=== PATIENT | female | born 1950 | race Caucasian/White ===

== ENCOUNTER 2016-11-01 15:02 | Inpatient (IN) | payer MEDICARE, OTHER ==
[2016-11-01] MEDS ORDERED: MAGNESIUM SULFATE-D5W PMX 1 GM in DEXTROSE/WATER 1 100ML.BAG IVPB STA (15:14)
[2016-11-01] MEDS ORDERED: SODIUM CHLORIDE 0.9% 1,000 ML IV STA (15:14)
[2016-11-01] MEDS ORDERED: methylPREDNISolone SOD SUCCI 125 MG/2 ML VIAL IV STA (15:15)
[2016-11-01] MEDS ORDERED: IPRATROPIUM-ALBUTEROL 3 ML NEB INHALATION STA (15:15)
--- NOTE | 2016-11-01 15:18 | ED ---
SOB HPI - General Chief Complaint: Shortness of Breath Stated Complaint: dx pneumonia Time Seen by Provider: 11/01/16 15:14 Source: patient, EMS, RN notes reviewed Mode of arrival: EMS Limitations: no limitations - History of Present Illness Initial Comments: Is a 66-year-old female who is a smoker for many years who presents with complaints of 3 days of not feeling well she has had a cough fevers chills sweats she's had phlegm production is yellow-brown in color some pain when coughing but no chest pain otherwise. She states she is a smoker and is trying to quit but has a problem with the adhesive for the nicotine patches had a bad reaction with Chantix. She was seen in outpatient clinic and diagnosed with pneumonia and she was sent here she was given an updraft in route with some relief. MD Complaint: shortness of breath, cough - Related Data Home Medications Medication Instructions Recorded Confirmed Citalopram Hydrobromide [CeleXA] 40 mg PO [facility] 07/18/16 11/01/16 Hydrochlorothiazide [Hydrodiuril] 25 mg PO DAILY 07/18/16 11/01/16 traZODone HCL 50 mg PO 07/18/16 11/01/16 Ascorbic Acid [Vitamin C] 500 mg PO DAILY 11/01/16 11/01/16 Aspirin [Adult Low Dose Aspirin EC] 81 mg PO HS 11/01/16 11/01/16 Biotin 5 mg PO DAILY 11/01/16 11/01/16 Cholecalciferol [Vitamin D3] 1,000 unit PO DAILY 11/01/16 11/01/16 Citalopram Hydrobromide [CeleXA] 20 mg PO 11/01/16 11/01/16 Flaxseed Oil [[place]-3 Flaxseed Oil] 1,000 mg PO HS 11/01/16 11/01/16 Ginkgo Biloba [place] Extract [Ginkgo] 60 mg PO DAILY 11/01/16 11/01/16 L.acidoph,Paracasei, B.lactis 1 cap PO DAILY 11/01/16 11/01/16 [Probiotic] Naproxen Sodium [Aleve] 440 mg PO HS 11/01/16 11/01/16 Vitamin B Complex 1 cap PO DAILY 11/01/16 11/01/16 Allergies Allergy/AdvReac Type Severity Reaction Status Date / Time latex Allergy Unknown Verified 11/01/16 15:43 Penicillins Allergy Unknown Verified 11/01/16 15:43 Sulfa (Sulfonamide Allergy Unknown Verified 11/01/16 15:43 Antibiotics) zinc Allergy Unknown Verified 11/01/16 15:43 Review of Systems ROS Statement: Those systems with pertinent positive or pertinent negative responses have been documented in the HPI. ROS Other: All systems not noted in ROS Statement are negative. Past Medical History Past Medical History: Hypertension History of Any Multi-Drug Resistant Organisms: MRSA Date of last positivie culture/infection: 09/20/2014 MDRO Source:: Left Trunk Past Surgical History: Hysterectomy Past Psychological History: Anxiety, Depression Smoking Status: Current every day smoker Past Alcohol Use History: None Reported Past Drug Use History: None Reported General Exam - General Exam Comments Initial Comments: This is a well-developed well-nourished awake alert oriented 3 female Limitations: no limitations General appearance: alert, anxious, in distress Head exam: Present: atraumatic, normocephalic, normal inspection Eye exam: Present: normal appearance, PERRL, EOMI. Absent: scleral icterus, conjunctival injection, periorbital swelling ENT exam: Present: mucous membranes dry Neck exam: Present: normal inspection. Absent: tenderness, meningismus, lymphadenopathy Respiratory exam: Present: respiratory distress, wheezes, rhonchi, accessory muscle use, decreased breath sounds Cardiovascular Exam: Present: normal rhythm, tachycardia GI/Abdominal exam: Present: soft, normal bowel sounds. Absent: distended, tenderness, guarding, rebound, rigid Extremities exam: Present: normal inspection, full ROM, normal capillary refill. Absent: tenderness, pedal edema, joint swelling, calf tenderness Back exam: Present: normal inspection Neurological exam: Present: alert, oriented X3, CN II-XII intact Psychiatric exam: Present: normal affect, normal mood Skin exam: Present: warm, dry, intact, normal color. Absent: rash Course Vital Signs 11/01/16 11/01/16 11/01/16 15:03 15:15 15:32 Temperature 101.7 F H Pulse Rate 107 H 101 H Respiratory 22 Rate Blood Pressure 117/54 O2 Sat by Pulse 89 L 92 L Oximetry 11/01/16 11/01/16 15:41 16:22 Temperature 101 F H Pulse Rate 100 107 H Respiratory 22 Rate Blood Pressure 104/55 O2 Sat by Pulse 92 L Oximetry - Reevaluation(s) Reevaluation #1: 11/01/16 16:10 Patient does not feel that she had much relief from the updraft. She still dyspneic. Her saturations only as high as 92 on nasal oxygen supplementation. Reevaluation #2: 11/01/16 16:25 Patient is stable at this time no major improvement but not getting any worse. Medical Decision Making - Medical Decision Making I did discuss findings with the patient she will be admitted for inpatient treatment. - Lab Data Result diagrams: 11/01/16 15:26 11/01/16 15:26 Lab Results 11/01/16 11/01/16 11/01/16 Range/Units 15:26 15:26 15:26 WBC 18.4 H (3.8-10.6) k/uL RBC 4.30 (3.80-5.40) m/uL Hgb 13.0 (11.4-16.0) gm/dL Hct 39.5 (34.0-46.0) % MCV 91.9 (80.0-100.0) fL MCH 30.2 (25.0-35.0) pg MCHC 32.9 (31.0-37.0) g/dL RDW 13.4 (11.5-15.5) % Plt Count 352 (150-450) k/uL Neutrophils % 88 % Lymphocytes % 4 % Monocytes % 6 % Eosinophils % 1 % Basophils % 0 % Neutrophils # 16.1 H (1.3-7.7) k/uL Lymphocytes # 0.6 L (1.0-4.8) k/uL Monocytes # 1.1 H (0-1.0) k/uL Eosinophils # 0.2 (0-0.7) k/uL Basophils # 0.0 (0-0.2) k/uL Sodium 137 (137-145) mmol/L Potassium 3.7 (3.5-5.1) mmol/L Chloride 100 (98-107) mmol/L Carbon Dioxide 25 (22-30) mmol/L Anion Gap 12 mmol/L BUN 20 H (7-17) mg/dL Creatinine 0.60 (0.52-1.04) mg/dL Est GFR (MDRD) Af Amer >60 (>60 ml/min/1.73 sqM) Est GFR (MDRD) Non-Af >60 (>60 ml/min/1.73 sqM) Glucose 103 H (74-99) mg/dL Plasma Lactic Acid Rohan 1.7 (0.7-2.0) mmol/L Calcium 9.7 (8.4-10.2) mg/dL Magnesium 1.9 (1.6-2.3) mg/dL Total Bilirubin 0.5 (0.2-1.3) mg/dL AST 26 (14-36) U/L ALT 31 (9-52) U/L Alkaline Phosphatase 121 (38-126) U/L Total Protein 6.3 (6.3-8.2) g/dL Albumin 3.1 L (3.5-5.0) g/dL - EKG Data -: EKG Interpreted by Ri EKG shows normal: sinus rhythm (Sinus tachycardia rate 103. Interval 160 QRS duration 90 QT/QTC of 344/450 left axis deviation, low-voltage QRS poor R-wave progression) - Radiology Data Radiology results: image reviewed (I did review the imaging supply from the outpatient clinic there is evidence of left upper lobe infiltrate as well as some increased interstitial markings.) Critical Care Time Critical Care Time: Yes Critical Care Time: 33 minutes of critical care time which includes monitoring initially EMS call as well as discussed with paramedics. History physical lab and x-ray orders on the patient initially. Reevaluation the patient to responsive therapy. Review the x-ray was applied by the patient the outpatient clinic. Discussion with the admitting physician inpatient orders documentation the above. Disposition Clinical Impression: Pneumonia, Acute exacerbation of chronic obstructive airways disease, Adult respiratory distress syndrome, Febrile illness, acute, Hypoxemia, Dehydration Disposition: ADMITTED IP TO THIS HOSP Condition: Stable
[2016-11-01] MEDS: ACETAMINOPHEN TAB 500 MG TAB PO STA (15:42)
[2016-11-01] MEDS ORDERED: LEVOFLOXACIN 750MG-D5W PMX 750 MG in DEXTROSE/WATER 1 150ML.BAG IVPB STA (15:48)
[2016-11-01 16:05] LABS: ALT 31 U/L (9-52); AST 26 U/L (14-36); Alkaline Phosphatase 121 U/L (38-126); Anion Gap 12 mmol/L; Blood Urea Nitrogen 20 mg/dL (7-17); Calcium 9.7 mg/dL (8.4-10.2); Carbon Dioxide 25 mmol/L (22-30); Chloride 100 mmol/L (98-107); Glucose 103 mg/dL (74-99); Magnesium 1.9 mg/dL (1.6-2.3); Non-African American GFR(MDRD) >60 (>60 ml/min/1.73 sqM); Potassium 3.7 mmol/L (3.5-5.1); Sodium 137 mmol/L (137-145); Total Bilirubin 0.5 mg/dL (0.2-1.3); Total Protein 6.3 g/dL (6.3-8.2)
[2016-11-01 16:09] LABS: Basophils % (A) 0 %; CH 30.1; CHCM 32.9; Eosinophils # (A) 0.2 k/uL (0-0.7); Eosinophils % (A) 1 %; HCT 39.5 % (34.0-46.0); HDW 2.37; Luc # (Auto) 0.27; Luc % (Auto) 2; Lymphocytes # (A) 0.6 k/uL (1.0-4.8); Lymphocytes % (A) 4 %; MCH 30.2 pg (25.0-35.0); MCHC 32.9 g/dL (31.0-37.0); MCV 91.9 fL (80.0-100.0); Mean Platelet Volume 6.7; Monocytes # (A) 1.1 k/uL (0-1.0); Monocytes % (A) 6 %; Neutrophils # (A) 16.1 k/uL (1.3-7.7); Neutrophils % (A) 88 %; RDW 13.4 % (11.5-15.5); WBC 18.4 k/uL (3.8-10.6); WBC (Perox) 18.18
[2016-11-01 16:17] LABS: Creatine Kinase 99 U/L (30-135)
[2016-11-01 16:27] LABS: Partial Thromboplastin Time 27.8 sec (22.0-30.0); Prothrombin Time 10.6 sec (9.0-12.0)
[2016-11-01] MEDS ORDERED: PNEUMONIA PROTOCOL UTILIZED 1 EACH MISC PO PRN (16:28)
[2016-11-01 16:30] LABS: Creatine Kinase MB 0.6 ng/mL (0.0-2.4); Troponin I <0.012 ng/mL (0.000-0.034)
[2016-11-01] MEDS: SODIUM CHLORIDE 0.9% 1,000 ML IV SCH (18:05)
[2016-11-01] MEDS: methylPREDNISolone SOD SUCCI 125 MG/2 ML VIAL IV SCH ×2 (18:44→23:57)
[2016-11-01] MEDS ORDERED: IPRATROPIUM-ALBUTEROL 3 ML NEB INHALATION PRN (19:54)
[2016-11-01] MEDS ORDERED: IPRATROPIUM-ALBUTEROL 3 ML NEB INHALATION SCH (20:00)
[2016-11-01] MEDS: IPRATROPIUM-ALBUTEROL 3 ML NEB INHALATION SCH (20:10)
[2016-11-01] MEDS: traZODone HCL 50 MG TAB PO SCH (20:52)
[2016-11-01] MEDS: ASPIRIN 81 MG CHEW PO SCH (20:52)
[2016-11-01] MEDS: NAPROXEN 250 MG TAB PO SCH (20:52)
[2016-11-01] MEDS: CITALOPRAM HYDROBROMIDE 20 MG TAB PO SCH (20:52)
[2016-11-01] MEDS ORDERED: NON-FORMULARY DRUG (Flaxseed Oil [Omega-3 Flaxseed Oil] 1,000 MG) PO SCH (21:00)
[2016-11-01] MEDS: NICOTINE 21MG/24HR PATCH TRANSDERM SCH (22:34)
[2016-11-02] MEDS: SODIUM CHLORIDE 0.9% 1,000 ML IV SCH ×3 (01:00→22:55)
[2016-11-02] MEDS ORDERED: MELATONIN 3 MG TABLET PO SCH ×2 (01:30→21:00)
[2016-11-02] MEDS: methylPREDNISolone SOD SUCCI 125 MG/2 ML VIAL IV SCH ×2 (05:34→12:16)
[2016-11-02] MEDS: IPRATROPIUM-ALBUTEROL 3 ML NEB INHALATION SCH ×4 (06:54→19:11)
[2016-11-02] MEDS: ASCORBIC ACID 500 MG TAB PO SCH (08:37)
[2016-11-02] MEDS: CHOLECALCIFEROL 1,000 UNIT TAB PO SCH (08:38)
[2016-11-02] MEDS: HYDROCHLOROTHIAZIDE 25 MG TAB PO SCH (08:38)
[2016-11-02] MEDS: CITALOPRAM HYDROBROMIDE 20 MG TAB PO SCH ×2 (08:38→22:53)
[2016-11-02] MEDS: LACTOBACILLUS ACIDOPH & BULGAR 1 EACH PACKET PO SCH (08:39)
[2016-11-02] MEDS ORDERED: NON-FORMULARY DRUG (Biotin [Biotin] 5 MG) PO SCH (09:00)
[2016-11-02] MEDS ORDERED: NON-FORMULARY DRUG (Ginkgo Biloba Leaf Extract [Ginkgo] 60 MG) PO SCH (09:00)
[2016-11-02] MEDS: ACETAMINOPHEN TAB 500 MG TAB PO STA (11:07)
[2016-11-02] MEDS: B COMPLEX-VIT C-VIT E-ZINC 1 EACH TAB PO SCH (12:16)
[2016-11-02 12:33] LABS: Glucose,Whole Blood 143 mg/dL (75-99)
[2016-11-02] MEDS: INSULIN LISPRO (humaLOG) 300 UNIT/3 ML VIAL SQ SCH ×3 (13:02→21:59)
[2016-11-02] MEDS ORDERED: HYDROcodone/APAP 5-325MG 1 EACH TAB PO PRN (13:11)
--- NOTE | 2016-11-02 13:55 | XR ---
EXAMINATION TYPE: XR chest 2V DATE OF EXAM: 11/02/2016 1:48 PM COMPARISON: Prior chest x-ray from outside institution dated 01 November 2016 HISTORY: Pneumonia, cough TECHNIQUE: Frontal and lateral views of the chest are obtained. FINDINGS: Airspace disease is again noted in the left hemithorax, interstitium is also prominent dif fusely, somewhat improved in the right hemithorax although there are differences in technique. No cheryl dent pneumothorax or pleural effusion. Cardiomediastinal silhouette, pulmonary vascularity and rosanna n ot significantly changed. There may be some aorticopulmonary window adenopathy. IMPRESSION: Findings may be indicative of pneumonia, cannot exclude an underlying mass with intersti tial spread of carcinoma, follow-up to resolution and consider chest CT as indicated.
[2016-11-02] MEDS: ALPRAZolam 0.25 MG TAB PO PRN ×2 (14:17→23:47)
[2016-11-02] MEDS: FLUTICASONE 50MCG/SPRAY NASAL 16GM EA NOSTRIL PRN (14:17)
[2016-11-02 17:44] LABS: Glucose,Whole Blood 145 mg/dL (75-99)
[2016-11-02] MEDS: LEVOFLOXACIN 750 MG TAB PO SCH (17:53)
[2016-11-02] MEDS: BENZOCAINE/MENTHOL LOZENG 1 EACH LOZENGE MUCOUS MEM PRN ×2 (18:45→22:53)
--- NOTE | 2016-11-02 20:00 | HP ---
DATE OF ADMISSION: 11/01/2016 Patient is a 66-year-old pleasant female who came in with complaints of cough, fever, chills and patient producing brownish phlegm, copious amounts of brownish phlegm and patient was found to have high-grade fevers here and the patient was found to be septic with left upper lobe pneumonia. ALLERGY TO PENICILLIN. HER ALLERGY IS ANGIOEDEMA. Because of which patient was appropriately started on levofloxacin which is being continued at this point of time and patient ( ) blood cultures, sputum cultures and the patient is not feeling much better compared to yesterday. The patient is a smoker. The patient does have a history of history of COPD, does not use any oxygen at home. Chest x-ray showing left upper lobe pneumonia was obtained at an outside facility and repeat chest x-ray here was read as mass with interstitial spread of carcinoma cannot be excluded because of which I will go ahead and obtain a CT of her chest either today or tomorrow. In the meantime, patient will be continued on IV fluids. Patient is on Solu-Medrol which we will cut it down to 40 b.i.d. REVIEW OF SYSTEMS: CONSTITUTIONAL: No fever, no malaise, no fatigue. HEENT: No recent visual problems or hearing problems. Denied any sore throat. CARDIOVASCULAR: No chest pain, orthopnea, PND, no palpitations, no syncope. PULMONARY: As described in HPI. Also complaining of shortness of breath. Denied any orthopnea, PND. GASTROINTESTINAL: No diarrhea, no nausea, no vomiting, no abdominal pain. Normoactive bowel sounds. NEUROLOGICAL: No headaches, no weakness, no numbness. HEMATOLOGICAL: Denies any bleeding or petechiae. GENITOURINARY: Denies any burning micturition, frequency, or urgency. MUSCULOSKELETAL/RHEUMATOLOGICAL: Denies any joint pain, swelling, or any muscle pain. ENDOCRINE: Denies any polyuria or polydipsia. The rest of the 14 point review of systems is negative. Medications include: 1. Citalopram. 2. Hydrochlorothiazide. 3. Trazadone. 4. Ascorbic acid. 5. Aspirin. 6. Biotin. 7. Cholecalciferol. 8. Flaxseed. 9. Ginkgo biloba. 10. Naproxen. 11. Vitamin B. ALLERGIES: ALLERGIC TO LATEX, PENICILLIN, SULFA DRUGS AND ZINC. Past medical history is significant for hypertension, gastroesophageal reflux disease, MRSA in the past. The patient apparently had polio at age 8 with minimal weakness, appendectomy, hernia repair, hysterectomy, orthopedic surgery, tonsillectomy, anxiety, depression. SOCIAL HISTORY: The patient does smoke a pack per day. Denied any alcohol abuse or any drug abuse. FAMILY HISTORY: Significant for COPD, hyperlipidemia, hypertension, hypothyroidism, heart problems, emphysema and hypoglycemia. PHYSICAL EXAMINATION: VITAL SIGNS: Temperature 97.1, pulse of 100, respiratory rate 22, blood pressure is 139/69. Saturating at 93% on 2 L O2 by nasal cannula. GENERAL: The patient is alert and oriented x3, not in any acute distress. Well developed, well nourished. HEENT: Pupils are round and equally reacting to light. EOMI. No scleral icterus. No conjunctival pallor. Normocephalic, atraumatic. No pharyngeal erythema. No thyromegaly. CARDIOVASCULAR: S1 and S2 present. No murmurs, rubs, or gallops. PULMONARY: Patient has clear-cut bronchophony and egophony and left anterior upper lung bob and crackles are appreciated bilaterally actually and diffuse. No wheezing was appreciated. ABDOMEN: Soft, nontender, nondistended, normoactive bowel sounds. No palpable organomegaly. MUSCULOSKELETAL: No joint swelling or deformity. EXTREMITIES: No cyanosis, clubbing, or pedal edema. NEUROLOGICAL: Gross neurological examination did not reveal any focal deficits. SKIN: No rashes. LABORATORY DATA: CBC, CMP are abnormal for elevated WBC count of 13,400. ASSESSMENT AND PLAN: 1. Left upper lobe pneumonia. We will obtain sputum cultures, blood cultures. Patient is on above mentioned antibiotics and breathing treatments. 2. Chronic obstructive pulmonary disease with minimal exacerbation with significant improvement since yesterday. Patient will be continued on inhalational treatments and systemic steroids. I will cut down the systemic steroid dose to 40 IV b.i.d. 3. Hoarseness of voice with sinusitis. Patient will need to follow with ENT as an outpatient and the patient has probably bronchitis, laryngitis along with pneumonia along with sinusitis. All of which ae bacterial probably. 4. Chest x-ray findings concerning for mass that cannot be excluded, I will obtain a CT today or tomorrow before her discharge. 5. Hypertension. Hold off on hydrochlorothiazide. 6. Depression, continue with citalopram. 7. Nicotine abuse. Counseling was provided.
[2016-11-02 21:06] LABS: Glucose,Whole Blood 169 mg/dL (75-99)
[2016-11-02] MEDS: NICOTINE 21MG/24HR PATCH TRANSDERM SCH (21:55)
[2016-11-02] MEDS: MELATONIN 5 MG TABLET PO PRN (21:56)
[2016-11-02] MEDS: ASPIRIN 81 MG CHEW PO SCH (21:57)
[2016-11-02] MEDS: NAPROXEN 250 MG TAB PO SCH (21:57)
[2016-11-02] MEDS: methylPREDNISolone SOD SUCCI 40 MG/ML 1 ML VIAL IV SCH (21:58)
[2016-11-02] MEDS: traZODone HCL 50 MG TAB PO SCH (21:59)
[2016-11-03 07:03] LABS: Glucose,Whole Blood 139 mg/dL (75-99)
[2016-11-03] MEDS: IPRATROPIUM-ALBUTEROL 3 ML NEB INHALATION SCH ×4 (07:06→19:26)
[2016-11-03] MEDS: SODIUM CHLORIDE 0.9% 1,000 ML IV SCH (07:42)
[2016-11-03] MEDS: INSULIN LISPRO (humaLOG) 300 UNIT/3 ML VIAL SQ SCH ×4 (07:43→21:28)
[2016-11-03] MEDS: ASCORBIC ACID 500 MG TAB PO SCH (07:45)
[2016-11-03] MEDS: CHOLECALCIFEROL 1,000 UNIT TAB PO SCH (07:45)
[2016-11-03] MEDS: HYDROCHLOROTHIAZIDE 25 MG TAB PO SCH (07:46)
[2016-11-03] MEDS: CITALOPRAM HYDROBROMIDE 20 MG TAB PO SCH ×2 (07:46→21:48)
[2016-11-03] MEDS: LACTOBACILLUS ACIDOPH & BULGAR 1 EACH PACKET PO SCH (07:47)
[2016-11-03] MEDS: methylPREDNISolone SOD SUCCI 40 MG/ML 1 ML VIAL IV SCH (07:47)
[2016-11-03 09:12] LABS: CH 29.8; HCT 37.6 % (34.0-46.0); HDW 2.43; HGB 11.9 gm/dL (11.4-16.0); Immature Gran Flag Moderate; MCH 29.7 pg (25.0-35.0); MCHC 31.7 g/dL (31.0-37.0); MCV 93.6 fL (80.0-100.0); Mean Platelet Volume 6.2; RBC 4.02 m/uL (3.80-5.40); RDW 13.7 % (11.5-15.5); WBC 15.4 k/uL (3.8-10.6); WBC (Perox) 17.71
[2016-11-03 09:37] LABS: ALT 36 U/L (9-52); AST 35 U/L (14-36); Alkaline Phosphatase 113 U/L (38-126); Anion Gap 14 mmol/L; Blood Urea Nitrogen 18 mg/dL (7-17); Calcium 8.8 mg/dL (8.4-10.2); Carbon Dioxide 22 mmol/L (22-30); Chloride 107 mmol/L (98-107); Glucose 133 mg/dL (74-99); Non-African American GFR(MDRD) >60 (>60 ml/min/1.73 sqM); Potassium 3.1 mmol/L (3.5-5.1); Sodium 143 mmol/L (137-145); Total Bilirubin 0.4 mg/dL (0.2-1.3); Total Protein 5.6 g/dL (6.3-8.2)
[2016-11-03] MEDS ORDERED: RX INFO: IV CONTRAST WAS GIVEN 1 EACH MISC MISCELLANE PRN (09:56)
[2016-11-03] MEDS ORDERED: Potassium Replacement Protocol 1 EACH MISC MISCELLANE PRN (10:01)
[2016-11-03] MEDS: ALPRAZolam 0.25 MG TAB PO PRN ×2 (10:07→22:09)
[2016-11-03 10:35] LABS: Add Differential Manual Differential
[2016-11-03 10:41] LABS: Band Neutrophils % 22.5 %; Nucleated Red Blood Cells 0 /100 WBC (0-0); Total Cells Counted 200
[2016-11-03 10:44] LABS: Target Cells Present
[2016-11-03] MEDS ORDERED: Magnesium Replacement Protocol 1 EACH MISC MISCELLANE PRN (10:57)
--- NOTE | 2016-11-03 11:07 | CT ---
EXAMINATION TYPE: CT chest w con DATE OF EXAM: 11/03/2016 10:57 AM COMPARISON: NONE HISTORY: pneumonia CT DLP: 356.6 mGycm Automated exposure control for dose reduction was used. CONTRAST: CT scan of the chest is performed with IV Contrast, patient injected with 100 ml mL of Omnipaque 300. FINDINGS: LUNGS: There are bilateral areas of diffuse consolidation with the most marked changes involving the left upper lobe most typical pneumonia. Shotty adenopathy is seen in the mediastinum with an area of pathologic adenopathy measuring a short axis of 1.1 cm. No pneumothorax. Emphysematous changes are no amauri. Small left pleural effusion seen. MEDIASTINUM: There are no greater than 1 cm hilar or mediastinal lymph nodes. No pericardial effusi on is seen. Cardiomegaly and coronary artery calcification seen. OTHER: Benign-appearing renal cysts on the left of a simple appearance. IMPRESSION: 1. Diffuse bilateral infiltrate with most marked changes involving the left upper lobe most typical o f pneumonia. Adenopathy as described above. 2. COPD. 3. Cardiomegaly and coronary artery calcification.
[2016-11-03] MEDS ORDERED: traZODone HCL 50 MG TAB PO STA (11:37)
[2016-11-03 11:48] LABS: Glucose,Whole Blood 139 mg/dL (75-99)
[2016-11-03] MEDS: MAGNESIUM SULFATE-D5W PMX 1 GM in DEXTROSE/WATER 1 100ML.BAG IVPB SCH ×2 (11:49→13:13)
[2016-11-03] MEDS: POTASSIUM CHLORIDE ER 20 MEQ TAB.ER PO SCH ×2 (11:49→13:12)
[2016-11-03] MEDS: B COMPLEX-VIT C-VIT E-ZINC 1 EACH TAB PO SCH (11:51)
[2016-11-03] MEDS: LEVOFLOXACIN 750 MG TAB PO SCH (16:32)
[2016-11-03] MEDS: ACETAMINOPHEN TAB 325 MG TAB PO PRN (16:33)
--- NOTE | 2016-11-03 17:02 | P.PN ---
Subjective Date of service 11/03/2016. Progress note being dictated for Dr. Yeung. Interval history: This is 66 0 female admitted with left upper lobe pneumonia, acute COPD exacerbation, sinusitis and multiple other medical issues. Chest x- ray reported potential mass. Chest CT performed this morning reporting diffuse bilateral infiltrates, most marked changes involving the left upper lobe, typical of pneumonia, shotty adenopathy in the mediastinum with an area of pathologic adenopathy measuring 1.1 cm. Maintained on antibiotics , nebulized bronchodilators, IV steroids. Breathing slow to improve, hoarseness persists, maintaining O2 sats of 93% on 3 L nasal cannula. Complains of insomnia. Denies chest pain, palpitations. Objective - Vital Signs Vital signs: Vital Signs Temp 97.0 F L 11/03/16 07:00 Pulse 87 11/03/16 07:00 Resp 20 11/03/16 08:00 BP 140/70 11/03/16 07:00 Pulse Ox 93 L 11/03/16 07:00 Intake & Output 11/02/16 11/03/16 11/03/16 18:59 06:59 18:59 Intake Total 200 500 Balance 200 500 Intake: Oral 200 500 Other: Voiding Method Toilet # Voids 3 2 - Exam PHYSICAL EXAM: VITAL SIGNS: As above GENERAL: [Sitting up at side of bed, tired appearing] HEENT: [Pupils equal conjunctiva normal.] NECK: [Supple, no JVD] RESPIRATORY EFFORT:[Increased] LUNGS: [Fair air entry, bibasilar crackles, occasional fine expiratory wheezing ] CARDIOVASCULAR[regular S1 and S2, no edema] GI: [Abdomen soft, nontender, positive bowel sounds.] PSYCH: [Alert and oriented -3, mood and affect normal.] NEURO: No focal deficits, moves all 4 extremities, strength and sensation grossly intact - Labs CBC & Chem 7: 11/03/16 08:59 11/03/16 08:59 Labs: Abnormal Lab Results - Last 24 Hours (Table) 11/02/16 11/02/16 11/03/16 Range/Units 17:20 21:03 07:02 WBC (3.8-10.6) k/uL Neutrophils # (Manual) (1.3-7.7) k/uL Lymphocytes # (Manual) (1.0-4.8) k/uL Potassium (3.5-5.1) mmol/L BUN (7-17) mg/dL Glucose (74-99) mg/dL POC Glucose (mg/dL) 145 H 169 H 139 H (75-99) mg/dL Total Protein (6.3-8.2) g/dL Albumin (3.5-5.0) g/dL 11/03/16 11/03/16 11/03/16 Range/Units 08:59 08:59 11:46 WBC 15.4 H (3.8-10.6) k/uL Neutrophils # (Manual) 14.0 H (1.3-7.7) k/uL Lymphocytes # (Manual) 0.7 L (1.0-4.8) k/uL Potassium 3.1 L (3.5-5.1) mmol/L BUN 18 H (7-17) mg/dL Glucose 133 H (74-99) mg/dL POC Glucose (mg/dL) 139 H (75-99) mg/dL Total Protein 5.6 L (6.3-8.2) g/dL Albumin 2.7 L (3.5-5.0) g/dL Microbiology - Last 24 Hours (Table) 11/02/16 07:00 Gram Stain - Preliminary Sputum Assessment and Plan Plan: 1. Acute hypoxic respiratory failure secondary to Acute Left upper lobe pneumonia with acute COPD exacerbation 2. Pathologic mediastinal adenopathy measuring 1.[address] Pulmonary recommendations pending. 3. [Sinusitis with hoarseness, probably bronchitis, laryngitis]. 4. [Hypertension]. 5. [Depression, anxiety]. 6. [Ongoing nicotine abuse]. 7. [Insomnia]. Plan: Continue on current medication regime , antibiotics, nebulized bronchodilators, steroids, monitoring and symptomatic treatment. Patient complaining of insomnia, hasn't slept over 50 hours, IV steroids converted to oral. Abnormal chest x-ray, abnormal CT, pulmonary consulted. Smoking cessation readdressed. Prognosis guarded given multiple complex medical issues. Further recommendations to follow. The impression and plan of care has been dictated as directed. : I performed a H&P examination of this patient and discussed the same with the dictator. I agree with the dictator's note. Any additional findings/opinions/ etc. will be noted.
[2016-11-03 17:13] LABS: Glucose,Whole Blood 149 mg/dL (75-99)
[2016-11-03 21:21] LABS: Glucose,Whole Blood 154 mg/dL (75-99)
[2016-11-03] MEDS: traZODone HCL 50 MG TAB PO SCH (21:47)
[2016-11-03] MEDS: ASPIRIN 81 MG CHEW PO SCH (21:48)
[2016-11-03] MEDS: NAPROXEN 250 MG TAB PO SCH (21:48)
[2016-11-03] MEDS: NICOTINE 21MG/24HR PATCH TRANSDERM SCH (21:49)
[2016-11-04] MEDS: SODIUM CHLORIDE 0.9% 1,000 ML IV SCH ×3 (00:41→15:36)
[2016-11-04 07:45] LABS: Glucose,Whole Blood 110 mg/dL (75-99)
[2016-11-04] MEDS: INSULIN LISPRO (humaLOG) 300 UNIT/3 ML VIAL SQ SCH ×4 (08:11→21:47)
[2016-11-04] MEDS: HYDROCHLOROTHIAZIDE 25 MG TAB PO SCH (08:20)
[2016-11-04] MEDS: ALPRAZolam 0.25 MG TAB PO PRN ×2 (08:20→17:52)
[2016-11-04] MEDS: FLUTICASONE 50MCG/SPRAY NASAL 16GM EA NOSTRIL PRN ×2 (08:20→20:11)
[2016-11-04] MEDS: predniSONE 20 MG TAB PO SCH (08:21)
[2016-11-04] MEDS: ASCORBIC ACID 500 MG TAB PO SCH (08:21)
[2016-11-04] MEDS: LACTOBACILLUS ACIDOPH & BULGAR 1 EACH PACKET PO SCH (08:21)
[2016-11-04] MEDS: CHOLECALCIFEROL 1,000 UNIT TAB PO SCH (08:21)
[2016-11-04] MEDS: CITALOPRAM HYDROBROMIDE 20 MG TAB PO SCH ×2 (08:21→20:11)
[2016-11-04] MEDS: IPRATROPIUM-ALBUTEROL 3 ML NEB INHALATION SCH ×4 (08:35→20:07)
[2016-11-04 11:44] LABS: CH 30.1; CHCM 32.1; HCT 39.9 % (34.0-46.0); HDW 2.49; HGB 12.6 gm/dL (11.4-16.0); Immature Gran Flag Marked; MCH 29.8 pg (25.0-35.0); MCHC 31.7 g/dL (31.0-37.0); MCV 94.1 fL (80.0-100.0); Mean Platelet Volume 7.3; RBC 4.24 m/uL (3.80-5.40); WBC 23.5 k/uL (3.8-10.6)
[2016-11-04 11:59] LABS: ALT 43 U/L (9-52); AST 48 U/L (14-36); Alkaline Phosphatase 117 U/L (38-126); Anion Gap 12 mmol/L; Blood Urea Nitrogen 14 mg/dL (7-17); Calcium 8.6 mg/dL (8.4-10.2); Carbon Dioxide 26 mmol/L (22-30); Chloride 99 mmol/L (98-107); Glucose 136 mg/dL (74-99); Non-African American GFR(MDRD) >60 (>60 ml/min/1.73 sqM); Potassium 3.1 mmol/L (3.5-5.1); Sodium 137 mmol/L (137-145); Total Bilirubin 0.6 mg/dL (0.2-1.3); Total Protein 5.5 g/dL (6.3-8.2)
[2016-11-04] MEDS ORDERED: Potassium Replacement Protocol 1 EACH MISC MISCELLANE PRN (12:01)
[2016-11-04] MEDS: B COMPLEX-VIT C-VIT E-ZINC 1 EACH TAB PO SCH (12:03)
[2016-11-04 12:43] LABS: Add Differential Manual Differential
[2016-11-04 12:45] LABS: Glucose,Whole Blood 126 mg/dL (75-99)
[2016-11-04 12:46] LABS: Band Neutrophils % 29.5 %; Manual Review Performed; Metamyelocytes % 0.5 %; Nucleated Red Blood Cells 0 /100 WBC (0-0); Total Cells Counted 200
[2016-11-04] MEDS: POTASSIUM CHLORIDE ER 20 MEQ TAB.ER PO SCH ×4 (13:00→17:52)
[2016-11-04] MEDS: NYSTATIN 100,000 UNIT/ML SUSP 500,000 UNIT/5 ML CUP PO SCH ×3 (13:41→21:49)
[2016-11-04] MEDS ORDERED: TEMAZEPAM 15 MG CAP PO PRN (15:13)
[2016-11-04 17:37] LABS: Glucose,Whole Blood 123 mg/dL (75-99)
[2016-11-04] MEDS: LEVOFLOXACIN 750 MG TAB PO SCH (17:53)
[2016-11-04] MEDS ORDERED: NICOTINE POLACRILEX 2 MG GUM BUCCAL PRN (17:55)
[2016-11-04] MEDS: traZODone HCL 50 MG TAB PO SCH (20:11)
[2016-11-04] MEDS: NAPROXEN 250 MG TAB PO SCH (20:11)
[2016-11-04] MEDS: ASPIRIN 81 MG CHEW PO SCH (20:11)
[2016-11-04] MEDS: NICOTINE 21MG/24HR PATCH TRANSDERM SCH (20:14)
[2016-11-04] MEDS: POTASSIUM CHLORIDE 10 MEQ, LIDOCAINE 2% INJ 10 MG in SODIUM CHLORIDE 0.9% 100 ML IVPB SCH ×2 (20:17→21:49)
[2016-11-04 21:45] LABS: Glucose,Whole Blood 120 mg/dL (75-99)
[2016-11-05] MEDS: SODIUM CHLORIDE 0.9% 1,000 ML IV SCH ×3 (00:17→21:23)
[2016-11-05] MEDS: ALPRAZolam 0.25 MG TAB PO PRN ×2 (01:18→09:43)
[2016-11-05 08:09] LABS: Glucose,Whole Blood 133 mg/dL (75-99)
[2016-11-05] MEDS: INSULIN LISPRO (humaLOG) 300 UNIT/3 ML VIAL SQ SCH ×4 (08:12→20:28)
[2016-11-05] MEDS: CHOLECALCIFEROL 1,000 UNIT TAB PO SCH (08:15)
[2016-11-05] MEDS: CITALOPRAM HYDROBROMIDE 20 MG TAB PO SCH ×2 (08:15→22:08)
[2016-11-05] MEDS: ASCORBIC ACID 500 MG TAB PO SCH (08:15)
[2016-11-05] MEDS: predniSONE 20 MG TAB PO SCH (08:16)
[2016-11-05] MEDS: NYSTATIN 100,000 UNIT/ML SUSP 500,000 UNIT/5 ML CUP PO SCH ×4 (08:16→21:57)
[2016-11-05] MEDS: HEPARIN SODIUM,PORCINE 5,000 UNIT/ML 1 ML VIAL SQ SCH ×2 (08:16→21:37)
[2016-11-05] MEDS: LACTOBACILLUS ACIDOPH & BULGAR 1 EACH PACKET PO SCH (08:16)
[2016-11-05] MEDS: HYDROCHLOROTHIAZIDE 25 MG TAB PO SCH (08:16)
[2016-11-05 09:13] LABS: Anion Gap 9 mmol/L; Blood Urea Nitrogen 15 mg/dL (7-17); Calcium 8.2 mg/dL (8.4-10.2); Carbon Dioxide 31 mmol/L (22-30); Chloride 98 mmol/L (98-107); Glucose 128 mg/dL (74-99); Non-African American GFR(MDRD) >60 (>60 ml/min/1.73 sqM); Potassium 3.9 mmol/L (3.5-5.1); Sodium 138 mmol/L (137-145)
[2016-11-05 09:17] LABS: CHCM 31.9; HCT 41.8 % (34.0-46.0); HDW 2.44; HGB 12.8 gm/dL (11.4-16.0); Immature Gran Flag Moderate; MCH 28.8 pg (25.0-35.0); MCHC 30.5 g/dL (31.0-37.0); MCV 94.4 fL (80.0-100.0); Mean Platelet Volume 7.3; RBC 4.43 m/uL (3.80-5.40); WBC (Perox) 30.85
[2016-11-05 09:29] LABS: WBC 29.7 k/uL (3.8-10.6)
--- NOTE | 2016-11-05 09:56 | PN ---
DATE OF SERVICE: 11/04/2016 This 66-year-old woman who was admitted with acute hypoxic respiratory failure, also had acute left upper lobe pneumonia and chronic obstructive pulmonary disease exacerbation. The patient also has some pathological mediastinal lymphadenopathy. Patient is being closely monitored at this time. The chest CT scan has been done, which showed evidence of diffuse bilateral infiltrate and the left upper lobe pneumonia and adenopathy was also noted. Cardiomegaly and coronary calcification also noted. Past medical history reviewed. REVIEW OF SYSTEMS: CARDIOVASCULAR: No angina or palpitations. RESPIRATORY: As mentioned earlier. GI: As mentioned earlier. GENITOURINARY: No dysuria. CENTRAL NERVOUS SYSTEM: no numbness or weakness. Current medications are reviewed and include: 1. Tylenol 650 q.6 p.r.n. 2. [place] 5 mg q.4 p.r.n. 3. DuoNeb q.i.d. and p.r.n. 4. Xanax 0.25 t.i.d. 5. Vitamin C 500 daily. 6. Aspirin 81 mg daily. 7. Cepacol. 8. Vitamin D3 1000 daily. 9. Celexa. 10. Humalog scale. 11. Lactinex. 12. Levaquin. 13. Melatonin. 14. Naprosyn. 15. Desyrel. The patient is alert and oriented x3. Pulse is 104, blood pressure 190/72, respiratory rate 24, temperature 97.4, pulse ox 90% on 6 L. HEENT: Conjunctivae normal. NECK: No jugular venous distention. CARDIOVASCULAR: S1, S2 muffled. RESPIRATORY: Breath sounds diminished at the basis, bilateral scattered rhonchi and crackles. ABDOMEN: Soft, nontender. No mass palpable. LEGS: No edema, no swelling. Nervous system: Higher functions as mentioned earlier. Moves all four limbs. No focal deficits. LYMPHATICS: No lymph nodes palpable in the neck, axillae or groin. SKIN: No ulcer, rash or bleeding. LABS: WBC ( ) 3.5, sodium 131, potassium 3.1. ASSESSMENT: 1. Chronic obstructive pulmonary disease, acute exacerbation, with acute bilateral pneumonia, possibly gram-negative with acute hypoxic respiratory failure. Possible sepsis. 2. Pathological mediastinal lymphadenopathy 1.1 cm. 3. Sinusitis with hoarseness. 4. Possible acute laryngitis. 5. Hypertension. 6. Depression, anxiety. 7. Continued ongoing nicotine dependence. 8. History of insomnia. 9. Cardiomegaly and coronary calcification in the CAT scan. 10. Increased WBC. 11. Hypokalemia. 12. Hypoalbuminemia with mild to moderate protein calorie malnutrition. 13. History gastroesophageal reflux disease. 14. Hypertension. 15. History of childhood polio. 16. History of degenerative joint disease. 17. History of anxiety, depression, not otherwise specified. 18. Continued ongoing nicotine dependence. 19. FULL CODE. RECOMMENDATIONS AND DISCUSSION: In this 66-year-old woman was presented with multiple complex medical issues at this time we will monitor the patient closely. Continue the current medications, continue symptomatic treatment. We will continue the intensive bronchodilators, and as well as antibiotics. Also get a pulmonary consultation. DVT prophylaxis. We will order abnormal labs. Otherwise symptomatic treatment will be provided. The patient is ALLERGIC TO PENICILLIN. Further recommendations to follow. Prognosis guarded.
[2016-11-05 10:12] LABS: Add Differential Manual Differential
[2016-11-05 10:14] LABS: Nucleated Red Blood Cells 0 /100 WBC (0-0); Total Cells Counted 200
[2016-11-05 10:15] LABS: Toxic Granulation Present; Toxic Vacuolation Present
[2016-11-05] MEDS: B COMPLEX-VIT C-VIT E-ZINC 1 EACH TAB PO SCH ×2 (12:01)
[2016-11-05] MEDS: IPRATROPIUM-ALBUTEROL 3 ML NEB INHALATION SCH ×2 (12:04)
[2016-11-05 12:10] LABS: Glucose,Whole Blood 121 mg/dL (75-99)
[2016-11-05] MEDS ORDERED: LEVALBUTEROL NEB 1.25 MG/3 ML AMP INHALATION PRN (12:11)
[2016-11-05] MEDS ORDERED: methylPREDNISolone SOD SUCCI 125 MG/2 ML VIAL IV SCH (13:30)
[2016-11-05] MEDS ORDERED: LEVALBUTEROL NEB 1.25 MG/3 ML AMP INHALATION SCH (16:00)
[2016-11-05] MEDS: IPRATROPIUM 0.5 MG/2.5 ML NEBU INHALATION SCH ×2 (16:11→19:23)
[2016-11-05] MEDS: LEVALBUTEROL NEB (CONC) 1.25 MG/0.5 ML AMP INHALATION SCH ×2 (16:11→19:23)
[2016-11-05] MEDS: AZTREONAM 2 GM in SODIUM CHLORIDE 0.9% 100 ML IVPB SCH (16:26)
[2016-11-05] MEDS: LEVOFLOXACIN 750 MG TAB PO SCH (16:26)
[2016-11-05 16:37] LABS: ABG Base Excess -4.1 mmol/L; ABG HCO3 19 mmol/L (21-25); ABG PCO2 29 mmHg (35-45); ABG PH 7.44 (7.35-7.45); ABG PO2 131 mmHg (83-108); ABG TCO2 20 mmol/L (19-24)
[2016-11-05] MEDS: ALPRAZolam 0.5 MG TAB PO PRN (17:02)
[2016-11-05] MEDS ORDERED: RX INFO: IV CONTRAST WAS GIVEN 1 EACH MISC MISCELLANE PRN (17:07)
[2016-11-05] MEDS ORDERED: IV VANCOMYCIN PER PHARMACY 1 EACH MISC MISCELLANE PRN (17:43)
[2016-11-05 18:22] LABS: Glucose,Whole Blood 166 mg/dL (75-99)
--- NOTE | 2016-11-05 18:29 | CT ---
EXAMINATION TYPE: CT angio chest DATE OF EXAM: 11/05/2016 6:20 PM COMPARISON: 11/03/2016 HISTORY: Patient complains of difficultly breathing and cough. CT DLP: 526 mGycm Automated exposure control for dose reduction was used. CONTRAST: CTA scan of the thorax is performed with IV Contrast, patient injected with 100 mL of Omnipaque 350, pulmonary embolism protocol. There are 3-D post processed images.. FINDINGS: There is a 10 cm area of consolidation and cavitation involving the left upper lobe. There is extensi ve interstitial edema in the right lung. There is extensive reticular and nodular infiltrate in the l ower lung bob and more on the left side. There is some coalescent subpleural infiltrate in the lef t lower lobe. There is bullous emphysema and the right upper lobe. I see no filling defects in the pulmonary arteries. There is no evidence of aortic aneurysm or dissec tion. There are mediastinal lymph nodes that measure up to 2 cm. IMPRESSION: NO EVIDENCE OF PULMONARY EMBOLISM. EXTENSIVE PNEUMONIC ABNORMALITIES WITH CAVITATING LARGE LEFT UPPER LOBE INFILTRATE. THERE IS DECREASE IN LEFT PLEURAL FLUID COMPARED TO 11/03/2016. BULLOUS EMPHYSEMA. M ILD MEDIASTINAL ADENOPATHY. CARDIOMEGALY.
[2016-11-05] MEDS ORDERED: VANCOMYCIN 1,250 MG in SODIUM CHLORIDE 0.9% 250 ML IVPB ONE (19:00)
[2016-11-05] MEDS: FORMOTEROL FUMARATE 20 MCG/2 ML NEBU INHALATION SCH (19:23)
[2016-11-05] MEDS: BUDESONIDE 1 MG/2 ML NEBU INHALATION SCH (19:23)
[2016-11-05 20:09] LABS: Glucose,Whole Blood 138 mg/dL (75-99)
[2016-11-05 20:17] LABS: Amorphous Sediment,Urine Rare /hpf; Appearance,Urine Clear (Clear); Bilirubin,Urine Negative (Negative); Glucose,Urine (UA) Negative (Negative); Ketones,Urine Trace (Negative); Leukocyte Esterase,Urine Negative (Negative); Mucus,Urine Rare /hpf; Nitrite,Urine Negative (Negative); PH, Urine 6.5 (5.0-8.0); Particle Count 1921; Protein,Urine Negative (Negative); RBC,Urine 7 /hpf (0-5); Specific Gravity,Urine 1.009 (1.001-1.035); Squamous Epithelial Cell,Urine 9 /hpf (0-4); UA Billing (MACRO vs. MICRO) MICRO; Urobilinogen,Urine <2.0 mg/dL (<2.0); WBC,Urine 2 /hpf (0-5)
[2016-11-05] MEDS: methylPREDNISolone SOD SUCCI 40 MG/ML 1 ML VIAL IV SCH (21:22)
[2016-11-05] MEDS: NICOTINE 21MG/24HR PATCH TRANSDERM SCH (21:24)
[2016-11-05] MEDS: ASPIRIN 81 MG CHEW PO SCH (22:07)
[2016-11-05] MEDS: NAPROXEN 250 MG TAB PO SCH (22:08)
[2016-11-05] MEDS: traZODone HCL 50 MG TAB PO SCH (22:08)
--- NOTE | 2016-11-05 22:58 | PN ---
DATE OF SERVICE: 11/05/2016 This 66-year-old woman who was admitted with acute hypoxic respiratory failure also had left upper lobe pneumonia and chronic obstructive pulmonary disease as well. The patient is still short of breath. The patient has also had a change in voice. The patient also has lymphadenopathy also. Pulmonary has evaluated the patient. White count is elevated today to. The patient is still short of breath. Not running any fever. Currently, the patient is tachycardic. PAST MEDICAL HISTORY: Reviewed. REVIEW OF SYSTEMS: CARDIOVASCULAR: As mentioned earlier. GI: As mentioned earlier. : As mentioned. NERVOUS SYSTEM: As mentioned. Current medications are reviewed and include: 1. Tylenol 650 every 6 hours p.r.n. 2. [place] 5 mg every 6 hours. 3. Xanax 0.5. 4. Vitamin C 500 mg. 5. Aspirin. 6. Pulmicort. 7. Celexa. 8. Perforomist. 9. Humalog. 10. Lactinex. 11. 12. Xopenex. 13. Melatonin. 14. Solu-Medrol. 15. Magnesium replacement protocol. 16. Habitrol 14. 17. Restoril. 18. Desyrel. PHYSICAL EXAMINATION: The patient is alert, oriented x3. Pulse 103, blood pressure 127/70, respirations 20, temperature 97.9, pulse ox 90% on 10 liters. HEENT: Conjunctivae normal. Oral mucosa moist. NECK: No jugular venous distention. No lymph node enlargement. CARDIOVASCULAR SYSTEM: S1, S2 muffled. RESPIRATORY: Breath sounds diminished at the bases. A few scattered rhonchi and crackles. Expiratory wheezing also present. ABDOMEN: Soft, nontender, no masses palpable. EXTREMITIES: No edema, no swelling. NERVOUS SYSTEM: Higher functions as mentioned. Moves all limbs equally. No focal motor or sensory deficits. LYMPHATICS: No lymph nodes palpable. SKIN: No rashes or ulcers. LABS: At this time, WBC 29.7. Otherwise, d-dimer is 2.23. ABG showing pH of 7.44, glucose 128. ASSESSMENT: 1. Acute bilateral pneumonia, left upper lobe, possibly gram-negative, possibly MSSA with acute hypoxic respiratory failure with possible sepsis, present on admission. 2. Chronic obstructive pulmonary disease, acute exacerbation. 3. Pathological mediastinal lymphadenopathy of 1.1 cm. 4. Elevated D-dimer. 5. Sinusitis with hoarseness. 6. Possible acute laryngitis. 7. Hypertension. 8. Depression and anxiety, not otherwise specified. 9. Continued ongoing nicotine dependence. 10. History of insomnia. 11. Cardiomegaly and chronic calcification on CT scan. 12. Increased WBC. 13. Hypokalemia. 14. Hypoalbuminemia with mild to moderate protein calorie malnutrition. 15. History of gastroesophageal reflux disease. 16. Hypertension. 17. History of childhood polio. 18. History of degenerative joint disease. 19. History of anxiety and depression, not otherwise specified. 20. Continued ongoing nicotine dependence. 21. FULL CODE. RECOMMENDATIONS AND DISCUSSION: In this 60-year-old woman who presented with multiple complex medical issues, we will monitor the patient closely. Continue the current medications. We will optimize bronchodilators. Continue with IV steroids. Obtain new set of blood cultures. Otherwise, overall prognosis is guarded because of the multiple complex medical issues. We will also obtain infectious disease evaluation with Dr. Barker. Prognosis guarded. The elevated white count is a concern. See orders for further details. Discussed with staff. Further recommendations to follow. MTDD
[2016-11-06] MEDS: AZTREONAM 2 GM in SODIUM CHLORIDE 0.9% 100 ML IVPB SCH ×2 (01:50→10:48)
[2016-11-06] MEDS: methylPREDNISolone SOD SUCCI 40 MG/ML 1 ML VIAL IV SCH ×4 (02:27→18:01)
[2016-11-06 04:48] LABS: Basophils # (A) 0.1 k/uL (0-0.2); Basophils % (A) 0 %; CH 29.9; CHCM 32.3; Eosinophils # (A) 0.1 k/uL (0-0.7); Eosinophils % (A) 0 %; HCT 38.9 % (34.0-46.0); HDW 2.36; HGB 12.2 gm/dL (11.4-16.0); Luc # (Auto) 0.22; Luc % (Auto) 1; Lymphocytes # (A) 0.5 k/uL (1.0-4.8); Lymphocytes % (A) 2 %; MCH 29.2 pg (25.0-35.0); MCHC 31.3 g/dL (31.0-37.0); Mean Platelet Volume 6.5; Monocytes # (A) 0.8 k/uL (0-1.0); Monocytes % (A) 3 %; Neutrophils # (A) 23.2 k/uL (1.3-7.7); Neutrophils % (A) 94 %; RBC 4.18 m/uL (3.80-5.40); RDW 13.9 % (11.5-15.5); WBC 24.9 k/uL (3.8-10.6); WBC (Perox) 24.83
[2016-11-06 05:03] LABS: Anion Gap 9 mmol/L; Blood Urea Nitrogen 22 mg/dL (7-17); Carbon Dioxide 32 mmol/L (22-30); Chloride 97 mmol/L (98-107); Glucose 141 mg/dL (74-99); Non-African American GFR(MDRD) >60 (>60 ml/min/1.73 sqM); Potassium 3.4 mmol/L (3.5-5.1); Sodium 138 mmol/L (137-145)
[2016-11-06] MEDS ORDERED: Potassium Replacement Protocol 1 EACH MISC MISCELLANE PRN ×2 (05:35→22:31)
[2016-11-06] MEDS: SODIUM CHLORIDE 0.9% 1,000 ML IV SCH ×2 (06:52→16:20)
[2016-11-06] MEDS: POTASSIUM CHLORIDE ER 20 MEQ TAB.ER PO SCH ×2 (06:53→09:06)
[2016-11-06 07:33] LABS: Glucose,Whole Blood 146 mg/dL (75-99)
[2016-11-06] MEDS: BUDESONIDE 1 MG/2 ML NEBU INHALATION SCH ×2 (07:42→19:40)
[2016-11-06] MEDS: IPRATROPIUM 0.5 MG/2.5 ML NEBU INHALATION SCH ×4 (07:42→19:40)
[2016-11-06] MEDS: LEVALBUTEROL NEB (CONC) 1.25 MG/0.5 ML AMP INHALATION SCH ×4 (07:42→19:40)
[2016-11-06] MEDS: FORMOTEROL FUMARATE 20 MCG/2 ML NEBU INHALATION SCH ×2 (07:42→19:40)
--- NOTE | 2016-11-06 08:47 | XR ---
EXAMINATION TYPE: XR chest 1V portable DATE OF EXAM: 11/06/2016 6:38 AM COMPARISON: 11/02/2016 HISTORY: There is a persistent left upper lobe consolidation. Left lower lobe infiltrate seen. There is cardiomegaly and a coarsened interstitium. TECHNIQUE: Single frontal view of the chest is obtained. FINDINGS: There is no focal air space opacity, pleural effusion, or pneumothorax seen. The cardiac silhouette size is within normal limits. The osseous structures are intact. IMPRESSION: 1. Stable bilateral airspace disease correlate for pneumonia. Underlying mass in the left upper lobe not excluded.
[2016-11-06] MEDS: VANCOMYCIN 1,250 MG in SODIUM CHLORIDE 0.9% 250 ML IVPB SCH ×2 (09:06→18:00)
[2016-11-06] MEDS: PANTOPRAZOLE 40 MG TABLET PO SCH (09:07)
[2016-11-06] MEDS: ASCORBIC ACID 500 MG TAB PO SCH (09:07)
[2016-11-06] MEDS: CHOLECALCIFEROL 1,000 UNIT TAB PO SCH (09:08)
[2016-11-06] MEDS: CITALOPRAM HYDROBROMIDE 20 MG TAB PO SCH ×2 (09:08→20:27)
[2016-11-06] MEDS: HEPARIN SODIUM,PORCINE 5,000 UNIT/ML 1 ML VIAL SQ SCH ×2 (09:08→20:29)
[2016-11-06] MEDS: HYDROCHLOROTHIAZIDE 25 MG TAB PO SCH (09:09)
[2016-11-06] MEDS: NYSTATIN 100,000 UNIT/ML SUSP 500,000 UNIT/5 ML CUP PO SCH ×4 (09:09→21:00)
[2016-11-06] MEDS: INSULIN LISPRO (humaLOG) 300 UNIT/3 ML VIAL SQ SCH ×4 (09:11→20:53)
[2016-11-06] MEDS: LACTOBACILLUS ACIDOPH & BULGAR 1 EACH PACKET PO SCH (10:16)
[2016-11-06] MEDS: HYDROcodone/APAP 5-325MG 1 EACH TAB PO PRN (10:19)
[2016-11-06] MEDS: FLUTICASONE 50MCG/SPRAY NASAL 16GM EA NOSTRIL PRN (10:32)
[2016-11-06] MEDS: ALPRAZolam 0.5 MG TAB PO PRN ×2 (11:24→19:47)
[2016-11-06] MEDS: BENZOCAINE/MENTHOL LOZENG 1 EACH LOZENGE MUCOUS MEM PRN (11:35)
[2016-11-06] MEDS: B COMPLEX-VIT C-VIT E-ZINC 1 EACH TAB PO SCH ×2 (11:55→12:00)
[2016-11-06 12:24] LABS: Glucose,Whole Blood 148 mg/dL (75-99)
--- NOTE | 2016-11-06 13:20 | P.CNPUL ---
History of Present Illness Consult date: 11/06/16 Reason for consult: pneumonia History of present illness: This 66-year-old female patient is a chronic smoker in she has an underlying COPD and addition to various other medical problems such as hypertension, hiatal hernia, spastic colon, anxiety and depression and previous history of a cellulitis of the involved right hip area which was attributed to MRSA. The patient was admitted to the hospital for cough, fever and chills, producing brownish sputum that was copious in amount and high-grade fever. The patient initially went to a walk-in clinic. Following that she came in to the hospital and she was found to have an extensive left lung pneumonia. In fact, the computed tomography scan that was done on 11/03/2016 showed diffuse bilateral areas of consolidation and significant cavitating/necrotizing pneumonia involving the left upper lobe. There was some shotty adenopathy within the mediastinum and the largest of fluid was measuring 1.1 cm in size. The patient also had extensive emphysematous changes bilaterally with a small left-sided pleural effusion. The patient also has cardiomegaly with coronary artery calcifications. Initially the patient was admitted to the medical floor being treated for a routine computed acquired pneumonia and she was given Levaquin. Overnight, her condition decompensated and the patient had to be moved to the intensive care unit for progressive worsening of dyspnea. The patient was placed on a BiPAP at a pressure of 10 over 5 cm of water and FiO2 of 50%. The patient was taken off the Levaquin and the patient was placed on a combination of as Fara M and vancomycin. This morning, the patient is very much worn-out tired and fatigued. She has lost significant amount of strength. Her voice is extremely hoarse. She is using some abdominal muscles to breathe. She is in [id number] degree of respiratory distress. She is on high flow oxygen at 15 L/m nasal cannula. A repeat CAT scan of the chest was done and this was a CT angios the chest and it showed an evolution of a 10 cm area of consolidation in the left upper lobe and there is extensive interstitial edema in the right lung. Is also reticular nodular changes in the lower lobes bilaterally more so on the left. There is some embolus changes in the right upper lobe and some early cavitation changes in the left upper lobe. The patient has no pulmonary embolism. No exposure to TB. No travel history. She has worked in [employer]. The patient had a recent rotator cuff injury to her right shoulder and she underwent a rotator cuff surgical repair by Dr. Dr. Lovett on August 2016. No reported aspiration. No reported travel. No alcoholism. No immunosuppression. No history of HIV positivity. Review of Systems Significantly debilitated at this point with development of multilobar pneumonia with an extensive left lung consolidation. She is hoarse. Appetite is poor. She is on no pressors at this point. No change in mental status. Daughter is at the bedside. Past Medical History Additional Past Medical History / Comment(s): COPD, previous history of MRSA infections, hypertension, GE reflux, poorly at the age of 8, chronic cardiac murmur, kidney stones x7, spastic colon,hital hernia, migraines, shingles1.5 years ago, chronic anxiety, chronic depression, and chronic smoker History of Any Multi-Drug Resistant Organisms: MRSA Date of last positivie culture/infection: 09/20/2014 MDRO Source:: Left Trunk Past Surgical History: Appendectomy, Hernia Repair, Hysterectomy, Orthopedic Surgery, Tonsillectomy Additional Past Surgical History / Comment(s): rt rotator cuff and tendon reapri to bicep, exploratory lap/lysis of adhesions.rt inguinal hernia Past Anesthesia/Blood Transfusion Reactions: Motion Sickness Additional Past Anesthesia/Blood Transfusion Reaction / Comment(s): clausterphobia Past Psychological History: Anxiety, Depression Smoking Status: Current every day smoker Past Alcohol Use History: None Reported Additional Past Alcohol Use History / Comment(s): started smoking at age 15, smokes 1 ppd Past Drug Use History: None Reported - Past Family History Mother Family Medical History: COPD, Hyperlipidemia, Hypertension, Thyroid Disorder Additional Family Medical History / Comment(s): heart problems, emphysema, hypoglycemia Father Additional Family Medical History / Comment(s): heart problems Medications and Allergies Home Medications Medication Instructions Recorded Confirmed Type Citalopram Hydrobromide [CeleXA] 40 mg PO QAM 07/18/16 11/01/16 History Hydrochlorothiazide [Hydrodiuril] 25 mg PO DAILY 07/18/16 11/01/16 History traZODone HCL 50 mg PO HS 07/18/16 11/01/16 History Ascorbic Acid [Vitamin C] 500 mg PO DAILY 11/01/16 11/01/16 History Aspirin [Adult Low Dose Aspirin EC] 81 mg PO HS 11/01/16 11/01/16 History Biotin 5 mg PO DAILY 11/01/16 11/01/16 History Cholecalciferol [Vitamin D3] 1,000 unit PO DAILY 11/01/16 11/01/16 History Citalopram Hydrobromide [CeleXA] 20 mg PO HS 11/01/16 11/01/16 History Flaxseed Oil [[place]-3 Flaxseed Oil] 1,000 mg PO HS 11/01/16 11/01/16 History Ginkgo Biloba [place] Extract [Ginkgo] 60 mg PO DAILY 11/01/16 11/01/16 History L.acidoph,Paracasei, B.lactis 1 cap PO DAILY 11/01/16 11/01/16 History [Probiotic] Naproxen Sodium [Aleve] 440 mg PO HS 11/01/16 11/01/16 History Vitamin B Complex 1 cap PO DAILY 11/01/16 11/01/16 History Allergies Allergy/AdvReac Type Severity Reaction Status Date / Time latex Allergy Unknown Verified 11/01/16 15:43 Penicillins Allergy Unknown Verified 11/01/16 15:43 Sulfa (Sulfonamide Allergy Unknown Verified 11/01/16 15:43 Antibiotics) zinc Allergy Unknown Verified 11/01/16 15:43 Physical Exam Vitals: Vital Signs Temp Pulse Pulse Resp BP BP Pulse Ox 11/06/16 11:34 98 11/06/16 11:21 97 11/06/16 10:00 94 20 124/58 93 L 11/06/16 08:05 81 11/06/16 08:00 80 26 H 125/69 96 11/06/16 07:53 78 11/06/16 07:52 78 11/06/16 07:42 78 11/06/16 05:00 80 28 H 121/64 93 L 11/06/16 04:00 99.0 F 81 27 H 119/60 94 L 11/06/16 03:00 86 28 H 113/58 94 L 11/06/16 02:00 86 25 H 149/85 93 L 11/06/16 01:00 86 25 H 117/57 94 L 11/06/16 00:00 99.2 F 87 27 H 112/57 94 L 11/05/16 23:00 89 26 H 117/61 93 L 11/05/16 22:00 91 28 H 115/62 93 L 11/05/16 21:00 96 24 117/57 95 11/05/16 20:00 99.8 F H 96 28 H 124/68 94 L 11/05/16 19:45 99 11/05/16 19:35 99 11/05/16 19:26 99 11/05/16 17:18 97 11/05/16 16:57 96.4 F L 104 H 30 H 165/95 91 L 11/05/16 16:37 106 H 11/05/16 15:00 97.9 F 103 H 20 129/79 90 L Intake and Output 11/05/16 11/06/16 11/06/16 22:59 06:59 14:59 Intake Total 350 900 300 Output Total 1250 410 600 Balance -900 490 -300 Intake: IV 100 800 300 Sodium Chloride 0.9% 1, 100 800 300 000 ml @ 100 mls/hr IV . Q10H NIRANJAN Rx#:[id number] Intake, IV Titration 250 100 Amount Aztreonam 2 gm In Sodium 100 Chloride 0.9% 100 ml @ 100 mls/hr IVPB Q8HR NIRANJAN Rx#:[id number] Vancomycin 1,250 mg In 250 Sodium Chloride 0.9% 250 ml @ 125 mls/hr IVPB Q12HR@0600,1800 NIRANJAN Rx#: [id number] Output: Urine 1250 410 600 Other: Voiding Method Indwelling Catheter Indwelling Catheter Indwelling Catheter # Bowel Movements 0 0 Weight 72.2 kg 72.2 kg Patient Weight 11/07/16 06:59 Weight 72.2 kg Head exam was generally normal. There was no scleral icterus or corneal arcus. Mucous membranes were moist.Neck was supple and without jugular venous distension, thyromegaly, or carotid bruits. Carotids were easily palpable bilaterally. There was no adenopathy. Lung sounds are diminished bilaterally and there is some few scattered external wheezes or rhonchi. Crackles in the mid lungs and the lower lungs bilaterally along with extensive crackling in the left upper lobe especially anteriorly.Cardiac exam revealed the PMI to be normally situated and sized. The rhythm was regular and no extrasystoles were noted during several minutes of auscultation. The first and second heart sounds were normal and physiologic splitting of the second heart sound was noted. There were no murmurs, rubs, clicks, or gallops.Abdominal exam revealed normal bowel sounds. The abdomen was soft, non-tender, and without masses, organomegaly , or appreciable enlargement of the abdominal aorta.Examination of the extremities revealed easily palpable radial, femoral and pedal pulses. There was no cyanosis, clubbing or edema. Results - Laboratory Findings CBC and BMP: 11/06/16 04:31 11/06/16 04:31 ABG ABG pH 7.44 (7.35-7.45) 11/05/16 16:20 ABG pCO2 29 mmHg (35-45) L 11/05/16 16:20 ABG pO2 131 mmHg (83-108) H 11/05/16 16:20 ABG O2 Saturation 99.0 % (94-97) H 11/05/16 16:20 PT/INR, D-dimer PT 10.6 sec (9.0-12.0) 11/01/16 15:26 INR 1.0 (<1.1) 11/01/16 15:26 D-Dimer 2.23 mg/L FEU (<0.60) H 11/05/16 15:50 Abnormal lab findings: Abnormal Labs 11/02/16 11/02/16 11/02/16 12:31 17:20 21:03 WBC MCHC Plt Count Neutrophils # Neutrophils # (Manual) Lymphocytes # Lymphocytes # (Manual) D-Dimer ABG pCO2 ABG pO2 ABG HCO3 ABG O2 Saturation Potassium Chloride Carbon Dioxide BUN Creatinine Glucose POC Glucose (mg/dL) 143 H 145 H 169 H Calcium AST Total Protein Albumin Urine Ketones Urine Blood Urine RBC Ur Squamous Epith Cells Amorphous Sediment Hyaline Casts Urine Mucus 11/03/16 11/03/16 11/03/16 07:02 08:59 08:59 WBC 15.4 H MCHC Plt Count Neutrophils # Neutrophils # (Manual) 14.0 H Lymphocytes # Lymphocytes # (Manual) 0.7 L D-Dimer ABG pCO2 ABG pO2 ABG HCO3 ABG O2 Saturation Potassium 3.1 L Chloride Carbon Dioxide BUN 18 H Creatinine Glucose 133 H POC Glucose (mg/dL) 139 H Calcium AST Total Protein 5.6 L Albumin 2.7 L Urine Ketones Urine Blood Urine RBC Ur Squamous Epith Cells Amorphous Sediment Hyaline Casts Urine Mucus 11/03/16 11/03/16 11/03/16 11:46 17:11 20:59 WBC MCHC Plt Count Neutrophils # Neutrophils # (Manual) Lymphocytes # Lymphocytes # (Manual) D-Dimer ABG pCO2 ABG pO2 ABG HCO3 ABG O2 Saturation Potassium Chloride Carbon Dioxide BUN Creatinine Glucose POC Glucose (mg/dL) 139 H 149 H 154 H Calcium AST Total Protein Albumin Urine Ketones Urine Blood Urine RBC Ur Squamous Epith Cells Amorphous Sediment Hyaline Casts Urine Mucus 11/04/16 11/04/16 11/04/16 07:38 10:51 10:51 WBC 23.5 H MCHC Plt Count Neutrophils # Neutrophils # (Manual) 21.5 H Lymphocytes # Lymphocytes # (Manual) 0.8 L D-Dimer ABG pCO2 ABG pO2 ABG HCO3 ABG O2 Saturation Potassium 3.1 L Chloride Carbon Dioxide BUN Creatinine 0.40 L Glucose 136 H POC Glucose (mg/dL) 110 H Calcium AST 48 H Total Protein 5.5 L Albumin 2.7 L Urine Ketones Urine Blood Urine RBC Ur Squamous Epith Cells Amorphous Sediment Hyaline Casts Urine Mucus 11/04/16 11/04/16 11/04/16 12:02 15:24 17:34 WBC MCHC Plt Count Neutrophils # Neutrophils # (Manual) Lymphocytes # Lymphocytes # (Manual) D-Dimer ABG pCO2 ABG pO2 ABG HCO3 ABG O2 Saturation Potassium 3.1 L Chloride Carbon Dioxide BUN Creatinine Glucose POC Glucose (mg/dL) 126 H 123 H Calcium AST Total Protein Albumin Urine Ketones Urine Blood Urine RBC Ur Squamous Epith Cells Amorphous Sediment Hyaline Casts Urine Mucus 11/04/16 11/04/16 11/05/16 19:02 20:58 08:07 WBC MCHC Plt Count Neutrophils # Neutrophils # (Manual) Lymphocytes # Lymphocytes # (Manual) D-Dimer ABG pCO2 ABG pO2 ABG HCO3 ABG O2 Saturation Potassium 3.3 L Chloride Carbon Dioxide BUN Creatinine Glucose POC Glucose (mg/dL) 120 H 133 H Calcium AST Total Protein Albumin Urine Ketones Urine Blood Urine RBC Ur Squamous Epith Cells Amorphous Sediment Hyaline Casts Urine Mucus 11/05/16 11/05/16 11/05/16 08:41 08:41 12:08 WBC 29.7 H* MCHC 30.5 L Plt Count 464 H Neutrophils # Neutrophils # (Manual) 27.2 H Lymphocytes # Lymphocytes # (Manual) D-Dimer ABG pCO2 ABG pO2 ABG HCO3 ABG O2 Saturation Potassium Chloride Carbon Dioxide 31 H BUN Creatinine 0.44 L Glucose 128 H POC Glucose (mg/dL) 121 H Calcium 8.2 L AST Total Protein Albumin Urine Ketones Urine Blood Urine RBC Ur Squamous Epith Cells Amorphous Sediment Hyaline Casts Urine Mucus 11/05/16 11/05/16 11/05/16 15:50 16:20 18:20 WBC MCHC Plt Count Neutrophils # Neutrophils # (Manual) Lymphocytes # Lymphocytes # (Manual) D-Dimer 2.23 H ABG pCO2 29 L ABG pO2 131 H ABG HCO3 19 L ABG O2 Saturation 99.0 H Potassium Chloride Carbon Dioxide BUN Creatinine Glucose POC Glucose (mg/dL) 166 H Calcium AST Total Protein Albumin Urine Ketones Urine Blood Urine RBC Ur Squamous Epith Cells Amorphous Sediment Hyaline Casts Urine Mucus 11/05/16 11/05/16 11/06/16 18:26 20:07 04:31 WBC 24.9 H MCHC Plt Count 471 H Neutrophils # 23.2 H Neutrophils # (Manual) Lymphocytes # 0.5 L Lymphocytes # (Manual) D-Dimer ABG pCO2 ABG pO2 ABG HCO3 ABG O2 Saturation Potassium Chloride Carbon Dioxide BUN Creatinine Glucose POC Glucose (mg/dL) 138 H Calcium AST Total Protein Albumin Urine Ketones Trace H Urine Blood Small H Urine RBC 7 H Ur Squamous Epith Cells 9 H Amorphous Sediment Rare H Hyaline Casts 3 H Urine Mucus Rare H 11/06/16 11/06/16 11/06/16 04:31 07:32 12:22 WBC MCHC Plt Count Neutrophils # Neutrophils # (Manual) Lymphocytes # Lymphocytes # (Manual) D-Dimer ABG pCO2 ABG pO2 ABG HCO3 ABG O2 Saturation Potassium 3.4 L Chloride 97 L Carbon Dioxide 32 H BUN 22 H Creatinine 0.40 L Glucose 141 H POC Glucose (mg/dL) 146 H 148 H Calcium 8.0 L AST Total Protein Albumin Urine Ketones Urine Blood Urine RBC Ur Squamous Epith Cells Amorphous Sediment Hyaline Casts Urine Mucus - Diagnostic Findings Chest x-ray: image reviewed Assessment and Plan Plan: Impression 1 acute hypoxic respiratory failure, currently on high flow oxygen at 15 L. The patient also is utilizing BiPAP on and off intermittently during the day 2 moderate bilobar pneumonia with extensive necrotizing pneumonia involving the left upper lobe with some early cavitating changes. Rule out staphylococcal pneumonia as the patient has grown MSSA in the sputum. Rule out gram-negative pneumonia. Anaerobes have to be also considered. 3 COPD 4 Sepsis secondary to above 5 leukocytosis 6 previous history of MRSA soft tissue infection, recovered 7 shingles, history of 8 hiatal hernia, history of 9 hypertension 10 GE reflux 11 spastic colon Plan We'll keep the patient intensive care unit. The patient is critically ill. The patient has significant pneumonia, multilobar with early cavitating changes and necrotizing changes in the left upper lobe. The patient is also on hypoxic respiratory failure requiring BiPAP for respiratory support in addition to high flow oxygen. She is an increased risk of developing respiratory failure requiring intubation mechanical ventilation patient and her family have been made aware of that. Meanwhile, we'll repeat a sputum Gram stain and culture. We'll broaden the antibiotic coverage to include a combination of Merrem, Levaquin, vancomycin. Will check a Legionella urine antigen. Levaquin needs to be continued as long as there is concern of Legionella pneumonia in this patient , taken account the severe pneumonia in nature. The patient will be asked to be seen by infectious disease. Continue the bronchodilators. Continue the systemic steroids. We'll continue to follow. The patient will be kept in ICU for further monitoring. Condition is critical. Time with Patient: Greater than 30
[2016-11-06] MEDS: LEVOFLOXACIN 750MG-D5W PMX 750 MG in DEXTROSE/WATER 1 150ML.BAG IVPB SCH (13:33)
[2016-11-06] MEDS: ACETAMINOPHEN TAB 325 MG TAB PO PRN (14:38)
[2016-11-06] MEDS ORDERED: MEROPENEM 2 GM in SODIUM CHLORIDE 0.9% 100 ML IVPB SCH (16:00)
[2016-11-06 17:19] LABS: Glucose,Whole Blood 127 mg/dL (75-99)
--- NOTE | 2016-11-06 17:47 | PN ---
DATE OF SERVICE: 11/06/2016 This 66-year-old woman was admitted with extensive pneumonia on the right side, possible necrotizing pneumonia, as well as bilateral pneumonia with acute respiratory failure. She also had features of sepsis The patient's blood count is elevated. Yesterday the patient was extremely sick and she was transferred to ICU. The patient also had a D-dimer which was elevated and a chest CT was also done which showed no evidence of any pulmonary embolism. Extensive pulmonary pneumonic abnormalities were noted and mild mediastinal lymphadenopathy was noted. The patient is on broad-spectrum IV antibiotics. Dr. Palencia is following the patient closely. Infectious disease evaluation is in progress also. Past medical history reviewed. REVIEW OF SYSTEMS: CARDIOVASCULAR SYSTEM: No angina, palpitations. RESPIRATORY SYSTEM: As mentioned earlier. GI: As mentioned earlier. : No dysuria, retention. NERVOUS SYSTEM: No numbness or weakness. Current medications are reviewed and include: 1. Tylenol 650 q.6 p.r.n. 2. [place] 5 mg q.6 p.r.n. 3. Xanax 0.5 q.i.d. 4. Vitamin C 500 mg daily. 5. Aspirin 81 mg daily. 6. Cepacol q.6 p.r.n. 7. Pulmicort 1 mg b.i.d. 8. Vitamin D3 1000 daily. 9. Celexa 20 mg at bedtime as well as 40 mg each morning. 10. Flonase 2 sprays daily. 11. Perforomist 20 mcg b.i.d. 12. Heparin 5000 units subcutaneously b.i.d. 13. HydroDIURIL 25 mg p.o. daily. 14. Atrovent. 15. Lactinex. 16. Xopenex. 17. Melatonin. 18. Solu-Medrol. 19. Vancomycin. 20. Naprosyn. 21. Habitrol 14. 22. [place]oret[place]. 23. Protonix. 24. Desyrel. 25. Vancomycin. ALLERGIES: NOTED. PHYSICAL EXAMINATION: Patient is alert and oriented x3. Pulse 94, blood pressure 124/58, respiration 20. Breathing efforts are labored. Pulse ox 93% on 15 L. Temperature is normal. HEENT: Conjunctivae normal. Oral mucosa moist. NECK: Accessory muscles of respiration acting. Patient is extremely short of breath at rest. Patient is dysphonic. CARDIOVASCULAR: S1, S2 muffled. No S3. No S4. RESPIRATORY SYSTEM: Breath sounds diminished at the bases. Bilateral scattered rhonchi and crackles. Expiratory wheezing and crackles. ABDOMEN: Soft, nontender. No mass palpable. LEGS: No edema. No swelling. NERVOUS SYSTEM: Higher functions as mentioned earlier. Moves all 4 limbs. No focal motor or sensory deficit. LYMPHATICS: No lymph node palpable in neck, axillae or groin. SKIN: No ulcer, rash, bleeding. Labs at this time show WBC 24.9. Hemoglobin is 12.2. Platelets are 471. Sodium 138, potassium 3.4. Accu-Cheks are noted. ASSESSMENT: 1. Acute multilobar pneumonia, left more than the right, possibly Gram-negative, possible staph pneumonia with acute hypoxic respiratory failure with severe sepsis, present on admission. 2. Possible necrotizing pneumonia with cavitations on the left upper lobe. 3. Chronic obstructive pulmonary disease, acute exacerbation. 4. Mediastinal lymphadenopathy. 5. Elevated D-dimer. 6. Sinusitis with hoarseness. 7. Possible acute laryngitis. 8. Hypertension. 9. Depression, anxiety not otherwise specified. 10. Continued ongoing nicotine dependence. 11. History of insomnia. 12. Cardiomegaly and chronic calcification on the CT scan. 13. Increased white count. 14. Hypokalemia. 15. Hypoalbuminemia with mild to moderate protein-calorie malnutrition. 16. Gastroesophageal reflux disease. 17. History of childhood polio. 18. History of degenerative joint disease. 19. History of anxiety, depression not otherwise specified. 20. FULL CODE. RECOMMENDATIONS AND DISCUSSION: In this 66-year-old woman who presented with multiple complex medical issues, we will monitor the patient closely, continue the current medications, continue with symptomatic treatment, continue with bronchodilators, continue with empiric antibiotics. Cultures. Otherwise, closely follow with Infectious Disease. Discussed with Dr. Palencia. Prognosis guarded. Discussed with the family, the patient and her daughter at the bedside, who understand and agree. Further recommendations to follow. See orders for further details. Continue with DVT prophylaxis.
--- NOTE | 2016-11-06 20:09 | P.CONS ---
History of Present Illness - Reason for Consult Consult date: 11/06/16 - Chief Complaint Shortness of breath - History of Present Illness 66-year-old female who is a long-standing history of tobacco use and COPD. Prior to admission she did not have a history of oxygen use or respiratory support such as a CPAP. She was feeling poorly for quite some time. She had increasing cough with sputum production that was brownish in nature. It was quite copious. She had developed fever with chills. If she continued to feel more poorly she did go to the outpatient clinic. Despite that she felt very poorly. She presented to the emergency center on 2016. In the emergency center she was acutely ill. Chest x-ray was abnormal. Because of the computed tomography scan was performed. She had evidence of a cavitary necrotizing pneumonia of the left upper lobe as well as some lymphadenopathy and very extensive emphysematous changes to the lungs. She was admitted to hospital and was receiving antibiotics and respiratory treatments. She over a worsening of her status. He required transfer to the intensive care unit. She was treated with some BiPAP. Is now on high flow oxygen. She feels slightly better than yesterday. She is aware that smoking is caused her to have significant lung disease and now has a severe pneumonia that is complicated because of her underlying lung disease. She first feels slightly better today. She site less short of breath. He still having cough but less sputum production. She's not having much discomfort. Review of Systems HEENT:Denies headache or acute visual change. Denies sinus or mouth discomforts. Denies neck stiffness or pain. Denies significant oral cavity pain. Denies difficulty on swallowing. Lungs: As per the HPI has significant cough sputum production positive but no dony hemoptysis Cardiovascular: Denies , chest pain, chest wall pain, But was having significant orthopnea as well as dyspnea on exertion but no syncope Gastrointestinal:Denies nausea, vomiting, diarrhea, constipation, hematemesis, melena, hematochezia. No no significant change of bowel habit noticed. Musculoskeletal: denies significant myalgias or arthralgias. No new joint swelling. Denies new back pain. Skin: Denies new rash or lesions. No new ulcers or wounds are related.. Neuro: Denies headache or visual change. Denies any new onset weakness or difficulty with ambulation. Denies falls or seizures. Psychiatric: Anxious of the current infection no acute depression Endocrine: Has had significant fatigue and weight loss over the last several days. Past Medical History Past Medical History: GERD/Reflux, Hypertension Additional Past Medical History / Comment(s): COPD, previous history of MRSA infections, hypertension, GE reflux, poorly at the age of 8, chronic cardiac murmur, kidney stones x7, spastic colon,hital hernia, migraines, shingles1.5 years ago, chronic anxiety, chronic depression, and chronic smoker History of Any Multi-Drug Resistant Organisms: MRSA Year Discovered:: 09/20/2014 MDRO Source:: Left Trunk Past Surgical History: Appendectomy, Hernia Repair, Hysterectomy, Orthopedic Surgery, Tonsillectomy Additional Past Surgical History / Comment(s): rt rotator cuff and tendon reapri to bicep, exploratory lap/lysis of adhesions.rt inguinal hernia Past Anesthesia/Blood Transfusion Reactions: Motion Sickness Additional Past Anesthesia/Blood Transfusion Reaction / Comm: clausterphobia Past Psychological History: Anxiety, Depression Additional Psychological History / Comment(s): Daily tobacco smoker. Denies tobacco alcohol use. 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 2 pet Dogs at home. Lives with her father who is also a tobacco smoker. No international travel. No experience Smoking Status: Current every day smoker Past Alcohol Use History: None Reported Additional Past Alcohol Use History / Comment(s): started smoking at age 15, smokes 1 ppd Past Drug Use History: None Reported - Past Family History Mother Family Medical History: COPD, Hyperlipidemia, Hypertension, Thyroid Disorder Additional Family Medical History / Comment(s): heart problems, emphysema, hypoglycemia Father Additional Family Medical History / Comment(s): heart problems Medications and Allergies Home Medications and Allergies Comment(s): Current Medications Acetaminophen (Tylenol Tab) 650 mg PO Q6HR PRN PRN Reason: Fever and/ or Pain Last Admin: 11/06/16 14:38 Dose: 650 mg Acetaminophen/Hydrocodone Bitart ([place] 5-325) 1 each PO Q6HR PRN PRN Reason: Pain Last Admin: 11/06/16 10:19 Dose: 1 each Alprazolam (Xanax) 0.5 mg PO QID PRN PRN Reason: Anxiety Last Admin: 11/06/16 19:47 Dose: 0.5 mg Ascorbic Acid (Vitamin C) 500 mg PO DAILY NIRANJAN Last Admin: 11/06/16 09:07 Dose: 500 mg Aspirin (Aspirin) 81 mg PO HS [facility] Last Admin: 11/05/16 22:07 Dose: Not Given Benzocaine/Menthol (Cepacol Lozenge) 1 each MUCOUS MEM Q4HR PRN PRN Reason: Cough Last Admin: 11/06/16 11:35 Dose: 1 each Budesonide (Pulmicort) 1 mg INHALATION RT-BID [facility] Last Admin: 11/06/16 19:40 Dose: 1 mg Cholecalciferol (Vitamin D3) 1,000 unit PO DAILY [facility] Last Admin: 11/06/16 09:08 Dose: 1,000 unit Citalopram Hydrobromide (Celexa) 40 mg PO QAM [facility] Last Admin: 11/06/16 09:08 Dose: 40 mg Citalopram Hydrobromide (Celexa) 20 mg PO HS [facility] Last Admin: 11/05/16 22:08 Dose: Not Given Fluticasone Propionate (Flonase Nasal [place]) 2 spray EA NOSTRIL DAILY PRN PRN Reason: Allergy Symptoms Last Admin: 11/06/16 10:32 Dose: 2 spray Formoterol Fumarate (Perforomist) 20 mcg INHALATION RT-BID [facility] Last Admin: 11/06/16 19:40 Dose: 20 mcg Heparin Sodium (Porcine) (Heparin) 5,000 unit SQ Q12HR [facility] Last Admin: 11/06/16 09:08 Dose: 5,000 unit Hydrochlorothiazide (Hydrodiuril) 25 mg PO DAILY [facility] Last Admin: 11/06/16 09:09 Dose: 25 mg Sodium Chloride (Saline 0.9%) 1,000 mls @ 100 mls/hr IV .Q10H [facility] Last Admin: 11/06/16 16:20 Dose: 100 mls/hr Vancomycin HCl 1,250 mg/ (Sodium Chloride) 250 mls @ 125 mls/hr IVPB Q12HR@0600 ,1800 [facility] Last Admin: 11/06/16 18:00 Dose: 125 mls/hr Meropenem 2 gm/ Sodium (Chloride) 100 mls @ 200 mls/hr IVPB Q8HR [facility] Last Admin: 11/06/16 16:20 Dose: 200 mls/hr Levofloxacin 750 mg/ IV (Solution) 150 mls @ 100 mls/hr IVPB Q24H [facility] Last Admin: 11/06/16 13:33 Dose: 100 mls/hr Insulin Human Lispro (Humalog) 0 unit SQ ACHS [facility] PRN Reason: Protocol Last Admin: 11/06/16 17:54 Dose: Not Given Ipratropium [place] (Atrovent Nebulized) 0.5 mg INHALATION RT-QID [facility] Last Admin: 11/06/16 19:40 Dose: 0.5 mg Lactobacillus Acidoph/Bulgaricus (Lactinex) 1 each PO DAILY [facility] Last Admin: 11/06/16 10:16 Dose: Not Given Levalbuterol HCl (Xopenex Nebulized) 1.25 mg INHALATION RT-TID PRN PRN Reason: Shortness Of Breath Levalbuterol HCl (Xopenex Nebulized (Conc)) 1.25 mg INHALATION RT-QID [facility] Last Admin: 11/06/16 19:40 Dose: 1.25 mg Melatonin (Melatonin) 10 mg PO HS PRN PRN Reason: Insomnia Last Admin: 11/02/16 21:56 Dose: 10 mg Methylprednisolone Sodium Succinate (Solu-Medrol) 40 mg IV Q6HR [facility] Last Admin: 11/06/16 18:01 Dose: 40 mg Miscellaneous Information (Pneumonia Protocol Utilized) 1 each PO ONCE PRN PRN Reason: Per Protocol Miscellaneous Information (Magnesium Per Protocol) 1 each MISCELLANE DAILY PRN ; Protocol PRN Reason: Per Protocol Miscellaneous Information (Potassium Per Protocol) 1 each MISCELLANE DAILY PRN ; Protocol PRN Reason: Per Protocol Miscellaneous Information (Rx Info: Iv Contrast Was Given) 1 each MISCELLANE DAILY PRN PRN Reason: Per Protocol Stop: 11/07/16 17:09 Miscellaneous Information (Vancomycin Trough Due) 0 each MISCELLANE DIRECTED ONE Stop: 11/07/16 05:01 Naproxen (Naprosyn) 500 mg PO [facility] Last Admin: 11/05/16 22:08 Dose: Not Given Nicotine (Habitrol 21mg/24hr Patch) 1 patch TRANSDERM [facility] Last Admin: 11/05/16 21:24 Dose: 1 patch Nicotine Polacrilex (Nicorette Gum) 2 mg BUCCAL Q2HR PRN PRN Reason: Nicotine Cravings Last Admin: 11/04/16 20:21 Dose: 2 mg Nystatin (Mycostatin Oral Susp) 500,000 unit PO QID [facility] Last Admin: 11/06/16 18:01 Dose: 500,000 unit Pantoprazole Sodium (Protonix) 40 mg PO AC-BRKFST [facility] Last Admin: 11/06/16 09:07 Dose: 40 mg Trazodone HCl (Desyrel) 50 mg PO [facility] Last Admin: 11/05/16 22:08 Dose: Not Given Vitamin B Complex/Vit C/Vit E/Zinc (Z-Bec) 1 each PO DAILY@1200 [facility] Last Admin: 11/06/16 12:00 Dose: Not Given Home Medications Medication Instructions Recorded Confirmed Type Citalopram Hydrobromide [CeleXA] 40 mg PO [facility] 07/18/16 11/01/16 History Hydrochlorothiazide [Hydrodiuril] 25 mg PO DAILY 07/18/16 11/01/16 History traZODone HCL 50 mg PO 07/18/16 11/01/16 History Ascorbic Acid [Vitamin C] 500 mg PO DAILY 11/01/16 11/01/16 History Aspirin [Adult Low Dose Aspirin EC] 81 mg PO 11/01/16 11/01/16 History Biotin 5 mg PO DAILY 11/01/16 11/01/16 History Cholecalciferol [Vitamin D3] 1,000 unit PO DAILY 11/01/16 11/01/16 History Citalopram Hydrobromide [CeleXA] 20 mg PO 11/01/16 11/01/16 History Flaxseed Oil [[place]-3 Flaxseed Oil] 1,000 mg PO 11/01/16 11/01/16 History Ginkgo Biloba [place] Extract [Ginkgo] 60 mg PO DAILY 11/01/16 11/01/16 History L.acidoph,Paracasei, B.lactis 1 cap PO DAILY 11/01/16 11/01/16 History [Probiotic] Naproxen Sodium [Aleve] 440 mg PO 11/01/16 11/01/16 History Vitamin B Complex 1 cap PO DAILY 11/01/16 11/01/16 History Allergies Allergy/AdvReac Type Severity Reaction Status Date / Time latex Allergy Unknown Verified 11/01/16 15:43 Penicillins Allergy Unknown Verified 11/01/16 15:43 Sulfa (Sulfonamide Allergy Unknown Verified 11/01/16 15:43 Antibiotics) zinc Allergy Unknown Verified 11/01/16 15:43 Physical Exam Vitals: Vital Signs Temp Pulse Resp BP Pulse Ox 11/06/16 19:41 94 11/06/16 19:00 97 18 138/66 97 11/06/16 18:00 86 27 H 126/79 96 11/06/16 17:00 85 21 133/74 96 11/06/16 16:00 98.1 F 79 20 109/69 94 L 11/06/16 15:00 89 18 144/79 96 11/06/16 14:00 101 H 19 120/62 95 11/06/16 13:00 105 H 28 H 124/59 91 L 11/06/16 12:00 96 28 H 132/65 92 L 11/06/16 11:34 98 11/06/16 11:21 97 11/06/16 10:00 94 20 124/58 93 L 11/06/16 08:05 81 11/06/16 08:00 80 26 H 125/69 96 11/06/16 07:53 78 11/06/16 07:52 78 11/06/16 07:42 78 11/06/16 05:00 80 28 H 121/64 93 L 11/06/16 04:00 99.0 F 81 27 H 119/60 94 L 11/06/16 03:00 86 28 H 113/58 94 L 11/06/16 02:00 86 25 H 149/85 93 L 11/06/16 01:00 86 25 H 117/57 94 L 11/06/16 00:00 99.2 F 87 27 H 112/57 94 L 11/05/16 23:00 89 26 H 117/61 93 L 11/05/16 22:00 91 28 H 115/62 93 L 11/05/16 21:00 96 24 117/57 95 11/05/16 20:00 99.8 F H 96 28 H 124/68 94 L Intake and Output 11/06/16 11/06/16 11/06/16 06:59 14:59 22:59 Intake Total 900 400 500 Output Total 410 1200 575 Balance 490 -800 -75 Intake: IV 800 400 500 Sodium Chloride 0.9% 1, 800 400 500 000 ml @ 100 mls/hr IV . Q10H NIRANJAN Rx#:[id number] Intake, IV Titration 100 Amount Aztreonam 2 gm In Sodium 100 Chloride 0.9% 100 ml @ 100 mls/hr IVPB Q8HR NIRANJAN Rx#:[id number] Output: Urine 410 1200 575 Other: Voiding Method Indwelling Catheter Indwelling Catheter Indwelling Catheter # Bowel Movements 0 Weight 72.2 kg 72.2 kg 72.2 kg Patient Weight 11/07/16 06:59 Weight 72.2 kg 66-year-old woman who appears younger than her stated age is very short of breath and his cough with some thick sputum HEENT: Anicteric conjunctiva are pink and moist nasal mucosa grossly intact without significant lesions, there is no thrush. Neck: The neck is supple without significant lymphadenopathy or thyromegaly. Lungs: Symmetrical air entry, wheezings that are scattered throughout the lung bob. Bibasilar crackles are heard Heart: Regular rate and rhythm with an audible S1-S2, left S4. There is no significant murmur click or rub, PMI was nondisplaced. Abdomen: Positive bowel sounds soft and nontender without palpable masses or organomegaly. There was no guarding or rebound. Extremities: The upper extremities have excellent pulses they are symmetric, no significant petechiae or telangiectasia. No splinter hemorrhages were noted. The lower extremities are free from significant edema. The peripheral pulses were 2+ and symmetric. Neuro: Awake alert oriented to person place and time. There are no acute new gross focal sensory motor deficits. Results CBC & Chem 7: 11/06/16 04:31 11/06/16 19:20 Labs: Abnormal Lab Results - Last 24 Hours (Table) 11/05/16 11/05/16 11/06/16 Range/Units 18:26 20:07 04:31 WBC 24.9 H (3.8-10.6) k/uL Plt Count 471 H (150-450) k/uL Neutrophils # 23.2 H (1.3-7.7) k/uL Lymphocytes # 0.5 L (1.0-4.8) k/uL Potassium (3.5-5.1) mmol/L Chloride (98-107) mmol/L Carbon Dioxide (22-30) mmol/L BUN (7-17) mg/dL Creatinine (0.52-1.04) mg/dL Glucose (74-99) mg/dL POC Glucose (mg/dL) 138 H (75-99) mg/dL Calcium (8.4-10.2) mg/dL Urine Ketones Trace H (Negative) Urine Blood Small H (Negative) Urine RBC 7 H (0-5) /hpf Ur Squamous Epith Cells 9 H (0-4) /hpf Amorphous Sediment Rare H (None) /hpf Hyaline Casts 3 H (0-2) /lpf Urine Mucus Rare H (None) /hpf 11/06/16 11/06/16 11/06/16 Range/Units 04:31 07:32 12:22 WBC (3.8-10.6) k/uL Plt Count (150-450) k/uL Neutrophils # (1.3-7.7) k/uL Lymphocytes # (1.0-4.8) k/uL Potassium 3.4 L (3.5-5.1) mmol/L Chloride 97 L (98-107) mmol/L Carbon Dioxide 32 H (22-30) mmol/L BUN 22 H (7-17) mg/dL Creatinine 0.40 L (0.52-1.04) mg/dL Glucose 141 H (74-99) mg/dL POC Glucose (mg/dL) 146 H 148 H (75-99) mg/dL Calcium 8.0 L (8.4-10.2) mg/dL Urine Ketones (Negative) Urine Blood (Negative) Urine RBC (0-5) /hpf Ur Squamous Epith Cells (0-4) /hpf Amorphous Sediment (None) /hpf Hyaline Casts (0-2) /lpf Urine Mucus (None) /hpf 11/06/16 Range/Units 17:18 WBC (3.8-10.6) k/uL Plt Count (150-450) k/uL Neutrophils # (1.3-7.7) k/uL Lymphocytes # (1.0-4.8) k/uL Potassium (3.5-5.1) mmol/L Chloride (98-107) mmol/L Carbon Dioxide (22-30) mmol/L BUN (7-17) mg/dL Creatinine (0.52-1.04) mg/dL Glucose (74-99) mg/dL POC Glucose (mg/dL) 127 H (75-99) mg/dL Calcium (8.4-10.2) mg/dL Urine Ketones (Negative) Urine Blood (Negative) Urine RBC (0-5) /hpf Ur Squamous Epith Cells (0-4) /hpf Amorphous Sediment (None) /hpf Hyaline Casts (0-2) /lpf Urine Mucus (None) /hpf Microbiology - Last 24 Hours (Table) 11/05/16 17:05 Blood Culture - Preliminary Blood No Growth after 24 hours 11/05/16 19:00 Gram Stain - Preliminary Sputum Sputum Culture - Preliminary Presumptive Staph aureus 11/05/16 04:35 Urine Culture - Final Urine,Voided Laboratory Results WBC 24.9 k/uL (3.8-10.6) H 11/06/16 04:31 RBC 4.18 m/uL (3.80-5.40) 11/06/16 04:31 Hgb 12.2 gm/dL (11.4-16.0) 11/06/16 04:31 Hct 38.9 % (34.0-46.0) 11/06/16 04:31 MCV 93.0 fL (80.0-100.0) 11/06/16 04:31 MCH 29.2 pg (25.0-35.0) 11/06/16 04:31 MCHC 31.3 g/dL (31.0-37.0) 11/06/16 04:31 RDW 13.9 % (11.5-15.5) 11/06/16 04:31 Plt Count 471 k/uL (150-450) H 11/06/16 04:31 Neutrophils % 94 % 11/06/16 04:31 Neutrophils % (Manual) 82.5 % 11/05/16 08:41 Band Neutrophils % 9.0 % 11/05/16 08:41 Lymphocytes % 2 % 11/06/16 04:31 Lymphocytes % (Manual) 5.0 % 11/05/16 08:41 Monocytes % 3 % 11/06/16 04:31 Monocytes % (Manual) 3.5 % 11/05/16 08:41 Eosinophils % 0 % 11/06/16 04:31 Basophils % 0 % 11/06/16 04:31 Metamyelocytes % 0.5 % 11/04/16 10:51 Myelocytes % 1.0 % 11/04/16 10:51 Neutrophils # 23.2 k/uL (1.3-7.7) H 11/06/16 04:31 Neutrophils # (Manual) 27.2 k/uL (1.3-7.7) H 11/05/16 08:41 Lymphocytes # 0.5 k/uL (1.0-4.8) L 11/06/16 04:31 Lymphocytes # (Manual) 1.5 k/uL (1.0-4.8) 11/05/16 08:41 Monocytes # 0.8 k/uL (0-1.0) 11/06/16 04:31 Monocytes # (Manual) 1.0 k/uL (0-1.0) 11/05/16 08:41 Eosinophils # 0.1 k/uL (0-0.7) 11/06/16 04:31 Basophils # 0.1 k/uL (0-0.2) 11/06/16 04:31 Nucleated RBCs 0 /100 WBC (0-0) 11/05/16 08:41 Manual Slide Review Performed 11/04/16 10:51 Toxic Granulation Present 11/05/16 08:41 Toxic Vacuolation Present 11/05/16 08:41 Poikilocytosis (manual Present 11/03/16 08:59 Anisocytosis (manual) Present 11/03/16 08:59 Target Cells Present 11/03/16 08:59 PT 10.6 sec (9.0-12.0) 11/01/16 15:26 INR 1.0 (<1.1) 11/01/16 15:26 APTT 27.8 sec (22.0-30.0) 11/01/16 15:26 D-Dimer 2.23 mg/L FEU (<0.60) H 11/05/16 15:50 Sample Site LRAD 11/05/16 16:20 ABG pH 7.44 (7.35-7.45) 11/05/16 16:20 ABG pCO2 29 mmHg (35-45) L 11/05/16 16:20 ABG pO2 131 mmHg (83-108) H 11/05/16 16:20 ABG HCO3 19 mmol/L (21-25) L 11/05/16 16:20 ABG Total CO2 20 mmol/L (19-24) 11/05/16 16:20 ABG O2 Saturation 99.0 % (94-97) H 11/05/16 16:20 ABG Base Excess -4.1 mmol/L 11/05/16 16:20 FiO2 60 % 11/05/16 16:20 Sodium 138 mmol/L (137-145) 11/06/16 04:31 Potassium 3.5 mmol/L (3.5-5.1) 11/06/16 19:20 Chloride 97 mmol/L (98-107) L 11/06/16 04:31 Carbon Dioxide 32 mmol/L (22-30) H 11/06/16 04:31 Anion Gap 9 mmol/L 11/06/16 04:31 BUN 22 mg/dL (7-17) H 11/06/16 04:31 Creatinine 0.40 mg/dL (0.52-1.04) L 11/06/16 04:31 Est GFR (MDRD) Af Amer >60 (>60 ml/min/1.73 sqM) 11/06/16 04:31 Est GFR (MDRD) Non-Af >60 (>60 ml/min/1.73 sqM) 11/06/16 04:31 Glucose 141 mg/dL (74-99) H 11/06/16 04:31 POC Glucose (mg/dL) 127 mg/dL (75-99) H 11/06/16 17:18 POC Glu Window And Door Installer ID Geri Coates 11/06/16 17:18 Plasma Lactic Acid Rohan 1.4 mmol/L (0.7-2.0) 11/05/16 11:02 Calcium 8.0 mg/dL (8.4-10.2) L 11/06/16 04:31 Magnesium 2.0 mg/dL (1.6-2.3) 11/04/16 10:51 Total Bilirubin 0.6 mg/dL (0.2-1.3) 11/04/16 10:51 AST 48 U/L (14-36) H 11/04/16 10:51 ALT 43 U/L (9-52) 11/04/16 10:51 Alkaline Phosphatase 117 U/L (38-126) 11/04/16 10:51 Total Creatine Kinase 99 U/L (30-135) 11/01/16 15:26 CK-MB (CK-2) 0.6 ng/mL (0.0-2.4) 11/01/16 15:26 CK-MB (CK-2) Rel Index 0.6 11/01/16 15:26 Troponin I <0.012 ng/mL (0.000-0.034) 11/01/16 15:26 NT-Pro-B Natriuret Pep 276 pg/mL 11/01/16 15:26 Total Protein 5.5 g/dL (6.3-8.2) L 11/04/16 10:51 Albumin 2.7 g/dL (3.5-5.0) L 11/04/16 10:51 Urine Color Light Yellow 11/05/16 18:26 Urine Appearance Clear (Clear) 11/05/16 18:26 Urine pH 6.5 (5.0-8.0) 11/05/16 18:26 Ur Specific [place] 1.009 (1.001-1.035) 11/05/16 18:26 Urine Protein Negative (Negative) 11/05/16 18:26 Urine Glucose (UA) Negative (Negative) 11/05/16 18:26 Urine Ketones Trace (Negative) H 11/05/16 18:26 Urine Blood Small (Negative) H 11/05/16 18:26 Urine Nitrate Negative (Negative) 11/05/16 18:26 Urine Bilirubin Negative (Negative) 11/05/16 18:26 Urine Urobilinogen <2.0 mg/dL (<2.0) 11/05/16 18:26 Ur Leukocyte Esterase Negative (Negative) 11/05/16 18:26 Urine RBC 7 /hpf (0-5) H 11/05/16 18:26 Urine WBC 2 /hpf (0-5) 11/05/16 18:26 Ur Squamous Epith Cells 9 /hpf (0-4) H 11/05/16 18:26 Amorphous Sediment Rare /hpf (None) H 11/05/16 18:26 Hyaline Casts 3 /lpf (0-2) H 11/05/16 18:26 Urine Mucus Rare /hpf (None) H 11/05/16 18:26 Influenza Type A RNA Not Detected (Not Detectd) 11/01/16 15:53 Influenza Type B (PCR) Not Detected (Not Detectd) 11/01/16 15:53 Microbiology 11/05/16 17:05 Blood Blood Culture - Preliminary No Growth after 24 hours 11/01/16 15:26 Blood Blood Culture - Preliminary No Growth after 120 hours 11/05/16 19:00 Sputum Gram Stain - Preliminary 11/05/16 19:00 Sputum Sputum Culture - Preliminary Presumptive Staph aureus 11/05/16 04:35 Urine,Voided Urine Culture - Final 11/02/16 07:00 Sputum Gram Stain - Final 11/02/16 07:00 Sputum Sputum Culture - Final Staphylococcus aureus Assessment and Plan (1) Necrotizing pneumonia Narrative/Plan: 66-year-old female presents to hospital with significant shortness of breath. Was cared for in the outpatient setting but was not having improvement. At admission her computed tomography scan shows evidence of the extensive pneumonic process. There appears to be necrotizing in nature with the cavitating pneumonia in the left upper lobe. The extensive bullous emphysema was noted and reactive lymphadenopathy was seen. Effusions have improved. At this time she appears to have a methicillin susceptible staph aureus pneumonia is causing the significant necrosis. She has a significant ALLERGY to penicillin and constantly cephalosporins will not be attempted given her current very tenacious status. Vancomycin is being utilized. Evaluation for Legionella and mycoplasma are in process also. In with his levofloxacin is added. Antecedent viral infection is not excluded, but evidence of influenza was not found at admission. The patient understands that she is profoundly ill. She is at risk of respiratory failure. She could become ventilator dependent. The case is discussed with pulmonary critical care, meropenem was discontinued with no evidence of gram-negative pneumonia at this time. Status: Acute (2) Staphylococcus aureus pneumonia Status: Acute (3) Fever Status: Acute (4) Leukocytosis Status: Acute
[2016-11-06] MEDS: ASPIRIN 81 MG CHEW PO SCH (20:26)
[2016-11-06] MEDS: NAPROXEN 250 MG TAB PO SCH (20:29)
[2016-11-06] MEDS: traZODone HCL 50 MG TAB PO SCH (20:30)
[2016-11-06] MEDS: NICOTINE 21MG/24HR PATCH TRANSDERM SCH (20:50)
[2016-11-06 20:54] LABS: Glucose,Whole Blood 145 mg/dL (75-99)
[2016-11-07] MEDS: POTASSIUM CHLORIDE ER 20 MEQ TAB.ER PO SCH ×2 (00:45→02:17)
[2016-11-07] MEDS: methylPREDNISolone SOD SUCCI 40 MG/ML 1 ML VIAL IV SCH ×4 (00:46→18:49)
[2016-11-07] MEDS: SODIUM CHLORIDE 0.9% 1,000 ML IV SCH ×3 (02:18→21:55)
[2016-11-07] MEDS: ALPRAZolam 0.5 MG TAB PO PRN ×4 (02:19→20:06)
[2016-11-07] MEDS ORDERED: VANCOMYCIN TROUGH DUE 1 EACH MISC MISCELLANE ONE (05:00)
[2016-11-07 05:17] LABS: Basophils % (A) 0 %; CH 29.7; CHCM 31.7; Eosinophils % (A) 0 %; HCT 35.5 % (34.0-46.0); HDW 2.34; HGB 11.2 gm/dL (11.4-16.0); Luc # (Auto) 0.14; Luc % (Auto) 1; Lymphocytes # (A) 0.6 k/uL (1.0-4.8); Lymphocytes % (A) 4 %; MCH 29.8 pg (25.0-35.0); MCHC 31.7 g/dL (31.0-37.0); MCV 94.2 fL (80.0-100.0); Mean Platelet Volume 6.1; Monocytes # (A) 0.5 k/uL (0-1.0); Monocytes % (A) 4 %; Neutrophils # (A) 13.5 k/uL (1.3-7.7); Neutrophils % (A) 91 %; RBC 3.77 m/uL (3.80-5.40); RDW 13.9 % (11.5-15.5); WBC 14.8 k/uL (3.8-10.6)
[2016-11-07 05:33] LABS: Anion Gap 7 mmol/L; Blood Urea Nitrogen 24 mg/dL (7-17); Calcium 7.7 mg/dL (8.4-10.2); Carbon Dioxide 30 mmol/L (22-30); Chloride 101 mmol/L (98-107); Glucose 141 mg/dL (74-99); Non-African American GFR(MDRD) >60 (>60 ml/min/1.73 sqM); Potassium 4.2 mmol/L (3.5-5.1); Sodium 138 mmol/L (137-145)
[2016-11-07] MEDS: VANCOMYCIN 1,250 MG in SODIUM CHLORIDE 0.9% 250 ML IVPB SCH (07:11)
[2016-11-07] MEDS: BUDESONIDE 1 MG/2 ML NEBU INHALATION SCH ×2 (07:22→21:35)
[2016-11-07] MEDS: FORMOTEROL FUMARATE 20 MCG/2 ML NEBU INHALATION SCH ×2 (07:22→21:36)
[2016-11-07] MEDS: IPRATROPIUM 0.5 MG/2.5 ML NEBU INHALATION SCH ×4 (07:22→21:36)
[2016-11-07] MEDS: LEVALBUTEROL NEB (CONC) 1.25 MG/0.5 ML AMP INHALATION SCH ×4 (07:22→21:36)
[2016-11-07 07:33] LABS: Glucose,Whole Blood 122 mg/dL (75-99)
[2016-11-07] MEDS: FLUTICASONE 50MCG/SPRAY NASAL 16GM EA NOSTRIL PRN (08:04)
[2016-11-07] MEDS: INSULIN LISPRO (humaLOG) 300 UNIT/3 ML VIAL SQ SCH ×4 (08:04→21:56)
[2016-11-07] MEDS: PANTOPRAZOLE 40 MG TABLET PO SCH (08:05)
[2016-11-07] MEDS: HYDROCHLOROTHIAZIDE 25 MG TAB PO SCH (08:06)
[2016-11-07] MEDS: CHOLECALCIFEROL 1,000 UNIT TAB PO SCH (08:06)
[2016-11-07] MEDS: LACTOBACILLUS ACIDOPH & BULGAR 1 EACH PACKET PO SCH (08:06)
[2016-11-07] MEDS: ASCORBIC ACID 500 MG TAB PO SCH (08:06)
[2016-11-07] MEDS: CITALOPRAM HYDROBROMIDE 20 MG TAB PO SCH ×2 (08:06→21:55)
[2016-11-07] MEDS: HEPARIN SODIUM,PORCINE 5,000 UNIT/ML 1 ML VIAL SQ SCH ×2 (08:06→21:55)
[2016-11-07] MEDS: NYSTATIN 100,000 UNIT/ML SUSP 500,000 UNIT/5 ML CUP PO SCH ×4 (08:07→21:55)
--- NOTE | 2016-11-07 08:28 | XR ---
EXAMINATION TYPE: XR chest 1V DATE OF EXAM: 11/07/2016 6:20 AM COMPARISON: Prior chest x-ray October HISTORY: Pneumonia TECHNIQUE: Single frontal view of the chest is obtained. FINDINGS: Persistent airspace disease in the left upper lobe. Interstitium is increased. Heart is en larged. No evident pneumothorax or sizable effusion. IMPRESSION: Similar findings to previous exam. Correlate for pneumonia, volume overload, pulmonary v enous hypertension and interstitial edema, follow-up is recommended to resolution, heart is borderlin e in size.
--- NOTE | 2016-11-07 09:44 | ECHOF ---
Referral Reason:respiratory faiolure MEASUREMENTS -------- HEIGHT: 129.5 cm WEIGHT: 72.1 kg BP: 120/62 IVSd: 1.1 cm (0.6 - 1.1) LVIDd: 4.0 cm (3.9 - 5.3) LVPWd: 1.1 cm (0.6 - 1.1) IVSs: 1.2 cm LVIDs: 3.1 cm LVPWs: 1.3 cm Ao Diam: 3.1 cm (2.0 - 3.7) AV Cusp: 1.8 cm (1.5 - 2.6) LA Diam: 3.4 cm (2.7 - 3.8) MV EXCURSION: 16.659 mm (> 18.000) MV EF SLOPE: 50 mm/s (70 - 150) EPSS: 0.9 cm MV E Sabas: 0.68 m/s MV DecT: 146 ms MV A [place]as: 0.91 m/s MV E/A Ratio: 0.75 RAP: 5.00 mmHg RVSP: 36.08 mmHg FINDINGS -------- Sinus rhythm. This was a technically good study. Left ventricular wall thickness is normal. Overall left ventricular systolic function is normal with, an EF between 55 - 60 %. The right ventricle is normal in size and function. The left atrium is normal in size. The right atrium is normal in size. Can't exclude possible Bicuspid Aov. The mitral valve leaflets are mildly thickened. Mild mitral annular calcification present. There is trace mitral regurgitation. Mild tricuspid regurgitation present. The right ventricular systolic pressure, as measured by Doppler, is 36.08mmHg. Pulmonic valve appears structurally normal. The aortic root size is normal. The pericardium is normal. CONCLUSIONS -------- 1. Sinus rhythm. 2. Mild mitral annular calcification present. 3. There is trace mitral regurgitation. 4. Mild tricuspid regurgitation present. 5. The right ventricular systolic pressure, as measured by Doppler, is 36.08mmHg. 6. Pulmonic valve appears structurally normal. 7. The aortic root size is normal. 8. The pericardium is normal. 9. This was a technically good study. 10. Left ventricular wall thickness is normal. 11. Overall left ventricular systolic function is normal with, an EF between 55 - 60 %. 12. The right ventricle is normal in size and function. 13. The left atrium is normal in size. 14. The right atrium is normal in size. 15. Can't exclude possible Bicuspid Aov. 16. The mitral valve leaflets are mildly thickened. DIST[employer]BUTION DISTRICT SUPERVISOR: Ni Gallo RDCS
[2016-11-07] MEDS ORDERED: guaiFENesin-DM 100-10MG/5ML 10 ML CUP PO PRN (09:53)
--- NOTE | 2016-11-07 10:51 | P.PN ---
Subjective This 66-year-old female patient is a chronic smoker in she has an underlying COPD and addition to various other medical problems such as hypertension, hiatal hernia, spastic colon, anxiety and depression and previous history of a cellulitis of the involved right hip area which was attributed to MRSA. The patient was admitted to the hospital for cough, fever and chills, producing brownish sputum that was copious in amount and high-grade fever. The patient initially went to a walk-in clinic. Following that she came in to the hospital and she was found to have an extensive left lung pneumonia. In fact, the computed tomography scan that was done on 11/03/2016 showed diffuse bilateral areas of consolidation and significant cavitating/necrotizing pneumonia involving the left upper lobe. There was some shotty adenopathy within the mediastinum and the largest of fluid was measuring 1.1 cm in size. The patient also had extensive emphysematous changes bilaterally with a small left-sided pleural effusion. The patient also has cardiomegaly with coronary artery calcifications. Initially the patient was admitted to the medical floor being treated for a routine computed acquired pneumonia and she was given Levaquin. Overnight, her condition decompensated and the patient had to be moved to the intensive care unit for progressive worsening of dyspnea. The patient was placed on a BiPAP at a pressure of 10 over 5 cm of water and FiO2 of 50%. The patient was taken off the Levaquin and the patient was placed on a combination of as Fara M and vancomycin. This morning, the patient is very much worn-out tired and fatigued. She has lost significant amount of strength. Her voice is extremely hoarse. She is using some abdominal muscles to breathe. She is in [id number] degree of respiratory distress. She is on high flow oxygen at 15 L/m nasal cannula. A repeat CAT scan of the chest was done and this was a CT angios the chest and it showed an evolution of a 10 cm area of consolidation in the left upper lobe and there is extensive interstitial edema in the right lung. Is also reticular nodular changes in the lower lobes bilaterally more so on the left. There is some embolus changes in the right upper lobe and some early cavitation changes in the left upper lobe. The patient has no pulmonary embolism. No exposure to TB. No travel history. She has worked in [employer]. The patient had a recent rotator cuff injury to her right shoulder and she underwent a rotator cuff surgical repair by Dr. Dr. Lovett on August 2016. No reported aspiration. No reported travel. No alcoholism. No immunosuppression. No history of HIV positivity. On 11/07/2016 the patient is being seen in follow-up. The patient had 2 sputum samples that showed staph aureus, likely MSSA. We'll more convinced that this is a staphylococcal necrotizing pneumonia. Today's chest x-ray shows still an extensive pneumonic process involving the left lung and there is no major improvement compared to yesterday. Nevertheless, clinically the patient is less short of breath. The patient is less hypoxic and currently she is on 12 L/ m nasal cannula. The Merrem was discontinued and the patient was kept on a combination of Levaquin and vancomycin. She is penicillin ALLERGIC. She is extremely weak and she'll benefit from physical therapy. Objective - Vital Signs Vital signs: Vital Signs Temp 97.6 F 11/07/16 08:00 Pulse 98 11/07/16 10:00 Resp 24 11/07/16 10:00 BP 164/78 11/07/16 10:00 Pulse Ox 94 L 11/07/16 10:00 Intake & Output 11/06/16 11/07/16 11/07/16 18:59 06:59 18:59 Intake Total 800 1200 300 Output Total 1700 664 280 Balance -900 536 20 Weight 72.2 kg 74.523 kg 74.523 kg Intake: IV 800 1200 300 Sodium Chloride 0.9% 1, 800 1200 300 000 ml @ 100 mls/hr IV . Q10H NIRANJAN Rx#:[id number] Output: Urine 1700 664 280 Other: Voiding Method Indwelling Catheter Indwelling Catheter Indwelling Catheter # Bowel Movements 0 - Exam Head exam was generally normal. There was no scleral icterus or corneal arcus. Mucous membranes were moist.Neck was supple and without jugular venous distension, thyromegaly, or carotid bruits. Carotids were easily palpable bilaterally. There was no adenopathy. Lung sounds are diminished bilaterally and there is some few scattered external wheezes or rhonchi. Crackles in the mid lungs and the lower lungs bilaterally along with extensive crackling in the left upper lobe especially anteriorly.Cardiac exam revealed the PMI to be normally situated and sized. The rhythm was regular and no extrasystoles were noted during several minutes of auscultation. The first and second heart sounds were normal and physiologic splitting of the second heart sound was noted. There were no murmurs, rubs, clicks, or gallops.Abdominal exam revealed normal bowel sounds. The abdomen was soft, non-tender, and without masses, organomegaly , or appreciable enlargement of the abdominal aorta.Examination of the extremities revealed easily palpable radial, femoral and pedal pulses. There was no cyanosis, clubbing or edema. - Labs CBC & Chem 7: 11/07/16 04:58 11/07/16 04:58 Labs: Abnormal Lab Results - Last 24 Hours (Table) 11/06/16 11/06/16 11/06/16 Range/Units 12:22 17:18 20:52 WBC (3.8-10.6) k/uL RBC (3.80-5.40) m/uL Hgb (11.4-16.0) gm/dL Neutrophils # (1.3-7.7) k/uL Lymphocytes # (1.0-4.8) k/uL BUN (7-17) mg/dL Creatinine (0.52-1.04) mg/dL Glucose (74-99) mg/dL POC Glucose (mg/dL) 148 H 127 H 145 H (75-99) mg/dL Calcium (8.4-10.2) mg/dL 11/07/16 11/07/16 11/07/16 Range/Units 04:58 04:58 07:20 WBC 14.8 H (3.8-10.6) k/uL RBC 3.77 L (3.80-5.40) m/uL Hgb 11.2 L (11.4-16.0) gm/dL Neutrophils # 13.5 H (1.3-7.7) k/uL Lymphocytes # 0.6 L (1.0-4.8) k/uL BUN 24 H (7-17) mg/dL Creatinine 0.40 L (0.52-1.04) mg/dL Glucose 141 H (74-99) mg/dL POC Glucose (mg/dL) 122 H (75-99) mg/dL Calcium 7.7 L (8.4-10.2) mg/dL Microbiology - Last 24 Hours (Table) 11/06/16 16:45 Gram Stain - Preliminary Sputum 11/05/16 17:05 Blood Culture - Preliminary Blood No Growth after 24 hours 11/05/16 19:00 Gram Stain - Preliminary Sputum Sputum Culture - Preliminary Presumptive Staph aureus 11/05/16 04:35 Urine Culture - Final Urine,Voided Assessment and Plan Plan: Impression 1 acute hypoxic respiratory failure, currently on high flow oxygen at 15 L. The patient also is utilizing BiPAP on and off intermittently during the day On 11/07/2016, the patient is being seen in follow-up chest exit showed a stable left lung pneumonia. The patient has staphylococcal pneumonia as confirmed by 2 separate sputum samples. The patient has MSSA. Currently the antibiotic coverage includes a combination of Levaquin and vancomycin. I discussed this case with Dr. Barker. Mother the patient was using the BiPAP throughout the night and currently is off the BiPAP. We'll give the patient ICU for extensive necrotizing left lung pneumonia in addition to involvement of the lower lobes bilaterally. 2 moderate bilobar pneumonia with extensive necrotizing pneumonia involving the left upper lobe with some early cavitating changes. 3 COPD 4 Sepsis secondary to above 5 leukocytosis 6 previous history of MRSA soft tissue infection, recovered 7 shingles, history of 8 hiatal hernia, history of 9 hypertension 10 GE reflux 11 spastic colon Plan The patient is somewhat improved compared to yesterday. Oxygenation has improved. The patient has a staphylococcal necrotizing pneumonia. We'll continue Levaquin and vancomycin. A much concerned about underlying generalized weakness and for that reason I'm going to start on an aggressive physical therapy. Chest PT will be continued. The patient will be given Robitussin-DM for cough and chest congestion. Continue same antibiotic coverage. Continue the steroids. BiPAP can still be used on and off during the day continue statin nighttime. I will keep the patient in ICU for another 24 hours. A repeat chest x-ray in the morning. Infectious diseases on the case.
[2016-11-07] MEDS: B COMPLEX-VIT C-VIT E-ZINC 1 EACH TAB PO SCH (11:16)
[2016-11-07 12:28] LABS: Glucose,Whole Blood 178 mg/dL (75-99)
[2016-11-07] MEDS: LEVOFLOXACIN 750MG-D5W PMX 750 MG in DEXTROSE/WATER 1 150ML.BAG IVPB SCH (12:29)
[2016-11-07] MEDS: VANCOMYCIN 1,500 MG in SODIUM CHLORIDE 0.9% 250 ML IVPB SCH (16:23)
[2016-11-07 18:57] LABS: Glucose,Whole Blood 106 mg/dL (75-99)
[2016-11-07] MEDS ORDERED: Potassium Replacement Protocol 1 EACH MISC MISCELLANE PRN (19:20)
[2016-11-07] MEDS: ASPIRIN 81 MG CHEW PO SCH (20:00)
[2016-11-07] MEDS ORDERED: POTASSIUM CHLORIDE ER 20 MEQ TAB.ER PO SCH (20:00)
--- NOTE | 2016-11-07 21:46 | P.PN ---
Subjective Principal diagnosis: Pneumonia 66-year-old female who is a long-standing history of tobacco use and COPD. Prior to admission she did not have a history of oxygen use or respiratory support such as a CPAP. She was feeling poorly for quite some time. She had increasing cough with sputum production that was brownish in nature. It was quite copious. She had developed fever with chills. If she continued to feel more poorly she did go to the outpatient clinic. Despite that she felt very poorly. She presented to the emergency center on 2016. In the emergency center she was acutely ill. Chest x-ray was abnormal. Because of the computed tomography scan was performed. She had evidence of a cavitary necrotizing pneumonia of the left upper lobe as well as some lymphadenopathy and very extensive emphysematous changes to the lungs. She was admitted to hospital and was receiving antibiotics and respiratory treatments. She over a worsening of her status. He required transfer to the intensive care unit. She was treated with some BiPAP. Is now on high flow oxygen. She feels slightly better than yesterday. She is aware that smoking is caused her to have significant lung disease and now has a severe pneumonia that is complicated because of her underlying lung disease. She first feels slightly better today. She is less short of breath. He still having cough but less sputum production. She's not having much discomfort. BiPAP is off but will be utilized tonight. Objective - Vital Signs Vital signs: Vital Signs Temp 98.0 F 11/07/16 20:00 Pulse 85 11/07/16 20:00 Resp 22 11/07/16 20:00 BP 151/67 11/07/16 20:00 Pulse Ox 94 L 11/07/16 20:00 Intake & Output 11/07/16 11/07/16 11/08/16 06:59 18:59 06:59 Intake Total 1200 1200 260 Output Total 664 1070 125 Balance 536 130 135 Weight 74.523 kg 74.523 kg Intake: IV 1200 1200 200 Sodium Chloride 0.9% 1, 1200 1200 200 000 ml @ 100 mls/hr IV . Q10H NIRANJAN Rx#:[id number] Oral 60 Output: Urine 664 1070 125 Other: Voiding Method Indwelling Catheter Indwelling Catheter Indwelling Catheter # Bowel Movements 0 - Exam 66-year-old woman who appears younger than her stated age is very short of breath and his cough with some thick sputum HEENT: Anicteric conjunctiva are pink and moist nasal mucosa grossly intact without significant lesions, there is no thrush. Neck: The neck is supple without significant lymphadenopathy or thyromegaly. Lungs: Symmetrical air entry, wheezings that are scattered throughout the lung bob. Bibasilar crackles are heard there is improved air exchange today Heart: Regular rate and rhythm with an audible S1-S2, left S4. There is no significant murmur click or rub, PMI was nondisplaced. Abdomen: Positive bowel sounds soft and nontender without palpable masses or organomegaly. There was no guarding or rebound. Extremities: The upper extremities have excellent pulses they are symmetric, no significant petechiae or telangiectasia. No splinter hemorrhages were noted. The lower extremities are free from significant edema. The peripheral pulses were 2+ and symmetric. Neuro: Awake alert oriented to person place and time. There are no acute new gross focal sensory motor deficits. - Labs CBC & Chem 7: 11/07/16 04:58 11/07/16 16:53 Labs: Abnormal Lab Results - Last 24 Hours (Table) 11/07/16 11/07/16 11/07/16 Range/Units 04:58 04:58 07:20 WBC 14.8 H (3.8-10.6) k/uL RBC 3.77 L (3.80-5.40) m/uL Hgb 11.2 L (11.4-16.0) gm/dL Neutrophils # 13.5 H (1.3-7.7) k/uL Lymphocytes # 0.6 L (1.0-4.8) k/uL BUN 24 H (7-17) mg/dL Creatinine 0.40 L (0.52-1.04) mg/dL Glucose 141 H (74-99) mg/dL POC Glucose (mg/dL) 122 H (75-99) mg/dL Calcium 7.7 L (8.4-10.2) mg/dL 11/07/16 11/07/16 Range/Units 12:17 18:54 WBC (3.8-10.6) k/uL RBC (3.80-5.40) m/uL Hgb (11.4-16.0) gm/dL Neutrophils # (1.3-7.7) k/uL Lymphocytes # (1.0-4.8) k/uL BUN (7-17) mg/dL Creatinine (0.52-1.04) mg/dL Glucose (74-99) mg/dL POC Glucose (mg/dL) 178 H 106 H (75-99) mg/dL Calcium (8.4-10.2) mg/dL Microbiology - Last 24 Hours (Table) 11/05/16 17:05 Blood Culture - Preliminary Blood No Growth after 48 hours 11/05/16 19:00 Gram Stain - Final Sputum Sputum Culture - Final Staphylococcus aureus 11/06/16 16:45 Gram Stain - Preliminary Sputum Laboratory Results WBC 14.8 k/uL (3.8-10.6) H 11/07/16 04:58 RBC 3.77 m/uL (3.80-5.40) L 11/07/16 04:58 Hgb 11.2 gm/dL (11.4-16.0) L 11/07/16 04:58 Hct 35.5 % (34.0-46.0) 11/07/16 04:58 MCV 94.2 fL (80.0-100.0) 11/07/16 04:58 MCH 29.8 pg (25.0-35.0) 11/07/16 04:58 MCHC 31.7 g/dL (31.0-37.0) 11/07/16 04:58 RDW 13.9 % (11.5-15.5) 11/07/16 04:58 Plt Count 406 k/uL (150-450) 11/07/16 04:58 Neutrophils % 91 % 11/07/16 04:58 Neutrophils % (Manual) 82.5 % 11/05/16 08:41 Band Neutrophils % 9.0 % 11/05/16 08:41 Lymphocytes % 4 % 11/07/16 04:58 Lymphocytes % (Manual) 5.0 % 11/05/16 08:41 Monocytes % 4 % 11/07/16 04:58 Monocytes % (Manual) 3.5 % 11/05/16 08:41 Eosinophils % 0 % 11/07/16 04:58 Basophils % 0 % 11/07/16 04:58 Metamyelocytes % 0.5 % 11/04/16 10:51 Myelocytes % 1.0 % 11/04/16 10:51 Neutrophils # 13.5 k/uL (1.3-7.7) H 11/07/16 04:58 Neutrophils # (Manual) 27.2 k/uL (1.3-7.7) H 11/05/16 08:41 Lymphocytes # 0.6 k/uL (1.0-4.8) L 11/07/16 04:58 Lymphocytes # (Manual) 1.5 k/uL (1.0-4.8) 11/05/16 08:41 Monocytes # 0.5 k/uL (0-1.0) 11/07/16 04:58 Monocytes # (Manual) 1.0 k/uL (0-1.0) 11/05/16 08:41 Eosinophils # 0.0 k/uL (0-0.7) 11/07/16 04:58 Basophils # 0.0 k/uL (0-0.2) 11/07/16 04:58 Nucleated RBCs 0 /100 WBC (0-0) 11/05/16 08:41 Manual Slide Review Performed 11/04/16 10:51 Toxic Granulation Present 11/05/16 08:41 Toxic Vacuolation Present 11/05/16 08:41 Poikilocytosis (manual Present 11/03/16 08:59 Anisocytosis (manual) Present 11/03/16 08:59 Target Cells Present 11/03/16 08:59 PT 10.6 sec (9.0-12.0) 11/01/16 15:26 INR 1.0 (<1.1) 11/01/16 15:26 APTT 27.8 sec (22.0-30.0) 11/01/16 15:26 D-Dimer 2.23 mg/L FEU (<0.60) H 11/05/16 15:50 Sample Site LRAD 11/05/16 16:20 ABG pH 7.44 (7.35-7.45) 11/05/16 16:20 ABG pCO2 29 mmHg (35-45) L 11/05/16 16:20 ABG pO2 131 mmHg (83-108) H 11/05/16 16:20 ABG HCO3 19 mmol/L (21-25) L 11/05/16 16:20 ABG Total CO2 20 mmol/L (19-24) 11/05/16 16:20 ABG O2 Saturation 99.0 % (94-97) H 11/05/16 16:20 ABG Base Excess -4.1 mmol/L 11/05/16 16:20 FiO2 60 % 11/05/16 16:20 Sodium 138 mmol/L (137-145) 11/07/16 04:58 Potassium 3.7 mmol/L (3.5-5.1) 11/07/16 16:53 Chloride 101 mmol/L (98-107) 11/07/16 04:58 Carbon Dioxide 30 mmol/L (22-30) 11/07/16 04:58 Anion Gap 7 mmol/L 11/07/16 04:58 BUN 24 mg/dL (7-17) H 11/07/16 04:58 Creatinine 0.40 mg/dL (0.52-1.04) L 11/07/16 04:58 Est GFR (MDRD) Af Amer >60 (>60 ml/min/1.73 sqM) 11/07/16 04:58 Est GFR (MDRD) Non-Af >60 (>60 ml/min/1.73 sqM) 11/07/16 04:58 Glucose 141 mg/dL (74-99) H 11/07/16 04:58 POC Glucose (mg/dL) 106 mg/dL (75-99) H 11/07/16 18:54 POC Glu Webmethods Consultant ID 11/07/16 18:54 Plasma Lactic Acid Rohan 1.4 mmol/L (0.7-2.0) 11/05/16 11:02 Calcium 7.7 mg/dL (8.4-10.2) L 11/07/16 04:58 Magnesium 2.0 mg/dL (1.6-2.3) 11/04/16 10:51 Total Bilirubin 0.6 mg/dL (0.2-1.3) 11/04/16 10:51 AST 48 U/L (14-36) H 11/04/16 10:51 ALT 43 U/L (9-52) 11/04/16 10:51 Alkaline Phosphatase 117 U/L (38-126) 11/04/16 10:51 Total Creatine Kinase 99 U/L (30-135) 11/01/16 15:26 CK-MB (CK-2) 0.6 ng/mL (0.0-2.4) 11/01/16 15:26 CK-MB (CK-2) Rel Index 0.6 11/01/16 15:26 Troponin I <0.012 ng/mL (0.000-0.034) 11/01/16 15:26 NT-Pro-B Natriuret Pep 276 pg/mL 11/01/16 15:26 Total Protein 5.5 g/dL (6.3-8.2) L 11/04/16 10:51 Albumin 2.7 g/dL (3.5-5.0) L 11/04/16 10:51 Urine Color Light Yellow 11/05/16 18:26 Urine Appearance Clear (Clear) 11/05/16 18:26 Urine pH 6.5 (5.0-8.0) 11/05/16 18:26 Ur Specific Sherwood 1.009 (1.001-1.035) 11/05/16 18:26 Urine Protein Negative (Negative) 11/05/16 18:26 Urine Glucose (UA) Negative (Negative) 11/05/16 18:26 Urine Ketones Trace (Negative) H 11/05/16 18:26 Urine Blood Small (Negative) H 11/05/16 18:26 Urine Nitrate Negative (Negative) 11/05/16 18:26 Urine Bilirubin Negative (Negative) 11/05/16 18:26 Urine Urobilinogen <2.0 mg/dL (<2.0) 11/05/16 18:26 Ur Leukocyte Esterase Negative (Negative) 11/05/16 18:26 Urine RBC 7 /hpf (0-5) H 11/05/16 18:26 Urine WBC 2 /hpf (0-5) 11/05/16 18:26 Ur Squamous Epith Cells 9 /hpf (0-4) H 11/05/16 18:26 Amorphous Sediment Rare /hpf (None) H 11/05/16 18:26 Hyaline Casts 3 /lpf (0-2) H 11/05/16 18:26 Urine Mucus Rare /hpf (None) H 11/05/16 18:26 Vancomycin Trough 6.2 ug/mL 11/07/16 04:58 Influenza Type A RNA Not Detected (Not Detectd) 11/01/16 15:53 Influenza Type B (PCR) Not Detected (Not Detectd) 11/01/16 15:53 Microbiology 11/05/16 17:05 Blood Blood Culture - Preliminary No Growth after 48 hours 11/01/16 15:26 Blood Blood Culture - Final No Growth after 144 hours 11/05/16 19:00 Sputum Gram Stain - Final 11/05/16 19:00 Sputum Sputum Culture - Final Staphylococcus aureus 11/06/16 16:45 Sputum Gram Stain - Preliminary 11/05/16 04:35 Urine,Voided Urine Culture - Final 11/02/16 07:00 Sputum Gram Stain - Final 11/02/16 07:00 Sputum Sputum Culture - Final Staphylococcus aureus Assessment and Plan (1) Necrotizing pneumonia Narrative/Plan: 66-year-old female presents to hospital with significant shortness of breath. Was cared for in the outpatient setting but was not having improvement. At admission her computed tomography scan shows evidence of the extensive pneumonic process. There appears to be necrotizing in nature with the cavitating pneumonia in the left upper lobe. The extensive bullous emphysema was noted and reactive lymphadenopathy was seen. Effusions have improved. At this time she appears to have a methicillin susceptible staph aureus pneumonia is causing the significant necrosis. She has a significant ALLERGY to penicillin and constantly cephalosporins will not be attempted given her current very tenacious status. Vancomycin is being utilized. Evaluation for Legionella and mycoplasma are in process also. In with his levofloxacin is added. Antecedent viral infection is not excluded, but evidence of influenza was not found at admission. The patient understands that she is profoundly ill. She is at risk of respiratory failure. She could become ventilator dependent. Legionella still pending. Status: Acute (2) Staphylococcus aureus pneumonia Status: Acute (3) Fever Status: Acute (4) Leukocytosis Status: Acute
[2016-11-07 21:55] LABS: Glucose,Whole Blood 144 mg/dL (75-99)
[2016-11-07] MEDS: NAPROXEN 250 MG TAB PO SCH (21:55)
[2016-11-07] MEDS: NICOTINE 21MG/24HR PATCH TRANSDERM SCH (21:55)
[2016-11-07] MEDS: traZODone HCL 50 MG TAB PO SCH (21:55)
[2016-11-08] MEDS: VANCOMYCIN 1,500 MG in SODIUM CHLORIDE 0.9% 250 ML IVPB SCH ×3 (00:14→16:11)
[2016-11-08] MEDS: methylPREDNISolone SOD SUCCI 40 MG/ML 1 ML VIAL IV SCH ×4 (00:14→17:57)
[2016-11-08 04:37] LABS: Basophils % (A) 0 %; CH 29.7; CHCM 31.5; Eosinophils % (A) 0 %; HCT 38.1 % (34.0-46.0); HDW 2.24; HGB 11.8 gm/dL (11.4-16.0); Luc # (Auto) 0.17; Luc % (Auto) 1; Lymphocytes # (A) 0.5 k/uL (1.0-4.8); Lymphocytes % (A) 4 %; MCH 29.4 pg (25.0-35.0); MCV 94.6 fL (80.0-100.0); Mean Platelet Volume 6.8; Monocytes # (A) 0.4 k/uL (0-1.0); Monocytes % (A) 3 %; Neutrophils # (A) 11.3 k/uL (1.3-7.7); Neutrophils % (A) 91 %; RBC 4.03 m/uL (3.80-5.40); RDW 13.9 % (11.5-15.5); WBC 12.5 k/uL (3.8-10.6); WBC (Perox) 13.05
[2016-11-08 05:09] LABS: Anion Gap 7 mmol/L; Blood Urea Nitrogen 19 mg/dL (7-17); Calcium 7.8 mg/dL (8.4-10.2); Carbon Dioxide 30 mmol/L (22-30); Chloride 101 mmol/L (98-107); Glucose 156 mg/dL (74-99); Non-African American GFR(MDRD) >60 (>60 ml/min/1.73 sqM); Phosphorous 2.8 mg/dL (2.5-4.5); Potassium 4.2 mmol/L (3.5-5.1); Sodium 138 mmol/L (137-145)
[2016-11-08] MEDS: HYDROcodone/APAP 5-325MG 1 EACH TAB PO PRN ×2 (05:11→19:01)
[2016-11-08 06:43] LABS: Mycoplasma IgG Antibody (EIA) 0.39 INDEX (<=0.90)
[2016-11-08] MEDS: ALPRAZolam 0.5 MG TAB PO PRN ×2 (07:42→12:43)
--- NOTE | 2016-11-08 07:46 | PN ---
DATE OF SERVICE: 11/07/2016 This 66-year-old woman who was admitted with extensive pneumonia also had evidence of cavitation also. The patient had multilobar pneumonia. The patient is on broad-spectrum IV antibiotics. The most recent chest x-ray showed similar findings with pneumonia. Dr. Barker and Dr. Palencia are following the patient closely. MSSA pneumonia is also being suspected. The patient had some slight improvement, but still extremely short of breath, unable to complete sentences. Patient also had dysphonia also. Dr. Palencia is following the patient closely. The patient monitored in ICU at this time. The patient is on BiPAP. The 2-D echo with Doppler was also done, which showed, ejection fraction about 55% to 60%. No chest pain or palpitation. PAST MEDICAL HISTORY: Reviewed. REVIEW OF SYSTEMS: CARDIOVASCULAR: No angina or palpitations. RESPIRATORY: As mentioned earlier. GI: No nausea. : No dysuria. NERVOUS SYSTEM: No numbness or weakness. Current medications are: 1. Tylenol 650 q.6 p.r.n. 2. Willard 5 mg q.6 p.r.n. 3. Xanax 0.5 mg q.i.d. p.r.n. 4. Aspirin 81 mg. 5. Vitamin D3. 6. Celexa. 7. Perforomist. 8. Flonase. 9. Robitussin. 10. Heparin. 11. HydroDIURIL. 12. Humalog. 13. Atrovent. 14. Xopenex. 15. Levaquin. 16. Melatonin. 17. Solu-Medrol. 18. Potassium. 19. Naprosyn. PHYSICAL EXAMINATION: The patient is alert and oriented x3. Pulse 85, blood pressure 151/67, respirations 22, temperature 98 degrees, pulse ox 94% on 15 L high-flow nasal cannula. HEENT: Conjunctivae normal. Oral mucosa moist. NECK: Axillary muscle of respiration acting. Breathing efforts are markedly increased. CARDIOVASCULAR: S1, S2 muffled. No S3, no S4. RESPIRATORY: Breath sounds diminished at the base. Bilateral scattered rhonchi, expiratory wheezing and crackles. ABDOMEN: Soft, nontender. No mass palpable. LEGS: No edema, no swelling. NERVOUS SYSTEM: Mild diffuse weakness. LABS: WBC 14.8, hemoglobin 11.2. Glucose 122. Calcium 7.7. ASSESSMENT: 1. Acute multilobar pneumonia, left more than the right, possibly Gram-negative, possible staph pneumonia with necrotizing pneumonia with cavitary lesion with acute hypoxic respiratory failure with severe sepsis, present on admission on BiPAP. 2. Possible cavitation in the left upper lobe with necrotizing pneumonia. 3. Chronic obstructive pulmonary disease, acute exacerbation. 4. Mediastinal lymphadenopathy. 5. Elevated D-dimer. 6. Sinusitis with hoarseness. 7. Possible acute laryngitis. 8. Hypertension. 9. Depression, anxiety, not otherwise specified. 10. Continued ongoing nicotine dependence. 11. History of insomnia. 12. Cardiomegaly and coronary calcification on the CT scan. 13. Increased WBC. 14. Hypokalemia. 15. Hypoalbuminemia with mild to moderate protein calorie malnutrition. 16. Gastroesophageal reflux disease. 17. History childhood polio. 18. History of degenerative joint disease. 19. History of anxiety, depression, not otherwise. 20. FULL CODE. RECOMMENDATIONS AND DISCUSSION: In this 66-year-old woman who presented with multiple complex medical issues, will monitor the patient closely. Continue the current medications. Continue symptomatic treatment. Otherwise, at this time I would recommend continue the bronchodilators. Continue with empiric antibiotics. Continue with current medications. Otherwise, the influenza test was negative on admission. Staph aureus grown from the cultures. Will closely monitor with Dr. Palencia. Guarded prognosis. Further recommendations to follow. MTDD
[2016-11-08] MEDS: IPRATROPIUM 0.5 MG/2.5 ML NEBU INHALATION SCH ×5 (07:49→21:02)
[2016-11-08] MEDS: FORMOTEROL FUMARATE 20 MCG/2 ML NEBU INHALATION SCH ×2 (07:49→21:02)
[2016-11-08] MEDS: LEVALBUTEROL NEB (CONC) 1.25 MG/0.5 ML AMP INHALATION SCH ×5 (07:49→21:02)
[2016-11-08] MEDS: BUDESONIDE 1 MG/2 ML NEBU INHALATION SCH ×2 (07:49→21:02)
[2016-11-08 08:04] LABS: Glucose,Whole Blood 123 mg/dL (75-99)
[2016-11-08] MEDS: INSULIN LISPRO (humaLOG) 300 UNIT/3 ML VIAL SQ SCH ×4 (08:43→21:16)
[2016-11-08] MEDS: SODIUM CHLORIDE 0.9% 1,000 ML IV SCH ×2 (08:44→17:57)
[2016-11-08] MEDS: PANTOPRAZOLE 40 MG TABLET PO SCH (08:44)
[2016-11-08] MEDS: CHOLECALCIFEROL 1,000 UNIT TAB PO SCH (08:44)
[2016-11-08] MEDS: HEPARIN SODIUM,PORCINE 5,000 UNIT/ML 1 ML VIAL SQ SCH ×2 (08:45→21:15)
[2016-11-08] MEDS: CITALOPRAM HYDROBROMIDE 20 MG TAB PO SCH ×2 (08:45→21:15)
[2016-11-08] MEDS: ASCORBIC ACID 500 MG TAB PO SCH (08:45)
[2016-11-08] MEDS: HYDROCHLOROTHIAZIDE 25 MG TAB PO SCH (08:46)
[2016-11-08] MEDS: LACTOBACILLUS ACIDOPH & BULGAR 1 EACH PACKET PO SCH (08:46)
[2016-11-08] MEDS: NYSTATIN 100,000 UNIT/ML SUSP 500,000 UNIT/5 ML CUP PO SCH ×4 (08:46→21:15)
--- NOTE | 2016-11-08 09:01 | XR ---
EXAMINATION TYPE: XR chest 1V DATE OF EXAM: 11/08/2016 6:47 AM HISTORY: Difficulty breathing. REFERENCE: Previous study dated 11/07/2016. FINDINGS: There is diffuse groundglass opacity throughout both lungs. This is worst in the left upper lobe. The heart is mildly enlarged. I cannot exclude a small left effusion. IMPRESSION: NO INTERVAL CHANGE IN APPEARANCE OF THE CHEST.
--- NOTE | 2016-11-08 11:14 | P.PN ---
Subjective This 66-year-old female patient is a chronic smoker in she has an underlying COPD and addition to various other medical problems such as hypertension, hiatal hernia, spastic colon, anxiety and depression and previous history of a cellulitis of the involved right hip area which was attributed to MRSA. The patient was admitted to the hospital for cough, fever and chills, producing brownish sputum that was copious in amount and high-grade fever. The patient initially went to a walk-in clinic. Following that she came in to the hospital and she was found to have an extensive left lung pneumonia. In fact, the computed tomography scan that was done on 11/03/2016 showed diffuse bilateral areas of consolidation and significant cavitating/necrotizing pneumonia involving the left upper lobe. There was some shotty adenopathy within the mediastinum and the largest of fluid was measuring 1.1 cm in size. The patient also had extensive emphysematous changes bilaterally with a small left-sided pleural effusion. The patient also has cardiomegaly with coronary artery calcifications. Initially the patient was admitted to the medical floor being treated for a routine computed acquired pneumonia and she was given Levaquin. Overnight, her condition decompensated and the patient had to be moved to the intensive care unit for progressive worsening of dyspnea. The patient was placed on a BiPAP at a pressure of 10 over 5 cm of water and FiO2 of 50%. The patient was taken off the Levaquin and the patient was placed on a combination of as Fara M and vancomycin. This morning, the patient is very much worn-out tired and fatigued. She has lost significant amount of strength. Her voice is extremely hoarse. She is using some abdominal muscles to breathe. She is in [id number] degree of respiratory distress. She is on high flow oxygen at 15 L/m nasal cannula. A repeat CAT scan of the chest was done and this was a CT angios the chest and it showed an evolution of a 10 cm area of consolidation in the left upper lobe and there is extensive interstitial edema in the right lung. Is also reticular nodular changes in the lower lobes bilaterally more so on the left. There is some embolus changes in the right upper lobe and some early cavitation changes in the left upper lobe. The patient has no pulmonary embolism. No exposure to TB. No travel history. She has worked in [place]. The patient had a recent rotator cuff injury to her right shoulder and she underwent a rotator cuff surgical repair by Dr. Dr. Lovett on August 2016. No reported aspiration. No reported travel. No alcoholism. No immunosuppression. No history of HIV positivity. Patient is seen again today to 2016 in follow-up. She remains in the intensive care unit. She is more awake and alert today as compared to yesterday. She continues with a loose productive cough of walls/pink tinged sputum. She states she is somewhat less short of breath and feeling a bit stronger. Her appetite is somewhat better. Her chest x-ray continues to show diffuse groundglass opacities worse in the left upper lobe and there is a small left pleural effusion however there is no significant changes compared to yesterday. She does continue to require 15 L of high flow nasal cannula to maintain O2 saturations in the low 90s. Sputum is positive for methicillin sensitive Staphylococcus aureus. He remains on Levaquin and vancomycin. Objective - Vital Signs Vital signs: Vital Signs Temp 97.4 F L 11/08/16 09:00 Pulse 98 11/08/16 11:00 Resp 24 11/08/16 11:00 BP 145/68 11/08/16 11:00 Pulse Ox 93 L 11/08/16 11:00 Intake & Output 11/07/16 11/08/16 11/08/16 18:59 06:59 18:59 Intake Total 1200 1860 450 Output Total 1070 1307 750 Balance 130 553 -300 Weight 74.523 kg 80.3 kg Intake: IV 1200 1350 450 Sodium Chloride 0.9% 1, 1200 1100 200 000 ml @ 100 mls/hr IV . Q10H NIRANJAN Rx#:[id number] Vancomycin 1,500 mg In 250 250 Sodium Chloride 0.9% 250 ml @ 125 mls/hr IVPB Q8HR NIRANJAN Rx#:[id number] Oral 510 Output: Urine 1070 1307 750 Other: Voiding Method Indwelling Catheter Indwelling Catheter Indwelling Catheter - Exam GENERAL EXAM: Alert, fairly comfortable in no apparent distress. HEAD: Normocephalic. EYES: Normal reaction of pupils, equal size. NOSE: Clear with pink turbinates. THROAT: No erythema or exudates. NECK: No masses, no JVD. CHEST: No chest wall deformity. LUNGS: Equal air entry with lateral scattered rhonchi, crackles in the posterior bases, diminished. CVS: S1 and S2 normal with no audible murmurs, regular rhythm. ABDOMEN: No hepatosplenomegaly, normal bowel sounds, no guarding or rigidity. SPINE: No scoliosis or deformity SKIN: No rashes CENTRAL NERVOUS SYSTEM: No focal deficits, tone is normal in all 4 extremities. Generalized weakness. Extremities: There is no significant peripheral edema. No clubbing, no cyanosis. Peripheral pulses are intact. - Labs CBC & Chem 7: 11/08/16 04:22 11/08/16 04:22 Labs: Abnormal Lab Results - Last 24 Hours (Table) 11/07/16 11/07/16 11/07/16 Range/Units 12:17 18:54 21:53 WBC (3.8-10.6) k/uL Neutrophils # (1.3-7.7) k/uL Lymphocytes # (1.0-4.8) k/uL BUN (7-17) mg/dL Creatinine (0.52-1.04) mg/dL Glucose (74-99) mg/dL POC Glucose (mg/dL) 178 H 106 H 144 H (75-99) mg/dL Calcium (8.4-10.2) mg/dL 11/08/16 11/08/16 11/08/16 Range/Units 04:22 04:22 08:02 WBC 12.5 H (3.8-10.6) k/uL Neutrophils # 11.3 H (1.3-7.7) k/uL Lymphocytes # 0.5 L (1.0-4.8) k/uL BUN 19 H (7-17) mg/dL Creatinine 0.44 L (0.52-1.04) mg/dL Glucose 156 H (74-99) mg/dL POC Glucose (mg/dL) 123 H (75-99) mg/dL Calcium 7.8 L (8.4-10.2) mg/dL Microbiology - Last 24 Hours (Table) 11/05/16 17:05 Blood Culture - Preliminary Blood No Growth after 48 hours 11/05/16 19:00 Gram Stain - Final Sputum Sputum Culture - Final Staphylococcus aureus Assessment and Plan Plan: Impression: 1 Acute hypoxic respiratory failure, currently on high flow oxygen at 15 L. The patient also is utilizing BiPAP on and off intermittently during the day On 11/08/2016, the patient is seen in follow-up, chest ray shows a stable left lung pneumonia. The patient has staphylococcal pneumonia as confirmed by 2 separate sputum samples. The patient has MSSA. Currently the antibiotic coverage includes a combination of Levaquin and vancomycin. She is doing slightly better today as compared to yesterday. She requires 15 L of high flow nasal cannula. She has been slow to progress. We did request physical therapy evaluation as the patient has significant weakness. 2 Moderate bilobar pneumonia with extensive necrotizing pneumonia involving the left upper lobe with some early cavitating changes. 3 COPD 4 Sepsis secondary to above 5 Leukocytosis 6 Previous history of MRSA soft tissue infection, recovered 7 Shingles, history of 8 Hiatal hernia, history of 9 Hypertension 10 GE reflux 11 Spastic colon 12 Chronic and ongoing nicotine addiction. Plan Patient was seen and evaluated by Dr. Palencia. Her chest x-ray and labs were reviewed. We'll continue with her current medications. We will increase her activity as tolerated. Again educated regarding the importance of complete smoking cessation. We will continue to follow and make further recommendations based on her clinical status. We will continue to monitor her here closely in the intensive care unit.
[2016-11-08 12:41] LABS: Glucose,Whole Blood 113 mg/dL (75-99)
[2016-11-08] MEDS ORDERED: ARTIFICIAL TEARS OINTMENT 3.5 GM TUBE BOTH EYES PRN (12:41)
[2016-11-08] MEDS: B COMPLEX-VIT C-VIT E-ZINC 1 EACH TAB PO SCH (12:43)
[2016-11-08] MEDS ORDERED: LEVOFLOXACIN 750 MG TAB PO SCH (13:00)
[2016-11-08] MEDS ORDERED: ARTIFICIAL TEARS-HYPROMELLOSE DROPS 15 ML BTL BOTH EYES PRN (14:13)
[2016-11-08 17:39] LABS: Glucose,Whole Blood 118 mg/dL (75-99)
[2016-11-08 20:37] LABS: Glucose,Whole Blood 129 mg/dL (75-99)
--- NOTE | 2016-11-08 21:06 | PN ---
DATE OF SERVICE: 11/08/2016 This 66-year-old woman who was admitted with acute multilobar pneumonia, also had features of necrotic pneumonia, and as well as respiratory failure. The patient also had some features of as well. Pulmonary is following the patient closely. Chest x-ray reviewed. The patient at this point which is slightly improving at this time. Multiple cultures showed MSSA. Past medical history reviewed. REVIEW OF SYSTEMS: CARDIOVASCULAR: No angina or palpitations. RESPIRATORY: As mentioned earlier. GI: As mentioned earlier. GENITOURINARY: No dysuria. CENTRAL NERVOUS SYSTEM: No numbness or weakness. Current medications are: 1. Tylenol 650 q.6 p.r.n. 2. [place]. 4. Vitamin C. 5. Aspirin. 6. Cepacol. 7. Pulmicort. 8. Lexapro. 9. Celexa. 10. Perforomist. 11. Lactinex. 12. Xopenex. 13. Levaquin. 14. Vancomycin. PHYSICAL EXAMINATION: The patient is alert and oriented times three. Pulse 74, blood pressure 168/87, respiratory rate 22, temperature is 97.2, pulse ox 97% on ( ). HEENT: Conjunctivae normal. NECK: No jugular venous distention. CARDIOVASCULAR: S1, S2 muffled. RESPIRATORY: Breath sounds diminished in the bases. A few scattered rhonchi and crackles. Expiratory wheezing and crackles also present. ABDOMEN: Soft, nontender. LEGS: No edema. No swelling. CENTRAL NERVOUS SYSTEM: No focal deficits. LABS: WBC 2.8, hemoglobin 11.8. ASSESSMENT: 1. Acute multilobar pneumonia, left more than the right, possibly gram-negative, possibly Staph pneumonia with pneumonia with cavitary lesion with acute hypoxic respiratory failure with severe sepsis present on admission on BiPAP. 2. Possible cavitation left upper lobe with necrotizing pneumonia. 3. Chronic obstructive pulmonary disease, acute exacerbation. 4. Mediastinal lymphadenopathy. 5. Elevated d-dimer. 6. Sinusitis with hoarseness. 7. Possible acute laryngitis. 8. Hypertension. 9. Depression, anxiety, not otherwise specified. 10. Continued ongoing nicotine dependence. 11. History of insomnia. 12. Cardiomegaly and calcification on the CAT scan. 13. Increased WBC. 14. Hypokalemia. 15. Hypoalbuminemia with mild to moderate protein calorie malnutrition. 16. History of gastroesophageal reflux disease. 18. History of degenerative joint disease. 19. Anxiety, depression, not otherwise specified. 20. FULL CODE. RECOMMENDATIONS AND DISCUSSION: In this 66 -year-old woman who presented with multiple complex medical issues, we will monitor the patient closely. Continue the current medications. Continue symptomatic treatment. Otherwise, at this time, I recommend to continue with the current medications. Continue with symptomatic treatment. Otherwise, continue with bronchodilators. Continue close follow up with Dr. Palencia. Guarded prognosis. Further recommendations to follow. MTDD
[2016-11-08] MEDS: traZODone HCL 50 MG TAB PO SCH (21:14)
[2016-11-08] MEDS: NAPROXEN 250 MG TAB PO SCH (21:14)
[2016-11-08] MEDS: NICOTINE 21MG/24HR PATCH TRANSDERM SCH (21:14)
[2016-11-08] MEDS: ASPIRIN 81 MG CHEW PO SCH (21:15)
--- NOTE | 2016-11-08 23:18 | P.PN ---
Subjective Principal diagnosis: Pneumonia 66-year-old female who is a long-standing history of tobacco use and COPD. Prior to admission she did not have a history of oxygen use or respiratory support such as a CPAP. She was feeling poorly for quite some time. She had increasing cough with sputum production that was brownish in nature. It was quite copious. She had developed fever with chills. If she continued to feel more poorly she did go to the outpatient clinic. Despite that she felt very poorly. She presented to the emergency center on 2016. In the emergency center she was acutely ill. Chest x-ray was abnormal. Because of the computed tomography scan was performed. She had evidence of a cavitary necrotizing pneumonia of the left upper lobe as well as some lymphadenopathy and very extensive emphysematous changes to the lungs. She was admitted to hospital and was receiving antibiotics and respiratory treatments. She over a worsening of her status. He required transfer to the intensive care unit. She was treated with some BiPAP. Is now on high flow oxygen. She feels slightly better than yesterday. She is aware that smoking is caused her to have significant lung disease and now has a severe pneumonia that is complicated because of her underlying lung disease. She first feels slightly better today. She is less short of breath. She still having cough but less sputum production. She's not having much discomfort. BiPAP is off but will be utilized tonight. Objective - Vital Signs Vital signs: Vital Signs Temp 97.2 F L 11/08/16 12:00 Pulse 88 11/08/16 22:09 Resp 29 H 11/08/16 19:00 BP 141/58 11/08/16 19:00 Pulse Ox 96 11/08/16 21:44 Intake & Output 11/08/16 11/08/16 11/09/16 06:59 18:59 06:59 Intake Total 1860 750 60 Output Total 1307 1575 425 Balance 077 -002 -457 Weight 80.3 kg 80.3 kg Intake: IV 1350 750 60 Sodium Chloride 0.9% 1, 1100 500 60 000 ml @ 100 mls/hr IV . Q10H NIRANJAN Rx#:[id number] Vancomycin 1,500 mg In 250 250 Sodium Chloride 0.9% 250 ml @ 125 mls/hr IVPB Q8HR NIRANJAN Rx#:[id number] Oral 510 Output: Urine 1307 1575 425 Other: Voiding Method Indwelling Catheter Indwelling Catheter - Exam 66-year-old woman who appears younger than her stated age is very short of breath and his cough with some thick sputum HEENT: Anicteric conjunctiva are pink and moist nasal mucosa grossly intact without significant lesions, there is no thrush. Neck: The neck is supple without significant lymphadenopathy or thyromegaly. Lungs: Symmetrical air entry, wheezings that are scattered throughout the lung bob. Bibasilar crackles are heard there is improved air exchange today Heart: Regular rate and rhythm with an audible S1-S2, left S4. There is no significant murmur click or rub, PMI was nondisplaced. Abdomen: Positive bowel sounds soft and nontender without palpable masses or organomegaly. There was no guarding or rebound. Extremities: The upper extremities have excellent pulses they are symmetric, no significant petechiae or telangiectasia. No splinter hemorrhages were noted. The lower extremities are free from significant edema. The peripheral pulses were 2+ and symmetric. Neuro: Awake alert oriented to person place and time. There are no acute new gross focal sensory motor deficits. - Labs CBC & Chem 7: 11/08/16 04:22 11/08/16 04:22 Labs: Abnormal Lab Results - Last 24 Hours (Table) 11/08/16 11/08/16 11/08/16 Range/Units 04:22 04:22 08:02 WBC 12.5 H (3.8-10.6) k/uL Neutrophils # 11.3 H (1.3-7.7) k/uL Lymphocytes # 0.5 L (1.0-4.8) k/uL BUN 19 H (7-17) mg/dL Creatinine 0.44 L (0.52-1.04) mg/dL Glucose 156 H (74-99) mg/dL POC Glucose (mg/dL) 123 H (75-99) mg/dL Calcium 7.8 L (8.4-10.2) mg/dL 11/08/16 11/08/16 11/08/16 Range/Units 12:40 17:36 20:36 WBC (3.8-10.6) k/uL Neutrophils # (1.3-7.7) k/uL Lymphocytes # (1.0-4.8) k/uL BUN (7-17) mg/dL Creatinine (0.52-1.04) mg/dL Glucose (74-99) mg/dL POC Glucose (mg/dL) 113 H 118 H 129 H (75-99) mg/dL Calcium (8.4-10.2) mg/dL Microbiology - Last 24 Hours (Table) 11/05/16 17:05 Blood Culture - Preliminary Blood No Growth after 72 hours 11/06/16 16:45 Gram Stain - Preliminary Sputum Sputum Culture - Preliminary Presumptive Staph aureus Laboratory Results WBC 12.5 k/uL (3.8-10.6) H 11/08/16 04:22 RBC 4.03 m/uL (3.80-5.40) 11/08/16 04:22 Hgb 11.8 gm/dL (11.4-16.0) 11/08/16 04:22 Hct 38.1 % (34.0-46.0) 11/08/16 04:22 MCV 94.6 fL (80.0-100.0) 11/08/16 04:22 MCH 29.4 pg (25.0-35.0) 11/08/16 04:22 MCHC 31.0 g/dL (31.0-37.0) 11/08/16 04:22 RDW 13.9 % (11.5-15.5) 11/08/16 04:22 Plt Count 428 k/uL (150-450) 11/08/16 04:22 Neutrophils % 91 % 11/08/16 04:22 Neutrophils % (Manual) 82.5 % 11/05/16 08:41 Band Neutrophils % 9.0 % 11/05/16 08:41 Lymphocytes % 4 % 11/08/16 04:22 Lymphocytes % (Manual) 5.0 % 11/05/16 08:41 Monocytes % 3 % 11/08/16 04:22 Monocytes % (Manual) 3.5 % 11/05/16 08:41 Eosinophils % 0 % 11/08/16 04:22 Basophils % 0 % 11/08/16 04:22 Metamyelocytes % 0.5 % 11/04/16 10:51 Myelocytes % 1.0 % 11/04/16 10:51 Neutrophils # 11.3 k/uL (1.3-7.7) H 11/08/16 04:22 Neutrophils # (Manual) 27.2 k/uL (1.3-7.7) H 11/05/16 08:41 Lymphocytes # 0.5 k/uL (1.0-4.8) L 11/08/16 04:22 Lymphocytes # (Manual) 1.5 k/uL (1.0-4.8) 11/05/16 08:41 Monocytes # 0.4 k/uL (0-1.0) 11/08/16 04:22 Monocytes # (Manual) 1.0 k/uL (0-1.0) 11/05/16 08:41 Eosinophils # 0.0 k/uL (0-0.7) 11/08/16 04:22 Basophils # 0.0 k/uL (0-0.2) 11/08/16 04:22 Nucleated RBCs 0 /100 WBC (0-0) 11/05/16 08:41 Manual Slide Review Performed 11/04/16 10:51 Toxic Granulation Present 11/05/16 08:41 Toxic Vacuolation Present 11/05/16 08:41 Poikilocytosis (manual Present 11/03/16 08:59 Anisocytosis (manual) Present 11/03/16 08:59 Target Cells Present 11/03/16 08:59 PT 10.6 sec (9.0-12.0) 11/01/16 15:26 INR 1.0 (<1.1) 11/01/16 15:26 APTT 27.8 sec (22.0-30.0) 11/01/16 15:26 D-Dimer 2.23 mg/L FEU (<0.60) H 11/05/16 15:50 Sample Site LRAD 11/05/16 16:20 ABG pH 7.44 (7.35-7.45) 11/05/16 16:20 ABG pCO2 29 mmHg (35-45) L 11/05/16 16:20 ABG pO2 131 mmHg (83-108) H 11/05/16 16:20 ABG HCO3 19 mmol/L (21-25) L 11/05/16 16:20 ABG Total CO2 20 mmol/L (19-24) 11/05/16 16:20 ABG O2 Saturation 99.0 % (94-97) H 11/05/16 16:20 ABG Base Excess -4.1 mmol/L 11/05/16 16:20 FiO2 60 % 11/05/16 16:20 Sodium 138 mmol/L (137-145) 11/08/16 04:22 Potassium 4.2 mmol/L (3.5-5.1) 11/08/16 04:22 Chloride 101 mmol/L (98-107) 11/08/16 04:22 Carbon Dioxide 30 mmol/L (22-30) 11/08/16 04:22 Anion Gap 7 mmol/L 11/08/16 04:22 BUN 19 mg/dL (7-17) H 11/08/16 04:22 Creatinine 0.44 mg/dL (0.52-1.04) L 11/08/16 04:22 Est GFR (MDRD) Af Amer >60 (>60 ml/min/1.73 sqM) 11/08/16 04:22 Est GFR (MDRD) Non-Af >60 (>60 ml/min/1.73 sqM) 11/08/16 04:22 Glucose 156 mg/dL (74-99) H 11/08/16 04:22 POC Glucose (mg/dL) 129 mg/dL (75-99) H 11/08/16 20:36 POC Glu [employer]ing Machine Operator ID Geri Coates 11/08/16 20:36 Plasma Lactic Acid Rohan 1.4 mmol/L (0.7-2.0) 11/05/16 11:02 Calcium 7.8 mg/dL (8.4-10.2) L 11/08/16 04:22 Phosphorus 2.8 mg/dL (2.5-4.5) 11/08/16 04:22 Magnesium 2.0 mg/dL (1.6-2.3) 11/08/16 04:22 Total Bilirubin 0.6 mg/dL (0.2-1.3) 11/04/16 10:51 AST 48 U/L (14-36) H 11/04/16 10:51 ALT 43 U/L (9-52) 11/04/16 10:51 Alkaline Phosphatase 117 U/L (38-126) 11/04/16 10:51 Total Creatine Kinase 99 U/L (30-135) 11/01/16 15:26 CK-MB (CK-2) 0.6 ng/mL (0.0-2.4) 11/01/16 15:26 CK-MB (CK-2) Rel Index 0.6 11/01/16 15:26 Troponin I <0.012 ng/mL (0.000-0.034) 11/01/16 15:26 NT-Pro-B Natriuret Pep 276 pg/mL 11/01/16 15:26 Total Protein 5.5 g/dL (6.3-8.2) L 11/04/16 10:51 Albumin 2.7 g/dL (3.5-5.0) L 11/04/16 10:51 Urine Color Light Yellow 11/05/16 18:26 Urine Appearance Clear (Clear) 11/05/16 18:26 Urine pH 6.5 (5.0-8.0) 11/05/16 18:26 Ur Specific [place] 1.009 (1.001-1.035) 11/05/16 18:26 Urine Protein Negative (Negative) 11/05/16 18:26 Urine Glucose (UA) Negative (Negative) 11/05/16 18:26 Urine Ketones Trace (Negative) H 11/05/16 18:26 Urine Blood Small (Negative) H 11/05/16 18:26 Urine Nitrate Negative (Negative) 11/05/16 18:26 Urine Bilirubin Negative (Negative) 11/05/16 18:26 Urine Urobilinogen <2.0 mg/dL (<2.0) 11/05/16 18:26 Ur Leukocyte Esterase Negative (Negative) 11/05/16 18:26 Urine RBC 7 /hpf (0-5) H 11/05/16 18:26 Urine WBC 2 /hpf (0-5) 11/05/16 18:26 Ur Squamous Epith Cells 9 /hpf (0-4) H 11/05/16 18:26 Amorphous Sediment Rare /hpf (None) H 11/05/16 18:26 Hyaline Casts 3 /lpf (0-2) H 11/05/16 18:26 Urine Mucus Rare /hpf (None) H 11/05/16 18:26 Vancomycin Trough 6.2 ug/mL 11/07/16 04:58 Influenza Type A RNA Not Detected (Not Detectd) 11/01/16 15:53 Influenza Type B (PCR) Not Detected (Not Detectd) 11/01/16 15:53 Urine Legionella Ag Not detected (Not detected) 11/06/16 16:10 Mycoplasma pneumon IgG 0.39 INDEX (<=0.90) 11/06/16 19:20 Microbiology 11/05/16 17:05 Blood Blood Culture - Preliminary No Growth after 72 hours 11/06/16 16:45 Sputum Gram Stain - Preliminary 11/06/16 16:45 Sputum Sputum Culture - Preliminary Presumptive Staph aureus 11/01/16 15:26 Blood Blood Culture - Final No Growth after 144 hours 11/05/16 19:00 Sputum Gram Stain - Final 11/05/16 19:00 Sputum Sputum Culture - Final Staphylococcus aureus 11/05/16 04:35 Urine,Voided Urine Culture - Final 11/02/16 07:00 Sputum Gram Stain - Final 11/02/16 07:00 Sputum Sputum Culture - Final Staphylococcus aureus Assessment and Plan (1) Necrotizing pneumonia Narrative/Plan: 66-year-old female presents to hospital with significant shortness of breath. Was cared for in the outpatient setting but was not having improvement. At admission her computed tomography scan shows evidence of the extensive pneumonic process. There appears to be necrotizing in nature with the cavitating pneumonia in the left upper lobe. The extensive bullous emphysema was noted and reactive lymphadenopathy was seen. Effusions have improved. At this time she appears to have a methicillin susceptible staph aureus pneumonia is causing the significant necrosis. She has a significant ALLERGY to penicillin and constantly cephalosporins will not be attempted given her current very tenacious status. Vancomycin is being utilized. Plan 28 days Evaluation for Legionella and mycoplasma are in process also. In with his levofloxacin is added. Antecedent viral infection is not excluded, but evidence of influenza was not found at admission. The patient understands that she is profoundly ill. Fortunately is showing improvement, does not appear to have impending respiratory failure at this time. Legionella and mycoplasma are negative Status: Acute (2) Staphylococcus aureus pneumonia Status: Acute (3) Fever Status: Acute (4) Leukocytosis Status: Acute
[2016-11-09] MEDS: VANCOMYCIN 1,500 MG in SODIUM CHLORIDE 0.9% 250 ML IVPB SCH (00:10)
[2016-11-09] MEDS: methylPREDNISolone SOD SUCCI 40 MG/ML 1 ML VIAL IV SCH ×5 (00:13→23:34)
[2016-11-09] MEDS: SODIUM CHLORIDE 0.9% 1,000 ML IV SCH (06:00)
[2016-11-09 06:15] LABS: Anion Gap 7 mmol/L; Blood Urea Nitrogen 19 mg/dL (7-17); Calcium 8.1 mg/dL (8.4-10.2); Carbon Dioxide 32 mmol/L (22-30); Chloride 98 mmol/L (98-107); Glucose 129 mg/dL (74-99); Non-African American GFR(MDRD) >60 (>60 ml/min/1.73 sqM); Potassium 4.2 mmol/L (3.5-5.1); Sodium 137 mmol/L (137-145)
[2016-11-09 06:20] LABS: CH 29.7; CHCM 31.9; HCT 38.3 % (34.0-46.0); HDW 2.21; HGB 12.2 gm/dL (11.4-16.0); Immature Gran Flag Slight; MCH 29.8 pg (25.0-35.0); MCHC 31.9 g/dL (31.0-37.0); MCV 93.4 fL (80.0-100.0); Mean Platelet Volume 6.7; RDW 13.8 % (11.5-15.5); WBC 12.6 k/uL (3.8-10.6); WBC (Perox) 12.97
[2016-11-09 06:46] LABS: Add Differential Manual Differential
[2016-11-09 06:50] LABS: Band Neutrophils % 7.5 %; Manual Review Performed; Metamyelocytes % 1.5 %; Nucleated Red Blood Cells 0 /100 WBC (0-0); Total Cells Counted 200
[2016-11-09 06:51] LABS: Toxic Granulation Present; Toxic Vacuolation Present
[2016-11-09] MEDS ORDERED: VANCOMYCIN TROUGH DUE 1 EACH MISC MISCELLANE ONE (07:00)
[2016-11-09] MEDS: HYDROcodone/APAP 5-325MG 1 EACH TAB PO PRN (07:44)
[2016-11-09] MEDS: PANTOPRAZOLE 40 MG TABLET PO SCH (07:44)
[2016-11-09] MEDS: ALPRAZolam 0.5 MG TAB PO PRN ×3 (07:44→20:30)
[2016-11-09] MEDS: BUDESONIDE 1 MG/2 ML NEBU INHALATION SCH ×2 (07:52→20:58)
[2016-11-09] MEDS: ARTIFICIAL TEARS-HYPROMELLOSE DROPS 15 ML BTL BOTH EYES PRN (07:52)
[2016-11-09] MEDS: IPRATROPIUM 0.5 MG/2.5 ML NEBU INHALATION SCH ×4 (07:52→20:58)
[2016-11-09] MEDS: LEVALBUTEROL NEB (CONC) 1.25 MG/0.5 ML AMP INHALATION SCH ×4 (07:52→20:58)
[2016-11-09] MEDS: FORMOTEROL FUMARATE 20 MCG/2 ML NEBU INHALATION SCH ×2 (07:52→20:58)
[2016-11-09 08:06] LABS: Glucose,Whole Blood 127 mg/dL (75-99)
[2016-11-09] MEDS: INSULIN LISPRO (humaLOG) 300 UNIT/3 ML VIAL SQ SCH ×4 (08:23→20:38)
[2016-11-09] MEDS: CITALOPRAM HYDROBROMIDE 20 MG TAB PO SCH ×2 (08:24→20:31)
[2016-11-09] MEDS: ASCORBIC ACID 500 MG TAB PO SCH (08:24)
[2016-11-09] MEDS: CHOLECALCIFEROL 1,000 UNIT TAB PO SCH (08:24)
[2016-11-09] MEDS: HYDROCHLOROTHIAZIDE 25 MG TAB PO SCH (08:25)
[2016-11-09] MEDS: LACTOBACILLUS ACIDOPH & BULGAR 1 EACH PACKET PO SCH (08:25)
[2016-11-09] MEDS: HEPARIN SODIUM,PORCINE 5,000 UNIT/ML 1 ML VIAL SQ SCH ×2 (08:25→20:31)
[2016-11-09] MEDS: NYSTATIN 100,000 UNIT/ML SUSP 500,000 UNIT/5 ML CUP PO SCH ×3 (08:25→18:07)
--- NOTE | 2016-11-09 08:44 | XR ---
EXAMINATION TYPE: XR chest 1V DATE OF EXAM: 11/09/2016 6:34 AM COMPARISON: 11/08/2016 HISTORY: Pneumonia TECHNIQUE: Single frontal view of the chest is obtained. FINDINGS: Left upper lobe consolidation and diffuse interstitial pattern are stable. Subsegmental ch anges at the left lung base are slightly improved. Arthropathy of the shoulders. IMPRESSION: 1. Diffuse pleural-parenchymal changes are stable.
[2016-11-09 12:12] LABS: Glucose,Whole Blood 109 mg/dL (75-99)
[2016-11-09] MEDS: B COMPLEX-VIT C-VIT E-ZINC 1 EACH TAB PO SCH (12:25)
[2016-11-09] MEDS: VANCOMYCIN 1,250 MG in SODIUM CHLORIDE 0.9% 250 ML IVPB SCH ×2 (14:37→23:34)
--- NOTE | 2016-11-09 15:55 | P.PN ---
Subjective This 66-year-old female patient is a chronic smoker in she has an underlying COPD and addition to various other medical problems such as hypertension, hiatal hernia, spastic colon, anxiety and depression and previous history of a cellulitis of the involved right hip area which was attributed to MRSA. The patient was admitted to the hospital for cough, fever and chills, producing brownish sputum that was copious in amount and high-grade fever. The patient initially went to a walk-in clinic. Following that she came in to the hospital and she was found to have an extensive left lung pneumonia. In fact, the computed tomography scan that was done on 11/03/2016 showed diffuse bilateral areas of consolidation and significant cavitating/necrotizing pneumonia involving the left upper lobe. There was some shotty adenopathy within the mediastinum and the largest of fluid was measuring 1.1 cm in size. The patient also had extensive emphysematous changes bilaterally with a small left-sided pleural effusion. The patient also has cardiomegaly with coronary artery calcifications. Initially the patient was admitted to the medical floor being treated for a routine computed acquired pneumonia and she was given Levaquin. Overnight, her condition decompensated and the patient had to be moved to the intensive care unit for progressive worsening of dyspnea. The patient was placed on a BiPAP at a pressure of 10 over 5 cm of water and FiO2 of 50%. The patient was taken off the Levaquin and the patient was placed on a combination of as Fara M and vancomycin. This morning, the patient is very much worn-out tired and fatigued. She has lost significant amount of strength. Her voice is extremely hoarse. She is using some abdominal muscles to breathe. She is in [id number] degree of respiratory distress. She is on high flow oxygen at 15 L/m nasal cannula. A repeat CAT scan of the chest was done and this was a CT angios the chest and it showed an evolution of a 10 cm area of consolidation in the left upper lobe and there is extensive interstitial edema in the right lung. Is also reticular nodular changes in the lower lobes bilaterally more so on the left. There is some embolus changes in the right upper lobe and some early cavitation changes in the left upper lobe. The patient has no pulmonary embolism. No exposure to TB. No travel history. She has worked in [place]. The patient had a recent rotator cuff injury to her right shoulder and she underwent a rotator cuff surgical repair by Dr. Dr. Lovett on August 2016. No reported aspiration. No reported travel. No alcoholism. No immunosuppression. No history of HIV positivity. On 11/07/2016 the patient is being seen in follow-up. The patient had 2 sputum samples that showed staph aureus, likely MSSA. We'll more convinced that this is a staphylococcal necrotizing pneumonia. Today's chest x-ray shows still an extensive pneumonic process involving the left lung and there is no major improvement compared to yesterday. Nevertheless, clinically the patient is less short of breath. The patient is less hypoxic and currently she is on 12 L/ m nasal cannula. The Merrem was discontinued and the patient was kept on a combination of Levaquin and vancomycin. She is penicillin ALLERGIC. She is extremely weak and she'll benefit from physical therapy. On 11/09/2016 the patient is being seen in follow-up. Please refer to the note that was done yesterday for further details in regards to the patient's progression. On today's evaluation, the patient is much improved. She is interactive awake and alert and following commands and answering questions appropriately. Her voice is also improved and she is less hoarse. On today's chest x-ray there is improvement in the left lung consolidation. As mentioned earlier the patient is being treated for a staphylococcal pneumonia, MSSA, still on vancomycin due to penicillin ALLERGY. Legionella urine antigen was negative. The patient is hemodynamically stable. She is off the BiPAP and she is still on high flow oxygen and we are hoping to gradually wean down FiO2 to keep his saturation above 90%. Physical therapy is working with this patient closely and we promote early mobility. Objective - Vital Signs Vital signs: Vital Signs Temp 97.7 F 11/09/16 12:00 Pulse 77 11/09/16 15:44 Resp 24 11/09/16 15:00 BP 123/56 11/09/16 15:00 Pulse Ox 97 11/09/16 15:00 Intake & Output 11/08/16 11/09/16 11/09/16 18:59 06:59 18:59 Intake Total 750 450 530 Output Total 1575 1090 1120 Balance -825 -640 -590 Weight 80.3 kg 75 kg Intake: IV 750 450 180 Sodium Chloride 0.9% 1, 500 200 180 000 ml @ 100 mls/hr IV . Q10H NIRANJAN Rx#:[id number] Vancomycin 1,500 mg In 250 250 Sodium Chloride 0.9% 250 ml @ 125 mls/hr IVPB Q8HR NIRANJAN Rx#:[id number] Oral 350 Output: Urine 1575 1090 1120 Other: Voiding Method Indwelling Catheter Indwelling Catheter Indwelling Catheter # Bowel Movements 1 - Exam Head exam was generally normal. There was no scleral icterus or corneal arcus. Mucous membranes were moist.Neck was supple and without jugular venous distension, thyromegaly, or carotid bruits. Carotids were easily palpable bilaterally. There was no adenopathy. Lung sounds are diminished bilaterally and there is some few scattered external wheezes or rhonchi. Crackles in the mid lungs and the lower lungs bilaterally along with extensive crackling in the left upper lobe especially anteriorly.Cardiac exam revealed the PMI to be normally situated and sized. The rhythm was regular and no extrasystoles were noted during several minutes of auscultation. The first and second heart sounds were normal and physiologic splitting of the second heart sound was noted. There were no murmurs, rubs, clicks, or gallops.Abdominal exam revealed normal bowel sounds. The abdomen was soft, non-tender, and without masses, organomegaly , or appreciable enlargement of the abdominal aorta.Examination of the extremities revealed easily palpable radial, femoral and pedal pulses. There was no cyanosis, clubbing or edema. - Labs CBC & Chem 7: 11/09/16 05:28 11/09/16 05:28 Labs: Abnormal Lab Results - Last 24 Hours (Table) 11/08/16 11/08/16 11/09/16 Range/Units 17:36 20:36 05:28 WBC 12.6 H (3.8-10.6) k/uL Neutrophils # (Manual) 11.3 H (1.3-7.7) k/uL Lymphocytes # (Manual) 0.4 L (1.0-4.8) k/uL Carbon Dioxide (22-30) mmol/L BUN (7-17) mg/dL Creatinine (0.52-1.04) mg/dL Glucose (74-99) mg/dL POC Glucose (mg/dL) 118 H 129 H (75-99) mg/dL Calcium (8.4-10.2) mg/dL 11/09/16 11/09/16 11/09/16 Range/Units 05:28 08:04 12:10 WBC (3.8-10.6) k/uL Neutrophils # (Manual) (1.3-7.7) k/uL Lymphocytes # (Manual) (1.0-4.8) k/uL Carbon Dioxide 32 H (22-30) mmol/L BUN 19 H (7-17) mg/dL Creatinine 0.38 L (0.52-1.04) mg/dL Glucose 129 H (74-99) mg/dL POC Glucose (mg/dL) 127 H 109 H (75-99) mg/dL Calcium 8.1 L (8.4-10.2) mg/dL Microbiology - Last 24 Hours (Table) 11/06/16 16:45 Gram Stain - Final Sputum Sputum Culture - Final Staphylococcus aureus 11/05/16 17:05 Blood Culture - Preliminary Blood No Growth after 72 hours Assessment and Plan Plan: Impression 1 acute hypoxic respiratory failure 2 moderate bilobar pneumonia with extensive necrotizing pneumonia involving the left upper lobe with some early cavitating changes. This patient has an extensive staphylococcal necrotizing pneumonia, identified to be related to MSSA. The patient is on vancomycin. The dosing is being done by pharmacy and the latest trough level was elevated at 27. Clinically the patient is improved significantly. On today's chest x-ray there is improvement in the left lung consolidation. Clinically the patient is less short of breath. No chest pain. No change in mental status. No hemoptysis. The FiO2 is being gradually weaned and the patient is currently off the BiPAP. 3 COPD 4 Sepsis secondary to above 5 leukocytosis 6 previous history of MRSA soft tissue infection, recovered 7 shingles, history of 8 hiatal hernia, history of 9 hypertension 10 GE reflux 11 spastic colon Plan Continue vancomycin. Pulmonary toileting. Wean down the FiO2 as tolerated. Advance diet. Early mobility and physical therapy. Continue the rest of bronchodilators and systemic steroids. The patient will be kept in ICU for another 24 hours. Infectious disease on the case and the patient is gradually improving.
[2016-11-09] MEDS: ACETAMINOPHEN TAB 325 MG TAB PO PRN (17:21)
[2016-11-09 17:51] LABS: Glucose,Whole Blood 136 mg/dL (75-99)
--- NOTE | 2016-11-09 19:33 | PN ---
DATE OF SERVICE: 11/09/2016 This 66-year-old woman was admitted with acute multiple pneumonia on the left more than the right, also some cavitating element. consistently growing from the culture. The patient still has shortness of breath. The patient is being closely monitored in the ICU. Dr. Palencia is following the patient closely as well as Dr. Barker. The patient is on IV vancomycin and Levaquin. PAST MEDICAL HISTORY: Reviewed. REVIEW OF SYSTEMS: CARDIOVASCULAR: No angina or palpitations. GI: As mentioned. : No dysuria. NERVOUS SYSTEM: No. Current medications are reviewed and include: 1. Tylenol 650 every 6 p.r.n. 2. [place] 5 mg daily. 3. Xanax 0.5 p.o. q.i.d. 4. Artificial Tears. 6. Aspirin 81 mg daily. 7. Cepacol every 4 p.r.n. 8. Pulmicort 1 mg b.i.d. 9. Vitamin D, 3000 daily. 10. Celexa 20 mg at bedtime and 40 mg a.m. 11. Flonase. 13. Robitussin. 14. Heparin subcu b.i.d. 15. Humalog. 16. Lactinex. 17. Melatonin. 18. SoluMedrol 40 IV every 6. 19. Naprosyn. 20. Habitrol 21. 21. Nicorette. 22. Protonix. 23. Desyrel. 24. Vancomycin. On physical exam, patient is alert, oriented. Pulse 80, blood pressure 140/70, respirations 20, temperature 97.7, pulse 95% on 2 liters. HEENT: Conjunctivae normal. NECK: No JVD. CARDIOVASCULAR: S1 and S2 muffled. LUNGS: Breath sounds decreased at the bases. Bilateral scattered rhonchi and crackles. Expiratory wheezes also present. ABDOMEN: Soft, nontender. No masses palpable. EXTREMITIES: Legs no edema. NERVOUS SYSTEM: Higher functions as mentioned. Moves all limbs. No focal motor or sensory deficits. LYMPHATICS: No lymph nodes palpable in the neck, axillae or groin. LABS: WBC 12.6, hemoglobin 12.2. ASSESSMENT: 1. Acute multilobar pneumonia, left more than right, possibly gram negative, possibly Staph pneumonia with cavitating pneumonia and acute hypoxic respiratory failure with severe sepsis present on admission on BiPAP. 2. Possible cavitation, left upper lobe necrotizing pneumonia. 3. Chronic obstructive pulmonary edema acute exacerbation. 4. Dysphonia, improving. 5. Mediastinal lymphadenopathy. 6. Elevated D-dimer. 7. Sinusitis with hoarseness. 8. Possible acute laryngitis. 9. Hypertension. 10. Depression, anxiety, not otherwise specified. 11. History of continued ongoing nicotine dependence. 12. History of insomnia. 13. Cardiomegaly with coronary calcification on CT scan. 14. Increased WBC. 15. Hypokalemia. 16. Hypoalbuminemia with mild to moderate protein calorie malnutrition. 17. History of gastroesophageal reflux disease. 18. History of degenerative joint disease. 19. History of anxiety, depression, not otherwise specified. 20. Gait dysfunction. 21. FULL CODE. RECOMMENDATIONS/DISCUSSION: This 66-year-old woman presented with multiple complex medical issues. We will monitor the patient closely. Continue the current medications and continue bronchodilators and continue with steroids. Continue with broad spectrum IV antibiotics. Closely follow with Dr. Palencia. Guarded prognosis because of multiple complex medical issues. Further recommendations to follow. RAMIROD
[2016-11-09] MEDS: ASPIRIN 81 MG CHEW PO SCH (20:30)
[2016-11-09] MEDS: traZODone HCL 50 MG TAB PO SCH (20:31)
[2016-11-09] MEDS: NAPROXEN 250 MG TAB PO SCH (20:31)
[2016-11-09] MEDS: NICOTINE 21MG/24HR PATCH TRANSDERM SCH (20:32)
[2016-11-09 20:39] LABS: Glucose,Whole Blood 161 mg/dL (75-99)
--- NOTE | 2016-11-09 20:57 | P.PN ---
Subjective Principal diagnosis: Pneumonia 66-year-old female who is a long-standing history of tobacco use and COPD. Prior to admission she did not have a history of oxygen use or respiratory support such as a CPAP. She was feeling poorly for quite some time. She had increasing cough with sputum production that was brownish in nature. It was quite copious. She had developed fever with chills. If she continued to feel more poorly she did go to the outpatient clinic. Despite that she felt very poorly. She presented to the emergency center on 2016. In the emergency center she was acutely ill. Chest x-ray was abnormal. Because of the computed tomography scan was performed. She had evidence of a cavitary necrotizing pneumonia of the left upper lobe as well as some lymphadenopathy and very extensive emphysematous changes to the lungs. She was admitted to hospital and was receiving antibiotics and respiratory treatments. She over a worsening of her status. He required transfer to the intensive care unit. She was treated with some BiPAP. Is now on high flow oxygen. She feels slightly better than yesterday. She is aware that smoking is caused her to have significant lung disease and now has a severe pneumonia that is complicated because of her underlying lung disease. She first feels slightly better today. She is less short of breath. She still having cough but less sputum production. She's not having much discomfort. Did not require BiPAP last night. Feeling better today. Objective - Vital Signs Vital signs: Vital Signs Temp 98.1 F 11/09/16 16:00 Pulse 78 11/09/16 19:00 Resp 20 11/09/16 19:00 BP 136/70 11/09/16 19:00 Pulse Ox 96 11/09/16 19:00 Intake & Output 11/09/16 11/09/16 11/10/16 06:59 18:59 06:59 Intake Total 450 1020 220 Output Total 1090 1315 35 Balance -640 -295 185 Weight 75 kg Intake: IV 450 470 20 Sodium Chloride 0.9% 1, 200 220 20 000 ml @ 100 mls/hr IV . Q10H NIRANJAN Rx#:[id number] Vancomycin 1,500 mg In 250 250 Sodium Chloride 0.9% 250 ml @ 125 mls/hr IVPB Q8HR NIRANJAN Rx#:[id number] Oral 550 200 Output: Urine 1090 1315 35 Other: Voiding Method Indwelling Catheter Indwelling Catheter # Bowel Movements 1 - Exam 66-year-old woman who appears younger than her stated age is very short of breath and his cough with some thick sputum HEENT: Anicteric conjunctiva are pink and moist nasal mucosa grossly intact without significant lesions, there is no thrush. Neck: The neck is supple without significant lymphadenopathy or thyromegaly. Lungs: Symmetrical air entry, wheezings that are scattered throughout the lung bob. Bibasilar crackles are heard there is improved air exchange today Heart: Regular rate and rhythm with an audible S1-S2, left S4. There is no significant murmur click or rub, PMI was nondisplaced. Abdomen: Positive bowel sounds soft and nontender without palpable masses or organomegaly. There was no guarding or rebound. Extremities: The upper extremities have excellent pulses they are symmetric, no significant petechiae or telangiectasia. No splinter hemorrhages were noted. The lower extremities are free from significant edema. The peripheral pulses were 2+ and symmetric. Neuro: Awake alert oriented to person place and time. There are no acute new gross focal sensory motor deficits. - Labs CBC & Chem 7: 11/09/16 05:28 11/09/16 05:28 Labs: Abnormal Lab Results - Last 24 Hours (Table) 11/09/16 11/09/16 11/09/16 Range/Units 05:28 05:28 08:04 WBC 12.6 H (3.8-10.6) k/uL Neutrophils # (Manual) 11.3 H (1.3-7.7) k/uL Lymphocytes # (Manual) 0.4 L (1.0-4.8) k/uL Carbon Dioxide 32 H (22-30) mmol/L BUN 19 H (7-17) mg/dL Creatinine 0.38 L (0.52-1.04) mg/dL Glucose 129 H (74-99) mg/dL POC Glucose (mg/dL) 127 H (75-99) mg/dL Calcium 8.1 L (8.4-10.2) mg/dL 11/09/16 11/09/16 11/09/16 Range/Units 12:10 17:48 20:37 WBC (3.8-10.6) k/uL Neutrophils # (Manual) (1.3-7.7) k/uL Lymphocytes # (Manual) (1.0-4.8) k/uL Carbon Dioxide (22-30) mmol/L BUN (7-17) mg/dL Creatinine (0.52-1.04) mg/dL Glucose (74-99) mg/dL POC Glucose (mg/dL) 109 H 136 H 161 H (75-99) mg/dL Calcium (8.4-10.2) mg/dL Microbiology - Last 24 Hours (Table) 11/05/16 17:05 Blood Culture - Preliminary Blood No Growth after 96 hours 11/06/16 16:45 Gram Stain - Final Sputum Sputum Culture - Final Staphylococcus aureus Laboratory Results WBC 12.6 k/uL (3.8-10.6) H 11/09/16 05:28 RBC 4.10 m/uL (3.80-5.40) 11/09/16 05:28 Hgb 12.2 gm/dL (11.4-16.0) 11/09/16 05:28 Hct 38.3 % (34.0-46.0) 11/09/16 05:28 MCV 93.4 fL (80.0-100.0) 11/09/16 05:28 MCH 29.8 pg (25.0-35.0) 11/09/16 05:28 MCHC 31.9 g/dL (31.0-37.0) 11/09/16 05:28 RDW 13.8 % (11.5-15.5) 11/09/16 05:28 Plt Count 414 k/uL (150-450) 11/09/16 05:28 Neutrophils % 91 % 11/08/16 04:22 Neutrophils % (Manual) 82.0 % 11/09/16 05:28 Band Neutrophils % 7.5 % 11/09/16 05:28 Lymphocytes % 4 % 11/08/16 04:22 Lymphocytes % (Manual) 3.5 % 11/09/16 05:28 Monocytes % 3 % 11/08/16 04:22 Monocytes % (Manual) 5.5 % 11/09/16 05:28 Eosinophils % 0 % 11/08/16 04:22 Basophils % 0 % 11/08/16 04:22 Metamyelocytes % 1.5 % 11/09/16 05:28 Myelocytes % 1.0 % 11/04/16 10:51 Neutrophils # 11.3 k/uL (1.3-7.7) H 11/08/16 04:22 Neutrophils # (Manual) 11.3 k/uL (1.3-7.7) H 11/09/16 05:28 Lymphocytes # 0.5 k/uL (1.0-4.8) L 11/08/16 04:22 Lymphocytes # (Manual) 0.4 k/uL (1.0-4.8) L 11/09/16 05:28 Monocytes # 0.4 k/uL (0-1.0) 11/08/16 04:22 Monocytes # (Manual) 0.7 k/uL (0-1.0) 11/09/16 05:28 Eosinophils # 0.0 k/uL (0-0.7) 11/08/16 04:22 Basophils # 0.0 k/uL (0-0.2) 11/08/16 04:22 Nucleated RBCs 0 /100 WBC (0-0) 11/09/16 05:28 Manual Slide Review Performed 11/09/16 05:28 Toxic Granulation Present 11/09/16 05:28 Toxic Vacuolation Present 11/09/16 05:28 Poikilocytosis (manual Present 11/09/16 05:28 Anisocytosis (manual) Present 11/03/16 08:59 Target Cells Present 11/03/16 08:59 PT 10.6 sec (9.0-12.0) 11/01/16 15:26 INR 1.0 (<1.1) 11/01/16 15:26 APTT 27.8 sec (22.0-30.0) 11/01/16 15:26 D-Dimer 2.23 mg/L FEU (<0.60) H 11/05/16 15:50 Sample Site LRAD 11/05/16 16:20 ABG pH 7.44 (7.35-7.45) 11/05/16 16:20 ABG pCO2 29 mmHg (35-45) L 11/05/16 16:20 ABG pO2 131 mmHg (83-108) H 11/05/16 16:20 ABG HCO3 19 mmol/L (21-25) L 11/05/16 16:20 ABG Total CO2 20 mmol/L (19-24) 11/05/16 16:20 ABG O2 Saturation 99.0 % (94-97) H 11/05/16 16:20 ABG Base Excess -4.1 mmol/L 11/05/16 16:20 FiO2 60 % 11/05/16 16:20 Sodium 137 mmol/L (137-145) 11/09/16 05:28 Potassium 4.2 mmol/L (3.5-5.1) 11/09/16 05:28 Chloride 98 mmol/L (98-107) 11/09/16 05:28 Carbon Dioxide 32 mmol/L (22-30) H 11/09/16 05:28 Anion Gap 7 mmol/L 11/09/16 05:28 BUN 19 mg/dL (7-17) H 11/09/16 05:28 Creatinine 0.38 mg/dL (0.52-1.04) L 11/09/16 05:28 Est GFR (MDRD) Af Amer >60 (>60 ml/min/1.73 sqM) 11/09/16 05:28 Est GFR (MDRD) Non-Af >60 (>60 ml/min/1.73 sqM) 11/09/16 05:28 Glucose 129 mg/dL (74-99) H 11/09/16 05:28 POC Glucose (mg/dL) 161 mg/dL (75-99) H 11/09/16 20:37 POC Glu Rn Hemodialysis Charge ID Michaela Davies 11/09/16 20:37 Plasma Lactic Acid Rohan 1.4 mmol/L (0.7-2.0) 11/05/16 11:02 Calcium 8.1 mg/dL (8.4-10.2) L 11/09/16 05:28 Phosphorus 2.8 mg/dL (2.5-4.5) 11/08/16 04:22 Magnesium 2.0 mg/dL (1.6-2.3) 11/08/16 04:22 Total Bilirubin 0.6 mg/dL (0.2-1.3) 11/04/16 10:51 AST 48 U/L (14-36) H 11/04/16 10:51 ALT 43 U/L (9-52) 11/04/16 10:51 Alkaline Phosphatase 117 U/L (38-126) 11/04/16 10:51 Total Creatine Kinase 99 U/L (30-135) 11/01/16 15:26 CK-MB (CK-2) 0.6 ng/mL (0.0-2.4) 11/01/16 15: CK-MB (CK-2) Rel Index 0.6 11/01/16 15:26 Troponin I <0.012 ng/mL (0.000-0.034) 11/01/16 15:26 NT-Pro-B Natriuret Pep 276 pg/mL 11/01/16 15:26 Total Protein 5.5 g/dL (6.3-8.2) L 11/04/16 10:51 Albumin 2.7 g/dL (3.5-5.0) L 11/04/16 10:51 Urine Color Light Yellow 11/05/16 18:26 Urine Appearance Clear (Clear) 11/05/16 18:26 Urine pH 6.5 (5.0-8.0) 11/05/16 18:26 Ur Specific Gerald 1.009 (1.001-1.035) 11/05/16 18:26 Urine Protein Negative (Negative) 11/05/16 18:26 Urine Glucose (UA) Negative (Negative) 11/05/16 18:26 Urine Ketones Trace (Negative) H 11/05/16 18:26 Urine Blood Small (Negative) H 11/05/16 18:26 Urine Nitrate Negative (Negative) 11/05/16 18:26 Urine Bilirubin Negative (Negative) 11/05/16 18:26 Urine Urobilinogen <2.0 mg/dL (<2.0) 11/05/16 18:26 Ur Leukocyte Esterase Negative (Negative) 11/05/16 18:26 Urine RBC 7 /hpf (0-5) H 11/05/16 18:26 Urine WBC 2 /hpf (0-5) 11/05/16 18:26 Ur Squamous Epith Cells 9 /hpf (0-4) H 11/05/16 18:26 Amorphous Sediment Rare /hpf (None) H 11/05/16 18:26 Hyaline Casts 3 /lpf (0-2) H 11/05/16 18:26 Urine Mucus Rare /hpf (None) H 11/05/16 18:26 Vancomycin Trough 27.8 ug/mL 11/09/16 05:28 Influenza Type A RNA Not Detected (Not Detectd) 11/01/16 15:53 Influenza Type B (PCR) Not Detected (Not Detectd) 11/01/16 15:53 Urine Legionella Ag Not detected (Not detected) 11/06/16 16:10 Mycoplasma pneumon IgG 0.39 INDEX (<=0.90) 11/06/16 19:20 Microbiology 11/05/16 17:05 Blood Blood Culture - Preliminary No Growth after 96 hours 11/06/16 16:45 Sputum Gram Stain - Final 11/06/16 16:45 Sputum Sputum Culture - Final Staphylococcus aureus 11/01/16 15:26 Blood Blood Culture - Final No Growth after 144 hours 11/05/16 19:00 Sputum Gram Stain - Final 11/05/16 19:00 Sputum Sputum Culture - Final Staphylococcus aureus 11/05/16 04:35 Urine,Voided Urine Culture - Final 11/02/16 07:00 Sputum Gram Stain - Final 11/02/16 07:00 Sputum Sputum Culture - Final Staphylococcus aureus Assessment and Plan (1) Necrotizing pneumonia Narrative/Plan: 66-year-old female presents to hospital with significant shortness of breath. Was cared for in the outpatient setting but was not having improvement. At admission her computed tomography scan shows evidence of the extensive pneumonic process. There appears to be necrotizing in nature with the cavitating pneumonia in the left upper lobe. The extensive bullous emphysema was noted and reactive lymphadenopathy was seen. Effusions have improved. At this time she appears to have a methicillin susceptible staph aureus pneumonia is causing the significant necrosis. She has a significant ALLERGY to penicillin and constantly cephalosporins will not be attempted given her current very tenacious status. Vancomycin is being utilized. Plan 28 days Evaluation for Legionella and mycoplasma are in process also. In with his levofloxacin is added. Antecedent viral infection is not excluded, but evidence of influenza was not found at admission. The patient understands that she is profoundly ill. Fortunately is showing improvement, does not appear to have impending respiratory failure at this time. Legionella and mycoplasma are negative levofloxacin is discontinued Status: Acute (2) Staphylococcus aureus pneumonia Status: Acute (3) Fever Status: Acute (4) Leukocytosis Status: Acute
[2016-11-10] MEDS: NYSTATIN 100,000 UNIT/ML SUSP 500,000 UNIT/5 ML CUP PO SCH ×5 (00:57→21:28)
[2016-11-10] MEDS: methylPREDNISolone SOD SUCCI 40 MG/ML 1 ML VIAL IV SCH ×3 (05:37→18:09)
[2016-11-10 06:03] LABS: CH 29.6; CHCM 31.7; HCT 38.3 % (34.0-46.0); HDW 2.18; HGB 12.1 gm/dL (11.4-16.0); MCH 29.7 pg (25.0-35.0); MCHC 31.7 g/dL (31.0-37.0); MCV 93.8 fL (80.0-100.0); Mean Platelet Volume 6.5; RBC 4.08 m/uL (3.80-5.40); RDW 13.7 % (11.5-15.5); WBC 15.1 k/uL (3.8-10.6)
[2016-11-10 06:12] LABS: Anion Gap 8 mmol/L; Blood Urea Nitrogen 20 mg/dL (7-17); Calcium 8.1 mg/dL (8.4-10.2); Carbon Dioxide 33 mmol/L (22-30); Chloride 96 mmol/L (98-107); Glucose 133 mg/dL (74-99); Magnesium 2.1 mg/dL (1.6-2.3); Non-African American GFR(MDRD) >60 (>60 ml/min/1.73 sqM); Sodium 137 mmol/L (137-145)
[2016-11-10] MEDS: VANCOMYCIN 1,250 MG in SODIUM CHLORIDE 0.9% 250 ML IVPB SCH ×3 (06:23→22:47)
[2016-11-10] MEDS: ARTIFICIAL TEARS-HYPROMELLOSE DROPS 15 ML BTL BOTH EYES PRN ×3 (06:52→22:49)
[2016-11-10 07:09] LABS: Glucose,Whole Blood 106 mg/dL (75-99)
[2016-11-10] MEDS: INSULIN LISPRO (humaLOG) 300 UNIT/3 ML VIAL SQ SCH ×4 (07:10→21:37)
[2016-11-10] MEDS: LACTOBACILLUS ACIDOPH & BULGAR 1 EACH PACKET PO SCH (07:12)
[2016-11-10 07:38] LABS: Mycoplasma IgM Antibody 0.01 INDEX (<=0.90)
[2016-11-10] MEDS: PANTOPRAZOLE 40 MG TABLET PO SCH (07:52)
[2016-11-10] MEDS: ALPRAZolam 0.5 MG TAB PO PRN ×2 (07:54→16:20)
[2016-11-10] MEDS: FORMOTEROL FUMARATE 20 MCG/2 ML NEBU INHALATION SCH ×2 (08:33→21:33)
[2016-11-10] MEDS: LEVALBUTEROL NEB (CONC) 1.25 MG/0.5 ML AMP INHALATION SCH ×4 (08:33→21:33)
[2016-11-10] MEDS: BUDESONIDE 1 MG/2 ML NEBU INHALATION SCH ×2 (08:33→21:33)
[2016-11-10] MEDS: IPRATROPIUM 0.5 MG/2.5 ML NEBU INHALATION SCH ×4 (08:33→21:33)
[2016-11-10] MEDS: CHOLECALCIFEROL 1,000 UNIT TAB PO SCH (08:50)
[2016-11-10] MEDS: CITALOPRAM HYDROBROMIDE 20 MG TAB PO SCH ×2 (08:50→21:28)
[2016-11-10] MEDS: HYDROCHLOROTHIAZIDE 25 MG TAB PO SCH (08:50)
[2016-11-10] MEDS: ASCORBIC ACID 500 MG TAB PO SCH (08:50)
[2016-11-10] MEDS: HEPARIN SODIUM,PORCINE 5,000 UNIT/ML 1 ML VIAL SQ SCH ×2 (08:51→21:28)
--- NOTE | 2016-11-10 09:37 | XR ---
EXAMINATION TYPE: XR chest 1V DATE OF EXAM: 11/10/2016 6:37 AM COMPARISON: 11/09/2016 HISTORY: Shortness of breath, pneumonia TECHNIQUE: Single frontal view of the chest is obtained. FINDINGS: Left upper lobe consolidation and diffuse interstitial pattern are stable. Subsegmental ch anges at the left lung base are slightly improved. Arthropathy of the shoulders. IMPRESSION: 1. Diffuse pleural-parenchymal changes are stable.
[2016-11-10 12:09] LABS: Glucose,Whole Blood 203 mg/dL (75-99)
[2016-11-10] MEDS: ACETAMINOPHEN TAB 325 MG TAB PO PRN (12:15)
--- NOTE | 2016-11-10 17:22 | P.PN ---
Subjective This 66-year-old female patient is a chronic smoker in she has an underlying COPD and addition to various other medical problems such as hypertension, hiatal hernia, spastic colon, anxiety and depression and previous history of a cellulitis of the involved right hip area which was attributed to MRSA. The patient was admitted to the hospital for cough, fever and chills, producing brownish sputum that was copious in amount and high-grade fever. The patient initially went to a walk-in clinic. Following that she came in to the hospital and she was found to have an extensive left lung pneumonia. In fact, the computed tomography scan that was done on 11/03/2016 showed diffuse bilateral areas of consolidation and significant cavitating/necrotizing pneumonia involving the left upper lobe. There was some shotty adenopathy within the mediastinum and the largest of fluid was measuring 1.1 cm in size. The patient also had extensive emphysematous changes bilaterally with a small left-sided pleural effusion. The patient also has cardiomegaly with coronary artery calcifications. Initially the patient was admitted to the medical floor being treated for a routine computed acquired pneumonia and she was given Levaquin. Overnight, her condition decompensated and the patient had to be moved to the intensive care unit for progressive worsening of dyspnea. The patient was placed on a BiPAP at a pressure of 10 over 5 cm of water and FiO2 of 50%. The patient was taken off the Levaquin and the patient was placed on a combination of as Fara M and vancomycin. This morning, the patient is very much worn-out tired and fatigued. She has lost significant amount of strength. Her voice is extremely hoarse. She is using some abdominal muscles to breathe. She is in [id number] degree of respiratory distress. She is on high flow oxygen at 15 L/m nasal cannula. A repeat CAT scan of the chest was done and this was a CT angios the chest and it showed an evolution of a 10 cm area of consolidation in the left upper lobe and there is extensive interstitial edema in the right lung. Is also reticular nodular changes in the lower lobes bilaterally more so on the left. There is some embolus changes in the right upper lobe and some early cavitation changes in the left upper lobe. The patient has no pulmonary embolism. No exposure to TB. No travel history. She has worked in [employer]. The patient had a recent rotator cuff injury to her right shoulder and she underwent a rotator cuff surgical repair by Dr. Dr. Lovett on August 2016. No reported aspiration. No reported travel. No alcoholism. No immunosuppression. No history of HIV positivity. On 11/07/2016 the patient is being seen in follow-up. The patient had 2 sputum samples that showed staph aureus, likely MSSA. We'll more convinced that this is a staphylococcal necrotizing pneumonia. Today's chest x-ray shows still an extensive pneumonic process involving the left lung and there is no major improvement compared to yesterday. Nevertheless, clinically the patient is less short of breath. The patient is less hypoxic and currently she is on 12 L/ m nasal cannula. The Merrem was discontinued and the patient was kept on a combination of Levaquin and vancomycin. She is penicillin ALLERGIC. She is extremely weak and she'll benefit from physical therapy. On 11/09/2016 the patient is being seen in follow-up. Please refer to the note that was done yesterday for further details in regards to the patient's progression. On today's evaluation, the patient is much improved. She is interactive awake and alert and following commands and answering questions appropriately. Her voice is also improved and she is less hoarse. On today's chest x-ray there is improvement in the left lung consolidation. As mentioned earlier the patient is being treated for a staphylococcal pneumonia, MSSA, still on vancomycin due to penicillin ALLERGY. Legionella urine antigen was negative. The patient is hemodynamically stable. She is off the BiPAP and she is still on high flow oxygen and we are hoping to gradually wean down FiO2 to keep his saturation above 90%. Physical therapy is working with this patient closely and we promote early mobility. On 11/10/2016, the patient is being seen in follow-up in regards to her staphylococcal left lung pneumonia. Clinically much improved. She is still on 7-8 L of oxygen nasal cannula over this is considerably improved compared to her condition over the past few days. Chest x-ray shows gradual but steady improvement of the left lung consolidation/necrotizing pneumonia. She is able to talk. She is able to swallow appropriately. No nausea. No vomiting. No change in mental status. No fever. No hemodynamic instability. She is still on same antibiotic coverage which includes vancomycin for MSSA pneumonia knowing that she has penicillin ALLERGY. Objective - Vital Signs Vital signs: Vital Signs Temp 98.1 F 11/10/16 16:00 Pulse 76 11/10/16 17:00 Resp 18 11/10/16 16:00 BP 146/59 11/10/16 16:00 Pulse Ox 93 L 11/10/16 16:00 Intake & Output 11/09/16 11/10/16 11/10/16 18:59 06:59 18:59 Intake Total 1020 690 510 Output Total 1315 1080 1330 Balance -295 -390 -820 Weight 74.1 kg Intake: IV 470 490 160 0.9 at KVO 60 Sodium Chloride 0.9% 1, 220 240 100 000 ml @ 100 mls/hr IV . Q10H [facility] Rx#:[id number] Vancomycin 1,500 mg In 250 250 Sodium Chloride 0.9% 250 ml @ 125 mls/hr IVPB Q8HR [facility] Rx#:[id number] Intake, IV Titration 125 Amount Vancomycin 1,250 mg In 125 Sodium Chloride 0.9% 250 ml @ 125 mls/hr IVPB Q8H [facility] Rx#:[id number] Oral 550 200 225 Output: Urine 1315 1080 1330 Other: Voiding Method Indwelling Catheter Indwelling Catheter Indwelling Catheter # Bowel Movements 1 1 - Exam Head exam was generally normal. There was no scleral icterus or corneal arcus. Mucous membranes were moist.Neck was supple and without jugular venous distension, thyromegaly, or carotid bruits. Carotids were easily palpable bilaterally. There was no adenopathy. Lung sounds are diminished bilaterally and there is some few scattered external wheezes or rhonchi. Crackles in the mid lungs and the lower lungs bilaterally along with extensive crackling in the left upper lobe especially anteriorly.Cardiac exam revealed the PMI to be normally situated and sized. The rhythm was regular and no extrasystoles were noted during several minutes of auscultation. The first and second heart sounds were normal and physiologic splitting of the second heart sound was noted. There were no murmurs, rubs, clicks, or gallops.Abdominal exam revealed normal bowel sounds. The abdomen was soft, non-tender, and without masses, organomegaly , or appreciable enlargement of the abdominal aorta.Examination of the extremities revealed easily palpable radial, femoral and pedal pulses. There was no cyanosis, clubbing or edema. - Labs CBC & Chem 7: 11/10/16 05:44 11/10/16 05:44 Labs: Abnormal Lab Results - Last 24 Hours (Table) 11/09/16 11/09/16 11/10/16 Range/Units 17:48 20:37 05:44 WBC 15.1 H (3.8-10.6) k/uL Chloride (98-107) mmol/L Carbon Dioxide (22-30) mmol/L BUN (7-17) mg/dL Creatinine (0.52-1.04) mg/dL Glucose (74-99) mg/dL POC Glucose (mg/dL) 136 H 161 H (75-99) mg/dL Calcium (8.4-10.2) mg/dL 11/10/16 11/10/16 11/10/16 Range/Units 05:44 07:08 12:08 WBC (3.8-10.6) k/uL Chloride 96 L (98-107) mmol/L Carbon Dioxide 33 H (22-30) mmol/L BUN 20 H (7-17) mg/dL Creatinine 0.46 L (0.52-1.04) mg/dL Glucose 133 H (74-99) mg/dL POC Glucose (mg/dL) 106 H 203 H (75-99) mg/dL Calcium 8.1 L (8.4-10.2) mg/dL Microbiology - Last 24 Hours (Table) 11/05/16 17:05 Blood Culture - Preliminary Blood No Growth after 96 hours Assessment and Plan Plan: Impression 1 acute hypoxic respiratory failure 2 moderate bilobar pneumonia with extensive necrotizing pneumonia involving the left upper lobe with some early cavitating changes. This patient has an extensive staphylococcal necrotizing pneumonia, identified to be related to MSSA. The patient is on vancomycin. The dosing is being done by pharmacy and the latest trough level was elevated at 27. Clinically the patient is improved significantly. On today's chest x-ray there is improvement in the left lung consolidation. Clinically the patient is less short of breath. No chest pain. No change in mental status. No hemoptysis. The FiO2 is being gradually weaned and the patient is currently off the BiPAP. On 11/10/2016, the patient continues to improve and a pneumonia involving the left lung is steadily improving. The patient on IV vancomycin. No signs of septicemia. Much more alert and awake and less short of breath. Oxygenation is also improving and she is currently still on high flow at 6 L per minute nasal cannula. 3 COPD 4 Sepsis secondary to above 5 leukocytosis 6 previous history of MRSA soft tissue infection, recovered 7 shingles, history of 8 hiatal hernia, history of 9 hypertension 10 GE reflux 11 spastic colon Plan Continue vancomycin. Pulmonary toileting. Wean down the FiO2 as tolerated. Advance diet. Early mobility and physical therapy. Continue the rest of the supportive treatment. We'll keep the patient ICU for another 24 hours and then move her out by a.m.
[2016-11-10 17:26] LABS: Glucose,Whole Blood 129 mg/dL (75-99)
--- NOTE | 2016-11-10 18:13 | P.PN ---
Subjective Principal diagnosis: Pneumonia 66-year-old female who is a long-standing history of tobacco use and COPD. Prior to admission she did not have a history of oxygen use or respiratory support such as a CPAP. She was feeling poorly for quite some time. She had increasing cough with sputum production that was brownish in nature. It was quite copious. She had developed fever with chills. If she continued to feel more poorly she did go to the outpatient clinic. Despite that she felt very poorly. She presented to the emergency center on 2016. In the emergency center she was acutely ill. Chest x-ray was abnormal. Because of the computed tomography scan was performed. She had evidence of a cavitary necrotizing pneumonia of the left upper lobe as well as some lymphadenopathy and very extensive emphysematous changes to the lungs. She was admitted to hospital and was receiving antibiotics and respiratory treatments. She over a worsening of her status. He required transfer to the intensive care unit. She was treated with some BiPAP. Is now on high flow oxygen. She feels slightly better than yesterday. She is aware that smoking is caused her to have significant lung disease and now has a severe pneumonia that is complicated because of her underlying lung disease. She first feels slightly better today. She is less short of breath. She still having cough but less sputum production. She's not having much discomfort. Did not require BiPAP last night. Feeling better today. Objective - Vital Signs Vital signs: Vital Signs Temp 98.1 F 11/10/16 16:00 Pulse 83 11/10/16 18:00 Resp 17 11/10/16 18:00 BP 150/75 11/10/16 18:00 Pulse Ox 95 11/10/16 18:00 Intake & Output 11/09/16 11/10/16 11/10/16 18:59 06:59 18:59 Intake Total 1020 690 695 Output Total 1318 8301 1755 Balance -295 -390 -1060 Weight 74.1 kg Intake: IV 470 490 220 0.9 at KVO 120 Sodium Chloride 0.9% 1, 220 240 100 000 ml @ 100 mls/hr IV . Q10H [facility] Rx#:[id number] Vancomycin 1,500 mg In 250 250 Sodium Chloride 0.9% 250 ml @ 125 mls/hr IVPB Q8HR [facility] Rx#:[id number] Intake, IV Titration 250 Amount Vancomycin 1,250 mg In 250 Sodium Chloride 0.9% 250 ml @ 125 mls/hr IVPB Q8H [facility] Rx#:[id number] Oral 550 200 225 Output: Urine 1315 1080 1755 Other: Voiding Method Indwelling Catheter Indwelling Catheter Indwelling Catheter # Bowel Movements 1 1 - Exam 66-year-old woman who appears younger than her stated age is very short of breath and his cough with some thick sputum HEENT: Anicteric conjunctiva are pink and moist nasal mucosa grossly intact without significant lesions, there is no thrush. Neck: The neck is supple without significant lymphadenopathy or thyromegaly. Lungs: Symmetrical air entry, wheezings that are scattered throughout the lung bob. Bibasilar crackles are heard there is improved air exchange today Heart: Regular rate and rhythm with an audible S1-S2, left S4. There is no significant murmur click or rub, PMI was nondisplaced. Abdomen: Positive bowel sounds soft and nontender without palpable masses or organomegaly. There was no guarding or rebound. Extremities: The upper extremities have excellent pulses they are symmetric, no significant petechiae or telangiectasia. No splinter hemorrhages were noted. The lower extremities are free from significant edema. The peripheral pulses were 2+ and symmetric. Neuro: Awake alert oriented to person place and time. There are no acute new gross focal sensory motor deficits. - Labs CBC & Chem 7: 11/10/16 05:44 11/10/16 05:44 Labs: Abnormal Lab Results - Last 24 Hours (Table) 11/09/16 11/10/16 11/10/16 Range/Units 20:37 05:44 05:44 WBC 15.1 H (3.8-10.6) k/uL Chloride 96 L (98-107) mmol/L Carbon Dioxide 33 H (22-30) mmol/L BUN 20 H (7-17) mg/dL Creatinine 0.46 L (0.52-1.04) mg/dL Glucose 133 H (74-99) mg/dL POC Glucose (mg/dL) 161 H (75-99) mg/dL Calcium 8.1 L (8.4-10.2) mg/dL 11/10/16 11/10/16 11/10/16 Range/Units 07:08 12:08 17:24 WBC (3.8-10.6) k/uL Chloride (98-107) mmol/L Carbon Dioxide (22-30) mmol/L BUN (7-17) mg/dL Creatinine (0.52-1.04) mg/dL Glucose (74-99) mg/dL POC Glucose (mg/dL) 106 H 203 H 129 H (75-99) mg/dL Calcium (8.4-10.2) mg/dL Microbiology - Last 24 Hours (Table) 11/05/16 17:05 Blood Culture - Preliminary Blood No Growth after 96 hours Laboratory Results WBC 15.1 k/uL (3.8-10.6) H 11/10/16 05:44 RBC 4.08 m/uL (3.80-5.40) 11/10/16 05:44 Hgb 12.1 gm/dL (11.4-16.0) 11/10/16 05:44 Hct 38.3 % (34.0-46.0) 11/10/16 05:44 MCV 93.8 fL (80.0-100.0) 11/10/16 05:44 MCH 29.7 pg (25.0-35.0) 11/10/16 05:44 MCHC 31.7 g/dL (31.0-37.0) 11/10/16 05:44 RDW 13.7 % (11.5-15.5) 11/10/16 05:44 Plt Count 441 k/uL (150-450) 11/10/16 05:44 Neutrophils % 91 % 11/08/16 04:22 Neutrophils % (Manual) 82.0 % 11/09/16 05:28 Band Neutrophils % 7.5 % 11/09/16 05:28 Lymphocytes % 4 % 11/08/16 04:22 Lymphocytes % (Manual) 3.5 % 11/09/16 05:28 Monocytes % 3 % 11/08/16 04:22 Monocytes % (Manual) 5.5 % 11/09/16 05:28 Eosinophils % 0 % 11/08/16 04:22 Basophils % 0 % 11/08/16 04:22 Metamyelocytes % 1.5 % 11/09/16 05:28 Myelocytes % 1.0 % 11/04/16 10:51 Neutrophils # 11.3 k/uL (1.3-7.7) H 11/08/16 04:22 Neutrophils # (Manual) 11.3 k/uL (1.3-7.7) H 11/09/16 05:28 Lymphocytes # 0.5 k/uL (1.0-4.8) L 11/08/16 04:22 Lymphocytes # (Manual) 0.4 k/uL (1.0-4.8) L 11/09/16 05:28 Monocytes # 0.4 k/uL (0-1.0) 11/08/16 04:22 Monocytes # (Manual) 0.7 k/uL (0-1.0) 11/09/16 05:28 Eosinophils # 0.0 k/uL (0-0.7) 11/08/16 04:22 Basophils # 0.0 k/uL (0-0.2) 11/08/16 04:22 Nucleated RBCs 0 /100 WBC (0-0) 11/09/16 05:28 Manual Slide Review Performed 11/09/16 05:28 Toxic Granulation Present 11/09/16 05:28 Toxic Vacuolation Present 11/09/16 05:28 Poikilocytosis (manual Present 11/09/16 05:28 Anisocytosis (manual) Present 11/03/16 08:59 Target Cells Present 11/03/16 08:59 PT 10.6 sec (9.0-12.0) 11/01/16 15:26 INR 1.0 (<1.1) 11/01/16 15:26 APTT 27.8 sec (22.0-30.0) 11/01/16 15:26 D-Dimer 2.23 mg/L FEU (<0.60) H 11/05/16 15:50 Sample Site LRAD 11/05/16 16:20 ABG pH 7.44 (7.35-7.45) 11/05/16 16:20 ABG pCO2 29 mmHg (35-45) L 11/05/16 16:20 ABG pO2 131 mmHg (83-108) H 11/05/16 16:20 ABG HCO3 19 mmol/L (21-25) L 11/05/16 16:20 ABG Total CO2 20 mmol/L (19-24) 11/05/16 16:20 ABG O2 Saturation 99.0 % (94-97) H 11/05/16 16:20 ABG Base Excess -4.1 mmol/L 11/05/16 16:20 FiO2 60 % 11/05/16 16:20 Sodium 137 mmol/L (137-145) 11/10/16 05:44 Potassium 4.0 mmol/L (3.5-5.1) 11/10/16 05:44 Chloride 96 mmol/L (98-107) L 11/10/16 05:44 Carbon Dioxide 33 mmol/L (22-30) H 11/10/16 05:44 Anion Gap 8 mmol/L 11/10/16 05:44 BUN 20 mg/dL (7-17) H 11/10/16 05:44 Creatinine 0.46 mg/dL (0.52-1.04) L 11/10/16 05:44 Est GFR (MDRD) Af Amer >60 (>60 ml/min/1.73 sqM) 11/10/16 05:44 Est GFR (MDRD) Non-Af >60 (>60 ml/min/1.73 sqM) 11/10/16 05:44 Glucose 133 mg/dL (74-99) H 11/10/16 05:44 POC Glucose (mg/dL) 129 mg/dL (75-99) H 11/10/16 17:24 POC Glu Certified Peer Specialist ID Krystyna Felix 11/10/16 17:24 Plasma Lactic Acid Rohan 1.4 mmol/L (0.7-2.0) 11/05/16 11:02 Calcium 8.1 mg/dL (8.4-10.2) L 11/10/16 05:44 Phosphorus 2.8 mg/dL (2.5-4.5) 11/08/16 04:22 Magnesium 2.1 mg/dL (1.6-2.3) 11/10/16 05:44 Total Bilirubin 0.6 mg/dL (0.2-1.3) 11/04/16 10:51 AST 48 U/L (14-36) H 11/04/16 10:51 ALT 43 U/L (9-52) 11/04/16 10:51 Alkaline Phosphatase 117 U/L (38-126) 11/04/16 10:51 Total Creatine Kinase 99 U/L (30-135) 11/01/16 15:26 CK-MB (CK-2) 0.6 ng/mL (0.0-2.4) 11/01/16 15:26 CK-MB (CK-2) Rel Index 0.6 11/01/16 15:26 Troponin I <0.012 ng/mL (0.000-0.034) 11/01/16 15:26 NT-Pro-B Natriuret Pep 276 pg/mL 11/01/16 15:26 Total Protein 5.5 g/dL (6.3-8.2) L 11/04/16 10:51 Albumin 2.7 g/dL (3.5-5.0) L 11/04/16 10:51 Urine Color Light Yellow 11/05/16 18:26 Urine Appearance Clear (Clear) 11/05/16 18:26 Urine pH 6.5 (5.0-8.0) 11/05/16 18:26 Ur Specific Humble 1.009 (1.001-1.035) 11/05/16 18:26 Urine Protein Negative (Negative) 11/05/16 18:26 Urine Glucose (UA) Negative (Negative) 11/05/16 18:26 Urine Ketones Trace (Negative) H 11/05/16 18:26 Urine Blood Small (Negative) H 11/05/16 18:26 Urine Nitrate Negative (Negative) 11/05/16 18:26 Urine Bilirubin Negative (Negative) 11/05/16 18:26 Urine Urobilinogen <2.0 mg/dL (<2.0) 11/05/16 18:26 Ur Leukocyte Esterase Negative (Negative) 11/05/16 18:26 Urine RBC 7 /hpf (0-5) H 11/05/16 18:26 Urine WBC 2 /hpf (0-5) 11/05/16 18:26 Ur Squamous Epith Cells 9 /hpf (0-4) H 11/05/16 18:26 Amorphous Sediment Rare /hpf (None) H 11/05/16 18:26 Hyaline Casts 3 /lpf (0-2) H 11/05/16 18:26 Urine Mucus Rare /hpf (None) H 11/05/16 18:26 Vancomycin Trough 27.8 ug/mL 11/09/16 05:28 Influenza Type A RNA Not Detected (Not Detectd) 11/01/16 15:53 Influenza Type B (PCR) Not Detected (Not Detectd) 11/01/16 15:53 Urine Legionella Ag Not detected (Not detected) 11/06/16 16:10 Mycoplasma pneumon IgG 0.39 INDEX (<=0.90) 11/06/16 19:20 Mycoplasma pneumon IgM 0.01 INDEX (<=0.90) 11/06/16 19:20 Microbiology 11/05/16 17:05 Blood Blood Culture - Preliminary No Growth after 96 hours 11/06/16 16:45 Sputum Gram Stain - Final 11/06/16 16:45 Sputum Sputum Culture - Final Staphylococcus aureus 11/01/16 15:26 Blood Blood Culture - Final No Growth after 144 hours 11/05/16 19:00 Sputum Gram Stain - Final 11/05/16 19:00 Sputum Sputum Culture - Final Staphylococcus aureus 11/05/16 04:35 Urine,Voided Urine Culture - Final 11/02/16 07:00 Sputum Gram Stain - Final 11/02/16 07:00 Sputum Sputum Culture - Final Staphylococcus aureus Assessment and Plan (1) Necrotizing pneumonia Narrative/Plan: 66-year-old female presents to hospital with significant shortness of breath. Was cared for in the outpatient setting but was not having improvement. At admission her computed tomography scan shows evidence of the extensive pneumonic process. There appears to be necrotizing in nature with the cavitating pneumonia in the left upper lobe. The extensive bullous emphysema was noted and reactive lymphadenopathy was seen. Effusions have improved. At this time she appears to have a methicillin susceptible staph aureus pneumonia is causing the significant necrosis. She has a significant ALLERGY to penicillin and constantly cephalosporins will not be attempted given her current very tenacious status. Vancomycin is being utilized. Plan 28 days Evaluation for Legionella and mycoplasma are in process also. In with his levofloxacin is added. Antecedent viral infection is not excluded, but evidence of influenza was not found at admission. The patient understands that she is profoundly ill. Fortunately is showing improvement, respiratory failure has resolved Legionella and mycoplasma are negative levofloxacin is discontinued We'll request a PICC line for Sunday so we can continue her outpatient antibiotic therapy and she is ready for discharge. Status: Acute (2) Staphylococcus aureus pneumonia Status: Acute (3) Fever Status: Acute (4) Leukocytosis Status: Acute
--- NOTE | 2016-11-10 19:05 | PN ---
DATE OF SERVICE: 11/10/2016 This 66-year-old woman who was admitted with acute multilobar pneumonia, also had Staph pneumonia, with a cavitary pneumonia. MSSA growing consist on the culture. The patient also had dysphagia which is also improving at this time. The patient is being closely monitored. Diffuse parenchymal changes are noted on the most recent chest x-ray. Past medical history reviewed. REVIEW OF SYSTEMS: CARDIOVASCULAR: No angina or palpitations. RESPIRATORY: As mentioned earlier. GI: No nausea or vomiting. GENITOURINARY: No dysuria. CENTRAL NERVOUS SYSTEM: No numbness, weakness. Current medications are reviewed and include: 1. Tylenol 650 q.6h p.r.n. 2. Ceres 5 mg. 3. Xanax. 4. Vitamin C. 5. Aspirin. 6. Cepacol. 7. Pulmicort. 8. Vitamin D3. 9. Celexa. 10. Perforomist. 11. Robitussin. 12. Heparin. 13. Humalog. 14. Lactinex. 15. Melatonin. 16. Solu-Medrol 40 IV q.6 p.r.n. 17. Naprosyn. Mycostatin. 18. Desyrel. 19. Protonix. PHYSICAL EXAMINATION: The patient is alert and oriented times three, pulse 75, blood pressure 108/54. Respiratory rate 18. Temperature 97.9. Pulse ox 97% on 10 L. HEENT: Conjunctivae normal. Oral mucosa moist. NECK: No jugular venous distention. No carotid bruit. No lymph node enlargement. CARDIOVASCULAR: S1, S2 muffled. No S3, no S4. RESPIRATORY: Breath sounds diminished at the bases. Bilateral scattered rhonchi and crackles. ABDOMEN: Soft, nontender, no mass palpable. LEGS: No edema. No swelling. Nervous system: Higher function as mentioned. Moves all four limbs. No focal deficits. LYMPHATICS: No lymph nodes palpable in the neck, axillae or groin. SKIN: No ulcer, rash or bleeding. Labs are noted. ASSESSMENT: 1. Acute multilobar pneumonia, left more than the right with possible gram-negative with possible strep pneumonia Methicillin-susceptible Staph aureus with cavitary pneumonia. 2. Acute hypoxic respiratory failure. Present on admission, on BiPAP. 3. Possible cavitation left upper lobe with necrotizing pneumonia. 4. Chronic obstructive pulmonary disease, acute exacerbation. 5. Dysphonia improving. 6. Mediastinal lymphadenopathy. 7. Elevated D. dimer. 8. Sinusitis and hoarseness. 10. Hypertension. 11. Depression and anxiety, not otherwise specified. 12. History of continued ongoing nicotine dependence. 13. History of insomnia. 14. Cardiomegaly with coronary calcification on the CAT scan. 15. Increased WBC. 16. Hypokalemia. 17. Hypoalbuminemia with mild to moderate protein calorie malnutrition. 18. History of gastroesophageal reflux disease. 19. History of degenerative joint disease. 20. Anxiety, depression, not otherwise specified. 21. Gait dysfunction. 22. FULL CODE. RECOMMENDATIONS AND DISCUSSION: Recommend to continue the current medications, continue current medications, continue symptomatic treatment. Continue bronchodilators and empiric antibiotics. Continue with DVT prophylaxis. The rest of the medications will be continued. Guarded prognosis. Further recommendations to follow. MTDD
[2016-11-10] MEDS: ASPIRIN 81 MG CHEW PO SCH (21:27)
[2016-11-10] MEDS: NAPROXEN 250 MG TAB PO SCH (21:28)
[2016-11-10] MEDS: traZODone HCL 50 MG TAB PO SCH (21:28)
[2016-11-10] MEDS: NICOTINE 21MG/24HR PATCH TRANSDERM SCH (21:30)
[2016-11-10 21:40] LABS: Glucose,Whole Blood 164 mg/dL (75-99)
[2016-11-11] MEDS: methylPREDNISolone SOD SUCCI 40 MG/ML 1 ML VIAL IV SCH ×3 (00:57→12:24)
[2016-11-11] MEDS: HYDROcodone/APAP 5-325MG 1 EACH TAB PO PRN (02:57)
[2016-11-11] MEDS ORDERED: VANCOMYCIN TROUGH DUE 1 EACH MISC MISCELLANE ONE (05:00)
[2016-11-11 05:17] LABS: CHCM 32.2; HCT 37.2 % (34.0-46.0); HGB 11.6 gm/dL (11.4-16.0); MCH 29.1 pg (25.0-35.0); MCHC 31.1 g/dL (31.0-37.0); MCV 93.5 fL (80.0-100.0); Mean Platelet Volume 7.1; RBC 3.98 m/uL (3.80-5.40); RDW 13.7 % (11.5-15.5); WBC 15.3 k/uL (3.8-10.6)
[2016-11-11 05:29] LABS: Anion Gap 6 mmol/L; Blood Urea Nitrogen 18 mg/dL (7-17); Calcium 8.1 mg/dL (8.4-10.2); Carbon Dioxide 33 mmol/L (22-30); Chloride 97 mmol/L (98-107); Glucose 127 mg/dL (74-99); Magnesium 2.1 mg/dL (1.6-2.3); Non-African American GFR(MDRD) >60 (>60 ml/min/1.73 sqM); Phosphorous 3.4 mg/dL (2.5-4.5); Sodium 136 mmol/L (137-145)
[2016-11-11] MEDS: VANCOMYCIN 1,250 MG in SODIUM CHLORIDE 0.9% 250 ML IVPB SCH ×3 (06:59→22:13)
[2016-11-11 07:26] LABS: Glucose,Whole Blood 101 mg/dL (75-99)
--- NOTE | 2016-11-11 07:37 | XR ---
EXAMINATION TYPE: XR chest 1V DATE OF EXAM: 11/11/2016 6:57 AM HISTORY: Shortness of breath. COMPARISON: To 317 TECHNIQUE: Single view of the chest is submitted. FINDINGS: Demonstrated are scattered senescent parenchymal change. Persistent left upper lobe airspace consolidations with the interposed areas of cystic change. Diffus e interstitial pattern seen throughout both lung bob may reflect underlying fibrosis. Overall stab le chest. The heart is stable. Hilar and mediastinal structures are within normal limits. Degenerative changes are seen of the dorsal spine. IMPRESSION: 1. Stable chest.
[2016-11-11] MEDS: INSULIN LISPRO (humaLOG) 300 UNIT/3 ML VIAL SQ SCH ×4 (07:55→21:12)
[2016-11-11] MEDS: PANTOPRAZOLE 40 MG TABLET PO SCH (08:09)
[2016-11-11] MEDS: NYSTATIN 100,000 UNIT/ML SUSP 500,000 UNIT/5 ML CUP PO SCH ×4 (08:09→20:23)
[2016-11-11] MEDS: LACTOBACILLUS ACIDOPH & BULGAR 1 EACH PACKET PO SCH (08:09)
[2016-11-11] MEDS: CHOLECALCIFEROL 1,000 UNIT TAB PO SCH (08:10)
[2016-11-11] MEDS: HEPARIN SODIUM,PORCINE 5,000 UNIT/ML 1 ML VIAL SQ SCH ×2 (08:10→20:22)
[2016-11-11] MEDS: CITALOPRAM HYDROBROMIDE 20 MG TAB PO SCH ×2 (08:10→20:23)
[2016-11-11] MEDS: HYDROCHLOROTHIAZIDE 25 MG TAB PO SCH (08:10)
[2016-11-11] MEDS: ASCORBIC ACID 500 MG TAB PO SCH (08:10)
[2016-11-11] MEDS: ALPRAZolam 0.5 MG TAB PO PRN ×2 (08:13→20:23)
[2016-11-11] MEDS: LEVALBUTEROL NEB (CONC) 1.25 MG/0.5 ML AMP INHALATION SCH ×4 (08:28→19:35)
[2016-11-11] MEDS: IPRATROPIUM 0.5 MG/2.5 ML NEBU INHALATION SCH ×4 (08:28→19:35)
[2016-11-11] MEDS: BUDESONIDE 1 MG/2 ML NEBU INHALATION SCH ×2 (08:28→19:34)
[2016-11-11] MEDS: FORMOTEROL FUMARATE 20 MCG/2 ML NEBU INHALATION SCH ×2 (08:28→19:35)
[2016-11-11 12:34] LABS: Glucose,Whole Blood 124 mg/dL (75-99)
--- NOTE | 2016-11-11 13:04 | P.PN ---
Subjective This 66-year-old female patient is a chronic smoker in she has an underlying COPD and addition to various other medical problems such as hypertension, hiatal hernia, spastic colon, anxiety and depression and previous history of a cellulitis of the involved right hip area which was attributed to MRSA. The patient was admitted to the hospital for cough, fever and chills, producing brownish sputum that was copious in amount and high-grade fever. The patient initially went to a walk-in clinic. Following that she came in to the hospital and she was found to have an extensive left lung pneumonia. In fact, the computed tomography scan that was done on 11/03/2016 showed diffuse bilateral areas of consolidation and significant cavitating/necrotizing pneumonia involving the left upper lobe. There was some shotty adenopathy within the mediastinum and the largest of fluid was measuring 1.1 cm in size. The patient also had extensive emphysematous changes bilaterally with a small left-sided pleural effusion. The patient also has cardiomegaly with coronary artery calcifications. Initially the patient was admitted to the medical floor being treated for a routine computed acquired pneumonia and she was given Levaquin. Overnight, her condition decompensated and the patient had to be moved to the intensive care unit for progressive worsening of dyspnea. The patient was placed on a BiPAP at a pressure of 10 over 5 cm of water and FiO2 of 50%. The patient was taken off the Levaquin and the patient was placed on a combination of as Fara M and vancomycin. This morning, the patient is very much worn-out tired and fatigued. She has lost significant amount of strength. Her voice is extremely hoarse. She is using some abdominal muscles to breathe. She is in [id number] degree of respiratory distress. She is on high flow oxygen at 15 L/m nasal cannula. A repeat CAT scan of the chest was done and this was a CT angios the chest and it showed an evolution of a 10 cm area of consolidation in the left upper lobe and there is extensive interstitial edema in the right lung. Is also reticular nodular changes in the lower lobes bilaterally more so on the left. There is some embolus changes in the right upper lobe and some early cavitation changes in the left upper lobe. The patient has no pulmonary embolism. No exposure to TB. No travel history. She has worked in [employer]. The patient had a recent rotator cuff injury to her right shoulder and she underwent a rotator cuff surgical repair by Dr. Dr. Lovett on August 2016. No reported aspiration. No reported travel. No alcoholism. No immunosuppression. No history of HIV positivity. On 11/07/2016 the patient is being seen in follow-up. The patient had 2 sputum samples that showed staph aureus, likely MSSA. We'll more convinced that this is a staphylococcal necrotizing pneumonia. Today's chest x-ray shows still an extensive pneumonic process involving the left lung and there is no major improvement compared to yesterday. Nevertheless, clinically the patient is less short of breath. The patient is less hypoxic and currently she is on 12 L/ m nasal cannula. The Merrem was discontinued and the patient was kept on a combination of Levaquin and vancomycin. She is penicillin ALLERGIC. She is extremely weak and she'll benefit from physical therapy. On 11/09/2016 the patient is being seen in follow-up. Please refer to the note that was done yesterday for further details in regards to the patient's progression. On today's evaluation, the patient is much improved. She is interactive awake and alert and following commands and answering questions appropriately. Her voice is also improved and she is less hoarse. On today's chest x-ray there is improvement in the left lung consolidation. As mentioned earlier the patient is being treated for a staphylococcal pneumonia, MSSA, still on vancomycin due to penicillin ALLERGY. Legionella urine antigen was negative. The patient is hemodynamically stable. She is off the BiPAP and she is still on high flow oxygen and we are hoping to gradually wean down FiO2 to keep his saturation above 90%. Physical therapy is working with this patient closely and we promote early mobility. On 11/10/2016, the patient is being seen in follow-up in regards to her staphylococcal left lung pneumonia. Clinically much improved. She is still on 7-8 L of oxygen nasal cannula over this is considerably improved compared to her condition over the past few days. Chest x-ray shows gradual but steady improvement of the left lung consolidation/necrotizing pneumonia. She is able to talk. She is able to swallow appropriately. No nausea. No vomiting. No change in mental status. No fever. No hemodynamic instability. She is still on same antibiotic coverage which includes vancomycin for MSSA pneumonia knowing that she has penicillin ALLERGY. On 11/11/2016 the patient is being seen in follow-up. As mentioned earlier she is still being treated for a staphylococcal left lung pneumonia. There has been steady improvement in her chest x-ray findings. She remains on vancomycin. She is still requiring high flow oxygen somewhere between 6-8 L and I think we should be able to wean the FiO2 based on her overall oxygenation. Her progress is rather slow. I thought she is going to do some more activity and encouraged her to do so. Physical therapy is on the case. She is tolerating her diet. No change in mental status. No side effect to the antibiotic treatment. No other significant events over the past 24 hours. Currently she is on the medical surgical floor. Objective - Vital Signs Vital signs: Vital Signs Temp 98.8 F 11/11/16 08:00 Pulse 88 11/11/16 08:54 Resp 18 11/11/16 08:00 BP 149/68 11/11/16 08:00 Pulse Ox 98 11/11/16 08:00 Intake & Output 11/10/16 11/11/16 11/11/16 18:59 06:59 18:59 Intake Total 695 370 Output Total 1755 1080 Balance -1060 -710 Intake: IV 220 120 0.9 at KVO 120 120 Sodium Chloride 0.9% 1, 100 000 ml @ 100 mls/hr IV . Q10H [facility] Rx#:[id number] Intake, IV Titration 250 250 Amount Vancomycin 1,250 mg In 250 250 Sodium Chloride 0.9% 250 ml @ 125 mls/hr IVPB Q8H [facility] Rx#:[id number] Oral 225 Output: Urine 1755 1080 Other: Voiding Method Indwelling Catheter Indwelling Catheter Indwelling Catheter # Bowel Movements 1 - Exam Head exam was generally normal. There was no scleral icterus or corneal arcus. Mucous membranes were moist.Neck was supple and without jugular venous distension, thyromegaly, or carotid bruits. Carotids were easily palpable bilaterally. There was no adenopathy. Lung sounds are diminished bilaterally and there is some few scattered external wheezes or rhonchi. Crackles in the mid lungs and the lower lungs bilaterally along with extensive crackling in the left upper lobe especially anteriorly.Cardiac exam revealed the PMI to be normally situated and sized. The rhythm was regular and no extrasystoles were noted during several minutes of auscultation. The first and second heart sounds were normal and physiologic splitting of the second heart sound was noted. There were no murmurs, rubs, clicks, or gallops.Abdominal exam revealed normal bowel sounds. The abdomen was soft, non-tender, and without masses, organomegaly , or appreciable enlargement of the abdominal aorta.Examination of the extremities revealed easily palpable radial, femoral and pedal pulses. There was no cyanosis, clubbing or edema. - Labs CBC & Chem 7: 11/11/16 05:03 11/11/16 05:03 Labs: Abnormal Lab Results - Last 24 Hours (Table) 11/10/16 11/10/16 11/11/16 Range/Units 17:24 21:37 05:03 WBC 15.3 H (3.8-10.6) k/uL Sodium (137-145) mmol/L Chloride (98-107) mmol/L Carbon Dioxide (22-30) mmol/L BUN (7-17) mg/dL Creatinine (0.52-1.04) mg/dL Glucose (74-99) mg/dL POC Glucose (mg/dL) 129 H 164 H (75-99) mg/dL Calcium (8.4-10.2) mg/dL 11/11/16 11/11/16 11/11/16 Range/Units 05:03 07:24 12:32 WBC (3.8-10.6) k/uL Sodium 136 L (137-145) mmol/L Chloride 97 L (98-107) mmol/L Carbon Dioxide 33 H (22-30) mmol/L BUN 18 H (7-17) mg/dL Creatinine 0.43 L (0.52-1.04) mg/dL Glucose 127 H (74-99) mg/dL POC Glucose (mg/dL) 101 H 124 H (75-99) mg/dL Calcium 8.1 L (8.4-10.2) mg/dL Microbiology - Last 24 Hours (Table) 11/05/16 17:05 Blood Culture - Preliminary Blood No Growth after 120 hours Assessment and Plan Plan: Impression 1 acute hypoxic respiratory failure 2 moderate bilobar pneumonia with extensive necrotizing pneumonia involving the left upper lobe with some early cavitating changes. This patient has an extensive staphylococcal necrotizing pneumonia, identified to be related to MSSA. The patient is on vancomycin. The dosing is being done by pharmacy and the latest trough level was elevated at 27. Clinically the patient is improved significantly. On today's chest x-ray there is improvement in the left lung consolidation. Clinically the patient is less short of breath. No chest pain. No change in mental status. No hemoptysis. The FiO2 is being gradually weaned and the patient is currently off the BiPAP. On 11/10/2016, the patient continues to improve and a pneumonia involving the left lung is steadily improving. The patient on IV vancomycin. No signs of septicemia. Much more alert and awake and less short of breath. Oxygenation is also improving and she is currently still on high flow at 6 L per minute nasal cannula. On 11/11/2016, the patient is still on same antibiotic treatment. Chest x-ray was noted. When the process of weaning the FiO2 down. Would also in the process of getting this patient more active. She is not ready for discharge yet as the patient is still requiring higher oxygen flows and she is still considerably weak and not back to her baseline. 3 COPD 4 Sepsis secondary to above 5 leukocytosis 6 previous history of MRSA soft tissue infection, recovered 7 shingles, history of 8 hiatal hernia, history of 9 hypertension 10 GE reflux 11 spastic colon Plan Continue vancomycin. Pulmonary toileting. Wean down the FiO2 as tolerated. Advance diet. Early mobility and physical therapy. Continue the rest of the supportive treatment. Discontinue the IV Solu-Medrol and put the patient prednisone burst taper. We'll continue to follow.
[2016-11-11 17:04] LABS: Glucose,Whole Blood 143 mg/dL (75-99)
[2016-11-11] MEDS: predniSONE 20 MG TAB PO SCH (17:06)
--- NOTE | 2016-11-11 18:09 | PN ---
DATE OF SERVICE: 11/11/2016 This 66-year-old woman was admitted with acute multilobar pneumonia has been closely monitored. No chest pain, no palpitations no fever. Patient is slightly better. On exam, alert and oriented x3. Pulse 68, blood pressure 151/73, respirations 18, temperature 97.9, pulse ox 99% on room air. HEENT: Conjunctivae normal. NECK: No jugular venous distention. CARDIOVASCULAR: S1 and S2, muffled. RESPIRATORY: Breath sounds diminished at the bases. Bilateral scattered rhonchi and crackles. ABDOMEN: Soft, nontender. LEGS: No edema, no swelling. NERVOUS SYSTEM: No focal deficits. LABS: WBC 15.2. Sodium is 136. ASSESSMENT: 1. Acute multilobar pneumonia, left more than the right with possible gram-negative with possible MSSA with cavitary pneumonia. 2. Acute hypoxic respiratory failure, present on admission, on BiPAP. 3. Possible cavitation with left upper lobe necrotic pneumonia. 4. Chronic obstructive pulmonary disease, acute exacerbation. 5. Dysphonia, improving. 6. Mediastinal lymphadenopathy. 7. Elevated d-dimer. 8. Sinusitis with hoarseness. 9. Hypertension. 10. Depression and anxiety, not otherwise specified. 11. Continued ongoing nicotine dependence. 12. History of insomnia. 13. Cardiomegaly with coronary calcification in the CAT scan. 14. Increased WBC. 15. Hypokalemia. 16. Hypoalbuminemia with mild to moderate protein calorie malnutrition. 17. History of gastroesophageal reflux disease. 18. History of degenerative joint disease. 19. Anxiety and depression, not otherwise specified. 20. Gait dysfunction. 21. FULL CODE. RECOMMENDATIONS AND DISCUSSION: I recommend to continue the current medications, continue monitoring and symptomatic treatment. Otherwise at this time being closely monitor with Dr. Palencia. Guarded prognosis because of multiple complex medical issues. Further recommendations to follow.
[2016-11-11] MEDS: NICOTINE 21MG/24HR PATCH TRANSDERM SCH (20:23)
[2016-11-11] MEDS: ASPIRIN 81 MG CHEW PO SCH (20:23)
[2016-11-11] MEDS: NAPROXEN 250 MG TAB PO SCH (20:23)
[2016-11-11] MEDS: traZODone HCL 50 MG TAB PO SCH (20:23)
[2016-11-11] MEDS: ARTIFICIAL TEARS-HYPROMELLOSE DROPS 15 ML BTL BOTH EYES PRN (20:30)
[2016-11-11 21:41] LABS: Glucose,Whole Blood 186 mg/dL (75-99)
[2016-11-12] MEDS: HYDROcodone/APAP 5-325MG 1 EACH TAB PO PRN ×3 (00:20→14:21)
[2016-11-12] MEDS: VANCOMYCIN 1,250 MG in SODIUM CHLORIDE 0.9% 250 ML IVPB SCH ×3 (05:30→22:52)
[2016-11-12] MEDS: NYSTATIN 100,000 UNIT/ML SUSP 500,000 UNIT/5 ML CUP PO SCH ×4 (07:23→22:52)
[2016-11-12] MEDS: predniSONE 20 MG TAB PO SCH (07:23)
[2016-11-12] MEDS: PANTOPRAZOLE 40 MG TABLET PO SCH (07:23)
[2016-11-12] MEDS: LACTOBACILLUS ACIDOPH & BULGAR 1 EACH PACKET PO SCH (07:24)
[2016-11-12] MEDS: HEPARIN SODIUM,PORCINE 5,000 UNIT/ML 1 ML VIAL SQ SCH ×2 (07:24→20:43)
[2016-11-12] MEDS: HYDROCHLOROTHIAZIDE 25 MG TAB PO SCH (07:24)
[2016-11-12] MEDS: INSULIN LISPRO (humaLOG) 300 UNIT/3 ML VIAL SQ SCH ×4 (07:24→22:47)
[2016-11-12 07:27] LABS: Glucose,Whole Blood 70 mg/dL (75-99)
[2016-11-12] MEDS: ALPRAZolam 0.5 MG TAB PO PRN ×2 (07:31→20:41)
[2016-11-12] MEDS: IPRATROPIUM 0.5 MG/2.5 ML NEBU INHALATION SCH ×4 (08:40→20:55)
[2016-11-12] MEDS: BUDESONIDE 1 MG/2 ML NEBU INHALATION SCH ×2 (08:40→20:54)
[2016-11-12] MEDS: LEVALBUTEROL NEB (CONC) 1.25 MG/0.5 ML AMP INHALATION SCH ×4 (08:40→20:55)
[2016-11-12] MEDS: FORMOTEROL FUMARATE 20 MCG/2 ML NEBU INHALATION SCH ×2 (08:40→20:55)
[2016-11-12] MEDS: CITALOPRAM HYDROBROMIDE 20 MG TAB PO SCH ×2 (08:49→20:43)
[2016-11-12] MEDS: CHOLECALCIFEROL 1,000 UNIT TAB PO SCH (08:49)
[2016-11-12] MEDS: ASCORBIC ACID 500 MG TAB PO SCH (08:49)
[2016-11-12] MEDS: ARTIFICIAL TEARS-HYPROMELLOSE DROPS 15 ML BTL BOTH EYES PRN (09:45)
[2016-11-12 12:20] LABS: Glucose,Whole Blood 117 mg/dL (75-99)
--- NOTE | 2016-11-12 12:42 | P.PN ---
Subjective This 66-year-old female patient is a chronic smoker in she has an underlying COPD and addition to various other medical problems such as hypertension, hiatal hernia, spastic colon, anxiety and depression and previous history of a cellulitis of the involved right hip area which was attributed to MRSA. The patient was admitted to the hospital for cough, fever and chills, producing brownish sputum that was copious in amount and high-grade fever. The patient initially went to a walk-in clinic. Following that she came in to the hospital and she was found to have an extensive left lung pneumonia. In fact, the computed tomography scan that was done on 11/03/2016 showed diffuse bilateral areas of consolidation and significant cavitating/necrotizing pneumonia involving the left upper lobe. There was some shotty adenopathy within the mediastinum and the largest of fluid was measuring 1.1 cm in size. The patient also had extensive emphysematous changes bilaterally with a small left-sided pleural effusion. The patient also has cardiomegaly with coronary artery calcifications. Initially the patient was admitted to the medical floor being treated for a routine computed acquired pneumonia and she was given Levaquin. Overnight, her condition decompensated and the patient had to be moved to the intensive care unit for progressive worsening of dyspnea. The patient was placed on a BiPAP at a pressure of 10 over 5 cm of water and FiO2 of 50%. The patient was taken off the Levaquin and the patient was placed on a combination of as Fara M and vancomycin. This morning, the patient is very much worn-out tired and fatigued. She has lost significant amount of strength. Her voice is extremely hoarse. She is using some abdominal muscles to breathe. She is in [id number] degree of respiratory distress. She is on high flow oxygen at 15 L/m nasal cannula. A repeat CAT scan of the chest was done and this was a CT angios the chest and it showed an evolution of a 10 cm area of consolidation in the left upper lobe and there is extensive interstitial edema in the right lung. Is also reticular nodular changes in the lower lobes bilaterally more so on the left. There is some embolus changes in the right upper lobe and some early cavitation changes in the left upper lobe. The patient has no pulmonary embolism. No exposure to TB. No travel history. She has worked in [employer]. The patient had a recent rotator cuff injury to her right shoulder and she underwent a rotator cuff surgical repair by Dr. Dr. Lovett on August 2016. No reported aspiration. No reported travel. No alcoholism. No immunosuppression. No history of HIV positivity. On 11/07/2016 the patient is being seen in follow-up. The patient had 2 sputum samples that showed staph aureus, likely MSSA. We'll more convinced that this is a staphylococcal necrotizing pneumonia. Today's chest x-ray shows still an extensive pneumonic process involving the left lung and there is no major improvement compared to yesterday. Nevertheless, clinically the patient is less short of breath. The patient is less hypoxic and currently she is on 12 L/ m nasal cannula. The Merrem was discontinued and the patient was kept on a combination of Levaquin and vancomycin. She is penicillin ALLERGIC. She is extremely weak and she'll benefit from physical therapy. On 11/09/2016 the patient is being seen in follow-up. Please refer to the note that was done yesterday for further details in regards to the patient's progression. On today's evaluation, the patient is much improved. She is interactive awake and alert and following commands and answering questions appropriately. Her voice is also improved and she is less hoarse. On today's chest x-ray there is improvement in the left lung consolidation. As mentioned earlier the patient is being treated for a staphylococcal pneumonia, MSSA, still on vancomycin due to penicillin ALLERGY. Legionella urine antigen was negative. The patient is hemodynamically stable. She is off the BiPAP and she is still on high flow oxygen and we are hoping to gradually wean down FiO2 to keep his saturation above 90%. Physical therapy is working with this patient closely and we promote early mobility. On 11/10/2016, the patient is being seen in follow-up in regards to her staphylococcal left lung pneumonia. Clinically much improved. She is still on 7-8 L of oxygen nasal cannula over this is considerably improved compared to her condition over the past few days. Chest x-ray shows gradual but steady improvement of the left lung consolidation/necrotizing pneumonia. She is able to talk. She is able to swallow appropriately. No nausea. No vomiting. No change in mental status. No fever. No hemodynamic instability. She is still on same antibiotic coverage which includes vancomycin for MSSA pneumonia knowing that she has penicillin ALLERGY. On 11/11/2016 the patient is being seen in follow-up. As mentioned earlier she is still being treated for a staphylococcal left lung pneumonia. There has been steady improvement in her chest x-ray findings. She remains on vancomycin. She is still requiring high flow oxygen somewhere between 6-8 L and I think we should be able to wean the FiO2 based on her overall oxygenation. Her progress is rather slow. I thought she is going to do some more activity and encouraged her to do so. Physical therapy is on the case. She is tolerating her diet. No change in mental status. No side effect to the antibiotic treatment. No other significant events over the past 24 hours. Currently she is on the medical surgical floor. On 11/12/2016 the patient is being seen in follow-up. She is able to sit up at the edge of the bed. Breathing is easier. Cough is still congested although the patient is less short of breath. The patient has been weaned down to 4 L of oxygen by nasal cannula. The patient will likely need a PICC line for outpatient IV antibiotic treatments. Objective - Vital Signs Vital signs: Vital Signs Temp 97.3 F L 11/12/16 07:00 Pulse 96 11/12/16 12:29 Resp 20 11/12/16 07:00 BP 131/74 11/12/16 07:00 Pulse Ox 97 11/12/16 07:00 Intake & Output 11/11/16 11/12/16 11/12/16 18:59 06:59 18:59 Intake Total 1320 Balance 1320 Intake: IV 220 0.9 at KVO 220 Intake, IV Titration 500 Amount Vancomycin 1,250 mg In 500 Sodium Chloride 0.9% 250 ml @ 125 mls/hr IVPB Q8H [facility] Rx#:[id number] Oral 600 Other: Voiding Method Indwelling Catheter Toilet Toilet # Voids 1 1 # Bowel Movements 1 - Exam Head exam was generally normal. There was no scleral icterus or corneal arcus. Mucous membranes were moist.Neck was supple and without jugular venous distension, thyromegaly, or carotid bruits. Carotids were easily palpable bilaterally. There was no adenopathy. Lung sounds are diminished bilaterally and there is some few scattered external wheezes or rhonchi. Crackles in the mid lungs and the lower lungs bilaterally along with extensive crackling in the left upper lobe especially anteriorly.Cardiac exam revealed the PMI to be normally situated and sized. The rhythm was regular and no extrasystoles were noted during several minutes of auscultation. The first and second heart sounds were normal and physiologic splitting of the second heart sound was noted. There were no murmurs, rubs, clicks, or gallops.Abdominal exam revealed normal bowel sounds. The abdomen was soft, non-tender, and without masses, organomegaly , or appreciable enlargement of the abdominal aorta.Examination of the extremities revealed easily palpable radial, femoral and pedal pulses. There was no cyanosis, clubbing or edema. - Labs CBC & Chem 7: 11/11/16 05:03 11/11/16 05:03 Labs: Abnormal Lab Results - Last 24 Hours (Table) 11/11/16 11/11/16 11/12/16 Range/Units 17:03 21:08 07:24 POC Glucose (mg/dL) 143 H 186 H 70 L (75-99) mg/dL 11/12/16 Range/Units 12:18 POC Glucose (mg/dL) 117 H (75-99) mg/dL Microbiology - Last 24 Hours (Table) 11/05/16 17:05 Blood Culture - Final Blood No Growth after 144 hours Assessment and Plan Plan: Impression 1 acute hypoxic respiratory failure 2 moderate bilobar pneumonia with extensive necrotizing pneumonia involving the left upper lobe with some early cavitating changes. This patient has an extensive staphylococcal necrotizing pneumonia, identified to be related to MSSA. The patient is on vancomycin. The dosing is being done by pharmacy and the latest trough level was elevated at 27. Clinically the patient is improved significantly. On today's chest x-ray there is improvement in the left lung consolidation. Clinically the patient is less short of breath. No chest pain. No change in mental status. No hemoptysis. The FiO2 is being gradually weaned and the patient is currently off the BiPAP. On 11/10/2016, the patient continues to improve and a pneumonia involving the left lung is steadily improving. The patient on IV vancomycin. No signs of septicemia. Much more alert and awake and less short of breath. Oxygenation is also improving and she is currently still on high flow at 6 L per minute nasal cannula. On 11/11/2016, the patient is still on same antibiotic treatment. Chest x-ray was noted. When the process of weaning the FiO2 down. Would also in the process of getting this patient more active. She is not ready for discharge yet as the patient is still requiring higher oxygen flows and she is still considerably weak and not back to her baseline. On 11/12/2016, the patient is still on IV vancomycin. She is improving. FiO2 has been weaned down to 4l oxygen by nasal cannula. She is recovering slowly and she is improving on a day-to-day basis. She will need a PICC line for IV antibiotic therapy. 3 COPD 4 Sepsis secondary to above 5 leukocytosis 6 previous history of MRSA soft tissue infection, recovered 7 shingles, history of 8 hiatal hernia, history of 9 hypertension 10 GE reflux 11 spastic colon Plan Continue vancomycin. Pulmonary toileting. Wean down the FiO2 as tolerated. Advance diet. Early mobility and physical therapy. Continue the rest of the supportive treatment. Discontinue the IV Solu-Medrol and put the patient prednisone burst taper. The patient will likely need a PICC line for outpatient IV antibiotic treatment. This will be arranged for her in a.m.
[2016-11-12 17:28] LABS: Glucose,Whole Blood 127 mg/dL (75-99)
[2016-11-12] MEDS: ACETAMINOPHEN TAB 325 MG TAB PO PRN (17:46)
[2016-11-12] MEDS: NAPROXEN 250 MG TAB PO SCH (20:41)
[2016-11-12] MEDS: traZODone HCL 50 MG TAB PO SCH (20:42)
[2016-11-12] MEDS: ASPIRIN 81 MG CHEW PO SCH (20:43)
[2016-11-13] MEDS: HYDROcodone/APAP 5-325MG 1 EACH TAB PO PRN ×2 (02:53→10:35)
[2016-11-13 03:06] LABS: Glucose,Whole Blood 91 mg/dL (75-99)
[2016-11-13] MEDS: VANCOMYCIN 1,250 MG in SODIUM CHLORIDE 0.9% 250 ML IVPB SCH ×2 (05:53→13:13)
[2016-11-13 07:21] LABS: Glucose,Whole Blood 100 mg/dL (75-99)
[2016-11-13 07:55] LABS: Basophils # (A) 0.1 k/uL (0-0.2); Basophils % (A) 0 %; CH 30.3; CHCM 32.2; Eosinophils # (A) 0.3 k/uL (0-0.7); Eosinophils % (A) 2 %; HCT 35.2 % (34.0-46.0); HDW 2.17; HGB 10.9 gm/dL (11.4-16.0); Luc # (Auto) 0.11; Luc % (Auto) 1; Lymphocytes # (A) 1.2 k/uL (1.0-4.8); Lymphocytes % (A) 6 %; MCH 29.2 pg (25.0-35.0); MCHC 30.9 g/dL (31.0-37.0); MCV 94.5 fL (80.0-100.0); Mean Platelet Volume 7.1; Monocytes # (A) 0.7 k/uL (0-1.0); Monocytes % (A) 4 %; Neutrophils # (A) 16.4 k/uL (1.3-7.7); Neutrophils % (A) 88 %; RBC 3.72 m/uL (3.80-5.40); RDW 14.2 % (11.5-15.5); WBC 18.7 k/uL (3.8-10.6); WBC (Perox) 19.37
[2016-11-13] MEDS: INSULIN LISPRO (humaLOG) 300 UNIT/3 ML VIAL SQ SCH ×4 (07:56→21:35)
[2016-11-13] MEDS: NYSTATIN 100,000 UNIT/ML SUSP 500,000 UNIT/5 ML CUP PO SCH ×4 (07:56→21:32)
[2016-11-13] MEDS: predniSONE 20 MG TAB PO SCH (07:56)
[2016-11-13] MEDS: CITALOPRAM HYDROBROMIDE 20 MG TAB PO SCH ×2 (07:56→20:04)
[2016-11-13] MEDS: HYDROCHLOROTHIAZIDE 25 MG TAB PO SCH (07:58)
[2016-11-13] MEDS: NICOTINE 21MG/24HR PATCH TRANSDERM SCH (07:58)
[2016-11-13] MEDS: LACTOBACILLUS ACIDOPH & BULGAR 1 EACH PACKET PO SCH (07:58)
[2016-11-13] MEDS: ALPRAZolam 0.5 MG TAB PO PRN ×3 (07:58→20:03)
[2016-11-13] MEDS: PANTOPRAZOLE 40 MG TABLET PO SCH (07:59)
[2016-11-13] MEDS: CHOLECALCIFEROL 1,000 UNIT TAB PO SCH (07:59)
[2016-11-13] MEDS: ASCORBIC ACID 500 MG TAB PO SCH (07:59)
[2016-11-13 08:00] LABS: Anion Gap 9 mmol/L; Blood Urea Nitrogen 14 mg/dL (7-17); Calcium 8.2 mg/dL (8.4-10.2); Carbon Dioxide 34 mmol/L (22-30); Chloride 95 mmol/L (98-107); Glucose 88 mg/dL (74-99); Non-African American GFR(MDRD) >60 (>60 ml/min/1.73 sqM); Potassium 3.3 mmol/L (3.5-5.1); Sodium 138 mmol/L (137-145)
[2016-11-13] MEDS: HEPARIN SODIUM,PORCINE 5,000 UNIT/ML 1 ML VIAL SQ SCH ×2 (08:00→20:03)
[2016-11-13] MEDS: FORMOTEROL FUMARATE 20 MCG/2 ML NEBU INHALATION SCH ×2 (08:31→20:20)
[2016-11-13] MEDS: LEVALBUTEROL NEB (CONC) 1.25 MG/0.5 ML AMP INHALATION SCH ×4 (08:31→20:21)
[2016-11-13] MEDS: IPRATROPIUM 0.5 MG/2.5 ML NEBU INHALATION SCH ×4 (08:31→20:21)
[2016-11-13] MEDS: BUDESONIDE 1 MG/2 ML NEBU INHALATION SCH ×2 (08:31→20:21)
[2016-11-13] MEDS ORDERED: LIDOCAINE 2% INJ 20 MG/ML SQ ONE (09:25)
[2016-11-13 11:53] LABS: Glucose,Whole Blood 209 mg/dL (75-99)
[2016-11-13] MEDS: ARTIFICIAL TEARS-HYPROMELLOSE DROPS 15 ML BTL BOTH EYES PRN (11:59)
--- NOTE | 2016-11-13 12:31 | IR ---
PICC LINE PLACEMENT: HISTORY: Infection requiring long-term antibiotic therapy PROCEDURE: Ultrasound and fluoroscopic guidance of PICC line placement. COMPLICATIONS: None ANESTHESIA: 1. 1% Lidocaine locally. FINDINGS/TECHNIQUE: The procedure was explained to the patient. The risks, complications, benefits and alternatives were discussed and any questions were answered. Informed consent was obtained. The patient was placed supine on the fluoroscopic table and prepped and draped in the usual sterile [facility] ion. Utilizing a 21 gauge needle and sonographic and fluoroscopic guidance, access in the vein was achieved and there is placement of a 0.018 guidewire. The vein is patent. A 4-F sheath was placed o bobby the guidewire. The guidewire and dilator were removed and a 4-F. PICC line was placed through th e sheath with the tip at the level of the SVC. The sheath was removed, the catheter was flushed and sutured into position. The patient was stable throughout the procedure and remained stable upon disc harge from the Department of Radiology. The vein puncture was patent under ultrasound. A walls scale image was obtained to document patency of the vein punctured. All elements of the maximal barrier technique were utilized. FLUOROSCOPY TIME: 0.2 minute IMPRESSION: Successful PICC line placement under ultrasound and fluoroscopic guidance.
[2016-11-13] MEDS ORDERED: Potassium Replacement Protocol 1 EACH MISC MISCELLANE PRN (14:36)
[2016-11-13] MEDS: POTASSIUM CHLORIDE ER 20 MEQ TAB.ER PO SCH ×2 (16:08→17:36)
[2016-11-13] MEDS: SODIUM CHLORIDE 0.9% 1,000 ML IV SCH ×2 (16:09→23:38)
--- NOTE | 2016-11-13 16:28 | PN ---
INTERVAL HISTORY: . Parent is a 66-year-old female with known history of COPD, hypertension and depression who was admitted to the hospital with acute multilobar pneumonia and sputum culture showed MSSA and is currently being treated with vancomycin. Pulmonary is following this patient. Otherwise, the patient is slightly ( ) and breathing is better now. Patient still has cough with minimal sputum production and short of breath with exertion. The patient still requiring nasal cannula. Oxygen 4 liters on nasal cannula. Otherwise, the patient is clinically improving now. REVIEW OF SYSTEMS: CONSTITUTIONAL: No fever. No chills. No weakness. RESPIRATORY: Patient does have cough with minimal sputum production and short of breath. CARDIOVASCULAR: No chest pain. No leg swelling. ABDOMEN: No nausea, vomiting, abdominal pain. GENITOURINARY: Negative. ENDOCRINE: Negative. PSYCHIATRIC: Negative. SKIN: Negative. All other 14 point review of systems negative except as above. Current medications include: 1. Tylenol. 2. [place] 5/325. 3. Xanax. 4. Artificial tears. 5. Vitamin C. 6. Aspirin. 7. Cepacol. 8. Pulmicort. 9. Vitamin D3. 10. Celexa. 11. Fluticasone nasal spray. 12. Perforomist. 13. Robitussin-DM. 14. Heparin subcu. 15. Ipratropium. 16. Levalbuterol. 17. Melatonin. 18. Naprosyn. 19. Nicodol. 20. Nystatin. 21. Protonix. 22. Prednisone. 23. Vancomycin. 24. Trazodone. PHYSICAL EXAMINATION: A 66-year-old female, sitting in the bed. Awake, alert, each in no apparent distress. VITALS: Blood pressure is 122/58, pulse is 82, respiratory rate 20, temperature afebrile, pulse ox 96% on 4 L liters nasal cannula. HEENT: Atraumatic. Normocephalic. Neck is supple. No JVD. CVS: S1, S2 heard. No murmurs, no gallop. LUNGS: Bilateral air entry is present. Prolonged expiratory phase. Minimal decreased breath sounds basally and rhonchi positive. Nonlabored breathing. ABDOMEN: Soft, nontender. Bowel sounds are present. CENTRAL NERVOUS SYSTEM: Awake, alert and oriented times three. No focal deficits. EXTREMITIES: No edema. Pulses palpable bilaterally. No clubbing or cyanosis. PSYCHIATRIC: Cooperative. IMPRESSION: 1. Acute multilobar pneumonia, left more than right with possible gram-negative and Methicillin-susceptible Staph aureus with cavitating pneumonia. 2. Acute hypoxic respiratory failure, present on admission was on BiPAP. 3. Possible cavitation with left upper lobe necrotizing pneumonia. 4. Chronic obstructive pulmonary disease with acute exacerbation improving. 5. Dysphonia improving. 6. Mediastinal lymphadenopathy. 7. Elevated d-dimer. 8. Sinusitis and hoarseness. 9. Hypertension. 10. Depression and anxiety. 11. [place] dependence. 12. History of insomnia. 13. Cardiomegaly with coronary artery calcification in the CT scan. 14. Leukocytosis. 15. Hypokalemia. 16. Hypoalbuminemia with mild to moderate protein malnutrition. 17. Gastroesophageal reflux disease. 18. Degenerative joint disease . 19. Gait dysfunction. 20. FULL CODE. 21. Deep venous thrombosis prophylaxis with heparin subcutaneous. DISCUSSION AND PLAN: We will continue with antibiotics in the form of vancomycin and currently being planned for long-term antibiotics with PICC line. Pulmonary is following the patient. Prognosis is guarded with multiple medical problems comorbid conditions. Further recommendations based on clinical course. Anticipate discharge to extended care facility once PICC line and antibiotic regimen is finalized.
--- NOTE | 2016-11-13 16:55 | P.PN ---
Subjective Principal diagnosis: Acute necrotizing pneumonia involving the left lung This 66-year-old female patient is a chronic smoker in she has an underlying COPD and addition to various other medical problems such as hypertension, hiatal hernia, spastic colon, anxiety and depression and previous history of a cellulitis of the involved right hip area which was attributed to MRSA. The patient was admitted to the hospital for cough, fever and chills, producing brownish sputum that was copious in amount and high-grade fever. The patient initially went to a walk-in clinic. Following that she came in to the hospital and she was found to have an extensive left lung pneumonia. In fact, the computed tomography scan that was done on 11/03/2016 showed diffuse bilateral areas of consolidation and significant cavitating/necrotizing pneumonia involving the left upper lobe. There was some shotty adenopathy within the mediastinum and the largest of fluid was measuring 1.1 cm in size. The patient also had extensive emphysematous changes bilaterally with a small left-sided pleural effusion. The patient also has cardiomegaly with coronary artery calcifications. Initially the patient was admitted to the medical floor being treated for a routine computed acquired pneumonia and she was given Levaquin. Overnight, her condition decompensated and the patient had to be moved to the intensive care unit for progressive worsening of dyspnea. The patient was placed on a BiPAP at a pressure of 10 over 5 cm of water and FiO2 of 50%. The patient was taken off the Levaquin and the patient was placed on a combination of as Fara M and vancomycin. This morning, the patient is very much worn-out tired and fatigued. She has lost significant amount of strength. Her voice is extremely hoarse. She is using some abdominal muscles to breathe. She is in [id number] degree of respiratory distress. She is on high flow oxygen at 15 L/m nasal cannula. A repeat CAT scan of the chest was done and this was a CT angios the chest and it showed an evolution of a 10 cm area of consolidation in the left upper lobe and there is extensive interstitial edema in the right lung. Is also reticular nodular changes in the lower lobes bilaterally more so on the left. There is some embolus changes in the right upper lobe and some early cavitation changes in the left upper lobe. The patient has no pulmonary embolism. No exposure to TB. No travel history. She has worked in [employer]. The patient had a recent rotator cuff injury to her right shoulder and she underwent a rotator cuff surgical repair by Dr. Dr. Lovett on August 2016. No reported aspiration. No reported travel. No alcoholism. No immunosuppression. No history of HIV positivity. On 11/07/2016 the patient is being seen in follow-up. The patient had 2 sputum samples that showed staph aureus, likely MSSA. We'll more convinced that this is a staphylococcal necrotizing pneumonia. Today's chest x-ray shows still an extensive pneumonic process involving the left lung and there is no major improvement compared to yesterday. Nevertheless, clinically the patient is less short of breath. The patient is less hypoxic and currently she is on 12 L/ m nasal cannula. The Merrem was discontinued and the patient was kept on a combination of Levaquin and vancomycin. She is penicillin ALLERGIC. She is extremely weak and she'll benefit from physical therapy. On 11/09/2016 the patient is being seen in follow-up. Please refer to the note that was done yesterday for further details in regards to the patient's progression. On today's evaluation, the patient is much improved. She is interactive awake and alert and following commands and answering questions appropriately. Her voice is also improved and she is less hoarse. On today's chest x-ray there is improvement in the left lung consolidation. As mentioned earlier the patient is being treated for a staphylococcal pneumonia, MSSA, still on vancomycin due to penicillin ALLERGY. Legionella urine antigen was negative. The patient is hemodynamically stable. She is off the BiPAP and she is still on high flow oxygen and we are hoping to gradually wean down FiO2 to keep his saturation above 90%. Physical therapy is working with this patient closely and we promote early mobility. On 11/10/2016, the patient is being seen in follow-up in regards to her staphylococcal left lung pneumonia. Clinically much improved. She is still on 7-8 L of oxygen nasal cannula over this is considerably improved compared to her condition over the past few days. Chest x-ray shows gradual but steady improvement of the left lung consolidation/necrotizing pneumonia. She is able to talk. She is able to swallow appropriately. No nausea. No vomiting. No change in mental status. No fever. No hemodynamic instability. She is still on same antibiotic coverage which includes vancomycin for MSSA pneumonia knowing that she has penicillin ALLERGY. On 11/11/2016 the patient is being seen in follow-up. As mentioned earlier she is still being treated for a staphylococcal left lung pneumonia. There has been steady improvement in her chest x-ray findings. She remains on vancomycin. She is still requiring high flow oxygen somewhere between 6-8 L and I think we should be able to wean the FiO2 based on her overall oxygenation. Her progress is rather slow. I thought she is going to do some more activity and encouraged her to do so. Physical therapy is on the case. She is tolerating her diet. No change in mental status. No side effect to the antibiotic treatment. No other significant events over the past 24 hours. Currently she is on the medical surgical floor. On 11/12/2016 the patient is being seen in follow-up. She is able to sit up at the edge of the bed. Breathing is easier. Cough is still congested although the patient is less short of breath. The patient has been weaned down to 4 L of oxygen by nasal cannula. The patient will likely need a PICC line for outpatient IV antibiotic treatments. On 11/13/2016, patient seems to be doing much better, less cough and less wheezing less shortness of breath, a PICC line was placed, and her antibiotics are to be addressed by infectious disease for discharge planning. Objective - Vital Signs Vital signs: Vital Signs Temp 98.7 F 11/13/16 15:00 Pulse 80 11/13/16 16:03 Resp 21 11/13/16 15:00 BP 121/66 11/13/16 15:00 Pulse Ox 96 11/13/16 15:00 Intake & Output 11/12/16 11/13/16 11/13/16 18:59 06:59 18:59 Intake Total 900 Balance 900 Intake: Oral 900 Other: Voiding Method Toilet Toilet # Voids 4 1 2 - Exam Head exam was generally normal. There was no scleral icterus or corneal arcus. Mucous membranes were moist.Neck was supple and without jugular venous distension, thyromegaly, or carotid bruits. Carotids were easily palpable bilaterally. There was no adenopathy. Lung sounds are diminished bilaterally and there is some few scattered external wheezes or rhonchi. Crackles in the mid lungs and the lower lungs bilaterally along with extensive crackling in the left upper lobe especially anteriorly.Cardiac exam revealed the PMI to be normally situated and sized. The rhythm was regular and no extrasystoles were noted during several minutes of auscultation. The first and second heart sounds were normal and physiologic splitting of the second heart sound was noted. There were no murmurs, rubs, clicks, or gallops.Abdominal exam revealed normal bowel sounds. The abdomen was soft, non-tender, and without masses, organomegaly , or appreciable enlargement of the abdominal aorta.Examination of the extremities revealed easily palpable radial, femoral and pedal pulses. There was no cyanosis, clubbing or iwona - Labs CBC & Chem 7: 11/13/16 07:18 11/13/16 07:18 Labs: Abnormal Lab Results - Last 24 Hours (Table) 11/12/16 11/13/16 11/13/16 Range/Units 17:24 07:11 07:18 WBC 18.7 H (3.8-10.6) k/uL RBC 3.72 L (3.80-5.40) m/uL Hgb 10.9 L (11.4-16.0) gm/dL MCHC 30.9 L (31.0-37.0) g/dL Plt Count 494 H (150-450) k/uL Neutrophils # 16.4 H (1.3-7.7) k/uL Potassium (3.5-5.1) mmol/L Chloride (98-107) mmol/L Carbon Dioxide (22-30) mmol/L Creatinine (0.52-1.04) mg/dL POC Glucose (mg/dL) 127 H 100 H (75-99) mg/dL Plasma Lactic Acid Rohan (0.7-2.0) mmol/L Calcium (8.4-10.2) mg/dL 11/13/16 11/13/16 11/13/16 Range/Units 07:18 11:42 13:51 WBC (3.8-10.6) k/uL RBC (3.80-5.40) m/uL Hgb (11.4-16.0) gm/dL MCHC (31.0-37.0) g/dL Plt Count (150-450) k/uL Neutrophils # (1.3-7.7) k/uL Potassium 3.3 L (3.5-5.1) mmol/L Chloride 95 L (98-107) mmol/L Carbon Dioxide 34 H (22-30) mmol/L Creatinine 0.47 L (0.52-1.04) mg/dL POC Glucose (mg/dL) 209 H (75-99) mg/dL Plasma Lactic Acid Rohan 2.9 H* (0.7-2.0) mmol/L Calcium 8.2 L (8.4-10.2) mg/dL Assessment and Plan Plan: 1 acute hypoxic respiratory failure 2 moderate bilobar pneumonia with extensive necrotizing pneumonia involving the left upper lobe with some early cavitating changes. This patient has an extensive staphylococcal necrotizing pneumonia, identified to be related to MSSA. The patient is on vancomycin. The dosing is being done by pharmacy and the latest trough level was elevated at 27. Clinically the patient is improved significantly. On today's chest x-ray there is improvement in the left lung consolidation. Clinically the patient is less short of breath. No chest pain. No change in mental status. No hemoptysis. The FiO2 is being gradually weaned and the patient is currently off the BiPAP. On 11/10/2016, the patient continues to improve and a pneumonia involving the left lung is steadily improving. The patient on IV vancomycin. No signs of septicemia. Much more alert and awake and less short of breath. Oxygenation is also improving and she is currently still on high flow at 6 L per minute nasal cannula. On 11/11/2016, the patient is still on same antibiotic treatment. Chest x-ray was noted. When the process of weaning the FiO2 down. Would also in the process of getting this patient more active. She is not ready for discharge yet as the patient is still requiring higher oxygen flows and she is still considerably weak and not back to her baseline. On 11/12/2016, the patient is still on IV vancomycin. She is improving. FiO2 has been weaned down to 4l oxygen by nasal cannula. She is recovering slowly and she is improving on a day-to-day basis. She will need a PICC line for IV antibiotic therapy. On 11/13/2016, patient had a PICC line placed, and plans for discharge are being made, antibiotics as per infectious disease on the case. 3 COPD 4 Sepsis secondary to above 5 leukocytosis 6 previous history of MRSA soft tissue infection, recovered 7 shingles, history of 8 hiatal hernia, history of 9 hypertension 10 GE reflux 11 spastic colon Recommendation: Continue present treatment plan, discharge planning is in progress. PICC line was already placed. Time with Patient: Less than 30
[2016-11-13] MEDS: cefTRIAXone 2,000 MG in SODIUM CHLORIDE 0.9% 100 ML IVPB SCH (17:36)
[2016-11-13 17:43] LABS: Glucose,Whole Blood 146 mg/dL (75-99)
--- NOTE | 2016-11-13 19:00 | P.PN ---
Subjective Principal diagnosis: Pneumonia 66-year-old female who is a long-standing history of tobacco use and COPD. Prior to admission she did not have a history of oxygen use or respiratory support such as a CPAP. She was feeling poorly for quite some time. She had increasing cough with sputum production that was brownish in nature. It was quite copious. She had developed fever with chills. If she continued to feel more poorly she did go to the outpatient clinic. Despite that she felt very poorly. She presented to the emergency center on 2016. In the emergency center she was acutely ill. Chest x-ray was abnormal. Because of the computed tomography scan was performed. She had evidence of a cavitary necrotizing pneumonia of the left upper lobe as well as some lymphadenopathy and very extensive emphysematous changes to the lungs. She was admitted to hospital and was receiving antibiotics and respiratory treatments. She over a worsening of her status. He required transfer to the intensive care unit. She was treated with some BiPAP. Was on high flow oxygen. She feels slightly better than yesterday. She is aware that smoking is caused her to have significant lung disease and now has a severe pneumonia that is complicated because of her underlying lung disease. The patient does have oxygen-dependent pulmonary disease and will go home with oxygen therapy. She definitely feels better today She is less short of breath. She still having cough but less sputum production. She's not having much discomfort. Has not required BiPAP for days Feeling better today. The patient has been treated with vancomycin therapy. This will create significant difficulties with her care in the outpatient setting. At that she is markedly improved. Will attempt to utilize ceftriaxone as a once a day therapy. Aware of her ALLERGIES and close monitoring will be done. If tolerated as expected with him able to complete her course of therapy over the next 24 days. Working with discharge plan to try to arrange for either coming to the hospital or as an outpatient. This is been a great difficulty. Hopefully transportation reasons can be made. Objective - Vital Signs Vital signs: Vital Signs Temp 98.7 F 11/13/16 15:00 Pulse 80 11/13/16 16:03 Resp 21 11/13/16 15:00 BP 121/66 11/13/16 15:00 Pulse Ox 96 11/13/16 15:00 Intake & Output 11/12/16 11/13/16 11/13/16 18:59 06:59 18:59 Intake Total 900 Balance 900 Intake: Oral 900 Other: Voiding Method Toilet Toilet # Voids 4 1 2 - Labs CBC & Chem 7: 11/13/16 07:18 11/13/16 07:18 Labs: Abnormal Lab Results - Last 24 Hours (Table) 11/13/16 11/13/16 11/13/16 Range/Units 07:11 07:18 07:18 WBC 18.7 H (3.8-10.6) k/uL RBC 3.72 L (3.80-5.40) m/uL Hgb 10.9 L (11.4-16.0) gm/dL MCHC 30.9 L (31.0-37.0) g/dL Plt Count 494 H (150-450) k/uL Neutrophils # 16.4 H (1.3-7.7) k/uL Potassium 3.3 L (3.5-5.1) mmol/L Chloride 95 L (98-107) mmol/L Carbon Dioxide 34 H (22-30) mmol/L Creatinine 0.47 L (0.52-1.04) mg/dL POC Glucose (mg/dL) 100 H (75-99) mg/dL Plasma Lactic Acid Rohan (0.7-2.0) mmol/L Calcium 8.2 L (8.4-10.2) mg/dL 11/13/16 11/13/16 11/13/16 Range/Units 11:42 13:51 17:37 WBC (3.8-10.6) k/uL RBC (3.80-5.40) m/uL Hgb (11.4-16.0) gm/dL MCHC (31.0-37.0) g/dL Plt Count (150-450) k/uL Neutrophils # (1.3-7.7) k/uL Potassium (3.5-5.1) mmol/L Chloride (98-107) mmol/L Carbon Dioxide (22-30) mmol/L Creatinine (0.52-1.04) mg/dL POC Glucose (mg/dL) 209 H 146 H (75-99) mg/dL Plasma Lactic Acid Rohan 2.9 H* (0.7-2.0) mmol/L Calcium (8.4-10.2) mg/dL Assessment and Plan (1) Necrotizing pneumonia Status: Acute (2) Staphylococcus aureus pneumonia Status: Acute (3) Fever Status: Acute (4) Leukocytosis Status: Acute
[2016-11-13] MEDS: traZODone HCL 50 MG TAB PO SCH (20:03)
[2016-11-13] MEDS: ASPIRIN 81 MG CHEW PO SCH (20:03)
[2016-11-13] MEDS: NAPROXEN 250 MG TAB PO SCH (20:04)
[2016-11-13 20:52] LABS: Glucose,Whole Blood 114 mg/dL (75-99)
--- NOTE | 2016-11-13 23:21 | XR ---
EXAMINATION TYPE: XR chest 1V portable DATE OF EXAM: 11/13/2016 11:09 PM COMPARISON: 11/11/2016 HISTORY: Cough and congestion TECHNIQUE: Single frontal view of the chest is obtained. FINDINGS: There is patchy consolidation in the left upper lobe. There is coarse interstitial infiltr ates throughout the lungs. There is left subclavian catheter with the tip in the superior vena cava. There are chest leads. Heart size is normal. IMPRESSION: There is cavitating consolidation in the left upper lobe unchanged compared to last exam . Coarse pulmonary interstitial infiltrates could relate to RDS. Chest overall is unchanged compared to last exam.
[2016-11-13] MEDS: BENZOCAINE/MENTHOL LOZENG 1 EACH LOZENGE MUCOUS MEM PRN (23:38)
[2016-11-13] MEDS: MELATONIN 5 MG TABLET PO PRN (23:38)
[2016-11-14] MEDS: BENZOCAINE/MENTHOL LOZENG 1 EACH LOZENGE MUCOUS MEM PRN (04:57)
[2016-11-14] MEDS: BUDESONIDE 1 MG/2 ML NEBU INHALATION SCH ×2 (07:19→19:17)
[2016-11-14] MEDS: FORMOTEROL FUMARATE 20 MCG/2 ML NEBU INHALATION SCH ×2 (07:19→19:17)
[2016-11-14] MEDS: IPRATROPIUM 0.5 MG/2.5 ML NEBU INHALATION SCH ×4 (07:19→19:17)
[2016-11-14] MEDS: LEVALBUTEROL NEB (CONC) 1.25 MG/0.5 ML AMP INHALATION SCH ×4 (07:19→19:17)
[2016-11-14 07:25] LABS: Glucose,Whole Blood 98 mg/dL (75-99)
[2016-11-14] MEDS: INSULIN LISPRO (humaLOG) 300 UNIT/3 ML VIAL SQ SCH ×4 (07:27→21:14)
[2016-11-14] MEDS: CHOLECALCIFEROL 1,000 UNIT TAB PO SCH (07:55)
[2016-11-14] MEDS: NICOTINE 21MG/24HR PATCH TRANSDERM SCH (07:55)
[2016-11-14] MEDS: LACTOBACILLUS ACIDOPH & BULGAR 1 EACH PACKET PO SCH (07:55)
[2016-11-14] MEDS: PANTOPRAZOLE 40 MG TABLET PO SCH (07:55)
[2016-11-14] MEDS: ASCORBIC ACID 500 MG TAB PO SCH (07:55)
[2016-11-14] MEDS: CITALOPRAM HYDROBROMIDE 20 MG TAB PO SCH ×2 (07:55→21:13)
[2016-11-14] MEDS: HYDROCHLOROTHIAZIDE 25 MG TAB PO SCH (07:55)
[2016-11-14] MEDS: predniSONE 20 MG TAB PO SCH (07:55)
[2016-11-14] MEDS: NYSTATIN 100,000 UNIT/ML SUSP 500,000 UNIT/5 ML CUP PO SCH ×4 (07:55→21:13)
[2016-11-14] MEDS: HEPARIN SODIUM,PORCINE 5,000 UNIT/ML 1 ML VIAL SQ SCH ×2 (07:56→20:23)
[2016-11-14] MEDS: ALPRAZolam 0.5 MG TAB PO PRN ×2 (08:04→20:22)
--- NOTE | 2016-11-14 09:57 | PN ---
DATE OF SERVICE: 11/13/2016 INTERVAL HISTORY: Parent is a 66-year-old female with a known history of COPD, hypertension, depression who was admitted to the hospital with acute multilobar pneumonia and sputum culture showed MSSA. The patient is currently being treated with antibiotics in the form of vancomycin as per infectious disease. The patient says her breathing status is much improved now. Anticipate discharge via PICC line. Otherwise, the patient was found to have elevated lactic acidosis of 2.9 today and was started on IV fluids. REVIEW OF SYSTEMS: CONSTITUTIONAL: No fever. No chills. No worsening short of breath. No nausea or vomiting, abdominal pain. GENITOURINARY: Negative. ENDOCRINE: Negative. PSYCHIATRY: Negative. SKIN: Negative. All other 14 karie negative except as above. Current medications include: 1. [place] 5/325. 2. Xanax. 3. Artificial tears. 4. Vitamin C. 5. Aspirin. 6. Pravachol. 7. Pulmicort. 8. Ceftriaxone. 9. Vitamin D3. 10. Celexa. 11. Perforomist. 12. Heparin subcu. 13. Hydrochlorothiazide. 14. Humalog. 15. Atrovent. 16. Lactobacillus. 17. Levalbuterol. 18. Melatonin. 19. Naprosyn. 20. Habitrol. 21. Nystatin. 22. Protonix. 23. Prednisone. 24. Trazodone. PHYSICAL EXAMINATION: A 66-year-old female sitting in a chair comfortably, awake, alert, oriented, x3. He appears to be in no apparent distress. VITALS: Blood pressure is 121/66, pulse is 83, respirations 21, temperature afebrile, pulse ox 96% on 2 L nasal cannula. HEENT: Atraumatic, normocephalic. Neck is supple. No JVD. CVS: S1, S2 heard. No murmurs, no gallop. LUNGS: Bilateral air entry is present. No wheezing. No crackles. Nonlabored breathing. Decreased breath sounds left upper chest area. ABDOMEN: Soft, nontender. Bowel sounds present. STATISTICAL ENGINEER: Awake, alert, oriented, x3. No focal deficits. EXTREMITIES: No edema. Pulses palpable bilaterally. No clubbing or cyanosis. PSYCHIATRIC: Cooperative. LABORATORY DATA: WBC 18.7, hemoglobin 10.9, platelets 494. Sodium 138, potassium 3.3, chloride 95, bicarb 34. BUN 14, creatinine 0.47, calcium 8.2, lactic acid 2.9 IMPRESSION: 1. Acute multilobar pneumonia, left more than right with possible gram negative and Methicillin-susceptible Staph aureus with cavitating pneumonia and consolidation. 2. Acute hypoxic respiratory failure present on admission requiring BiPAP machine. 3. Possible cavitation in the left upper lobe. 4. Necrotizing pneumonia. 5. Chronic obstructive pulmonary disease with acute exacerbation improving now. 6. Dysphonia improving. 7. Mediastinal lymphadenopathy. 8. Elevated d-dimer. 9. Sinusitis and hoarseness. 10. Hypertension. 11. Depression, anxiety. 12. Nicotine dependence. 13. History of insomnia cardiomegaly with coronary artery calcification on the CAT scan. 14. Leukocytosis. 15. Hypokalemia. 16. Hypoalbuminemia with mild to moderate protein calorie malnutrition. 17. Gastroesophageal reflux disease. 18. Degenerative joint disease. 19. Gait dysfunction. 20. Deep venous thrombosis prophylaxis with heparin subcu. 21. FULL CODE. DISCUSSION AND PLAN: We will continue with antibiotics in the form of ceftriaxone 2 grams daily as per ID recommendations which is showing MSSA and vancomycin has been discontinued. The patient was placed on PICC line. The patient will be continued on IV fluids and will repeat labs in the a.m. and the patient is clinically improving. We will continue the current management and follow up closely. Further recommendations based on clinical course. MTDD
[2016-11-14 10:37] LABS: Basophils % (A) 0 %; CH 29.7; CHCM 31.3; Eosinophils # (A) 0.3 k/uL (0-0.7); Eosinophils % (A) 2 %; HCT 32.5 % (34.0-46.0); HDW 2.13; HGB 10.1 gm/dL (11.4-16.0); Luc # (Auto) 0.06; Luc % (Auto) 0; Lymphocytes # (A) 0.3 k/uL (1.0-4.8); Lymphocytes % (A) 2 %; MCH 29.6 pg (25.0-35.0); MCHC 31.1 g/dL (31.0-37.0); MCV 95.2 fL (80.0-100.0); Mean Platelet Volume 6.4; Monocytes # (A) 0.4 k/uL (0-1.0); Monocytes % (A) 3 %; Neutrophils # (A) 14.9 k/uL (1.3-7.7); Neutrophils % (A) 93 %; RBC 3.41 m/uL (3.80-5.40); RDW 14.3 % (11.5-15.5); WBC (Perox) 16.89
[2016-11-14 11:19] LABS: Anion Gap 10 mmol/L; Blood Urea Nitrogen 14 mg/dL (7-17); Calcium 7.9 mg/dL (8.4-10.2); Carbon Dioxide 29 mmol/L (22-30); Chloride 97 mmol/L (98-107); Glucose 216 mg/dL (74-99); Non-African American GFR(MDRD) >60 (>60 ml/min/1.73 sqM); Potassium 3.6 mmol/L (3.5-5.1); Sodium 136 mmol/L (137-145)
[2016-11-14] MEDS: SODIUM CHLORIDE 0.9% 1,000 ML IV SCH ×3 (11:27→14:06)
[2016-11-14 12:21] LABS: Glucose,Whole Blood 178 mg/dL (75-99)
[2016-11-14] MEDS: HYDROcodone/APAP 5-325MG 1 EACH TAB PO PRN ×2 (12:55→20:22)
[2016-11-14] MEDS: ARTIFICIAL TEARS-HYPROMELLOSE DROPS 15 ML BTL BOTH EYES PRN ×2 (13:19→21:14)
[2016-11-14] MEDS: FLUTICASONE 50MCG/SPRAY NASAL 16GM EA NOSTRIL PRN (14:07)
[2016-11-14] MEDS: cefTRIAXone 2,000 MG in SODIUM CHLORIDE 0.9% 100 ML IVPB SCH (15:39)
--- NOTE | 2016-11-14 15:41 | P.PN ---
Subjective This 66-year-old female patient is a chronic smoker in she has an underlying COPD and addition to various other medical problems such as hypertension, hiatal hernia, spastic colon, anxiety and depression and previous history of a cellulitis of the involved right hip area which was attributed to MRSA. The patient was admitted to the hospital for cough, fever and chills, producing brownish sputum that was copious in amount and high-grade fever. The patient initially went to a walk-in clinic. Following that she came in to the hospital and she was found to have an extensive left lung pneumonia. In fact, the computed tomography scan that was done on 11/03/2016 showed diffuse bilateral areas of consolidation and significant cavitating/necrotizing pneumonia involving the left upper lobe. There was some shotty adenopathy within the mediastinum and the largest of fluid was measuring 1.1 cm in size. The patient also had extensive emphysematous changes bilaterally with a small left-sided pleural effusion. The patient also has cardiomegaly with coronary artery calcifications. Initially the patient was admitted to the medical floor being treated for a routine computed acquired pneumonia and she was given Levaquin. Overnight, her condition decompensated and the patient had to be moved to the intensive care unit for progressive worsening of dyspnea. The patient was placed on a BiPAP at a pressure of 10 over 5 cm of water and FiO2 of 50%. The patient was taken off the Levaquin and the patient was placed on a combination of as Fara M and vancomycin. This morning, the patient is very much worn-out tired and fatigued. She has lost significant amount of strength. Her voice is extremely hoarse. She is using some abdominal muscles to breathe. She is in [id number] degree of respiratory distress. She is on high flow oxygen at 15 L/m nasal cannula. A repeat CAT scan of the chest was done and this was a CT angios the chest and it showed an evolution of a 10 cm area of consolidation in the left upper lobe and there is extensive interstitial edema in the right lung. Is also reticular nodular changes in the lower lobes bilaterally more so on the left. There is some embolus changes in the right upper lobe and some early cavitation changes in the left upper lobe. The patient has no pulmonary embolism. No exposure to TB. No travel history. She has worked in [employer]. The patient had a recent rotator cuff injury to her right shoulder and she underwent a rotator cuff surgical repair by Dr. Dr. Lovett on August 2016. No reported aspiration. No reported travel. No alcoholism. No immunosuppression. No history of HIV positivity. The patient is seen again today 11/14/2016 in follow-up on the regular medical floor. She is sitting up in the chair at the bedside. She is awake and alert in no acute distress. Her voice is stronger. She denies any worsening shortness of breath, cough or congestion. She is feeling stronger each day. He is recovering from her methicillin sensitive Staphylococcus aureus pneumonia. Maintaining good O2 saturations in the mid 90s on 3 L/m per nasal cannula. She is currently afebrile. White count stable at 10.0. Objective - Vital Signs Vital signs: Vital Signs Temp 97.9 F 11/14/16 15:00 Pulse 82 11/14/16 15:24 Resp 20 11/14/16 15:00 BP 119/62 11/14/16 15:00 Pulse Ox 92 L 11/14/16 15:00 Intake & Output 11/13/16 11/14/16 11/14/16 18:59 06:59 18:59 Intake Total 200 800 Balance 200 800 Intake: IV 800 Sodium Chloride 0.9% 1, 800 000 ml @ 100 mls/hr IV . Q10H [facility] Rx#:[id number] Oral 200 Other: Voiding Method Toilet # Voids 2 1 - Exam GENERAL EXAM: Alert, fairly comfortable in no apparent distress. HEAD: Normocephalic. EYES: Normal reaction of pupils, equal size. NOSE: Clear with pink turbinates. THROAT: No erythema or exudates. NECK: No masses, no JVD. CHEST: No chest wall deformity. LUNGS: Equal air entry with lateral scattered rhonchi, crackles in the posterior bases, diminished. CVS: S1 and S2 normal with no audible murmurs, regular rhythm. ABDOMEN: No hepatosplenomegaly, normal bowel sounds, no guarding or rigidity. SPINE: No scoliosis or deformity SKIN: No rashes CENTRAL NERVOUS SYSTEM: No focal deficits, tone is normal in all 4 extremities. Generalized weakness. Extremities: There is no significant peripheral edema. No clubbing, no cyanosis. Peripheral pulses are intact. - Labs CBC & Chem 7: 11/14/16 10:25 11/14/16 10:25 Labs: Abnormal Lab Results - Last 24 Hours (Table) 11/13/16 11/13/16 11/13/16 Range/Units 17:37 20:50 21:31 WBC (3.8-10.6) k/uL RBC (3.80-5.40) m/uL Hgb (11.4-16.0) gm/dL Hct (34.0-46.0) % Plt Count (150-450) k/uL Neutrophils # (1.3-7.7) k/uL Lymphocytes # (1.0-4.8) k/uL Sodium (137-145) mmol/L Chloride (98-107) mmol/L Creatinine (0.52-1.04) mg/dL Glucose (74-99) mg/dL POC Glucose (mg/dL) 146 H 114 H (75-99) mg/dL Plasma Lactic Acid Rohan 2.8 H* (0.7-2.0) mmol/L Calcium (8.4-10.2) mg/dL 11/14/16 11/14/16 11/14/16 Range/Units 10:25 10:25 10:25 WBC 16.0 H (3.8-10.6) k/uL RBC 3.41 L (3.80-5.40) m/uL Hgb 10.1 L (11.4-16.0) gm/dL Hct 32.5 L (34.0-46.0) % Plt Count 487 H (150-450) k/uL Neutrophils # 14.9 H (1.3-7.7) k/uL Lymphocytes # 0.3 L (1.0-4.8) k/uL Sodium 136 L (137-145) mmol/L Chloride 97 L (98-107) mmol/L Creatinine 0.42 L (0.52-1.04) mg/dL Glucose 216 H (74-99) mg/dL POC Glucose (mg/dL) (75-99) mg/dL Plasma Lactic Acid Rohan 2.2 H* (0.7-2.0) mmol/L Calcium 7.9 L (8.4-10.2) mg/dL 11/14/16 Range/Units 12:14 WBC (3.8-10.6) k/uL RBC (3.80-5.40) m/uL Hgb (11.4-16.0) gm/dL Hct (34.0-46.0) % Plt Count (150-450) k/uL Neutrophils # (1.3-7.7) k/uL Lymphocytes # (1.0-4.8) k/uL Sodium (137-145) mmol/L Chloride (98-107) mmol/L Creatinine (0.52-1.04) mg/dL Glucose (74-99) mg/dL POC Glucose (mg/dL) 178 H (75-99) mg/dL Plasma Lactic Acid Rohan (0.7-2.0) mmol/L Calcium (8.4-10.2) mg/dL Microbiology - Last 24 Hours (Table) 11/13/16 08:40 Gram Stain - Preliminary Sputum Sputum Culture - Preliminary Presumptive Staph aureus Assessment and Plan Plan: Impression: 1 Acute hypoxic respiratory failure, currently on high flow oxygen at 15 L. The patient also is utilizing BiPAP on and off intermittently during the day On 11/08/2016, the patient is seen in follow-up, chest ray shows a stable left lung pneumonia. The patient has staphylococcal pneumonia as confirmed by 2 separate sputum samples. The patient has MSSA. Currently the antibiotic coverage includes a combination of Levaquin and vancomycin. She is doing slightly better today as compared to yesterday. She requires 15 L of high flow nasal cannula. She has been slow to progress. We did request physical therapy evaluation as the patient has significant weakness. 2 Moderate bilobar pneumonia with extensive necrotizing pneumonia involving the left upper lobe with some early cavitating changes. 3 COPD 4 Sepsis secondary to above 5 Leukocytosis 6 Previous history of MRSA soft tissue infection, recovered 7 Shingles, history of 8 Hiatal hernia, history of 9 Hypertension 10 GE reflux 11 Spastic colon 12 Chronic and ongoing nicotine addiction. Plan Patient was seen and evaluated by Dr. Vergara. Her chest x-ray and labs were reviewed. There remains a cavitating consolidation the left upper lobe which is unchanged compared to previous. There is also some coarse pulmonary interstitial infiltrates related to suspected ARDS. There is no worsening compared to previous. The patient has improved clinically. We'll continue with her current medications. She remains on ceftriaxone. We will increase her activity as tolerated. Again educated regarding the importance of complete smoking cessation. We will continue to follow and make further recommendations based on her clinical status.
[2016-11-14 17:14] LABS: Glucose,Whole Blood 139 mg/dL (75-99)
--- NOTE | 2016-11-14 17:59 | PN ---
Patient is a 66-year-old with a known history of COPD admitted with multilobar pneumonia. Patient has MSSA pneumonia and patient is still desaturating. Patient has apparently had ARDS. Patient has a PICC line and will need long-term antibiotics in the form of Rocephin. Because of lactic acidosis, patient was started on IV fluids yesterday. Repeat lactic acid continues to be elevated. REVIEW OF SYSTEMS: CARDIOVASCULAR: No chest pain, no orthopnea, no PND, no palpitations. PULMONARY: Continued shortness of breath. No cough or hemoptysis. GASTROINTESTINAL: No diarrhea, nausea or vomiting. No abdominal pain. Normoactive bowel sounds. NEUROLOGIC: No headaches, no weakness, no numbness. Medications were reviewed. PHYSICAL EXAMINATION: VITAL SIGNS: Temperature 97.0, pulse of 78, respiratory rate of 19, blood pressure 139/65, saturating at 95% on 2L of O2 by nasal cannula. PHYSICAL EXAMINATION: GENERAL: The patient is alert and oriented x3, not in any acute distress. Well developed, well nourished. HEENT: Pupils are round and equally reacting to light. EOMI. No scleral icterus. No conjunctival pallor. Normocephalic, atraumatic. No pharyngeal erythema. No thyromegaly. CARDIOVASCULAR: S1 and S2 present. No murmurs, rubs, or gallops. PULMONARY: Bilateral diffuse crackles. No wheezing was appreciated. Fairly good air entry into bilateral lung bob. ABDOMEN: Soft, nontender, nondistended, normoactive bowel sounds. No palpable organomegaly. MUSCULOSKELETAL: No joint swelling or deformity. EXTREMITIES: No cyanosis, clubbing, or pedal edema. NEUROLOGICAL: Gross neurological examination did not reveal any focal deficits. SKIN: No rashes. LABORATORY DATA: CBC, CMP are abnormal for elevated WBC count of 16,000. ASSESSMENT AND PLAN: 1. Multilobar pneumonia, bilateral severe pneumonia secondary to Staphylococcus aureus leading to cavitary pneumonia. 2. Acute hypoxic respiratory failure secondary to necrotizing pneumonia. 3. Chronic obstructive pulmonary disease with acute exacerbation leading to acute hypercapnic respiratory failure, which improved. 4. Mediastinal lymphadenopathy, probably due to pneumonia. Pulmonology is following the patient. 5. Hypertension. 6. Lactic acidosis due to pneumonia. 7. Depression. 8. Nicotine dependence. 9. Gastroesophageal reflux disease. 10. Plan is to continue with antibiotics, continue with respiratory support, continue with IV fluids as mentioned above.
--- NOTE | 2016-11-14 19:44 | P.PN ---
Subjective Principal diagnosis: Pneumonia 66-year-old female who is a long-standing history of tobacco use and COPD. Prior to admission she did not have a history of oxygen use or respiratory support such as a CPAP. She was feeling poorly for quite some time. She had increasing cough with sputum production that was brownish in nature. It was quite copious. She had developed fever with chills. If she continued to feel more poorly she did go to the outpatient clinic. Despite that she felt very poorly. She presented to the emergency center on 2016. In the emergency center she was acutely ill. Chest x-ray was abnormal. Because of the computed tomography scan was performed. She had evidence of a cavitary necrotizing pneumonia of the left upper lobe as well as some lymphadenopathy and very extensive emphysematous changes to the lungs. She was admitted to hospital and was receiving antibiotics and respiratory treatments. She over a worsening of her status. He required transfer to the intensive care unit. She was treated with some BiPAP. Was on high flow oxygen. She feels slightly better than yesterday. She is aware that smoking is caused her to have significant lung disease and now has a severe pneumonia that is complicated because of her underlying lung disease. The patient does have oxygen-dependent pulmonary disease and will go home with oxygen therapy. She definitely feels better today She is less short of breath. She still having cough but less sputum production. She's not having much discomfort. Has not required BiPAP for days Feeling better today. The patient has been treated with vancomycin therapy. This will create significant difficulties with her care in the outpatient setting. At that she is markedly improved. Will attempt to utilize ceftriaxone as a once a day therapy. Aware of her ALLERGIES and close monitoring will be done. If tolerated as expected with him able to complete her course of therapy over the next 23 days. Working with discharge plan to try to arrange for her outpatient intravenous antibiotic therapy. Objective - Vital Signs Vital signs: Vital Signs Temp 97.9 F 11/14/16 15:00 Pulse 80 11/14/16 19:29 Resp 20 11/14/16 15:00 BP 119/62 11/14/16 15:00 Pulse Ox 92 L 11/14/16 15:00 Intake & Output 11/14/16 11/14/16 11/15/16 06:59 18:59 06:59 Intake Total 200 800 Balance 200 800 Intake: IV 800 Sodium Chloride 0.9% 1, 800 000 ml @ 100 mls/hr IV . Q10H [facility] Rx#:[id number] Oral 200 Other: # Voids 1 - Exam 66-year-old woman who appears younger than her stated age is very short of breath and his cough with some thick sputum HEENT: Anicteric conjunctiva are pink and moist nasal mucosa grossly intact without significant lesions, there is no thrush. Neck: The neck is supple without significant lymphadenopathy or thyromegaly. Lungs: Symmetrical air entry, wheezings that are scattered throughout the lung bob. Bibasilar crackles are heard there is improved air exchange today Heart: Regular rate and rhythm with an audible S1-S2, left S4. There is no significant murmur click or rub, PMI was nondisplaced. Abdomen: Positive bowel sounds soft and nontender without palpable masses or organomegaly. There was no guarding or rebound. Extremities: The upper extremities have excellent pulses they are symmetric, no significant petechiae or telangiectasia. No splinter hemorrhages were noted. The lower extremities are free from significant edema. The peripheral pulses were 2+ and symmetric. Neuro: Awake alert oriented to person place and time. There are no acute new gross focal sensory motor deficits. - Labs CBC & Chem 7: 11/14/16 10:25 11/14/16 10:25 Labs: Abnormal Lab Results - Last 24 Hours (Table) 11/13/16 11/13/16 11/14/16 Range/Units 20:50 21:31 10:25 WBC (3.8-10.6) k/uL RBC (3.80-5.40) m/uL Hgb (11.4-16.0) gm/dL Hct (34.0-46.0) % Plt Count (150-450) k/uL Neutrophils # (1.3-7.7) k/uL Lymphocytes # (1.0-4.8) k/uL Sodium (137-145) mmol/L Chloride (98-107) mmol/L Creatinine (0.52-1.04) mg/dL Glucose (74-99) mg/dL POC Glucose (mg/dL) 114 H (75-99) mg/dL Plasma Lactic Acid Rohan 2.8 H* 2.2 H* (0.7-2.0) mmol/L Calcium (8.4-10.2) mg/dL 11/14/16 11/14/16 11/14/16 Range/Units 10:25 10:25 12:14 WBC 16.0 H (3.8-10.6) k/uL RBC 3.41 L (3.80-5.40) m/uL Hgb 10.1 L (11.4-16.0) gm/dL Hct 32.5 L (34.0-46.0) % Plt Count 487 H (150-450) k/uL Neutrophils # 14.9 H (1.3-7.7) k/uL Lymphocytes # 0.3 L (1.0-4.8) k/uL Sodium 136 L (137-145) mmol/L Chloride 97 L (98-107) mmol/L Creatinine 0.42 L (0.52-1.04) mg/dL Glucose 216 H (74-99) mg/dL POC Glucose (mg/dL) 178 H (75-99) mg/dL Plasma Lactic Acid Rohan (0.7-2.0) mmol/L Calcium 7.9 L (8.4-10.2) mg/dL 11/14/16 Range/Units 17:12 WBC (3.8-10.6) k/uL RBC (3.80-5.40) m/uL Hgb (11.4-16.0) gm/dL Hct (34.0-46.0) % Plt Count (150-450) k/uL Neutrophils # (1.3-7.7) k/uL Lymphocytes # (1.0-4.8) k/uL Sodium (137-145) mmol/L Chloride (98-107) mmol/L Creatinine (0.52-1.04) mg/dL Glucose (74-99) mg/dL POC Glucose (mg/dL) 139 H (75-99) mg/dL Plasma Lactic Acid Rohan (0.7-2.0) mmol/L Calcium (8.4-10.2) mg/dL Microbiology - Last 24 Hours (Table) 11/13/16 08:40 Gram Stain - Preliminary Sputum Sputum Culture - Preliminary Presumptive Staph aureus Laboratory Results WBC 16.0 k/uL (3.8-10.6) H 11/14/16 10:25 RBC 3.41 m/uL (3.80-5.40) L 11/14/16 10:25 Hgb 10.1 gm/dL (11.4-16.0) L 11/14/16 10:25 Hct 32.5 % (34.0-46.0) L 11/14/16 10:25 MCV 95.2 fL (80.0-100.0) 11/14/16 10:25 MCH 29.6 pg (25.0-35.0) 11/14/16 10:25 MCHC 31.1 g/dL (31.0-37.0) 11/14/16 10:25 RDW 14.3 % (11.5-15.5) 11/14/16 10:25 Plt Count 487 k/uL (150-450) H 11/14/16 10:25 Neutrophils % 93 % 11/14/16 10:25 Neutrophils % (Manual) 82.0 % 11/09/16 05:28 Band Neutrophils % 7.5 % 11/09/16 05:28 Lymphocytes % 2 % 11/14/16 10:25 Lymphocytes % (Manual) 3.5 % 11/09/16 05:28 Monocytes % 3 % 11/14/16 10:25 Monocytes % (Manual) 5.5 % 11/09/16 05:28 Eosinophils % 2 % 11/14/16 10:25 Basophils % 0 % 11/14/16 10:25 Metamyelocytes % 1.5 % 11/09/16 05:28 Myelocytes % 1.0 % 11/04/16 10:51 Neutrophils # 14.9 k/uL (1.3-7.7) H 11/14/16 10:25 Neutrophils # (Manual) 11.3 k/uL (1.3-7.7) H 11/09/16 05:28 Lymphocytes # 0.3 k/uL (1.0-4.8) L 11/14/16 10:25 Lymphocytes # (Manual) 0.4 k/uL (1.0-4.8) L 11/09/16 05:28 Monocytes # 0.4 k/uL (0-1.0) 11/14/16 10:25 Monocytes # (Manual) 0.7 k/uL (0-1.0) 11/09/16 05:28 Eosinophils # 0.3 k/uL (0-0.7) 11/14/16 10:25 Basophils # 0.0 k/uL (0-0.2) 11/14/16 10:25 Nucleated RBCs 0 /100 WBC (0-0) 11/09/16 05:28 Manual Slide Review Performed 11/09/16 05:28 Toxic Granulation Present 11/09/16 05:28 Toxic Vacuolation Present 11/09/16 05:28 Poikilocytosis (manual Present 11/09/16 05:28 Anisocytosis (manual) Present 11/03/16 08:59 Target Cells Present 11/03/16 08:59 PT 10.6 sec (9.0-12.0) 11/01/16 15:26 INR 1.0 (<1.1) 11/01/16 15:26 APTT 27.8 sec (22.0-30.0) 11/01/16 15:26 D-Dimer 2.23 mg/L FEU (<0.60) H 11/05/16 15:50 Sample Site LRAD 11/05/16 16:20 ABG pH 7.44 (7.35-7.45) 11/05/16 16:20 ABG pCO2 29 mmHg (35-45) L 11/05/16 16:20 ABG pO2 131 mmHg (83-108) H 11/05/16 16:20 ABG HCO3 19 mmol/L (21-25) L 11/05/16 16:20 ABG Total CO2 20 mmol/L (19-24) 11/05/16 16:20 ABG O2 Saturation 99.0 % (94-97) H 11/05/16 16:20 ABG Base Excess -4.1 mmol/L 11/05/16 16:20 FiO2 60 % 11/05/16 16:20 Sodium 136 mmol/L (137-145) L 11/14/16 10:25 Potassium 3.6 mmol/L (3.5-5.1) 11/14/16 10:25 Chloride 97 mmol/L (98-107) L 11/14/16 10:25 Carbon Dioxide 29 mmol/L (22-30) 11/14/16 10:25 Anion Gap 10 mmol/L 11/14/16 10:25 BUN 14 mg/dL (7-17) 11/14/16 10:25 Creatinine 0.42 mg/dL (0.52-1.04) L 11/14/16 10:25 Est GFR (MDRD) Af Amer >60 (>60 ml/min/1.73 sqM) 11/14/16 10:25 Est GFR (MDRD) Non-Af >60 (>60 ml/min/1.73 sqM) 11/14/16 10:25 Glucose 216 mg/dL (74-99) H 11/14/16 10:25 POC Glucose (mg/dL) 139 mg/dL (75-99) H 11/14/16 17:12 POC Glu [employer] ID Esthela Chiang 11/14/16 17:12 Plasma Lactic Acid Rohan 2.2 mmol/L (0.7-2.0) H* 11/14/16 10:25 Calcium 7.9 mg/dL (8.4-10.2) L 11/14/16 10:25 Phosphorus 3.4 mg/dL (2.5-4.5) 11/11/16 05:03 Magnesium 2.1 mg/dL (1.6-2.3) 11/11/16 05:03 Total Bilirubin 0.6 mg/dL (0.2-1.3) 11/04/16 10:51 AST 48 U/L (14-36) H 11/04/16 10:51 ALT 43 U/L (9-52) 11/04/16 10:51 Alkaline Phosphatase 117 U/L (38-126) 11/04/16 10:51 Total Creatine Kinase 99 U/L (30-135) 11/01/16 15:26 CK-MB (CK-2) 0.6 ng/mL (0.0-2.4) 11/01/16 15:26 CK-MB (CK-2) Rel Index 0.6 11/01/16 15:26 Troponin I <0.012 ng/mL (0.000-0.034) 11/01/16 15:26 NT-Pro-B Natriuret Pep 276 pg/mL 11/01/16 15:26 Total Protein 5.5 g/dL (6.3-8.2) L 11/04/16 10:51 Albumin 2.7 g/dL (3.5-5.0) L 11/04/16 10:51 Urine Color Light Yellow 11/05/16 18:26 Urine Appearance Clear (Clear) 11/05/16 18:26 Urine pH 6.5 (5.0-8.0) 11/05/16 18:26 Ur Specific [place] 1.009 (1.001-1.035) 11/05/16 18:26 Urine Protein Negative (Negative) 11/05/16 18:26 Urine Glucose (UA) Negative (Negative) 11/05/16 18:26 Urine Ketones Trace (Negative) H 11/05/16 18:26 Urine Blood Small (Negative) H 11/05/16 18:26 Urine Nitrate Negative (Negative) 11/05/16 18:26 Urine Bilirubin Negative (Negative) 11/05/16 18:26 Urine Urobilinogen <2.0 mg/dL (<2.0) 11/05/16 18:26 Ur Leukocyte Esterase Negative (Negative) 11/05/16 18:26 Urine RBC 7 /hpf (0-5) H 11/05/16 18:26 Urine WBC 2 /hpf (0-5) 11/05/16 18:26 Ur Squamous Epith Cells 9 /hpf (0-4) H 11/05/16 18:26 Amorphous Sediment Rare /hpf (None) H 11/05/16 18:26 Hyaline Casts 3 /lpf (0-2) H 11/05/16 18:26 Urine Mucus Rare /hpf (None) H 11/05/16 18:26 Vancomycin Trough 19.8 ug/mL 11/11/16 05:03 Influenza Type A RNA Not Detected (Not Detectd) 11/01/16 15:53 Influenza Type B (PCR) Not Detected (Not Detectd) 11/01/16 15:53 Urine Legionella Ag Not detected (Not detected) 11/06/16 16:10 Mycoplasma pneumon IgG 0.39 INDEX (<=0.90) 11/06/16 19:20 Mycoplasma pneumon IgM 0.01 INDEX (<=0.90) 11/06/16 19:20 Microbiology 11/13/16 08:40 Sputum Gram Stain - Preliminary 11/13/16 08:40 Sputum Sputum Culture - Preliminary Presumptive Staph aureus 11/05/16 17:05 Blood Blood Culture - Final No Growth after 144 hours 11/06/16 16:45 Sputum Gram Stain - Final 11/06/16 16:45 Sputum Sputum Culture - Final Staphylococcus aureus 11/01/16 15:26 Blood Blood Culture - Final No Growth after 144 hours 11/05/16 19:00 Sputum Gram Stain - Final 11/05/16 19:00 Sputum Sputum Culture - Final Staphylococcus aureus 11/05/16 04:35 Urine,Voided Urine Culture - Final 11/02/16 07:00 Sputum Gram Stain - Final 11/02/16 07:00 Sputum Sputum Culture - Final Staphylococcus aureus Assessment and Plan (1) Necrotizing pneumonia Narrative/Plan: 66-year-old female presents to hospital with significant shortness of breath. Was cared for in the outpatient setting but was not having improvement. At admission her computed tomography scan shows evidence of the extensive pneumonic process. There appears to be necrotizing in nature with the cavitating pneumonia in the left upper lobe. The extensive bullous emphysema was noted and reactive lymphadenopathy was seen. Effusions have improved. At this time she appears to have a methicillin susceptible staph aureus pneumonia is causing the significant necrosis. She has a significant ALLERGY to penicillin and constantly cephalosporins will not be attempted given her current very tenacious status. Vancomycin is being utilized. Plan 28 days Evaluation for Legionella and mycoplasma are in process also. In with his levofloxacin is added. Antecedent viral infection is not excluded, but evidence of influenza was not found at admission. The patient understands that she is profoundly ill. Fortunately is showing improvement, respiratory failure has resolved Legionella and mycoplasma are negative levofloxacin is discontinued PICC line has been placed so we can continue her outpatient antibiotic therapy as she becomes ready for discharge. Status: Acute (2) Staphylococcus aureus pneumonia Status: Acute (3) Fever Status: Acute (4) Leukocytosis Status: Acute
[2016-11-14 21:05] LABS: Glucose,Whole Blood 140 mg/dL (75-99)
[2016-11-14] MEDS: ASPIRIN 81 MG CHEW PO SCH (21:12)
[2016-11-14] MEDS: traZODone HCL 50 MG TAB PO SCH (21:13)
[2016-11-14] MEDS: NAPROXEN 250 MG TAB PO SCH (21:13)
[2016-11-15] MEDS: SODIUM CHLORIDE 0.9% 1,000 ML IV SCH ×3 (00:01→17:54)
[2016-11-15 07:00] LABS: Glucose,Whole Blood 97 mg/dL (75-99)
[2016-11-15] MEDS: INSULIN LISPRO (humaLOG) 300 UNIT/3 ML VIAL SQ SCH ×4 (07:42→21:26)
[2016-11-15] MEDS: PANTOPRAZOLE 40 MG TABLET PO SCH (07:47)
[2016-11-15] MEDS: CHOLECALCIFEROL 1,000 UNIT TAB PO SCH (07:47)
[2016-11-15] MEDS: ASCORBIC ACID 500 MG TAB PO SCH (07:47)
[2016-11-15] MEDS: HEPARIN SODIUM,PORCINE 5,000 UNIT/ML 1 ML VIAL SQ SCH ×2 (07:48→21:25)
[2016-11-15] MEDS: predniSONE 20 MG TAB PO SCH (07:48)
[2016-11-15] MEDS: NYSTATIN 100,000 UNIT/ML SUSP 500,000 UNIT/5 ML CUP PO SCH ×4 (07:48→21:25)
[2016-11-15] MEDS: LACTOBACILLUS ACIDOPH & BULGAR 1 EACH PACKET PO SCH (07:48)
[2016-11-15] MEDS: NICOTINE 21MG/24HR PATCH TRANSDERM SCH (07:48)
[2016-11-15] MEDS: CITALOPRAM HYDROBROMIDE 20 MG TAB PO SCH ×2 (07:48→21:26)
[2016-11-15] MEDS: ALPRAZolam 0.5 MG TAB PO PRN ×2 (07:53→18:53)
[2016-11-15] MEDS: FLUTICASONE 50MCG/SPRAY NASAL 16GM EA NOSTRIL PRN (07:54)
[2016-11-15] MEDS: ARTIFICIAL TEARS-HYPROMELLOSE DROPS 15 ML BTL BOTH EYES PRN (07:54)
[2016-11-15] MEDS: LEVALBUTEROL NEB (CONC) 1.25 MG/0.5 ML AMP INHALATION SCH ×4 (09:29→20:38)
[2016-11-15] MEDS: IPRATROPIUM 0.5 MG/2.5 ML NEBU INHALATION SCH ×4 (09:29→20:38)
[2016-11-15] MEDS: FORMOTEROL FUMARATE 20 MCG/2 ML NEBU INHALATION SCH ×2 (09:29→20:38)
[2016-11-15] MEDS: BUDESONIDE 1 MG/2 ML NEBU INHALATION SCH ×2 (09:30→20:38)
--- NOTE | 2016-11-15 09:31 | XR ---
EXAMINATION TYPE: XR chest 1V portable DATE OF EXAM: 11/15/2016 9:27 AM COMPARISON: 11/13/2016 HISTORY: Pneumonia TECHNIQUE: Single frontal view of the chest is obtained. FINDINGS: Cavitating consolidation left upper lobe is stable. Heart size unchanged. Arthropathy of the shoulders noted. Underlying COPD suspected. Chronic intersti tial lung disease suspected and there is stable cardiomegaly and PICC line. Correlate for COPD. IMPRESSION: 1. Stable cavitary consolidation left upper lobe.
[2016-11-15 09:45] LABS: CH 29.9; CHCM 31.8; HCT 33.2 % (34.0-46.0); HDW 2.16; HGB 10.1 gm/dL (11.4-16.0); MCH 28.8 pg (25.0-35.0); MCHC 30.5 g/dL (31.0-37.0); MCV 94.5 fL (80.0-100.0); Mean Platelet Volume 6.9; RBC 3.52 m/uL (3.80-5.40); RDW 14.3 % (11.5-15.5)
[2016-11-15 10:07] LABS: Anion Gap 8 mmol/L; Blood Urea Nitrogen 15 mg/dL (7-17); Calcium 8.3 mg/dL (8.4-10.2); Carbon Dioxide 31 mmol/L (22-30); Chloride 99 mmol/L (98-107); Glucose 100 mg/dL (74-99); Non-African American GFR(MDRD) >60 (>60 ml/min/1.73 sqM); Potassium 3.8 mmol/L (3.5-5.1); Sodium 138 mmol/L (137-145)
[2016-11-15] MEDS: HYDROcodone/APAP 5-325MG 1 EACH TAB PO PRN ×2 (11:07→22:39)
[2016-11-15 11:42] VITALS: BMI 34.1
[2016-11-15 12:03] LABS: Glucose,Whole Blood 170 mg/dL (75-99)
--- NOTE | 2016-11-15 13:53 | PN ---
Patient is admitted with MSSA pneumonia and the cavitary lesion secondary to mesenteric pneumonia and complicated by ARDS and patient is presently on ( ). Patient is a ceftriaxone at this point of time. Patient has MSSA pneumonia. Patient has minimal improvement compared to yesterday. The patient does did have improvement compared to yesterday, although patient does have diffuse crackles because of ARDS and the patient ( ) requirements are coming down. REVIEW OF SYSTEMS: CARDIOVASCULAR: No chest pain, no orthopnea, no PND, no palpitations. PULMONARY: Denied any shortness of breath. No cough or hemoptysis. GASTROINTESTINAL: No diarrhea, nausea or vomiting. No abdominal pain. Normoactive bowel sounds. NEUROLOGIC: No headaches, no weakness, no numbness. Medications were reviewed. PHYSICAL EXAMINATION: VITAL SIGNS: Temperature 97.1, pulse of 84, respiratory rate 18, blood pressure 140/72, saturating at 96% on 3 liters of oxygen by nasal cannula. We can cut it down to even 2 liters at this point of time. GENERAL: The patient is alert and oriented x3, not in any acute distress. Well developed, well nourished. HEENT: Pupils are round and equally reacting to light. EOMI. No scleral icterus. No conjunctival pallor. Normocephalic, atraumatic. No pharyngeal erythema. No thyromegaly. CARDIOVASCULAR: S1 and S2 present. No murmurs, rubs, or gallops. PULMONARY: Diffuse crackles bilaterally and no wheezing was appreciated. Good air entry into bilateral lung bob. ABDOMEN: Soft, nontender, nondistended, normoactive bowel sounds. No palpable organomegaly. MUSCULOSKELETAL: No joint swelling or deformity. EXTREMITIES: No cyanosis, clubbing, or pedal edema. NEUROLOGICAL: Gross neurological examination did not reveal any focal deficits. SKIN: No rashes. LABORATORY DATA: WBC count continues to be elevated at 13,000. ASSESSMENT AND PLAN: 1. Multilobar pneumonia with cavitary lesion in the right upper lobe and patient has Methicillin-susceptible Staph aureus pneumonia. 2. Acute hypoxic respiratory failure secondary to necrotizing pneumonia. 3. Chronic obstructive pulmonary disease with acute exacerbation and acute hypercapnic respiratory failure secondary to that. 4. Mediastinal lymphadenopathy reactive from pneumonia. 5. Hypertension. 6. Lactic acidosis due to pneumonia. I do not have repeat lactic acid from today. Continue with IV fluids. 7. Depression. 8. Nicotine dependence. 9. Gastroesophageal reflux disease. PLAN: Continue with antibiotics. Continue with the ( ) support. Continue with IV fluids. Cut down oxygen. Possibility of discharge in a day or two to subacute rehab.
--- NOTE | 2016-11-15 14:02 | P.PN ---
Subjective This 66-year-old female patient is a chronic smoker in she has an underlying COPD and addition to various other medical problems such as hypertension, hiatal hernia, spastic colon, anxiety and depression and previous history of a cellulitis of the involved right hip area which was attributed to MRSA. The patient was admitted to the hospital for cough, fever and chills, producing brownish sputum that was copious in amount and high-grade fever. The patient initially went to a walk-in clinic. Following that she came in to the hospital and she was found to have an extensive left lung pneumonia. In fact, the computed tomography scan that was done on 11/03/2016 showed diffuse bilateral areas of consolidation and significant cavitating/necrotizing pneumonia involving the left upper lobe. There was some shotty adenopathy within the mediastinum and the largest of fluid was measuring 1.1 cm in size. The patient also had extensive emphysematous changes bilaterally with a small left-sided pleural effusion. The patient also has cardiomegaly with coronary artery calcifications. Initially the patient was admitted to the medical floor being treated for a routine computed acquired pneumonia and she was given Levaquin. Overnight, her condition decompensated and the patient had to be moved to the intensive care unit for progressive worsening of dyspnea. The patient was placed on a BiPAP at a pressure of 10 over 5 cm of water and FiO2 of 50%. The patient was taken off the Levaquin and the patient was placed on a combination of as Fara M and vancomycin. This morning, the patient is very much worn-out tired and fatigued. She has lost significant amount of strength. Her voice is extremely hoarse. She is using some abdominal muscles to breathe. She is in [id number] degree of respiratory distress. She is on high flow oxygen at 15 L/m nasal cannula. A repeat CAT scan of the chest was done and this was a CT angios the chest and it showed an evolution of a 10 cm area of consolidation in the left upper lobe and there is extensive interstitial edema in the right lung. Is also reticular nodular changes in the lower lobes bilaterally more so on the left. There is some embolus changes in the right upper lobe and some early cavitation changes in the left upper lobe. The patient has no pulmonary embolism. No exposure to TB. No travel history. She has worked in [employer]. The patient had a recent rotator cuff injury to her right shoulder and she underwent a rotator cuff surgical repair by Dr. Lovett on August 2016. No reported aspiration. No reported travel. No alcoholism. No immunosuppression. No history of HIV positivity. The patient is seen again today 11/15/2016 in follow-up on the regular medical floor. She is sitting up in the chair at the bedside. She is awake and alert in no acute distress. Her voice is stronger. She denies any worsening shortness of breath, cough or congestion. She is feeling stronger each day. She is recovering from her methicillin sensitive Staphylococcus aureus pneumonia. Maintaining good O2 saturations in the mid 90s on 3 L/m per nasal cannula. She is currently afebrile. White count stable at 13.0. She is somewhat frustrated she was hoping to go home and will most likely need inpatient rehabilitation once discharge from the hospital. Objective - Vital Signs Vital signs: Vital Signs Temp 97.1 F L 11/15/16 07:00 Pulse 88 11/15/16 12:00 Resp 18 11/15/16 07:00 BP 140/72 11/15/16 07:00 Pulse Ox 96 11/15/16 07:00 Intake & Output 11/14/16 11/15/16 11/15/16 18:59 06:59 18:59 Intake Total 800 200 Balance 800 200 Weight 74.1 kg Intake: IV 800 Sodium Chloride 0.9% 1, 800 000 ml @ 100 mls/hr IV . Q10H [facility] Rx#:[id number] Oral 200 Other: Voiding Method Toilet # Voids 1 - Exam GENERAL EXAM: Alert, fairly comfortable in no apparent distress. HEAD: Normocephalic. EYES: Normal reaction of pupils, equal size. NOSE: Clear with pink turbinates. THROAT: No erythema or exudates. NECK: No masses, no JVD. CHEST: No chest wall deformity. LUNGS: Equal air entry with lateral scattered rhonchi, crackles in the posterior bases, diminished. CVS: S1 and S2 normal with no audible murmurs, regular rhythm. ABDOMEN: No hepatosplenomegaly, normal bowel sounds, no guarding or rigidity. SPINE: No scoliosis or deformity SKIN: No rashes CENTRAL NERVOUS SYSTEM: No focal deficits, tone is normal in all 4 extremities. Generalized weakness. Extremities: There is no significant peripheral edema. No clubbing, no cyanosis. Peripheral pulses are intact. - Labs CBC & Chem 7: 02/08/17 09:03 11/15/16 09:03 Labs: Abnormal Lab Results - Last 24 Hours (Table) 11/14/16 11/14/16 11/15/16 Range/Units 17:12 20:46 09:03 WBC 13.0 H (3.8-10.6) k/uL RBC 3.52 L (3.80-5.40) m/uL Hgb 10.1 L (11.4-16.0) gm/dL Hct 33.2 L (34.0-46.0) % MCHC 30.5 L (31.0-37.0) g/dL Plt Count 517 H (150-450) k/uL Carbon Dioxide (22-30) mmol/L Creatinine (0.52-1.04) mg/dL Glucose (74-99) mg/dL POC Glucose (mg/dL) 139 H 140 H (75-99) mg/dL Calcium (8.4-10.2) mg/dL 11/15/16 11/15/16 Range/Units 09:03 12:02 WBC (3.8-10.6) k/uL RBC (3.80-5.40) m/uL Hgb (11.4-16.0) gm/dL Hct (34.0-46.0) % MCHC (31.0-37.0) g/dL Plt Count (150-450) k/uL Carbon Dioxide 31 H (22-30) mmol/L Creatinine 0.47 L (0.52-1.04) mg/dL Glucose 100 H (74-99) mg/dL POC Glucose (mg/dL) 170 H (75-99) mg/dL Calcium 8.3 L (8.4-10.2) mg/dL Microbiology - Last 24 Hours (Table) 11/13/16 08:40 Gram Stain - Final Sputum Sputum Culture - Final Staphylococcus aureus Assessment and Plan Plan: Impression: 1 Acute hypoxic respiratory failure, currently on high flow oxygen at 15 L. The patient also is utilizing BiPAP on and off intermittently during the day On 11/08/2016, the patient is seen in follow-up, chest ray shows a stable left lung pneumonia. The patient has staphylococcal pneumonia as confirmed by 2 separate sputum samples. The patient has MSSA. Currently the antibiotic coverage includes a combination of Levaquin and vancomycin. She is doing slightly better today as compared to yesterday. She requires 15 L of high flow nasal cannula. She has been slow to progress. We did request physical therapy evaluation as the patient has significant weakness. 2 Moderate bilobar pneumonia with extensive necrotizing pneumonia involving the left upper lobe with some early cavitating changes. 3 COPD 4 Sepsis secondary to above 5 Leukocytosis 6 Previous history of MRSA soft tissue infection, recovered 7 Shingles, history of 8 Hiatal hernia, history of 9 Hypertension 10 GE reflux 11 Spastic colon 12 Chronic and ongoing nicotine addiction. Plan Patient was seen and evaluated by Dr. Vergara. Her chest x-ray and labs were reviewed. Today's chest x-ray reveals a stable cavitating consolidation the left upper lobe which is unchanged. The patient has improved clinically but not quite back to her baseline. We'll continue with her current medications. She remains on ceftriaxone. We will increase her activity as tolerated. Again educated regarding the importance of complete smoking cessation. We will continue to follow and make further recommendations based on her clinical status.
[2016-11-15] MEDS: cefTRIAXone 2,000 MG in SODIUM CHLORIDE 0.9% 100 ML IVPB SCH (16:41)
[2016-11-15 17:13] LABS: Glucose,Whole Blood 183 mg/dL (75-99)
--- NOTE | 2016-11-15 19:02 | P.PN ---
Subjective Principal diagnosis: Pneumonia 66-year-old female who is a long-standing history of tobacco use and COPD. Prior to admission she did not have a history of oxygen use or respiratory support such as a CPAP. She was feeling poorly for quite some time. She had increasing cough with sputum production that was brownish in nature. It was quite copious. She had developed fever with chills. If she continued to feel more poorly she did go to the outpatient clinic. Despite that she felt very poorly. She presented to the emergency center on 2016. In the emergency center she was acutely ill. Chest x-ray was abnormal. Because of the computed tomography scan was performed. She had evidence of a cavitary necrotizing pneumonia of the left upper lobe as well as some lymphadenopathy and very extensive emphysematous changes to the lungs. She was admitted to hospital and was receiving antibiotics and respiratory treatments. She over a worsening of her status. He required transfer to the intensive care unit. She was treated with some BiPAP. Was on high flow oxygen. She feels slightly better than yesterday. She is aware that smoking is caused her to have significant lung disease and now has a severe pneumonia that is complicated because of her underlying lung disease. The patient does have oxygen-dependent pulmonary disease and will go home with oxygen therapy. She definitely feels better today She is less short of breath. She still having cough but less sputum production. She's not having much discomfort. Has not required BiPAP for days Feeling better today. The patient has been treated with vancomycin therapy. This will create significant difficulties with her care in the outpatient setting. At that she is markedly improved. Will attempt to utilize ceftriaxone as a once a day therapy. Aware of her ALLERGIES and close monitoring will be done. If tolerated as expected with him able to complete her course of therapy over the next 22 days. Working with discharge plan to try to arrange for her outpatient intravenous antibiotic therapy. Objective - Vital Signs Vital signs: Vital Signs Temp 97.4 F L 11/15/16 15:00 Pulse 71 11/15/16 15:00 Resp 18 11/15/16 15:00 BP 135/84 11/15/16 15:00 Pulse Ox 85 L 11/15/16 18:18 Intake & Output 11/14/16 11/15/16 11/15/16 18:59 06:59 18:59 Intake Total 800 200 240 Balance 800 200 240 Weight 74.1 kg Intake: IV 800 Sodium Chloride 0.9% 1, 800 000 ml @ 100 mls/hr IV . Q10H [facility] Rx#:[id number] Oral 200 240 Other: Voiding Method Toilet # Voids 1 2 # Bowel Movements 0 - Exam 66-year-old woman who appears younger than her stated age is very short of breath and his cough with some thick sputum HEENT: Anicteric conjunctiva are pink and moist nasal mucosa grossly intact without significant lesions, there is no thrush. Neck: The neck is supple without significant lymphadenopathy or thyromegaly. Lungs: Symmetrical air entry, wheezings that are scattered throughout the lung bob. Bibasilar crackles are heard there is improved air exchange today Heart: Regular rate and rhythm with an audible S1-S2, left S4. There is no significant murmur click or rub, PMI was nondisplaced. Abdomen: Positive bowel sounds soft and nontender without palpable masses or organomegaly. There was no guarding or rebound. Extremities: The upper extremities have excellent pulses they are symmetric, no significant petechiae or telangiectasia. No splinter hemorrhages were noted. The lower extremities are free from significant edema. The peripheral pulses were 2+ and symmetric. Neuro: Awake alert oriented to person place and time. There are no acute new gross focal sensory motor deficits. - Labs CBC & Chem 7: 11/15/16 09:03 11/15/16 09:03 Labs: Abnormal Lab Results - Last 24 Hours (Table) 11/14/16 11/15/16 11/15/16 Range/Units 20:46 09:03 09:03 WBC 13.0 H (3.8-10.6) k/uL RBC 3.52 L (3.80-5.40) m/uL Hgb 10.1 L (11.4-16.0) gm/dL Hct 33.2 L (34.0-46.0) % MCHC 30.5 L (31.0-37.0) g/dL Plt Count 517 H (150-450) k/uL Carbon Dioxide 31 H (22-30) mmol/L Creatinine 0.47 L (0.52-1.04) mg/dL Glucose 100 H (74-99) mg/dL POC Glucose (mg/dL) 140 H (75-99) mg/dL Calcium 8.3 L (8.4-10.2) mg/dL 11/15/16 11/15/16 Range/Units 12:02 17:10 WBC (3.8-10.6) k/uL RBC (3.80-5.40) m/uL Hgb (11.4-16.0) gm/dL Hct (34.0-46.0) % MCHC (31.0-37.0) g/dL Plt Count (150-450) k/uL Carbon Dioxide (22-30) mmol/L Creatinine (0.52-1.04) mg/dL Glucose (74-99) mg/dL POC Glucose (mg/dL) 170 H 183 H (75-99) mg/dL Calcium (8.4-10.2) mg/dL Microbiology - Last 24 Hours (Table) 11/13/16 08:40 Gram Stain - Final Sputum Sputum Culture - Final Staphylococcus aureus Laboratory Results WBC 13.0 k/uL (3.8-10.6) H 11/15/16 09:03 RBC 3.52 m/uL (3.80-5.40) L 11/15/16 09:03 Hgb 10.1 gm/dL (11.4-16.0) L 11/15/16 09:03 Hct 33.2 % (34.0-46.0) L 11/15/16 09:03 MCV 94.5 fL (80.0-100.0) 11/15/16 09:03 MCH 28.8 pg (25.0-35.0) 11/15/16 09:03 MCHC 30.5 g/dL (31.0-37.0) L 11/15/16 09:03 RDW 14.3 % (11.5-15.5) 11/15/16 09:03 Plt Count 517 k/uL (150-450) H 11/15/16 09:03 Neutrophils % 93 % 11/14/16 10:25 Neutrophils % (Manual) 82.0 % 11/09/16 05:28 Band Neutrophils % 7.5 % 11/09/16 05:28 Lymphocytes % 2 % 11/14/16 10:25 Lymphocytes % (Manual) 3.5 % 11/09/16 05:28 Monocytes % 3 % 11/14/16 10:25 Monocytes % (Manual) 5.5 % 11/09/16 05:28 Eosinophils % 2 % 11/14/16 10:25 Basophils % 0 % 11/14/16 10:25 Metamyelocytes % 1.5 % 11/09/16 05:28 Myelocytes % 1.0 % 11/04/16 10:51 Neutrophils # 14.9 k/uL (1.3-7.7) H 11/14/16 10:25 Neutrophils # (Manual) 11.3 k/uL (1.3-7.7) H 11/09/16 05:28 Lymphocytes # 0.3 k/uL (1.0-4.8) L 11/14/16 10:25 Lymphocytes # (Manual) 0.4 k/uL (1.0-4.8) L 11/09/16 05:28 Monocytes # 0.4 k/uL (0-1.0) 11/14/16 10:25 Monocytes # (Manual) 0.7 k/uL (0-1.0) 11/09/16 05:28 Eosinophils # 0.3 k/uL (0-0.7) 11/14/16 10:25 Basophils # 0.0 k/uL (0-0.2) 11/14/16 10:25 Nucleated RBCs 0 /100 WBC (0-0) 11/09/16 05:28 Manual Slide Review Performed 11/09/16 05:28 Toxic Granulation Present 11/09/16 05:28 Toxic Vacuolation Present 11/09/16 05:28 Poikilocytosis (manual Present 11/09/16 05:28 Anisocytosis (manual) Present 11/03/16 08:59 Target Cells Present 11/03/16 08:59 PT 10.6 sec (9.0-12.0) 11/01/16 15:26 INR 1.0 (<1.1) 11/01/16 15:26 APTT 27.8 sec (22.0-30.0) 11/01/16 15:26 D-Dimer 2.23 mg/L FEU (<0.60) H 11/05/16 15:50 Sample Site LRAD 11/05/16 16:20 ABG pH 7.44 (7.35-7.45) 11/05/16 16:20 ABG pCO2 29 mmHg (35-45) L 11/05/16 16:20 ABG pO2 131 mmHg (83-108) H 11/05/16 16:20 ABG HCO3 19 mmol/L (21-25) L 11/05/16 16:20 ABG Total CO2 20 mmol/L (19-24) 11/05/16 16:20 ABG O2 Saturation 99.0 % (94-97) H 11/05/16 16:20 ABG Base Excess -4.1 mmol/L 11/05/16 16:20 FiO2 60 % 11/05/16 16:20 Sodium 138 mmol/L (137-145) 11/15/16 09:03 Potassium 3.8 mmol/L (3.5-5.1) 11/15/16 09:03 Chloride 99 mmol/L (98-107) 11/15/16 09:03 Carbon Dioxide 31 mmol/L (22-30) H 11/15/16 09:03 Anion Gap 8 mmol/L 11/15/16 09:03 BUN 15 mg/dL (7-17) 11/15/16 09:03 Creatinine 0.47 mg/dL (0.52-1.04) L 11/15/16 09:03 Est GFR (MDRD) Af Amer >60 (>60 ml/min/1.73 sqM) 11/15/16 09:03 Est GFR (MDRD) Non-Af >60 (>60 ml/min/1.73 sqM) 11/15/16 09:03 Glucose 100 mg/dL (74-99) H 11/15/16 09:03 POC Glucose (mg/dL) 183 mg/dL (75-99) H 11/15/16 17:10 POC Glu [place] Layer ID 11/15/16 17:10 Plasma Lactic Acid Rohan 2.2 mmol/L (0.7-2.0) H* 11/14/16 10:25 Calcium 8.3 mg/dL (8.4-10.2) L 11/15/16 09:03 Phosphorus 3.4 mg/dL (2.5-4.5) 11/11/16 05:03 Magnesium 2.1 mg/dL (1.6-2.3) 11/11/16 05:03 Total Bilirubin 0.6 mg/dL (0.2-1.3) 11/04/16 10:51 AST 48 U/L (14-36) H 11/04/16 10:51 ALT 43 U/L (9-52) 11/04/16 10:51 Alkaline Phosphatase 117 U/L (38-126) 11/04/16 10:51 Total Creatine Kinase 99 U/L (30-135) 11/01/16 15:26 CK-MB (CK-2) 0.6 ng/mL (0.0-2.4) 11/01/16 15:26 CK-MB (CK-2) Rel Index 0.6 11/01/16 15:26 Troponin I <0.012 ng/mL (0.000-0.034) 11/01/16 15:26 NT-Pro-B Natriuret Pep 276 pg/mL 11/01/16 15:26 Total Protein 5.5 g/dL (6.3-8.2) L 11/04/16 10:51 Albumin 2.7 g/dL (3.5-5.0) L 11/04/16 10:51 Urine Color Light Yellow 11/05/16 18:26 Urine Appearance Clear (Clear) 11/05/16 18:26 Urine pH 6.5 (5.0-8.0) 11/05/16 18:26 Ur Specific [place] 1.009 (1.001-1.035) 11/05/16 18:26 Urine Protein Negative (Negative) 11/05/16 18:26 Urine Glucose (UA) Negative (Negative) 11/05/16 18:26 Urine Ketones Trace (Negative) H 11/05/16 18:26 Urine Blood Small (Negative) H 11/05/16 18:26 Urine Nitrate Negative (Negative) 11/05/16 18:26 Urine Bilirubin Negative (Negative) 11/05/16 18:26 Urine Urobilinogen <2.0 mg/dL (<2.0) 11/05/16 18:26 Ur Leukocyte Esterase Negative (Negative) 11/05/16 18:26 Urine RBC 7 /hpf (0-5) H 11/05/16 18:26 Urine WBC 2 /hpf (0-5) 11/05/16 18:26 Ur Squamous Epith Cells 9 /hpf (0-4) H 11/05/16 18:26 Amorphous Sediment Rare /hpf (None) H 11/05/16 18:26 Hyaline Casts 3 /lpf (0-2) H 11/05/16 18:26 Urine Mucus Rare /hpf (None) H 11/05/16 18:26 Vancomycin Trough 19.8 ug/mL 11/11/16 05:03 Influenza Type A RNA Not Detected (Not Detectd) 11/01/16 15:53 Influenza Type B (PCR) Not Detected (Not Detectd) 11/01/16 15:53 Urine Legionella Ag Not detected (Not detected) 11/06/16 16:10 Mycoplasma pneumon IgG 0.39 INDEX (<=0.90) 11/06/16 19:20 Mycoplasma pneumon IgM 0.01 INDEX (<=0.90) 11/06/16 19:20 Microbiology 11/13/16 08:40 Sputum Gram Stain - Final 11/13/16 08:40 Sputum Sputum Culture - Final Staphylococcus aureus 11/05/16 17:05 Blood Blood Culture - Final No Growth after 144 hours 11/06/16 16:45 Sputum Gram Stain - Final 11/06/16 16:45 Sputum Sputum Culture - Final Staphylococcus aureus 11/01/16 15:26 Blood Blood Culture - Final No Growth after 144 hours 11/05/16 19:00 Sputum Gram Stain - Final 11/05/16 19:00 Sputum Sputum Culture - Final Staphylococcus aureus 11/05/16 04:35 Urine,Voided Urine Culture - Final 11/02/16 07:00 Sputum Gram Stain - Final 11/02/16 07:00 Sputum Sputum Culture - Final Staphylococcus aureus Assessment and Plan (1) Necrotizing pneumonia Narrative/Plan: 66-year-old female presents to hospital with significant shortness of breath. Was cared for in the outpatient setting but was not having improvement. At admission her computed tomography scan shows evidence of the extensive pneumonic process. There appears to be necrotizing in nature with the cavitating pneumonia in the left upper lobe. The extensive bullous emphysema was noted and reactive lymphadenopathy was seen. Effusions have improved. At this time she appears to have a methicillin susceptible staph aureus pneumonia is causing the significant necrosis. She has a significant ALLERGY to penicillin and constantly cephalosporins will not be attempted given her current very tenacious status. Vancomycin is being utilized. Plan 28 days Evaluation for Legionella and mycoplasma are in process also. In with his levofloxacin is added. Antecedent viral infection is not excluded, but evidence of influenza was not found at admission. The patient understands that she is profoundly ill. Fortunately is showing improvement, respiratory failure has resolved Legionella and mycoplasma are negative levofloxacin is discontinued PICC line has been placed so we can continue her outpatient antibiotic therapy as she becomes ready for discharge. Status: Acute (2) Staphylococcus aureus pneumonia Status: Acute (3) Fever Status: Acute (4) Leukocytosis Status: Acute
[2016-11-15 21:13] LABS: Glucose,Whole Blood 133 mg/dL (75-99)
[2016-11-15] MEDS: NAPROXEN 250 MG TAB PO SCH (21:26)
[2016-11-15] MEDS: traZODone HCL 50 MG TAB PO SCH (21:26)
[2016-11-15] MEDS: ASPIRIN 81 MG CHEW PO SCH (21:26)
[2016-11-16] MEDS: SODIUM CHLORIDE 0.9% 1,000 ML IV SCH ×2 (06:05→15:56)
[2016-11-16] MEDS: FORMOTEROL FUMARATE 20 MCG/2 ML NEBU INHALATION SCH (07:01)
[2016-11-16] MEDS: LEVALBUTEROL NEB (CONC) 1.25 MG/0.5 ML AMP INHALATION SCH ×3 (07:01→16:55)
[2016-11-16] MEDS: IPRATROPIUM 0.5 MG/2.5 ML NEBU INHALATION SCH ×3 (07:01→16:55)
[2016-11-16] MEDS: BUDESONIDE 1 MG/2 ML NEBU INHALATION SCH (07:02)
[2016-11-16] MEDS: ALPRAZolam 0.5 MG TAB PO PRN (07:08)
[2016-11-16 07:33] LABS: Glucose,Whole Blood 79 mg/dL (75-99)
[2016-11-16] MEDS: INSULIN LISPRO (humaLOG) 300 UNIT/3 ML VIAL SQ SCH ×2 (07:42→12:39)
[2016-11-16 07:58] VITALS: BP 142/69; RESP 22; TEMP 97.2
[2016-11-16] MEDS: PANTOPRAZOLE 40 MG TABLET PO SCH (08:15)
[2016-11-16] MEDS: LACTOBACILLUS ACIDOPH & BULGAR 1 EACH PACKET PO SCH (08:15)
[2016-11-16] MEDS: NICOTINE 21MG/24HR PATCH TRANSDERM SCH (08:15)
[2016-11-16] MEDS: CHOLECALCIFEROL 1,000 UNIT TAB PO SCH (08:15)
[2016-11-16] MEDS: ASCORBIC ACID 500 MG TAB PO SCH (08:15)
[2016-11-16] MEDS: HEPARIN SODIUM,PORCINE 5,000 UNIT/ML 1 ML VIAL SQ SCH (08:15)
[2016-11-16] MEDS: CITALOPRAM HYDROBROMIDE 20 MG TAB PO SCH (08:15)
[2016-11-16] MEDS: predniSONE 20 MG TAB PO SCH (08:16)
[2016-11-16] MEDS: FLUTICASONE 50MCG/SPRAY NASAL 16GM EA NOSTRIL PRN (08:16)
[2016-11-16] MEDS: ARTIFICIAL TEARS-HYPROMELLOSE DROPS 15 ML BTL BOTH EYES PRN (08:16)
[2016-11-16] MEDS: NYSTATIN 100,000 UNIT/ML SUSP 500,000 UNIT/5 ML CUP PO SCH ×2 (08:16→12:00)
[2016-11-16] MEDS: ACETAMINOPHEN TAB 325 MG TAB PO PRN (10:37)
[2016-11-16 11:25] VITALS: PULSE 84
[2016-11-16 11:44] LABS: Anion Gap 10 mmol/L; Blood Urea Nitrogen 12 mg/dL (7-17); Carbon Dioxide 27 mmol/L (22-30); Chloride 101 mmol/L (98-107); Glucose 135 mg/dL (74-99); Non-African American GFR(MDRD) >60 (>60 ml/min/1.73 sqM); Potassium 3.6 mmol/L (3.5-5.1); Sodium 138 mmol/L (137-145)
--- NOTE | 2016-11-16 11:49 | P.PN ---
Subjective Principal diagnosis: Acute necrotizing pneumonia involving the left lung This 66-year-old female patient is a chronic smoker in she has an underlying COPD and addition to various other medical problems such as hypertension, hiatal hernia, spastic colon, anxiety and depression and previous history of a cellulitis of the involved right hip area which was attributed to MRSA. The patient was admitted to the hospital for cough, fever and chills, producing brownish sputum that was copious in amount and high-grade fever. The patient initially went to a walk-in clinic. Following that she came in to the hospital and she was found to have an extensive left lung pneumonia. In fact, the computed tomography scan that was done on 11/03/2016 showed diffuse bilateral areas of consolidation and significant cavitating/necrotizing pneumonia involving the left upper lobe. There was some shotty adenopathy within the mediastinum and the largest of fluid was measuring 1.1 cm in size. The patient also had extensive emphysematous changes bilaterally with a small left-sided pleural effusion. The patient also has cardiomegaly with coronary artery calcifications. Initially the patient was admitted to the medical floor being treated for a routine computed acquired pneumonia and she was given Levaquin. Overnight, her condition decompensated and the patient had to be moved to the intensive care unit for progressive worsening of dyspnea. The patient was placed on a BiPAP at a pressure of 10 over 5 cm of water and FiO2 of 50%. The patient was taken off the Levaquin and the patient was placed on a combination of as Fara M and vancomycin. This morning, the patient is very much worn-out tired and fatigued. She has lost significant amount of strength. Her voice is extremely hoarse. She is using some abdominal muscles to breathe. She is in [id number] degree of respiratory distress. She is on high flow oxygen at 15 L/m nasal cannula. A repeat CAT scan of the chest was done and this was a CT angios the chest and it showed an evolution of a 10 cm area of consolidation in the left upper lobe and there is extensive interstitial edema in the right lung. Is also reticular nodular changes in the lower lobes bilaterally more so on the left. There is some embolus changes in the right upper lobe and some early cavitation changes in the left upper lobe. The patient has no pulmonary embolism. No exposure to TB. No travel history. She has worked in [employer]. The patient had a recent rotator cuff injury to her right shoulder and she underwent a rotator cuff surgical repair by Dr. Lovett on August 2016. No reported aspiration. No reported travel. No alcoholism. No immunosuppression. No history of HIV positivity. The patient is seen again today 11/15/2016 in follow-up on the regular medical floor. She is sitting up in the chair at the bedside. She is awake and alert in no acute distress. Her voice is stronger. She denies any worsening shortness of breath, cough or congestion. She is feeling stronger each day. She is recovering from her methicillin sensitive Staphylococcus aureus pneumonia. Maintaining good O2 saturations in the mid 90s on 3 L/m per nasal cannula. She is currently afebrile. White count stable at 13.0. She is somewhat frustrated she was hoping to go home and will most likely need inpatient rehabilitation once discharge from the hospital. Patient was reevaluated today on 11/16/2016, clinically she feels better, chest x- ray continues to show significant airspace disease involving the left upper lobe. Patient is on proper IV antibiotics, and she has a PICC line in place. Discharge planning is in progress, and she will need a close follow-up in our office after discharge to see the patient is discharged home today. Objective - Vital Signs Vital signs: Vital Signs Temp 97.2 F L 11/16/16 07:00 Pulse 84 11/16/16 11:24 Resp 22 11/16/16 07:00 BP 142/69 11/16/16 07:00 Pulse Ox 92 L 11/16/16 10:59 Intake & Output 11/15/16 11/16/16 11/16/16 18:59 06:59 18:59 Intake Total 240 450 Balance 240 450 Weight 74.1 kg Intake: Oral 240 450 Other: Voiding Method Toilet # Voids 2 # Bowel Movements 0 - Exam GENERAL EXAM: Alert, fairly comfortable in no apparent distress. HEAD: Normocephalic. EYES: Normal reaction of pupils, equal size. NOSE: Clear with pink turbinates. THROAT: No erythema or exudates. NECK: No masses, no JVD. CHEST: No chest wall deformity. LUNGS: Equal air entry with lateral scattered rhonchi, crackles in the posterior bases, diminished. CVS: S1 and S2 normal with no audible murmurs, regular rhythm. ABDOMEN: No hepatosplenomegaly, normal bowel sounds, no guarding or rigidity. SPINE: No scoliosis or deformity SKIN: No rashes CENTRAL NERVOUS SYSTEM: No focal deficits, tone is normal in all 4 extremities. Generalized weakness. Extremities: There is no significant peripheral edema. No clubbing, no cyanosis. Peripheral pulses are intact. - Labs CBC & Chem 7: 11/15/16 09:03 11/15/16 09:03 Labs: Abnormal Lab Results - Last 24 Hours (Table) 11/15/16 11/15/16 11/15/16 Range/Units 12:02 17:10 21:12 POC Glucose (mg/dL) 170 H 183 H 133 H (75-99) mg/dL Microbiology - Last 24 Hours (Table) 11/13/16 08:40 Gram Stain - Final Sputum Sputum Culture - Final Staphylococcus aureus Assessment and Plan Plan: 1 Acute hypoxic respiratory failure, currently on high flow oxygen at 15 L. The patient also is utilizing BiPAP on and off intermittently during the day 2 Moderate bilobar pneumonia with extensive necrotizing pneumonia involving the left upper lobe with some early cavitating changes. 3 COPD 4 Sepsis secondary to above 5 Leukocytosis 6 Previous history of MRSA soft tissue infection, recovered 7 Shingles, history of 8 Hiatal hernia, history of 9 Hypertension 10 GE reflux 11 Spastic colon 12 Chronic and ongoing nicotine addiction. Recommendation: Reviewed the chest x-ray from yesterday, continues to have significant airspace disease involving the left upper lobe, patient will need a long course of IV antibiotics and she needs to be followed up closely on outpatient basis if discharged today. Discussed her condition with the admitting physician. Time with Patient: Less than 30
[2016-11-16] MEDS: cefTRIAXone 2,000 MG in SODIUM CHLORIDE 0.9% 100 ML IVPB SCH (12:00)
[2016-11-16 12:10] LABS: Glucose,Whole Blood 141 mg/dL (75-99)
[2016-11-16 14:10] LABS: CH 29.4; CHCM 30.6; HCT 33.4 % (34.0-46.0); HDW 2.14; HGB 10.2 gm/dL (11.4-16.0); Hypochromasia Slight; MCH 29.5 pg (25.0-35.0); MCHC 30.5 g/dL (31.0-37.0); MCV 96.7 fL (80.0-100.0); Mean Platelet Volume 7.5; RBC 3.45 m/uL (3.80-5.40); RDW 14.5 % (11.5-15.5); WBC 15.8 k/uL (3.8-10.6)
[2016-11-16] MEDS: HYDROcodone/APAP 5-325MG 1 EACH TAB PO PRN (15:51)
--- NOTE | 2016-11-16 21:24 | P.PN ---
Subjective Principal diagnosis: Pneumonia 66-year-old female who is a long-standing history of tobacco use and COPD. Prior to admission she did not have a history of oxygen use or respiratory support such as a CPAP. She was feeling poorly for quite some time. She had increasing cough with sputum production that was brownish in nature. It was quite copious. She had developed fever with chills. If she continued to feel more poorly she did go to the outpatient clinic. Despite that she felt very poorly. She presented to the emergency center on 2016. In the emergency center she was acutely ill. Chest x-ray was abnormal. Because of the computed tomography scan was performed. She had evidence of a cavitary necrotizing pneumonia of the left upper lobe as well as some lymphadenopathy and very extensive emphysematous changes to the lungs. She was admitted to hospital and was receiving antibiotics and respiratory treatments. She over a worsening of her status. He required transfer to the intensive care unit. She was treated with some BiPAP. Was on high flow oxygen. She feels slightly better than yesterday. She is aware that smoking is caused her to have significant lung disease and now has a severe pneumonia that is complicated because of her underlying lung disease. The patient does have oxygen-dependent pulmonary disease and will go home with oxygen therapy. She definitely feels better today She is less short of breath. She still having cough but less sputum production. She's not having much discomfort. Has not required BiPAP for days Feeling better today. The patient has been treated with vancomycin therapy. This will create significant difficulties with her care in the outpatient setting. At that she is markedly improved. Will attempt to utilize ceftriaxone as a once a day therapy. Aware of her ALLERGIES and close monitoring will be done. If tolerated as expected with him able to complete her course of therapy over the next 21 days. Working with discharge plan to try to arrange for her outpatient intravenous antibiotic therapy. Objective - Vital Signs Vital signs: Vital Signs Temp 97.2 F L 11/16/16 07:00 Pulse 84 11/16/16 11:24 Resp 22 11/16/16 07:00 BP 142/69 11/16/16 07:00 Pulse Ox 92 L 11/16/16 10:59 Intake & Output 11/16/16 11/16/16 11/17/16 06:59 18:59 06:59 Intake Total 450 Balance 450 Intake: Oral 450 Other: Voiding Method Toilet # Voids 4 - Exam 66-year-old woman who appears younger than her stated age is very short of breath and his cough with some thick sputum HEENT: Anicteric conjunctiva are pink and moist nasal mucosa grossly intact without significant lesions, there is no thrush. Neck: The neck is supple without significant lymphadenopathy or thyromegaly. Lungs: Symmetrical air entry, wheezings that are scattered throughout the lung bob. Bibasilar crackles are heard there is improved air exchange today Heart: Regular rate and rhythm with an audible S1-S2, left S4. There is no significant murmur click or rub, PMI was nondisplaced. Abdomen: Positive bowel sounds soft and nontender without palpable masses or organomegaly. There was no guarding or rebound. Extremities: The upper extremities have excellent pulses they are symmetric, no significant petechiae or telangiectasia. No splinter hemorrhages were noted. The lower extremities are free from significant edema. The peripheral pulses were 2+ and symmetric. Neuro: Awake alert oriented to person place and time. There are no acute new gross focal sensory motor deficits. - Labs CBC & Chem 7: 11/16/16 10:10 11/16/16 10:10 Labs: Abnormal Lab Results - Last 24 Hours (Table) 11/16/16 11/16/16 11/16/16 Range/Units 10:10 10:10 12:06 WBC 15.8 H (3.8-10.6) k/uL RBC 3.45 L (3.80-5.40) m/uL Hgb 10.2 L (11.4-16.0) gm/dL Hct 33.4 L (34.0-46.0) % MCHC 30.5 L (31.0-37.0) g/dL Plt Count 522 H (150-450) k/uL Creatinine 0.43 L (0.52-1.04) mg/dL Glucose 135 H (74-99) mg/dL POC Glucose (mg/dL) 141 H (75-99) mg/dL Calcium 8.0 L (8.4-10.2) mg/dL Laboratory Results WBC 15.8 k/uL (3.8-10.6) H 11/16/16 10:10 RBC 3.45 m/uL (3.80-5.40) L 02/09/17 10:10 Hgb 10.2 gm/dL (11.4-16.0) L 11/16/16 10:10 Hct 33.4 % (34.0-46.0) L 11/16/16 10:10 MCV 96.7 fL (80.0-100.0) 11/16/16 10:10 MCH 29.5 pg (25.0-35.0) 11/16/16 10:10 MCHC 30.5 g/dL (31.0-37.0) L 11/16/16 10:10 RDW 14.5 % (11.5-15.5) 11/16/16 10:10 Plt Count 522 k/uL (150-450) H 11/16/16 10:10 Neutrophils % 93 % 11/14/16 10:25 Neutrophils % (Manual) 82.0 % 11/09/16 05:28 Band Neutrophils % 7.5 % 11/09/16 05:28 Lymphocytes % 2 % 11/14/16 10:25 Lymphocytes % (Manual) 3.5 % 11/09/16 05:28 Monocytes % 3 % 11/14/16 10:25 Monocytes % (Manual) 5.5 % 11/09/16 05:28 Eosinophils % 2 % 11/14/16 10:25 Basophils % 0 % 11/14/16 10:25 Metamyelocytes % 1.5 % 11/09/16 05:28 Myelocytes % 1.0 % 11/04/16 10:51 Neutrophils # 14.9 k/uL (1.3-7.7) H 11/14/16 10:25 Neutrophils # (Manual) 11.3 k/uL (1.3-7.7) H 11/09/16 05:28 Lymphocytes # 0.3 k/uL (1.0-4.8) L 11/14/16 10:25 Lymphocytes # (Manual) 0.4 k/uL (1.0-4.8) L 11/09/16 05:28 Monocytes # 0.4 k/uL (0-1.0) 11/14/16 10:25 Monocytes # (Manual) 0.7 k/uL (0-1.0) 11/09/16 05:28 Eosinophils # 0.3 k/uL (0-0.7) 11/14/16 10:25 Basophils # 0.0 k/uL (0-0.2) 11/14/16 10:25 Nucleated RBCs 0 /100 WBC (0-0) 11/09/16 05:28 Manual Slide Review Performed 11/09/16 05:28 Toxic Granulation Present 11/09/16 05:28 Toxic Vacuolation Present 11/09/16 05:28 Hypochromasia Slight 11/16/16 10:10 Poikilocytosis (manual Present 11/09/16 05:28 Anisocytosis (manual) Present 11/03/16 08:59 Target Cells Present 11/03/16 08:59 PT 10.6 sec (9.0-12.0) 11/01/16 15:26 INR 1.0 (<1.1) 11/01/16 15:26 APTT 27.8 sec (22.0-30.0) 11/01/16 15:26 D-Dimer 2.23 mg/L FEU (<0.60) H 11/05/16 15:50 Sample Site LRAD 11/05/16 16:20 ABG pH 7.44 (7.35-7.45) 11/05/16 16:20 ABG pCO2 29 mmHg (35-45) L 11/05/16 16:20 ABG pO2 131 mmHg (83-108) H 11/05/16 16:20 ABG HCO3 19 mmol/L (21-25) L 11/05/16 16:20 ABG Total CO2 20 mmol/L (19-24) 11/05/16 16:20 ABG O2 Saturation 99.0 % (94-97) H 11/05/16 16:20 ABG Base Excess -4.1 mmol/L 11/05/16 16:20 FiO2 60 % 11/05/16 16:20 Sodium 138 mmol/L (137-145) 11/16/16 10:10 Potassium 3.6 mmol/L (3.5-5.1) 11/16/16 10:10 Chloride 101 mmol/L (98-107) 11/16/16 10:10 Carbon Dioxide 27 mmol/L (22-30) 11/16/16 10:10 Anion Gap 10 mmol/L 11/16/16 10:10 BUN 12 mg/dL (7-17) 11/16/16 10:10 Creatinine 0.43 mg/dL (0.52-1.04) L 11/16/16 10:10 Est GFR (MDRD) Af Amer >60 (>60 ml/min/1.73 sqM) 11/16/16 10:10 Est GFR (MDRD) Non-Af >60 (>60 ml/min/1.73 sqM) 11/16/16 10:10 Glucose 135 mg/dL (74-99) H 11/16/16 10:10 POC Glucose (mg/dL) 141 mg/dL (75-99) H 11/16/16 12:06 POC Glu Laundry Aide ID Lesa Hall 11/16/16 12:06 Plasma Lactic Acid Rohan 2.2 mmol/L (0.7-2.0) H* 11/14/16 10:25 Calcium 8.0 mg/dL (8.4-10.2) L 11/16/16 10:10 Phosphorus 3.4 mg/dL (2.5-4.5) 11/11/16 05:03 Magnesium 2.1 mg/dL (1.6-2.3) 11/11/16 05:03 Total Bilirubin 0.6 mg/dL (0.2-1.3) 11/04/16 10:51 AST 48 U/L (14-36) H 11/04/16 10:51 ALT 43 U/L (9-52) 11/04/16 10:51 Alkaline Phosphatase 117 U/L (38-126) 11/04/16 10:51 Total Creatine Kinase 99 U/L (30-135) 11/01/16 15:26 CK-MB (CK-2) 0.6 ng/mL (0.0-2.4) 11/01/16 15:26 CK-MB (CK-2) Rel Index 0.6 11/01/16 15:26 Troponin I <0.012 ng/mL (0.000-0.034) 11/01/16 15:26 NT-Pro-B Natriuret Pep 276 pg/mL 11/01/16 15:26 Total Protein 5.5 g/dL (6.3-8.2) L 11/04/16 10:51 Albumin 2.7 g/dL (3.5-5.0) L 11/04/16 10:51 Urine Color Light Yellow 11/05/16 18:26 Urine Appearance Clear (Clear) 11/05/16 18:26 Urine pH 6.5 (5.0-8.0) 11/05/16 18:26 Ur Specific [place] 1.009 (1.001-1.035) 11/05/16 18:26 Urine Protein Negative (Negative) 11/05/16 18:26 Urine Glucose (UA) Negative (Negative) 11/05/16 18:26 Urine Ketones Trace (Negative) H 11/05/16 18:26 Urine Blood Small (Negative) H 11/05/16 18:26 Urine Nitrate Negative (Negative) 11/05/16 18:26 Urine Bilirubin Negative (Negative) 11/05/16 18:26 Urine Urobilinogen <2.0 mg/dL (<2.0) 11/05/16 18:26 Ur Leukocyte Esterase Negative (Negative) 11/05/16 18:26 Urine RBC 7 /hpf (0-5) H 11/05/16 18:26 Urine WBC 2 /hpf (0-5) 11/05/16 18:26 Ur Squamous Epith Cells 9 /hpf (0-4) H 11/05/16 18:26 Amorphous Sediment Rare /hpf (None) H 11/05/16 18:26 Hyaline Casts 3 /lpf (0-2) H 11/05/16 18:26 Urine Mucus Rare /hpf (None) H 11/05/16 18:26 Vancomycin Trough 19.8 ug/mL 11/11/16 05:03 Influenza Type A RNA Not Detected (Not Detectd) 11/01/16 15:53 Influenza Type B (PCR) Not Detected (Not Detectd) 11/01/16 15:53 Urine Legionella Ag Not detected (Not detected) 11/06/16 16:10 Mycoplasma pneumon IgG 0.39 INDEX (<=0.90) 11/06/16 19:20 Mycoplasma pneumon IgM 0.01 INDEX (<=0.90) 11/06/16 19:20 Microbiology 11/13/16 08:40 Sputum Gram Stain - Final 11/13/16 08:40 Sputum Sputum Culture - Final Staphylococcus aureus 11/05/16 17:05 Blood Blood Culture - Final No Growth after 144 hours 11/06/16 16:45 Sputum Gram Stain - Final 11/06/16 16:45 Sputum Sputum Culture - Final Staphylococcus aureus 11/01/16 15:26 Blood Blood Culture - Final No Growth after 144 hours 11/05/16 19:00 Sputum Gram Stain - Final 11/05/16 19:00 Sputum Sputum Culture - Final Staphylococcus aureus 11/05/16 04:35 Urine,Voided Urine Culture - Final 11/02/16 07:00 Sputum Gram Stain - Final 11/02/16 07:00 Sputum Sputum Culture - Final Staphylococcus aureus Assessment and Plan (1) Necrotizing pneumonia Narrative/Plan: 66-year-old female presents to hospital with significant shortness of breath. Was cared for in the outpatient setting but was not having improvement. At admission her computed tomography scan shows evidence of the extensive pneumonic process. There appears to be necrotizing in nature with the cavitating pneumonia in the left upper lobe. The extensive bullous emphysema was noted and reactive lymphadenopathy was seen. Effusions have improved. At this time she appears to have a methicillin susceptible staph aureus pneumonia is causing the significant necrosis. She has a significant ALLERGY to penicillin and constantly cephalosporins will not be attempted given her current very tenacious status. Vancomycin is being utilized. Plan 28 days Evaluation for Legionella and mycoplasma are in process also. In with his levofloxacin is added. Antecedent viral infection is not excluded, but evidence of influenza was not found at admission. The patient understands that she is profoundly ill. Fortunately is showing improvement, respiratory failure has resolved Legionella and mycoplasma are negative levofloxacin is discontinued PICC line has been placed so we can continue her outpatient antibiotic therapy as she becomes ready for discharge. Status: Acute (2) Staphylococcus aureus pneumonia Status: Acute (3) Fever Status: Acute (4) Leukocytosis Status: Acute
--- NOTE | 2016-11-17 08:49 | DS ---
DATE OF ADMISSION: 11/01/2016 DATE OF DISCHARGE: 11/16/2016 Patient is admitted for MSSA pneumonia cavitary lesion. Patient also had ARDS. Patient still has bit of crackles. Patient may temporally need oxygen for a week to 10 days. Patient is desaturating on ambulation. Will do walking pulse oximetry again. Hopefully, her oxygen requirements are temporary secondary to severe bilateral staphylococcal pneumonia. Patient is going home on IV antibiotics Rocephin. Patient is being discharged home with home care. Patient was seen and examined on the day of discharge. Vitals are stable. PHYSICAL EXAMINATION: GENERAL: The patient is alert and oriented x3, not in any acute distress. Well developed, well nourished. HEENT: Pupils are round and equally reacting to light. EOMI. No scleral icterus. No conjunctival pallor. Normocephalic, atraumatic. No pharyngeal erythema. No thyromegaly. CARDIOVASCULAR: S1 and S2 present. No murmurs, rubs, or gallops. RESPIRATORY: As described in HPI. ABDOMEN: Soft, nontender, nondistended, normoactive bowel sounds. No palpable organomegaly. MUSCULOSKELETAL: No joint swelling or deformity. EXTREMITIES: No cyanosis, clubbing, or pedal edema. NEUROLOGICAL: Gross neurological examination did not reveal any focal deficits. SKIN: No rashes. ASSESSMENT AND PLAN: 1. Multilobar pneumonia, staphylococcal pneumonia, with cavitary lesion in the right upper lung. 2. Acute hypoxic respiratory failure secondary to necrotizing pneumonia. 3. Chronic obstructive pulmonary disease without any significant exacerbation. 4. Mediastinal lymphadenopathy reactive, secondary to pneumonia. 5. Hypertension. 6. Lactic acidosis, which resolved, received IV fluids. 7. Depression. 8. Gastroesophageal reflux disease. Please refer to my depart summary for further details of discharge medications. Patient will follow with Dr. Bryon Frey in about 2 to 3 days; Dr. Arnold Barker on the December,. [facility] will follow the patient. The patient will get weekly BMP and CBC with the results faxed to Dr. Barker clinic. Activity as tolerated. Cardiac diet. I spent greater than 35 minutes in total discharge process.
== END 2016-11-16 17:26 | disposition home health service (06) | DRG 871 ==
LOC: EC 15:02 → 4MS4W 16:28 → 6ICU 11-05 18:34 → 4MS4W 11-11 09:35
PROVIDERS: ADMIT Internal Medicine; ATTEND Internal Medicine
PROC: 02HV33Z Insertion of Infusion Device into Superior Vena Cava, Percutaneous Approach (ICD-10-PCS; principal; 2016-11-13 09:10)
DX: A41.9 Sepsis, unspecified organism (principal); J15.211 Pneumonia due to Methicillin susceptible Staphylococcus aureus; J96.01 Acute respiratory failure with hypoxia; J85.0 Gangrene and necrosis of lung; J96.02 Acute respiratory failure with hypercapnia; J90 Pleural effusion, not elsewhere classified; E87.2 Acidosis; J44.0 Chronic obstructive pulmonary disease with (acute) lower respiratory infection; E44.0 Moderate protein-calorie malnutrition; R13.10 Dysphagia, unspecified; J44.1 Chronic obstructive pulmonary disease with (acute) exacerbation; I11.9 Hypertensive heart disease without heart failure; E86.0 Dehydration; E87.6 Hypokalemia; F17.210 Nicotine dependence, cigarettes, uncomplicated; F32.9 Major depressive disorder, single episode, unspecified; F41.9 Anxiety disorder, unspecified; G47.00 Insomnia, unspecified; I25.10 Atherosclerotic heart disease of native coronary artery without angina pectoris; J04.0 Acute laryngitis; K21.9 Gastro-esophageal reflux disease without esophagitis; K44.9 Diaphragmatic hernia without obstruction or gangrene; M19.90 Unspecified osteoarthritis, unspecified site; G43.909 Migraine, unspecified, not intractable, without status migrainosus; R01.1 Cardiac murmur, unspecified; R26.9 Unspecified abnormalities of gait and mobility; R49.0 Dysphonia; R59.0 Localized enlarged lymph nodes; B95.61 Methicillin susceptible Staphylococcus aureus infection as the cause of diseases classified elsewhere; K58.9 Irritable bowel syndrome, unspecified; J32.9 Chronic sinusitis, unspecified; Z79.82 Long term (current) use of aspirin; Z79.899 Other long term (current) drug therapy; Z86.14 Personal history of Methicillin resistant Staphylococcus aureus infection; Z88.0 Allergy status to penicillin; Z88.2 Allergy status to sulfonamides; Z88.8 Allergy status to other drugs, medicaments and biological substances; Z91.040 Latex allergy status; Z82.49 Family history of ischemic heart disease and other diseases of the circulatory system
CPT/HCPCS: 36415; 36569; 36600; 71010; 71020; 71260; 71275; 76937; 77001; 80048; 80053; 80202; 81001; 82550; 82553; 82805; 83605; 83735; 83880; 84100; 84132; 84484; 85025; 85027; 85379; 85610; 85730; 86738; 87040; 87070; 87077; 87086; 87186; 87205; 87449; 87502; 93005; 93306; 94640; 94660; 94760

== ENCOUNTER → 2016-12-08 | Outpatient (CLI) | payer MEDICARE, OTHER ==
[~2016-12-08] MED LIST: SODIUM CHLORIDE 0.9% 250 ML in EMPTY BAG 1 BAG IV PRN; SODIUM CHLORIDE 0.9% 500 ML in EMPTY BAG 1 BAG IV PRN; cefTRIAXone 2,000 MG in SODIUM CHLORIDE 0.9% 100 ML IVPB NR
[2016-12-08 13:11] VITALS: BP 124/64; PULSE 76; RESP 16; TEMP 98.2
== END | disposition home or self-care (01) ==
LOC: PROCWHC3 12:22
PROVIDERS: ATTEND Internal Medicine Infectious Disease
DX: J15.211 Pneumonia due to Methicillin susceptible Staphylococcus aureus (principal)
CPT/HCPCS: 96365; J0696

== ENCOUNTER → 2016-12-15 | Outpatient (CLI) | payer MEDICARE, OTHER ==
--- NOTE | 2016-12-15 10:43 | CT ---
EXAMINATION TYPE: CT chest w con DATE OF EXAM: 12/15/2016 9:16 AM COMPARISON: 11/05/2016 HISTORY: 66 year-old female follow-up Cavitary Pneumonia TECHNIQUE: Contiguous axial scanning of the chest after the administration of 100 mL of Omnipaque 350 . Coronal/sagittal reconstructions performed. CT DLP: 269.9mGycm. Automatic exposure control utilized for a dose reduction. FINDINGS: Heart remains upper limits of normal in size without pericardial effusion. Coronary vessel calcificat ions are present in remarkable for coronary artery disease. Aorta is normal caliber with conventional arch vessel branching anatomy. Left PICC tip is present at the mid to lower SVC. Borderline to mildly enlarged mediastinal lymph nodes measure up to 1 cm in the AP window and 1.1 cm in the precarinal region, unchanged. There are reticular and interstitial densities particularly in the subpleural regions of the mid to l ower lungs but with centrilobular emphysema in the upper to mid lungs. There is improving groundglass and reticular opacities throughout the right lower lobe and improving nodular infiltrates within bot h lower lobes. Consolidation previously seen in the left upper lobe is also considerably improved. Th ere is residual consolidation in the apex with the air-filled cavity with thick walled measuring 4.5 cm versus 5.7 cm and more complex appearing previously. No pleural effusion. Small hiatal hernia. Visualized upper abdomen shows a 3.6 cm cyst within the left kidney. Subcentimeter hypodensity anteri or segment 4 left liver lobe to small for accurate CT characterization, stable, likely a cyst. Bones: No osseous destructive process. IMPRESSION: 1. Significant interval improvement with resolution of the majority of the previous multifocal infilt rates. 2. There is residual consolidation in the left apex with a maturing 4.6 cm thick-walled cavity here. Continued follow-up recommended. 3. Background of COPD and interstitial fibrosis. 4. Mediastinal lymphadenopathy measuring up to 1.1 cm is unchanged and likely reactive.
== END | disposition home or self-care (01) ==
LOC: RADPROMAIN 08:31
PROVIDERS: ATTEND Internal Medicine Infectious Disease
DX: J44.9 Chronic obstructive pulmonary disease, unspecified (principal); J84.10 Pulmonary fibrosis, unspecified; R59.0 Localized enlarged lymph nodes
CPT/HCPCS: 71260; Q9967

== ENCOUNTER 2016-12-16 11:00 | Emergency (ER) | payer MEDICARE, OTHER ==
[2016-12-16 11:07] VITALS: TEMP 97.1
[2016-12-16] MEDS ORDERED: IPRATROPIUM 0.5 MG/2.5 ML NEBU INHALATION STA (11:09)
[2016-12-16] MEDS ORDERED: LEVALBUTEROL NEB 1.25 MG/3 ML AMP INHALATION STA (11:09)
[2016-12-16] MEDS ORDERED: NITROGLYCERIN OINT 1 INCH/GM PACKET TOPICAL STA (11:15)
--- NOTE | 2016-12-16 11:15 | ED ---
Chest Pain HPI - General Chief Complaint: Chest Pain Stated Complaint: Chest Pain Time Seen by Provider: 12/16/16 11:00 Source: patient, EMS, RN notes reviewed, old records reviewed Mode of arrival: EMS Limitations: no limitations - History of Present Illness Initial Comments: This is a 66-year-old female with a history of recent hospitalization for necrotizing pneumonia who still on IV antibiotics through a PICC line who was brought in by EMS today due to the onset of chest pain was retrosternal. He states was 10/10 severity sharp and pressure-like in nature across her sternum she states she has some also pain to the right anterior lateral ribs. She was given nitroglycerin and aspirin by paramedics the pain went from a 10 to a 2/ 10. She states it has gone up somewhat to a 4 she denies any overt fevers chills nausea vomiting sweats at this time. She has a history of smoking which she quit on the same day she was admitted November 01 of this year. She does use albuterol at home she again states she is not short of breath she does states she's been coughing a lot however. MD Complaint: chest pain - Related Data Home Medications Medication Instructions Recorded Confirmed Citalopram Hydrobromide [CeleXA] 40 mg PO QAM 07/18/16 12/16/16 traZODone HCL 50 mg PO HS 07/18/16 12/16/16 Ascorbic Acid [Vitamin C] 500 mg PO DAILY 11/01/16 12/16/16 Aspirin [Adult Low Dose Aspirin EC] 81 mg PO HS 11/01/16 12/16/16 Biotin 5 mg PO DAILY 11/01/16 12/16/16 Cholecalciferol [Vitamin D3] 1,000 unit PO DAILY 11/01/16 12/16/16 Citalopram Hydrobromide [CeleXA] 20 mg PO HS 11/01/16 12/16/16 Flaxseed Oil [[place]-3 Flaxseed Oil] 1,000 mg PO HS 11/01/16 12/16/16 Ginkgo Biloba Gunnison Extract [Ginkgo] 60 mg PO DAILY 11/01/16 12/16/16 L.acidoph,Paracasei, B.lactis 1 cap PO DAILY 11/01/16 12/16/16 [Probiotic] Naproxen Sodium [Aleve] 440 mg PO HS 11/01/16 12/16/16 Vitamin B Complex 1 cap PO DAILY 11/01/16 12/16/16 Fluticasone/Vilanterol [Breo 1 inhalation PO RT-DAILY 12/16/16 12/16/16 Ellipta 100-25 Mcg Inhaler] Previous Rx's Medication Instructions Recorded cefTRIAXone [Rocephin] 2,000 mg IVPB DAILY 24 Days 11/13/16 Albuterol Inhaler [Ventolin Hfa 1 - 2 puff INHALATION Q6HR PRN #1 11/16/16 Inhaler] inhaler Ibuprofen [Motrin] 800 mg PO Q6HR PRN #20 tab 12/16/16 Allergies Allergy/AdvReac Type Severity Reaction Status Date / Time latex Allergy Unknown Verified 12/16/16 13:37 Penicillins Allergy Unknown Verified 12/16/16 13:37 Sulfa (Sulfonamide Allergy Unknown Verified 12/16/16 13:37 Antibiotics) zinc Allergy Unknown Verified 12/16/16 13:37 Review of Systems ROS Statement: Those systems with pertinent positive or pertinent negative responses have been documented in the HPI. ROS Other: All systems not noted in ROS Statement are negative. EKG Findings - EKG Results: EKG: interpreted by ERMD, sinus rhythm (Sinus rhythm rate of 80 TX interval 160 QRS duration 80 QT/QTC of/476 deviation pulmonary disease pattern poor R-wave progression. No acute changes) Past Medical History Past Medical History: GERD/Reflux, Hypertension Additional Past Medical History / Comment(s): COPD, previous history of MRSA infections, hypertension, GE reflux, poorly at the age of 8, chronic cardiac murmur, kidney stones x7, spastic colon,hital hernia, migraines, shingles1.5 years ago, chronic anxiety, chronic depression, and chronic smoker History of Any Multi-Drug Resistant Organisms: MRSA Date of last positivie culture/infection: 09/20/2014 MDRO Source:: right hip Past Surgical History: Appendectomy, Hernia Repair, Hysterectomy, Orthopedic Surgery, Tonsillectomy Additional Past Surgical History / Comment(s): rt rotator cuff and tendon reapri to bicep, exploratory lap/lysis of adhesions.rt inguinal hernia Past Anesthesia/Blood Transfusion Reactions: Motion Sickness Additional Past Anesthesia/Blood Transfusion Reaction / Comment(s): clausterphobia Past Psychological History: Anxiety, Depression Additional Psychological History / Comment(s): Daily tobacco smoker. Denies tobacco alcohol use. 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 2 pet Dogs at home. Lives with her father who is also a tobacco smoker. No international travel. No experience Smoking Status: Former smoker Past Alcohol Use History: None Reported Additional Past Alcohol Use History / Comment(s): started smoking at age 15, smokes 1 ppd Past Drug Use History: None Reported - Past Family History Mother Family Medical History: COPD, Hyperlipidemia, Hypertension, Thyroid Disorder Additional Family Medical History / Comment(s): heart problems, emphysema, hypoglycemia Father Additional Family Medical History / Comment(s): heart problems General Exam - General Exam Comments Initial Comments: This is a well-developed well-nourished awake alert oriented 3 female Limitations: no limitations General appearance: alert, anxious Head exam: Present: atraumatic, normocephalic, normal inspection Eye exam: Present: normal appearance, PERRL, EOMI. Absent: scleral icterus, conjunctival injection, periorbital swelling ENT exam: Present: normal exam, mucous membranes moist Neck exam: Present: normal inspection. Absent: tenderness, meningismus, lymphadenopathy Respiratory exam: Present: rales, chest wall tenderness (Some chest wall tenderness along the right lower anterolateral chest wall which is somewhat different than the chief complaint.), decreased breath sounds, other (Bibasilar crackles.). Absent: respiratory distress, wheezes, rhonchi, stridor Cardiovascular Exam: Present: regular rate, normal rhythm, normal heart sounds. Absent: systolic murmur, diastolic murmur, rubs, gallop, clicks GI/Abdominal exam: Present: soft, normal bowel sounds. Absent: distended, tenderness, guarding, rebound, rigid Extremities exam: Present: normal inspection, full ROM, normal capillary refill , other (PICC line present in the left upper extremity). Absent: tenderness, pedal edema, joint swelling, calf tenderness Back exam: Present: normal inspection Neurological exam: Present: alert, oriented X3, CN II-XII intact Psychiatric exam: Present: normal affect, normal mood Skin exam: Present: warm, dry, intact, normal color. Absent: rash Course Vital Signs 12/16/16 12/16/16 12/16/16 11:01 11:44 11:57 Temperature 97.1 F L Pulse Rate 82 90 90 Respiratory 20 Rate Blood Pressure 133/68 O2 Sat by Pulse 100 Oximetry 12/16/16 12/16/16 12:47 14:07 Temperature Pulse Rate 77 99 Respiratory 16 16 Rate Blood Pressure 104/59 98/54 O2 Sat by Pulse 98 97 Oximetry - Reevaluation(s) Reevaluation #1: 12/16/16 14:27 The patient did have recurrent chest pain. Reexamination revealed that she was tender over the xiphoid and lower costal chondral margin. Repeat EKG showed no change from previous one there is a rate of 79 TX interval 168 QRS duration 80 QT/QTC of 424/46 left exodeviation poor R-wave progression no acute changes. Chest Pain MDM - MDM X-rays were reviewed no acute findings. Patient has had total resolution of her pain with the medication rendered the presentation consistent was a 4 day any/costochondritis noncardiac chest pain. Patient will be discharged on anti- inflammatories. She is to continue with her current regimen of medications follow-up with her doctor and return when necessary Disposition Clinical Impression: Chest wall syndrome, Costalchondritis, Xiphodynia Disposition: HOME SELF-CARE Condition: Good Instructions: Costochondritis (ED) Prescriptions: Ibuprofen [Motrin] 800 mg PO Q6HR PRN #20 tab PRN Reason: Pain
[2016-12-16 11:34] LABS: Basophils # (A) 0.1 k/uL (0-0.2); Basophils % (A) 0 %; CH 30.1; CHCM 32.3; Eosinophils # (A) 0.4 k/uL (0-0.7); Eosinophils % (A) 3 %; HCT 35.9 % (34.0-46.0); HDW 2.49; HGB 11.5 gm/dL (11.4-16.0); Luc # (Auto) 0.18; Luc % (Auto) 1; Lymphocytes % (A) 7 %; MCH 30.1 pg (25.0-35.0); MCHC 32.1 g/dL (31.0-37.0); MCV 93.8 fL (80.0-100.0); Mean Platelet Volume 6.3; Monocytes # (A) 0.4 k/uL (0-1.0); Monocytes % (A) 3 %; Neutrophils # (A) 11.8 k/uL (1.3-7.7); Neutrophils % (A) 85 %; RBC 3.83 m/uL (3.80-5.40); RDW 15.1 % (11.5-15.5); WBC 13.9 k/uL (3.8-10.6); WBC (Perox) 14.06
--- NOTE | 2016-12-16 11:34 | XR ---
EXAMINATION TYPE: XR chest 2V DATE OF EXAM: 12/16/2016 11:25 AM COMPARISON: 11/29/2016 TECHNIQUE: PA and lateral views submitted. HISTORY: Chest pain and cough FINDINGS: The lungs are clear and there is no pneumothorax, pleural effusion, or focal pneumonia. There is a coarsened interstitium which appears chronic. Sided PICC line noted. Cavitary left apical lesion is stable. Apical pleural thickening stable. IMPRESSION: 1. No acute process. Stable left apical cavitary lesion. 2. Interstitial infiltrates with findings suggestive of chronic interstitial lung disease or fibrosis .
[2016-12-16 11:48] LABS: ALT 47 U/L (9-52); AST 86 U/L (14-36); Alkaline Phosphatase 107 U/L (38-126); Amylase 100 U/L (30-110); Anion Gap 12 mmol/L; Blood Urea Nitrogen 13 mg/dL (7-17); Calcium 9.4 mg/dL (8.4-10.2); Carbon Dioxide 25 mmol/L (22-30); Chloride 102 mmol/L (98-107); Glucose 146 mg/dL (74-99); Magnesium 1.7 mg/dL (1.6-2.3); Non-African American GFR(MDRD) >60 (>60 ml/min/1.73 sqM); Potassium 3.7 mmol/L (3.5-5.1); Sodium 139 mmol/L (137-145); Total Bilirubin 0.5 mg/dL (0.2-1.3); Total Protein 6.8 g/dL (6.3-8.2)
[2016-12-16 11:57] LABS: Creatine Kinase <20 U/L (30-135)
[2016-12-16 12:01] LABS: INR 1.1 (<1.1); Partial Thromboplastin Time 23.6 sec (22.0-30.0); Prothrombin Time 10.6 sec (9.0-12.0)
[2016-12-16 12:10] LABS: Creatine Kinase MB 0.4 ng/mL (0.0-2.4); Troponin I <0.012 ng/mL (0.000-0.034)
[2016-12-16] MEDS ORDERED: HYDROmorphone 1 MG/ML 1 ML SYRINGE IVP STA (12:33)
[2016-12-16 12:46] LABS: Glucose,Whole Blood 131 mg/dL (75-99)
[2016-12-16 14:49] VITALS: BP 106/64; PULSE 74; RESP 20
== END 2016-12-16 14:48 | disposition home or self-care (01) ==
LOC: EC 11:00
DX: R07.1 Chest pain on breathing (principal); M94.0 Chondrocostal junction syndrome [Tietze]; Z87.891 Personal history of nicotine dependence; Z79.2 Long term (current) use of antibiotics; Z79.899 Other long term (current) drug therapy; Z79.82 Long term (current) use of aspirin; Z79.51 Long term (current) use of inhaled steroids; Z91.040 Latex allergy status; Z88.0 Allergy status to penicillin; Z88.2 Allergy status to sulfonamides; Z88.8 Allergy status to other drugs, medicaments and biological substances; J44.9 Chronic obstructive pulmonary disease, unspecified; Z86.14 Personal history of Methicillin resistant Staphylococcus aureus infection; F41.9 Anxiety disorder, unspecified; F32.9 Major depressive disorder, single episode, unspecified; K58.9 Irritable bowel syndrome, unspecified
CPT/HCPCS: 36415; 94640; 93005; 83880; 80053; 82150; 82550; 82553; 83690; 83735; 84484; 85025; 85610; 85730; 71020; 96374; 99285; J1170

== ENCOUNTER → 2017-03-20 | Outpatient (CLI) | payer MEDICARE, OTHER ==
[2017-03-20 10:46] LABS: Blood Urea Nitrogen 17 mg/dL (7-17); Non-African American GFR(MDRD) >60 (>60 ml/min/1.73 sqM)
--- NOTE | 2017-03-20 13:43 | CT ---
EXAMINATION TYPE: CT chest w con DATE OF EXAM: 03/20/2017 COMPARISON: December 15, 2016 HISTORY: Pneumonia CT DLP: 269.80 mGycm Automated exposure control for dose reduction was used. CONTRAST: CT scan of the chest is performed with IV Contrast, patient injected with 100 ml mL of Omnipaque 300. FINDINGS: LUNGS: Since the prior study there has been continued evolution of the left apical pulmonary cicatriz ing change with overlying pleural thickening. The overlying ribs are unremarkable. Prominent emphyse matous changes are redemonstrated. Lungs are otherwise unremarkable. PLEURAL SPACES: Otherwise unremarkable. MEDIASTINUM: No hilar or mediastinal adenopathy. No pericardial effusion or cardiomegaly. Coronary calcifications redemonstrated. OTHER: No additional significant abnormality is seen. IMPRESSION: CONTINUED IMPROVEMENT IN THE LEFT APICAL PLEURAL-PARENCHYMAL CHANGES. WOULD ADVISE [address] MON[address] FOLLOW-UP CT, UNLESS INDICATED SOONER ON A CLINICAL BASIS.
== END | disposition home or self-care (01) ==
LOC: RADCTMAIN 10:09
PROVIDERS: ATTEND Internal Medicine Critical Care Medicine
DX: R91.8 Other nonspecific abnormal finding of lung field (principal); J18.9 Pneumonia, unspecified organism
CPT/HCPCS: 82565; 84520; 71260; 36415; Q9967

== ENCOUNTER 2017-04-24 08:45 | Day surgery (SDC) | payer MEDICARE, OTHER ==
[2017-04-20 09:46] VITALS: BMI 31.3
[~2017-04-24 08:45] MED LIST changes: +LACTATED RINGERS 1,000 ML IV SCH; +Pre Op ABX Message 1 EACH MISC MISCELLANE ONE; -SODIUM CHLORIDE 0.9% 250 ML in EMPTY BAG 1 BAG IV PRN; -SODIUM CHLORIDE 0.9% 500 ML in EMPTY BAG 1 BAG IV PRN; -cefTRIAXone 2,000 MG in SODIUM CHLORIDE 0.9% 100 ML IVPB NR
[2017-04-24 09:20] VITALS: TEMP 97.7
[2017-04-24] MEDS ORDERED: LIDOCAINE 1% 20 ML VIAL (10MG/ML) FOR IV START INTRADERMA ONE (09:37)
[2017-04-24] MEDS ORDERED: PROPOFOL 10 MG/ML 20 ML VIAL IV ONE (10:26)
[2017-04-24] MEDS ORDERED: LIDOCAINE 2% INJ 20 MG/ML INTRATRACH ONE (11:00)
--- NOTE | 2017-04-24 11:03 | P.PCN ---
Date of Procedure: 04/24/17 Preoperative Diagnosis: Left-sided pneumonia recurrent cough Postoperative Diagnosis: Procedure(s) Performed: #1 bronchoscopy, #2 bronchoalveolar lavage of left upper lobe and left lower lobe Implants: Anesthesia: local, other Surgeon: Papito Marrero Estimated Blood Loss (ml): 0 Pathology: other Condition: stable Disposition: observation Indications for Procedure: Recurrent cough and pneumonia Operative Findings: Mucosa IT my edema bilaterally was noted no endobronchial mass or lesion was seen Description of Procedure: Patient prepared and draped in the usual fashion informed consent obtained from the patient, able to scope was passed through the right knee is vocal cords were inspected they were normal structure and function of this goes spelled beyond the vocal cords into the trachea there was mucosal erythema right femur edema bilaterally was present the right side was inspected including right upper lobe right middle lobe and right lower lobe. Left side was inspected involving the left upper lobe lesion along the left lower lobe. Bronchoscope was placed into the left upper lobe followed by left lower lobe BAL was performed patient on procedure were no complications noted.
[2017-04-24 11:45] VITALS: RESP 20
[2017-04-24 12:37] VITALS: BP 118/61; PULSE 91
[2017-04-24 15:23] LABS: RBC, Body Fluid 14200 /uL
== END 2017-04-24 12:32 | disposition home or self-care (01) ==
LOC: ORWHC2ENDO 08:45
PROVIDERS: ATTEND Internal Medicine Sleep Medicine
DX: J18.9 Pneumonia, unspecified organism (principal); R05 Cough; I10 Essential (primary) hypertension; Z79.899 Other long term (current) drug therapy; Z88.0 Allergy status to penicillin; Z88.2 Allergy status to sulfonamides; Z88.8 Allergy status to other drugs, medicaments and biological substances; Z91.040 Latex allergy status
CPT/HCPCS: 88108; 88305; 89050; 87252; 87070; 87205; 87116; 87102; 87206; 31624; J2001; J2704; 87299; 87496; 87498; 87502; 87529; 87798

== ENCOUNTER → 2017-05-09 | Outpatient (CLI) | payer MEDICARE, OTHER ==
--- NOTE | 2017-05-09 10:27 | CT ---
EXAMINATION TYPE: CT sinus wo con DATE OF EXAM: 05/09/2017 COMPARISON: NONE HISTORY: 66-year-old female chronic Sinusitis, severe cough. CT DLP: 540 mGycm Automated exposure control for dose reduction was used. TECHNIQUE: Noncontrast axial views of the paranasal sinuses were obtained. Coronal reconstructions pe rformed. FINDINGS: The frontal, ethmoid, maxillary and sphenoid sinuses are clear and well pneumatized. There is no mucosal thickening or air-fluid level. Reactive lydia- osteogenesis is not seen. There is no destruction of the osseous martinez of the paranasal sinuses. The osteomeatal complexes are patent. Rightward nasal septal deviation. The imaged brain and orbits are normal in appearance. Mastoid air cells and middle ear cavities are well pneumatized. Reformatted images confirm above findings. IMPRESSION: Rightward nasal septal deviation. No significant paranasal sinus disease.
--- NOTE | 2017-05-09 11:12 | FL ---
EXAMINATION: Cervical and Thoracic Esophagram DATE OF EXAM: 05/09/2017 CLINICAL INDICATION: 66-year-old female with dysphagia. Patient reports hoarseness and choking episod es since a severe episode of pneumonia months ago. COMPARISON: None Total Fluoroscopy Time: 1 minute 23 seconds. Total images: 51 FINDINGS: The swallowing mechanism is normal and hypopharyngeal anatomy is preserved. There is moderate endpla te spondylosis mid to lower cervical spine causing slight impressions on the posterior wall of the ce rvical esophagus. The cervical and thoracic portions have a normal course and caliber. Only minimal occasional tertiary peristaltic contractions are noted in the thoracic esophagus during real-time fluoroscopy. The mucosa is normal and no persistent filling defect is encountered. No hiatal hernia is present. Mild gastroesophageal reflux is elicited with Valsalva and turning maneuver. IMPRESSION: Mild gastroesophageal reflux when the patient is supine and performs the Valsalva/turning maneuver. O therwise, no specific abnormality seen.
== END | disposition home or self-care (01) ==
LOC: RADCTMAIN 09:35
PROVIDERS: ATTEND Otolaryngology
DX: K21.9 Gastro-esophageal reflux disease without esophagitis (principal); J34.2 Deviated nasal septum
CPT/HCPCS: 70486; 74220

== ENCOUNTER → 2017-06-05 | Outpatient (CLI) | payer MEDICARE, OTHER | END | disposition home or self-care (01) | LOC: LABWHC1 09:37 | PROVIDERS: ATTEND Otolaryngology | DX: J30.89 Other allergic rhinitis (principal) | CPT/HCPCS: 36415 ==

== ENCOUNTER 2018-08-28 05:20 | Inpatient (IN) | payer MEDICARE, OTHER ==
[2018-08-28] MEDS ORDERED: MORPHINE SULFATE 4 MG/ML SYRINGE IVP STA (06:05)
--- NOTE | 2018-08-28 06:13 | ED ---
Extremity Problem HPI - General Chief complaint: Extremity Problem,Nontraumatic Stated complaint: Pain following surgery Time Seen by Provider: 08/28/18 05:58 Source: patient Mode of arrival: ambulatory Limitations: no limitations - History of Present Illness Initial comments: Sharon is a 67-year-old hand dominant female presents the ED today for evaluation of incisional site pain and drainage. Patient had surgery on bilateral thumbs on Sunday of her for treatment of tendinitis. Patient reports that she was initially doing well but has noticed progressively worsening redness of the bilateral thumbs however left is significantly worse than the right. Yesterday she noted purulent bloody drainage from the incision the left thumb. She's continued to take her home. Medications with no improvement. Today the pain became intolerable and she noticed there continued to be worsening swelling, redness, what appeared to be bruising and purulent drainage from the thumb which prompted her to come to the ER for reevaluation. Patient's been unable to move the left thumb due to pain. - Related Data Home Medications Medication Instructions Recorded Confirmed Citalopram Hydrobromide [CeleXA] 40 mg PO QAM 07/18/16 04/20/17 traZODone HCL 50 mg PO HS 07/18/16 04/20/17 Ascorbic Acid [Vitamin C] 500 mg PO DAILY 11/01/16 04/20/17 Aspirin [Adult Low Dose Aspirin EC] 81 mg PO W/SUPPER 11/01/16 04/20/17 Biotin 5 mg PO DAILY 11/01/16 04/20/17 Cholecalciferol [Vitamin D3] 2,000 unit PO DAILY 11/01/16 04/20/17 Citalopram Hydrobromide [CeleXA] 20 mg PO W/SUPPER 11/01/16 04/20/17 Flaxseed Oil [[place]-3 Flaxseed Oil] 1,000 mg PO W/SUPPER 11/01/16 04/20/17 L.acidoph,Paracasei, B.lactis 1 cap PO DAILY 11/01/16 04/20/17 [Probiotic] Naproxen Sodium [Aleve] 440 mg PO HS 11/01/16 04/20/17 Vitamin B Complex 1 cap PO DAILY 11/01/16 04/20/17 Benzonatate [Tessalon Perles] 100 mg PO HS 04/16/17 04/20/17 Ginkgo Biloba 1,000 mg PO W/SUPPER 04/16/17 04/20/17 Hydrochlorothiazide 25 mg PO W/SUPPER 04/16/17 04/20/17 Indacaterol/Glycopyrrolate 1 puff INHALATION BID 04/16/17 04/20/17 [Utibron Neohaler 27.5-15.6 Mcg] Montelukast [Singulair] 10 mg PO 1300 04/16/17 04/20/17 Famotidine [Pepcid] 1 tab PO DAILY 04/24/17 04/24/17 Previous Rx's Medication Instructions Recorded Albuterol Inhaler [Ventolin Hfa 1 - 2 puff INHALATION Q6HR PRN #1 11/16/16 Inhaler] inhaler Allergies Allergy/AdvReac Type Severity Reaction Status Date / Time lactose Allergy Unknown Verified 08/28/18 05:25 latex Allergy swelling,it Verified 08/28/18 05:25 moira,rash Penicillins Allergy Unknown Verified 08/28/18 05:25 Sulfa (Sulfonamide Allergy Unknown Verified 08/28/18 05:25 Antibiotics) zinc Allergy Unknown Verified 08/28/18 05:25 Review of Systems ROS Statement: Those systems with pertinent positive or pertinent negative responses have been documented in the HPI. ROS Other: All systems not noted in ROS Statement are negative. Past Medical History Past Medical History: COPD, GERD/Reflux, Hyperlipidemia, Hypertension, Pneumonia Additional Past Medical History / Comment(s): hx migraines, necrotising pneumonia 10/2016 with MSSA infection, emphysema, arthrtis in back, hypoglycemia History of Any Multi-Drug Resistant Organisms: MRSA Date of last positivie culture/infection: 09/20/2014 MDRO Source:: right hip Past Surgical History: Adenoidectomy, Appendectomy, Hernia Repair, Hysterectomy , Orthopedic Surgery, Tonsillectomy Additional Past Surgical History / Comment(s): rt rotator cuff repair, lysis of adhesions x 3, tendonitis bilateral thumbs. Past Anesthesia/Blood Transfusion Reactions: Motion Sickness, Postoperative Nausea & Vomiting (PONV) Additional Past Anesthesia/Blood Transfusion Reaction / Comment(s): claustrophobia Past Psychological History: Anxiety, Depression Smoking Status: Never smoker - Past Family History Mother Family Medical History: No Reported History Additional Family Medical History / Comment(s): . Father Additional Family Medical History / Comment(s): heart problems General Exam - General Exam Comments Initial Comments: Physical Exam GENERAL: Patient is well-developed and well-nourished. Patient is nontoxic and well-hydrated and is in moderate distress HENT: Normocephalic, Atraumatic. EYES: PERRL, EOMI PULMONARY: Unlabored respirations. No audible rales rhonchi or wheezing was noted. CARDIOVASCULAR: Cardiac, regular ABDOMEN: Soft and nontender with normal bowel sounds. SKIN: Left thumb with incision at the base of the thumb, incision is erythematous, there is purulent discharge, there is erythema and tenderness over the thenar eminence. Right thumb with well-healing surgical incision at the base of thumb, mild erythema no drainage : Deferred NEUROLOGIC: Patient is alert and oriented x3. Moving all extremities spontaneously MUSCULOSKELETAL: Decreased range of motion of bilateral thumb secondary to pain, able to move the right thumb with minimal discomfort, no range of motion of the left thumb secondary to discomfort PSYCHIATRIC: Normal psychiatric evaluation. Limitations: no limitations Limitations: no limitations Course Vital Signs 08/28/18 05:21 Temperature 98.6 F Pulse Rate 107 H Respiratory 24 Rate Blood Pressure 144/70 O2 Sat by Pulse 95 Oximetry Medical Decision Making - Medical Decision Making The patient was seen and evaluated history was obtained from the patient Physical exam is concerning for a postoperative infection, patient is tachycardic Sepsis workup was initiated Morphine was ordered for pain management Reveal leukocytosis with neutrophilia, lactic acidosis Patient care was discussed with Dr. Manan Elliott who recommends admission with IV Ancef, patient be made nothing by mouth, results to medicine Patient care was discussed with Ernestina for [facility] hospitalist group who is aware of the medical consult. Admission orders placed - Lab Data Result diagrams: 08/28/18 06:19 08/28/18 06:19 Lab Results 08/28/18 08/28/18 08/28/18 Range/Units 06:19 06:19 06:19 WBC (3.8-10.6) k/uL RBC (3.80-5.40) m/uL Hgb (11.4-16.0) gm/dL Hct (34.0-46.0) % MCV (80.0-100.0) fL MCH (25.0-35.0) pg MCHC (31.0-37.0) g/dL RDW (11.5-15.5) % Plt Count (150-450) k/uL Neutrophils % % Lymphocytes % % Monocytes % % Eosinophils % % Basophils % % Neutrophils # (1.3-7.7) k/uL Lymphocytes # (1.0-4.8) k/uL Monocytes # (0-1.0) k/uL Eosinophils # (0-0.7) k/uL Basophils # (0-0.2) k/uL PT 10.1 (9.0-12.0) sec INR 1.0 (<1.2) APTT 23.7 (22.0-30.0) sec Sodium 135 L (137-145) mmol/L Potassium 3.7 (3.5-5.1) mmol/L Chloride 100 (98-107) mmol/L Carbon Dioxide 23 (22-30) mmol/L Anion Gap 12 mmol/L BUN 15 (7-17) mg/dL Creatinine 0.53 (0.52-1.04) mg/dL Est GFR (CKD-EPI)AfAm >90 (>60 ml/min/1.73 sqM) Est GFR (CKD-EPI)NonAf >90 (>60 ml/min/1.73 sqM) Glucose 193 H (74-99) mg/dL Plasma Lactic Acid Rohan 2.6 H* (0.7-2.0) mmol/L Calcium 9.4 (8.4-10.2) mg/dL Total Bilirubin 0.5 (0.2-1.3) mg/dL AST 21 (14-36) U/L ALT 28 (9-52) U/L Alkaline Phosphatase 71 (38-126) U/L Total Protein 7.1 (6.3-8.2) g/dL Albumin 4.0 (3.5-5.0) g/dL 08/28/18 Range/Units 06:19 WBC 14.9 H (3.8-10.6) k/uL RBC 4.53 (3.80-5.40) m/uL Hgb 12.2 (11.4-16.0) gm/dL Hct 38.1 (34.0-46.0) % MCV 84.1 (80.0-100.0) fL MCH 26.9 (25.0-35.0) pg MCHC 32.0 (31.0-37.0) g/dL RDW 14.1 (11.5-15.5) % Plt Count 373 (150-450) k/uL Neutrophils % 87 % Lymphocytes % 5 % Monocytes % 5 % Eosinophils % 1 % Basophils % 0 % Neutrophils # 13.0 H (1.3-7.7) k/uL Lymphocytes # 0.8 L (1.0-4.8) k/uL Monocytes # 0.7 (0-1.0) k/uL Eosinophils # 0.2 (0-0.7) k/uL Basophils # 0.0 (0-0.2) k/uL PT (9.0-12.0) sec INR (<1.2) APTT (22.0-30.0) sec Sodium (137-145) mmol/L Potassium (3.5-5.1) mmol/L Chloride (98-107) mmol/L Carbon Dioxide (22-30) mmol/L Anion Gap mmol/L BUN (7-17) mg/dL Creatinine (0.52-1.04) mg/dL Est GFR (CKD-EPI)AfAm (>60 ml/min/1.73 sqM) Est GFR (CKD-EPI)NonAf (>60 ml/min/1.73 sqM) Glucose (74-99) mg/dL Plasma Lactic Acid Rohan (0.7-2.0) mmol/L Calcium (8.4-10.2) mg/dL Total Bilirubin (0.2-1.3) mg/dL AST (14-36) U/L ALT (9-52) U/L Alkaline Phosphatase (38-126) U/L Total Protein (6.3-8.2) g/dL Albumin (3.5-5.0) g/dL Disposition Clinical Impression: Sepsis Disposition: ADMITTED IP TO THIS HOSP Condition: Stable Referrals: Casey Frey MD [Primary Care Provider] - 1-2 days
[2018-08-28] MEDS: SODIUM CHLORIDE 0.9% 1,000 ML IV SCH ×3 (06:28→23:11)
[2018-08-28 06:29] LABS: Basophils % (A) 0 %; Eosinophils # (A) 0.2 k/uL (0-0.7); Eosinophils % (A) 1 %; HCT 38.1 % (34.0-46.0); HGB 12.2 gm/dL (11.4-16.0); Lymphocytes # (A) 0.8 k/uL (1.0-4.8); Lymphocytes % (A) 5 %; MCH 26.9 pg (25.0-35.0); MCV 84.1 fL (80.0-100.0); Mean Platelet Volume 6.4; Monocytes # (A) 0.7 k/uL (0-1.0); Monocytes % (A) 5 %; Neutrophils % (A) 87 %; Platelet Count 373 k/uL (150-450); RBC 4.53 m/uL (3.80-5.40); RDW 14.1 % (11.5-15.5); WBC 14.9 k/uL (3.8-10.6)
[2018-08-28 06:40] LABS: ALT 28 U/L (9-52); AST 21 U/L (14-36); Alkaline Phosphatase 71 U/L (38-126); Anion Gap 12 mmol/L; Blood Urea Nitrogen 15 mg/dL (7-17); Calcium 9.4 mg/dL (8.4-10.2); Carbon Dioxide 23 mmol/L (22-30); Chloride 100 mmol/L (98-107); Glucose 193 mg/dL (74-99); Partial Thromboplastin Time 23.7 sec (22.0-30.0); Potassium 3.7 mmol/L (3.5-5.1); Prothrombin Time 10.1 sec (9.0-12.0); Sodium 135 mmol/L (137-145); Total Bilirubin 0.5 mg/dL (0.2-1.3); Total Protein 7.1 g/dL (6.3-8.2)
--- NOTE | 2018-08-28 06:42 | XR ---
EXAMINATION TYPE: XR hand limited LT DATE OF EXAM: 08/28/2018 COMPARISON: NONE HISTORY: Pain and swelling TECHNIQUE: 2 views FINDINGS: There is soft tissue swelling of the hand. There is mild narrowing of the IP joint spaces w ith spurring. There is spurring and narrowing at the first carpometacarpal joint. There are no erosio ns. There is no subluxation. IMPRESSION: Osteoarthritis. Left hand soft tissue swelling. No fracture seen. No specific evidence fo r inflammatory arthritis.
[2018-08-28] MEDS ORDERED: ceFAZolin IN SWFI 2 GM/20 ML SYRINGE IVP ONE (06:48)
[2018-08-28] MEDS ORDERED: NALOXONE 0.4 MG/ML 1 ML VIAL IV PRN (06:50)
[2018-08-28] MEDS ORDERED: MORPHINE SULFATE 4 MG/ML SYRINGE IV PRN (06:50)
[2018-08-28] MEDS ORDERED: PNEUMOCOCCAL VACC-PNEUMOVAX 23 25 MCG/0.5 ML VIAL IM ONE (08:26)
--- NOTE | 2018-08-28 09:31 | P.HPOR ---
History of Present Illness H&P Date: 08/28/18 Chief Complaint: Left thumb infection The patient is a 67-year-old female who is known to our practice. She underwent a bilateral trigger thumb release by Dr. Michael Elliott on 2017 at [facility]. She did well postoperatively until yesterday when she noticed increased swelling and redness to her left thumb. Pain and swelling continued to worsen and she went to the emergency department early this morning. She states she is unable to move her thumb and is experiencing numbness to her fingertips. She denies fever, chills, rigors, shortness breath, chest pain, abdominal pain, nausea, and vomiting. The patient states that she did have problems with anesthesia last week which she experienced shortness of breath and difficulty breathing. She states that she is only been slipping on water this morning due to dry mouth. She denies diabetes but states she quit smoking yesterday. Her right thumb is also painful at times but states it's feeling okay. She denies drainage to the right thumb. Sutures are still in place bilaterally. In the emergency department she was found to have redness and swelling to her thumb. X-rays were taken which were negative for signs of osteomyelitis. Her white count and lactic acid were elevated. She also had an elevated glucose. She was started on IV antibiotics and admitted to our service for further evaluation and care. The patient states that she is a history of necrotizing pneumonia and has seen Dr. Barker in the past. Review of Systems Constitutional: Denies chills, Denies fever Cardiovascular: Denies chest pain, Denies shortness of breath Respiratory: Denies cough Gastrointestinal: Denies diarrhea, Denies nausea, Denies vomiting Musculoskeletal: bilateral: hand pain (Left worse than right) Past Medical History Past Medical History: COPD, GERD/Reflux, Hyperlipidemia, Hypertension, Osteoarthritis (OA), Pneumonia Additional Past Medical History / Comment(s): 2017 Necrotizing pneumonia L upper lobe/MSSA infection, bronchitis, migraines, low back pain, spastic colon, hiatal hernia, hypoglycemia, several kidney stones, polio at age 8 yrs and legs get weak at times, murmur when younger. History of Any Multi-Drug Resistant Organisms: MRSA Date of last positivie culture/infection: 09/20/2014 MDRO Source:: right hip Past Surgical History: Adenoidectomy, Appendectomy, Hernia Repair, Hysterectomy , Orthopedic Surgery, Tonsillectomy Additional Past Surgical History / Comment(s): 08/23/18 bilateral thumb surgery for tendonitis, bilateral carpal tunnel release, R rotator cuff repair and bicep tendon surgery, bronchoscopy with BAL, picc line, exp lap with lysis of adhesions x3, R inguinal hernia repair. Past Anesthesia/Blood Transfusion Reactions: Motion Sickness, Postoperative Nausea & Vomiting (PONV) Additional Past Anesthesia/Blood Transfusion Reaction / Comment(s): claustrophobia Smoking Status: Current every day smoker - Past Family History Mother Family Medical History: COPD, Hyperlipidemia, Hypertension, Thyroid Disorder Additional Family Medical History / Comment(s): Mother is . Father Additional Family Medical History / Comment(s): Father had heart disease-pt states she hasn't had contact with her father since she was age 14 yrs. Medications and Allergies Home Medications Medication Instructions Recorded Confirmed Type Citalopram Hydrobromide [CeleXA] 40 mg PO QAM 07/18/16 08/28/18 History traZODone HCL 50 - 100 mg PO HS 07/18/16 08/28/18 History Ascorbic Acid [Vitamin C] 500 mg PO DAILY 11/01/16 08/28/18 History Aspirin [Adult Low Dose Aspirin EC] 81 mg PO W/SUPPER 11/01/16 08/28/18 History Biotin 5 mg PO DAILY 11/01/16 08/28/18 History Cholecalciferol [Vitamin D3] 2,000 unit PO DAILY 11/01/16 08/28/18 History Citalopram Hydrobromide [CeleXA] 20 mg PO W/SUPPER 11/01/16 08/28/18 History Flaxseed Oil [[place]ypress-3 Flaxseed Oil] 1,000 mg PO BID 11/01/16 08/28/18 History L.acidoph,Paracasei, B.lactis 1 cap PO DAILY 11/01/16 08/28/18 History [Probiotic] Naproxen Sodium [Aleve] 440 mg PO HS 11/01/16 08/28/18 History Vitamin B Complex 1 cap PO DAILY 11/01/16 08/28/18 History Ginkgo Biloba 1,000 mg PO BID 04/16/17 08/28/18 History Hydrochlorothiazide 25 mg PO W/SUPPER 04/16/17 08/28/18 History Montelukast [Singulair] 10 mg PO DAILY@1300 04/16/17 08/28/18 History Albuterol Inhaler [Ventolin Hfa 2 puff INHALATION RT-BID 08/28/18 08/28/18 History Inhaler] Ibuprofen [Motrin Ib] 600 mg PO Q6H PRN 08/28/18 08/28/18 History Omeprazole 40 mg PO HS 08/28/18 08/28/18 History Allergies Allergy/AdvReac Type Severity Reaction Status Date / Time lactose Allergy Unknown Verified 08/28/18 08:03 latex Allergy swelling,it Verified 08/28/18 08:03 moira,rash Penicillins Allergy Unknown Verified 08/28/18 08:03 Sulfa (Sulfonamide Allergy Unknown Verified 08/28/18 08:03 Antibiotics) zinc Allergy Unknown Verified 08/28/18 08:03 Physical Examination The patient is a 67-year-old female who is in no acute distress. She is alert and oriented 3. Exam of the bilateral thumbs reveal increased redness and swelling to the volar aspect of the left thumb. There is also redness extending to the volar wrist. She has passive and active stretch pain to the left hand. There is numbness to her fingertips. There is moderate swelling to the dorsal aspect of the hand. No active drainage to the left thumb at this time. Exam of the right thumb reveals mild redness to the incision site. The patient is able to move her thumb with some stiffness. No active drainage to the right thumb. Sutures are in place bilaterally Neurological and circulatory status is intact bilaterally. Results - Labs Labs: Abnormal Lab Results - Last 24 Hours (Table) 08/28/18 08/28/18 08/28/18 Range/Units 06:19 06:19 06:19 WBC 14.9 H (3.8-10.6) k/uL Neutrophils # 13.0 H (1.3-7.7) k/uL Lymphocytes # 0.8 L (1.0-4.8) k/uL Sodium 135 L (137-145) mmol/L Glucose 193 H (74-99) mg/dL Plasma Lactic Acid Roahn 2.6 H* (0.7-2.0) mmol/L H & H 11/21/18 Range/Units 06:19 Hgb 12.2 (11.4-16.0) gm/dL Hct 38.1 (34.0-46.0) % Coagulation 08/28/18 Range/Units 06:19 INR 1.0 (<1.2) Result Diagrams: 08/28/18 06:19 08/28/18 06:19 - Diagnostic results Wrist/Hand x-ray: image reviewed (No signs of osteomyelitis or acute fracture seen.) Assessment and Plan (1) Surgical site infection Current Visit: Yes Status: Acute Code(s): T81.49XA - INFECTION FOLLOWING A PROCEDURE, OTHER SURGICAL SITE, INIT SNOMED Code(s): 52374021 (2) Flexor tenosynovitis of thumb Current Visit: Yes Status: Acute Code(s): M65.9 - SYNOVITIS AND TENOSYNOVITIS, UNSPECIFIED SNOMED Code(s): 863123751 (3) Sepsis Current Visit: Yes Status: Acute Code(s): A41.9 - SEPSIS, UNSPECIFIED ORGANISM SNOMED Code(s): 71916138 (4) Leukocytosis Current Visit: No Status: Acute Code(s): D72.829 - ELEVATED WHITE BLOOD CELL COUNT, UNSPECIFIED SNOMED Code(s): 733963650 Plan: The clinical and x-ray findings were discussed with the patient. The case was also discussed at length with Dr. Michael Elliott. The patient will undergo a formal incision and drainage in the operating room later this afternoon. She will remain nothing by mouth. Continue pain control with Dilaudid IV. Continue current antibiotics in the form of Kefzol. We will consult infectious disease for further guidance on antibiotic therapy. Cultures will be taken in the operating room today. Internal medicine will also be consulted for medical management. We will continue to follow patient closely and make further recommendations as needed.
[2018-08-28] MEDS ORDERED: ONDANSETRON 4 MG/2 ML VIAL IVP PRN (09:45)
[2018-08-28] MEDS: HYDROmorphone 1 MG/ML 1 ML SYRINGE IVP PRN ×3 (09:49→18:59)
[2018-08-28] MEDS: MORPHINE SULFATE 4 MG/ML SYRINGE IVP PRN ×2 (11:08→16:32)
--- NOTE | 2018-08-28 12:55 | P.CONS ---
History of Present Illness - History of Present Illness This is a pleasant 67 years old female with past medical history of COPD, GERD, hyperlipidemia, hypertension, osteoarthritis, left upper lobe pneumonia, migraines, low back pain, several kidney stones. Patient had recent surgery on 08/23/2018 for tendinitis as per records. Followed by worsening redness and tenderness of left side thumb . patient this afternoon she has a little bit drowsy from excessive pain medication as she has severe pain 10/10 this morning. Confirmed with staff. On admission her Vitas looks stable. Afebrile. Her oxygen saturation was 91 L on room air. WBC is 14.9 sodium 145. Creatinine 0.5. And high lactic acid of 2.6, and 2.1 and she is currently on normal saline and 125 mL/h. LFTs were unremarkable. Left hand x-ray showing soft tissue swelling with no fracture or arthritis as per report. Patient has been evaluated by orthopedic team and she is going for surgery today. Infectious diseases been consulted by primary team. Past Medical History Past Medical History: COPD, GERD/Reflux, Hyperlipidemia, Hypertension, Osteoarthritis (OA), Pneumonia Additional Past Medical History / Comment(s): 2017 Necrotizing pneumonia L upper lobe/MSSA infection, bronchitis, migraines, low back pain, spastic colon, hiatal hernia, hypoglycemia, several kidney stones, polio at age 8 yrs and legs get weak at times, murmur when younger. History of Any Multi-Drug Resistant Organisms: MRSA Year Discovered:: 09/20/2014 MDRO Source:: right hip Past Surgical History: Adenoidectomy, Appendectomy, Hernia Repair, Hysterectomy , Orthopedic Surgery, Tonsillectomy Additional Past Surgical History / Comment(s): 08/23/18 bilateral thumb surgery for tendonitis, bilateral carpal tunnel release, R rotator cuff repair and bicep tendon surgery, bronchoscopy with BAL, picc line, exp lap with lysis of adhesions x3, R inguinal hernia repair. Past Anesthesia/Blood Transfusion Reactions: Motion Sickness, Postoperative Nausea & Vomiting (PONV) Additional Past Anesthesia/Blood Transfusion Reaction / Comm: claustrophobia Smoking Status: Current every day smoker - Past Family History Mother Family Medical History: COPD, Hyperlipidemia, Hypertension, Thyroid Disorder Additional Family Medical History / Comment(s): Mother is . Father Additional Family Medical History / Comment(s): Father had heart disease-pt states she hasn't had contact with her father since she was age 14 yrs. Medications and Allergies Home Medications Medication Instructions Recorded Confirmed Type Citalopram Hydrobromide [CeleXA] 40 mg PO QAM 07/18/16 08/28/18 History traZODone HCL 50 - 100 mg PO HS 07/18/16 08/28/18 History Ascorbic Acid [Vitamin C] 500 mg PO DAILY 11/01/16 08/28/18 History Aspirin [Adult Low Dose Aspirin EC] 81 mg PO W/SUPPER 11/01/16 08/28/18 History Biotin 5 mg PO DAILY 11/01/16 08/28/18 History Cholecalciferol [Vitamin D3] 2,000 unit PO DAILY 11/01/16 08/28/18 History Citalopram Hydrobromide [CeleXA] 20 mg PO W/SUPPER 11/01/16 08/28/18 History Flaxseed Oil [[place]ullen-3 Flaxseed Oil] 1,000 mg PO BID 11/01/16 08/28/18 History L.acidoph,Paracasei, B.lactis 1 cap PO DAILY 11/01/16 08/28/18 History [Probiotic] Naproxen Sodium [Aleve] 440 mg PO HS 11/01/16 08/28/18 History Vitamin B Complex 1 cap PO DAILY 11/01/16 08/28/18 History Ginkgo Biloba 1,000 mg PO BID 04/16/17 08/28/18 History Hydrochlorothiazide 25 mg PO W/SUPPER 04/16/17 08/28/18 History Montelukast [Singulair] 10 mg PO DAILY@1300 04/16/17 08/28/18 History Albuterol Inhaler [Ventolin Hfa 2 puff INHALATION RT-BID 08/28/18 08/28/18 History Inhaler] Ibuprofen [Motrin Ib] 600 mg PO Q6H PRN 08/28/18 08/28/18 History Omeprazole 40 mg PO HS 08/28/18 08/28/18 History Allergies Allergy/AdvReac Type Severity Reaction Status Date / Time lactose Allergy Unknown Verified 08/28/18 12:33 latex Allergy swelling,it Verified 08/28/18 12:33 moira,rash Penicillins Allergy Unknown Verified 08/28/18 12:33 Sulfa (Sulfonamide Allergy Unknown Verified 08/28/18 12:33 Antibiotics) zinc Allergy Unknown Verified 08/28/18 12:33 Physical Exam Vitals: Vital Signs Temp Pulse Pulse Resp BP BP Pulse Ox 08/28/18 09:07 98.2 F 84 16 121/70 91 L 08/28/18 08:23 97.7 F 83 18 125/71 98 08/28/18 07:20 80 118/77 96 08/28/18 05:21 98.6 F 107 H 24 144/70 95 Intake and Output 08/27/18 08/28/18 08/28/18 22:59 06:59 14:59 Other: Weight 69.853 kg GENERAL: The patient is alert and oriented x3, not in any acute distress. Well developed, well nourished. HEENT: Pupils are round and equally reacting to light. EOMI. No scleral icterus. No conjunctival pallor. Normocephalic, atraumatic. No pharyngeal erythema. No thyromegaly. CARDIOVASCULAR: S1 and S2 present. No murmurs, rubs, or gallops. PULMONARY: Chest is clear to auscultation, no wheezing or crackles. ABDOMEN: Soft, nontender, nondistended, normoactive bowel sounds. No palpable organomegaly. MUSCULOSKELETAL: No joint swelling or deformity. EXTREMITIES: No cyanosis, clubbing, or pedal edema. -Left hand and forearms are swollen, warm and tender to touch. Left thumb is swollen, tender and there is less than 1 cm wound on the ventral aspect with surrounding cellulitis like no purulent discharge noted. Limited mobility due to swelling and pain. radial And ulnar pulses are present. NEUROLOGICAL: Gross neurological examination did not reveal any focal deficits. SKIN: No rashes. Results CBC & Chem 7: 08/28/18 06:19 08/28/18 06:19 Labs: Abnormal Lab Results - Last 24 Hours (Table) 08/28/18 08/28/18 08/28/18 Range/Units 06:19 06:19 06:19 WBC 14.9 H (3.8-10.6) k/uL Neutrophils # 13.0 H (1.3-7.7) k/uL Lymphocytes # 0.8 L (1.0-4.8) k/uL Sodium 135 L (137-145) mmol/L Glucose 193 H (74-99) mg/dL Plasma Lactic Acid Rohan 2.6 H* (0.7-2.0) mmol/L Assessment and Plan Assessment: Aside from, hand and forearm cellulitis Surgical site infection History of COPD, not in acute exacerbation History of GERD Hyperlipidemia Hypertension History of osteoarthritis History of left upper lobe pneumonia History of migraine Chronic low back pain History of several kidney stones Plan: This is a pleasant 67 years old female who presents because of left thumb and hand cellulitis. Patient is ordered and antibiotic. Infectious diseases been consulted. Continue with IV fluids. Labs and medication were reviewed.. Continue same treatment. Continue with symptomatic treatment. Resume home medication. Monitor lytes and vitals. DVT and GI prophylaxis. Further recommendations of the clinical course of the patient DVT prophylaxis: Subcutaneous heparin GI Prophylaxis: Pepcid Prognosis is guarded Thank you for consulting us, please feel free to contact us for any further question or concerns.
--- NOTE | 2018-08-28 14:16 | US ---
EXAMINATION TYPE: US venous doppler duplex UE DATE OF EXAM: 08/28/2018 COMPARISON: NONE CLINICAL HISTORY: left hand and forearm cellulitis . swollen and painful left arm SIDE PERFORMED: Left Left Arm: Appears negative for DVT and SVT Visualized portions of the left internal jugular vein, subclavian vein, axillary vein, brachial veins , basilic and cephalic veins, radial veins and ulnar veins show no abnormal luminal echoes, there is normal compressibility. Normal color flow in the visualized axillary vein, subclavian vein and left i nternal jugular vein. IMPRESSION: No evident deep venous thrombosis in the left upper extremity as visualized.
[2018-08-28] MEDS ORDERED: fentaNYL (PF) 50 MCG/ML 2 ML AMP IV PRN (19:15)
[2018-08-28] MEDS ORDERED: LACTATED RINGERS 1,000 ML IV SCH (19:15)
[2018-08-28] MEDS ORDERED: IV FLUID CONTINUATION 800 ML IV ONE (19:23)
[2018-08-28] MEDS ORDERED: MIDAZOLAM 2 MG/2 ML VIAL ONE (19:23)
[2018-08-28] MEDS ORDERED: PROPOFOL 10 MG/ML 20 ML VIAL IV ONE (19:23)
[2018-08-28] MEDS ORDERED: ROPIVACAINE 5 MG/ML 30 ML VIAL MISCELLANE ONE (19:30)
[2018-08-28] MEDS ORDERED: BUPIVACAINE (PF) 0.5% 30 ML VIAL SQ ONE (19:30)
[2018-08-28] MEDS ORDERED: VANCOMYCIN IV PER PHARMACY 1 EACH MISC MISCELLANE PRN (22:13)
[2018-08-28] MEDS: HYDROcodone/APAP 5-325MG 1 EACH TAB PO PRN (22:37)
[2018-08-28] MEDS: FAMOTIDINE 20 MG/2 ML VIAL IV SCH (22:37)
[2018-08-28] MEDS ORDERED: VANCOMYCIN 1,500 MG in SODIUM CHLORIDE 0.9% 250 ML IVPB ONE (23:00)
[2018-08-28] MEDS ORDERED: SODIUM CHLORIDE 0.9% 500 ML 500 ML IV ONE (23:07)
[2018-08-28] MEDS: HEPARIN SODIUM,PORCINE 5,000 UNIT/ML 1 ML VIAL SQ SCH (23:11)
[2018-08-29] MEDS: HYDROmorphone 1 MG/ML 1 ML SYRINGE IVP PRN ×5 (00:39→22:09)
[2018-08-29] MEDS ORDERED: SODIUM CHLORIDE 0.9% 1,000 ML IV ONE (02:04)
[2018-08-29] MEDS ORDERED: methylPREDNISolone SOD SUCCI 125 MG/2 ML VIAL IM ONE (02:10)
[2018-08-29] MEDS ORDERED: IPRATROPIUM-ALBUTEROL 3 ML NEB INHALATION PRN (02:11)
[2018-08-29] MEDS ORDERED: ACETAMINOPHEN TAB 325 MG TAB PO PRN (02:14)
[2018-08-29] MEDS ORDERED: ACETAMINOPHEN TAB 325 MG TAB PO STA (02:14)
--- NOTE | 2018-08-29 03:02 | CT ---
EXAMINATION TYPE: CT angio chest DATE OF EXAM: 08/29/2018 2:43 AM COMPARISON: 11/05/2016 HISTORY: R/O PE, BAO CT DLP: 396.30 mGycm Automated exposure control for dose reduction was used. CONTRAST: CTA scan of the thorax is performed with IV Contrast, patient injected with 80 mL of Isovue 370, pulm onary embolism protocol. There are 3-D post processed images.. FINDINGS: There is extensive bilateral patchy airspace and interstitial infiltrate throughout the lungs. Heart is enlarged. There is no pleural effusion. There is no pericardial effusion. Thoracic aorta is intact without evidence of aneurysm or dissection. There is normal contrast opacifi cation of the pulmonary arteries. I see no filling defect. There is no mediastinal adenopathy. There are no hilar masses. The bony thorax is intact. IMPRESSION: NO EVIDENCE OF PULMONARY EMBOLISM. EXTENSIVE BILATERAL INTERSTITIAL AND ALVEOLAR INFILTRATE IN THE DORIS NGS. THERE IS CLEARING OF A LARGE CAVITATING AREA OF CONSOLIDATION IN THE LEFT UPPER LOBE COMPARED TO OLD CT SCAN. OVERALL LUNG DISEASE IS NOT SIGNIFICANTLY DIFFERENT THAN OLD EXAM.
[2018-08-29 03:11] LABS: Basophils % (A) 0 %; Eosinophils # (A) 0.1 k/uL (0-0.7); Eosinophils % (A) 0 %; HGB 10.1 gm/dL (11.4-16.0); Hypochromasia Marked; Lymphocytes # (A) 0.6 k/uL (1.0-4.8); Lymphocytes % (A) 3 %; MCH 27.4 pg (25.0-35.0); MCHC 30.7 g/dL (31.0-37.0); Mean Platelet Volume 6.4; Monocytes # (A) 0.7 k/uL (0-1.0); Monocytes % (A) 4 %; Neutrophils # (A) 17.5 k/uL (1.3-7.7); Neutrophils % (A) 93 %; Platelet Count 313 k/uL (150-450); RBC 3.69 m/uL (3.80-5.40); RDW 13.9 % (11.5-15.5); WBC 18.9 k/uL (3.8-10.6)
[2018-08-29 03:19] LABS: Albumin 3.1 g/dL (3.5-5.0); Calcium 7.9 mg/dL (8.4-10.2); Potassium 4.3 mmol/L (3.5-5.1); Total Bilirubin 0.5 mg/dL (0.2-1.3); Total Protein 5.8 g/dL (6.3-8.2)
[2018-08-29 03:22] LABS: MCV 89.3 fL (80.0-100.0)
[2018-08-29] MEDS: HYDROcodone/APAP 5-325MG 1 EACH TAB PO PRN ×3 (03:30→16:01)
[2018-08-29] MEDS ORDERED: NALOXONE 0.4 MG/ML 1 ML VIAL IV PRN (03:52)
[2018-08-29 04:37] LABS: Magnesium 1.8 mg/dL (1.6-2.3); Phosphorus 4.4 mg/dL (2.5-4.5)
[2018-08-29] MEDS: SODIUM CHLORIDE 0.9% 1,000 ML IV SCH ×5 (05:12→21:15)
[2018-08-29 06:20] LABS: Appearance,Urine Clear (Clear); Bilirubin,Urine Negative (Negative); Blood,Urine Negative (Negative); Color,Urine Yellow; Glucose,Urine (UA) Negative (Negative); Ketones,Urine Negative (Negative); Leukocyte Esterase,Urine Negative (Negative); Mucus,Urine Rare /hpf; Nitrite,Urine Negative (Negative); PH, Urine 5.5 (5.0-8.0); Protein,Urine 1+ (Negative); RBC,Urine 4 /hpf (0-5); Squamous Epithelial Cell,Urine <1 /hpf (0-4); Urobilinogen,Urine <2.0 mg/dL (<2.0)
[2018-08-29 06:21] LABS: Specific Gravity,Urine >1.050 (1.001-1.035)
[2018-08-29] MEDS ORDERED: VANCOMYCIN 1,250 MG in SODIUM CHLORIDE 0.9% 250 ML IVPB SCH (07:00)
[2018-08-29 07:14] LABS: Glucose,Whole Blood 146 mg/dL (75-99)
[2018-08-29] MEDS ORDERED: methylPREDNISolone SOD SUCCI 125 MG/2 ML VIAL IV SCH (08:00)
[2018-08-29] MEDS: FAMOTIDINE 20 MG/2 ML VIAL IV SCH ×2 (08:44→20:16)
[2018-08-29] MEDS: HEPARIN SODIUM,PORCINE 5,000 UNIT/ML 1 ML VIAL SQ SCH ×2 (08:46→20:16)
--- NOTE | 2018-08-29 08:51 | CONS ---
CONSULTATION DATE OF SERVICE: 08/28/2018. REASON FOR CONSULTATION: Left hand surgical site infection. HISTORY OF PRESENT ILLNESS: The patient is a 67-year-old female, who underwent bilateral trigger thumb release by Dr. Elliott on 08/23/[address] [facility]. The patient did well postoperatively. However, yesterday morning she noticed having more swelling and redness and pain to the left thumb incision site that has gradually increased in size, becoming more painful. Pain described to be throbbing almost 10/10, with slight purulent drainage from it. The patient has been complaining of fever with rigors and chills. With these symptoms, the patient presented to the [facility] ER early this morning where the patient did have x-rays of the hand which were showing some soft tissue swelling but no other abnormality. The patient did not have any high- grade fever. Her white count was elevated at 14.9 and kidney function normal. However, the patient lactic acid was elevated 2.6. Subsequently the patient has been taken to the OR and is status post drainage of the abscess. She did receive cefazolin preoperatively and Infectious Disease was consulted for further recommendation regarding antibiotic therapy. REVIEW OF SYSTEMS: CONSTITUTIONAL: Positive for weakness along with the fever. Eyes no complaint. ENT no complaint. Respiratory no complaint. Cardiovascular no complaint. Genitourinary no complaint. Gastrointestinal: No complaint. Musculoskeletal as per HPI. Integumentary as per HPI. Psychological: No complaint. Endocrine no complaint. Neurologic no complaint. PAST MEDICAL HISTORY: COPD, gastroesophageal reflux disease, hyperlipidemia, hypertension, osteoarthritis, pneumonia. Previous history of MSSA infection as well as MRSA right hip infection. PAST SURGICAL HISTORY: Adenoidectomy, appendectomy, hernia repair, hysterectomy, tonsillectomy and bilateral thumb surgery for tendinitis, bilateral carpal tunnel release. SOCIAL HISTORY: The patient is a current everyday smoker. Denies drinking or drug use. FAMILY HISTORY: Mother with history hyperlipidemia, hypertension. Father with history of heart disease. ALLERGIES: TO PENICILLIN, SULFA, LATEX AND LACTOSE. MEDICATIONS: Include the patient is currently on [place], Pepcid, heparin, Dilaudid, lactated Ringer, morphine sulfate, Narcan, Zofran, pneumococcal vaccine and cefazolin 2 g x1. EXAMINATION: Her blood pressure is 100/55 with a pulse of 92, temperature 97. She is 94% on 2 L nasal cannula. General description is an elderly female, lying in bed in no distress. No tachypnea or accessory muscles of respiration use. HEENT: Shows no pallor or scleral icterus. Oral mucosa membranes are dry. No pharyngeal erythema or thrush. NECK: Trachea central. No thyromegaly. LUNGS: Unlabored breathing. Clear to auscultation anteriorly. No wheeze or crackles. Heart S1, S2. Regular rate and rhythm. ABDOMEN: Soft. No tenderness. No guarding or rigidity. Extremities: Examination of the left hand the thumb base is significantly swollen, red with some purulent drainage that was cultured. Very tender to touch. No foul smelling drainage. Neurological: Patient is awake, alert, oriented x3. Mood and affect normal. LABS: Hemoglobin is 12.2 with a white count of 14.9, BUN of 15, creatinine 0.53. Lactic acid 2.6 and electrolytes have been normal. Liver enzymes are normal. Blood culture obtained currently pending. DIAGNOSTIC IMPRESSION AND PLAN: 1. Patient with left thumb pain abscess in a patient who recently did have a bilateral thumb trigger release with the right hand surgical site healing well however has developed an infection to the left thumb incision site. The patient did have a history of both MSSA and MRSA infection however, with the likely need to cover for the MRSA to be the likely pathogen. 2. Patient did have PENICILLIN, SULFA ALLERGY that will limit the number of antibiotics that could be safely used. PLAN: 1. Vancomycin pharmacy to dose target trough of 15 while watching his kidney function and Vanco trough closely. 2. IV fluids. 3. Depending upon the clinical response as well as culture, we will adjust medications further if needed. Thank you for this consultation. Will follow this patient along with you. MMODL / IJN: [id number] / JENNIFER
[2018-08-29] MEDS ORDERED: PNEUMOCOCCAL VACC-PNEUMOVAX 23 25 MCG/0.5 ML VIAL IM ONE (09:00)
--- NOTE | 2018-08-29 09:48 | P.PN ---
Subjective Progress Note Date: 08/29/18 Principal diagnosis: Status post I&D left hand. Status post trigger finger release bilateral thumbs. This is a 67-year-old female who is status post incision and drainage of the left hand. She is status post bilateral trigger thumb release and began having redness and swelling to the left thumb. She has history of MRSA infection in the past. Surgical debridement was performed last evening. She was transferred to the ICU secondary to tachycardia and hypotension postoperatively. The patient is stabilizing and doing fairly well this morning. Objective - Vital Signs Vital signs: Vital Signs Temp 98.3 F 08/29/18 09:00 Pulse 73 08/29/18 09:30 Resp 13 08/29/18 09:30 BP 97/59 08/29/18 09:30 Pulse Ox 96 08/29/18 09:30 Intake & Output 08/28/18 08/29/18 08/29/18 18:59 06:59 18:59 Intake Total 1000 2625 575 Output Total 223 205 Balance 1000 2402 370 Intake: IV 2375 375 Sodium Chloride 0.9% 1, 125 375 000 ml @ 125 mls/hr IV . Q8H [facility] Rx#:[id number] Sodium Chloride 0.9% 1, 1000 000 ml @ 999 mls/hr IV . Q1H1M [facility] Rx#:[id number] Sodium Chloride 0.9% 1, 1000 000 ml @ 999 mls/hr IV . Q1H1M [facility] Rx#:[id number] Intake, IV Titration 1000 250 Amount Sodium Chloride 0.9% 1, 1000 000 ml @ 125 mls/hr IV . Q8H [facility] Rx#:[id number] Vancomycin 1,250 mg In 250 Sodium Chloride 0.9% 250 ml @ 125 mls/hr IVPB Q8H [facility] Rx#:[id number] Oral 200 Output: Urine 220 205 Estimated Blood Loss 3 Other: Voiding Method Toilet - Exam This is a pleasant 67-year-old female in no acute distress. She is alert and oriented 3. Her family is present at bedside. Exam of the left hand reveals that there is minimal drainage on the dressing. Packing is removed. There is flce-ei-bcassuhh swelling. No erythema. She has fairly good thumb motion at this time. Dressing is changed. A small corner of a 2 inch gauze is tucked into the wound and sterile dressing is applied. The patient tolerated the dressing change well. - Labs CBC & Chem 7: 08/29/18 02:47 08/29/18 02:47 Labs: Abnormal Lab Results - Last 24 Hours (Table) 08/28/18 08/29/18 08/29/18 Range/Units 11:47 02:00 02:47 WBC 18.9 H (3.8-10.6) k/uL RBC 3.69 L (3.80-5.40) m/uL Hgb 10.1 L (11.4-16.0) gm/dL Hct 33.0 L (34.0-46.0) % MCHC 30.7 L (31.0-37.0) g/dL Neutrophils # 17.5 H (1.3-7.7) k/uL Lymphocytes # 0.6 L (1.0-4.8) k/uL BUN (7-17) mg/dL Creatinine (0.52-1.04) mg/dL Glucose (74-99) mg/dL POC Glucose (mg/dL) (75-99) mg/dL Plasma Lactic Acid Rohan 2.1 H* 4.8 H* (0.7-2.0) mmol/L Calcium (8.4-10.2) mg/dL Total Protein (6.3-8.2) g/dL Albumin (3.5-5.0) g/dL Ur Specific [place] (1.001-1.035) Urine Protein (Negative) Urine Mucus (None) /hpf 08/29/18 08/29/18 08/29/18 Range/Units 02:47 05:50 07:12 WBC (3.8-10.6) k/uL RBC (3.80-5.40) m/uL Hgb (11.4-16.0) gm/dL Hct (34.0-46.0) % MCHC (31.0-37.0) g/dL Neutrophils # (1.3-7.7) k/uL Lymphocytes # (1.0-4.8) k/uL BUN 26 H (7-17) mg/dL Creatinine 1.36 H (0.52-1.04) mg/dL Glucose 123 H (74-99) mg/dL POC Glucose (mg/dL) 146 H (75-99) mg/dL Plasma Lactic Acid Rohan (0.7-2.0) mmol/L Calcium 7.9 L (8.4-10.2) mg/dL Total Protein 5.8 L (6.3-8.2) g/dL Albumin 3.1 L (3.5-5.0) g/dL Ur Specific [place] >1.050 H (1.001-1.035) Urine Protein 1+ H (Negative) Urine Mucus Rare H (None) /hpf Microbiology - Last 24 Hours (Table) 08/28/18 07:40 Gram Stain - Preliminary Finger - Left First Wound Culture - Preliminary 08/28/18 07:15 Blood Culture Gram Stain - Preliminary Blood 08/28/18 07:15 Blood Culture - Final Blood 08/28/18 07:40 Anaerobic Culture - Preliminary Finger - Left First 08/28/18 11:30 Gram Stain - Preliminary Hand - Left Wound Culture - Preliminary Assessment and Plan (1) Surgical site infection Current Visit: Yes Status: Acute Code(s): T81.49XA - INFECTION FOLLOWING A PROCEDURE, OTHER SURGICAL SITE, INIT SNOMED Code(s): 67382046 (2) Febrile illness, acute Current Visit: No Status: Acute Code(s): R50.9 - FEVER, UNSPECIFIED SNOMED Code(s): 378671057 Plan: The clinical findings are discussed with the patient. She will have daily dressing changes. Continue IV antibiotics per infectious disease.
--- NOTE | 2018-08-29 10:55 | P.CNPUL ---
History of Present Illness Consult date: 08/29/18 Requesting physician: Daniel E Sheet Reason for consult: other (Hypotension, tachycardia, and possible sepsis.) Chief complaint: Forearm swelling and cellulitis. 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 We have seen this patient over a year ago for her issue with recurrent pneumonia, and she was also seen by Dr. marrero for the same issue again about a year ago. Today I offered the patient to be seen by Dr. Marrero instead of us, however she declined. At any rate patient is also known to have history of COPD, hypertension, osteoarthritis, necrotizing pneumonia involving the left upper lobe, migraine cephalgia, kidney stones/nephrolithiasis, on 08/23/2018, patient underwent bilateral trigger thumb release by [facility] physician.. At [facility]. She did well postoperatively until 08/27/2018, patient was developing swelling and redness of the left thumb. Seen in the emergency room on 08/28/2018, and she was admitted and started on IV antibiotics. Patient was on surgical medical floor last night, however during the night, patient developed an episode of shortness of breath, tachycardia, hypotension, and she was wheezing. The rapid response team evaluated the patient, transferred to the ICU, given fluid boluses, did not require any norepinephrine. Patient was also given steroids, Benadryl, and Zantac. CT of the chest was done and it ruled out pulmonary embolism. I saw this patient this morning, and she seems to be doing quite well. She is asymptomatic, seems to be a bit sleepy however, but no shortness of breath no cough no wheezing, and her blood pressure is stable. Patient did not receive any pressors. When the patient was admitted, she was noted to have leukocytosis and elevated lactic acid hence the patient was basically septic from the time of admission. Patient has been on vancomycin as ordered by infectious disease consultation. CT of the chest showed no evidence of pulmonary embolism, but there was extensive bilateral interstitial and alveolar infiltrates and there is clearly evidence of clearing of her large cavitating area in the left upper lobe. Review of Systems Constitutional: Denies chills, Denies fever Cardiovascular: Denies chest pain, Denies palpitations. Respiratory: Denies shortness of breath, cough or wheezing at this point. Gastrointestinal: Denies diarrhea, Denies nausea, Denies vomiting Musculoskeletal: bilateral: hand pain (Left worse than right) 14 point review of systems was obtained, please refer to pertinent positives, otherwise remaining systems are negative. Past Medical History Past Medical History: COPD, GERD/Reflux, Hyperlipidemia, Hypertension, Osteoarthritis (OA), Pneumonia Additional Past Medical History / Comment(s): 2017 Necrotizing pneumonia L upper lobe/MSSA infection, bronchitis, migraines, low back pain, spastic colon, hiatal hernia, hypoglycemia, several kidney stones, polio at age 8 yrs and legs get weak at times, murmur when younger. History of Any Multi-Drug Resistant Organisms: MRSA Date of last positivie culture/infection: 09/20/2014 MDRO Source:: right hip Past Surgical History: Adenoidectomy, Appendectomy, Hernia Repair, Hysterectomy , Orthopedic Surgery, Tonsillectomy Additional Past Surgical History / Comment(s): 08/23/18 bilateral thumb surgery for tendonitis, bilateral carpal tunnel release, R rotator cuff repair and bicep tendon surgery, bronchoscopy with BAL, picc line, exp lap with lysis of adhesions x3, R inguinal hernia repair. Past Anesthesia/Blood Transfusion Reactions: Motion Sickness, Postoperative Nausea & Vomiting (PONV) Additional Past Anesthesia/Blood Transfusion Reaction / Comment(s): claustrophobia Smoking Status: Current every day smoker - Past Family History Mother Family Medical History: COPD, Hyperlipidemia, Hypertension, Thyroid Disorder Additional Family Medical History / Comment(s): Mother is . Father Additional Family Medical History / Comment(s): Father had heart disease-pt states she hasn't had contact with her father since she was age 14 yrs. Medications and Allergies Home Medications Medication Instructions Recorded Confirmed Type Citalopram Hydrobromide [CeleXA] 40 mg PO QAM 07/18/16 08/28/18 History traZODone HCL 50 - 100 mg PO HS 07/18/16 08/28/18 History Ascorbic Acid [Vitamin C] 500 mg PO DAILY 11/01/16 08/28/18 History Aspirin [Adult Low Dose Aspirin EC] 81 mg PO W/SUPPER 11/01/16 08/28/18 History Biotin 5 mg PO DAILY 11/01/16 08/28/18 History Cholecalciferol [Vitamin D3] 2,000 unit PO DAILY 11/01/16 08/28/18 History Citalopram Hydrobromide [CeleXA] 20 mg PO W/SUPPER 11/01/16 08/28/18 History Flaxseed Oil [[place]-3 Flaxseed Oil] 1,000 mg PO BID 11/01/16 08/28/18 History L.acidoph,Paracasei, B.lactis 1 cap PO DAILY 11/01/16 08/28/18 History [Probiotic] Naproxen Sodium [Aleve] 440 mg PO HS 11/01/16 08/28/18 History Vitamin B Complex 1 cap PO DAILY 11/01/16 08/28/18 History Ginkgo Biloba 1,000 mg PO BID 04/16/17 08/28/18 History Hydrochlorothiazide 25 mg PO W/SUPPER 04/16/17 08/28/18 History Montelukast [Singulair] 10 mg PO DAILY@1300 04/16/17 08/28/18 History Albuterol Inhaler [Ventolin Hfa 2 puff INHALATION RT-BID 08/28/18 08/28/18 History Inhaler] Ibuprofen [Motrin Ib] 600 mg PO Q6H PRN 08/28/18 08/28/18 History Omeprazole 40 mg PO HS 08/28/18 08/28/18 History Allergies Allergy/AdvReac Type Severity Reaction Status Date / Time lactose Allergy Unknown Verified 08/28/18 12:33 latex Allergy swelling,it Verified 08/28/18 12:33 moira,rash Penicillins Allergy Unknown Verified 08/28/18 12:33 Sulfa (Sulfonamide Allergy Unknown Verified 08/28/18 12:33 Antibiotics) zinc Allergy Unknown Verified 08/28/18 12:33 Physical Exam Vitals: Vital Signs Temp Pulse Pulse Pulse Resp BP BP 08/29/18 09:30 73 13 97/59 08/29/18 09:00 98.3 F 75 17 100/59 08/29/18 08:30 78 13 89/49 08/29/18 08:00 78 10 L 98/56 08/29/18 07:30 85 9 L 88/63 08/29/18 07:00 80 8 L 95/47 08/29/18 06:30 80 12 97/54 08/29/18 06:00 98.3 F 82 10 L 97/55 08/29/18 05:30 84 16 97/55 08/29/18 05:00 86 8 L 90/58 08/29/18 04:30 87 10 L 85/58 08/29/18 04:00 89 92 131 H 13 94/53 08/29/18 03:30 96 8 L 109/50 08/29/18 03:06 98 10 L 08/29/18 01:55 101.3 F H 08/29/18 01:50 131 H 150/81 08/29/18 01:40 100.7 F H 138 H 215/110 08/29/18 01:30 98.7 F 135 H 208/43 08/29/18 00:24 86 107/68 08/29/18 00:09 84 103/68 08/28/18 23:54 84 97/64 08/28/18 23:39 86 99/66 08/28/18 23:24 86 95/63 08/28/18 23:09 85 104/67 08/28/18 22:54 86 96/56 08/28/18 22:40 89 96/60 08/28/18 22:24 85 105/71 08/28/18 22:10 86 93/59 08/28/18 21:54 85 92/62 08/28/18 21:39 86 91/60 08/28/18 21:24 89 101/66 08/28/18 21:09 98.4 F 86 12 99/65 08/28/18 20:40 92 16 100/55 08/28/18 20:25 92 16 104/67 08/28/18 20:06 95 16 100/60 08/28/18 19:51 97 F L 97 16 104/66 08/28/18 19:28 98 F 105 H 18 100/54 08/28/18 16:42 16 Pulse Ox 08/29/18 09:30 96 08/29/18 09:00 98 08/29/18 08:30 97 08/29/18 08:00 96 08/29/18 07:30 98 08/29/18 07:00 95 08/29/18 06:30 96 08/29/18 06:00 97 08/29/18 05:30 96 08/29/18 05:00 95 08/29/18 04:30 95 08/29/18 04:00 95 08/29/18 03:30 94 L 08/29/18 03:06 94 L 08/29/18 01:55 08/29/18 01:50 100 08/29/18 01:40 88 L 08/29/18 01:30 84 L 08/29/18 00:24 96 08/29/18 00:09 96 08/28/18 23:54 96 08/28/18 23:39 95 08/28/18 23:24 96 08/28/18 23:09 96 08/28/18 22:54 08/28/18 22:40 97 08/28/18 22:24 95 08/28/18 22:10 08/28/18 21:54 95 08/28/18 21:39 08/28/18 21:24 94 L 08/28/18 21:09 97 08/28/18 20:40 94 L 08/28/18 20:25 94 L 08/28/18 20:06 100 08/28/18 19:51 100 08/28/18 19:28 96 08/28/18 16:42 Intake and Output 08/28/18 08/29/18 08/29/18 22:59 06:59 14:59 Intake Total 500 2125 575 Output Total 3 220 205 Balance 497 1905 370 Intake: IV 250 2125 375 Sodium Chloride 0.9% 1, 125 375 000 ml @ 125 mls/hr IV . [facility] Rx#:[id number] Sodium Chloride 0.9% 1, 1000 000 ml @ 999 mls/hr IV . Q1H1M [facility] Rx#:[id number] Sodium Chloride 0.9% 1, 1000 000 ml @ 999 mls/hr IV . Q1H1M [facility] Rx#:[id number] Intake, IV Titration 250 Amount Vancomycin 1,250 mg In 250 Sodium Chloride 0.9% 250 ml @ 125 mls/hr IVPB [facility] Rx#:[id number] Oral 200 Output: Urine 220 205 Estimated Blood Loss 3 Other: Voiding Method Toilet Toilet Physical Exam: Revealed a 67-year-old female in no distress. Head: Atraumatic, normocephalic. HEENT:[Neck is supple.] [No neck masses.] [No thyromegaly.] [No JVD.] PERRLA, EOMI, no icterus, no stridor. Chest: [Diminished breath sounds at the bases, no crackles, no rhonchi and no wheezes, no chest wall tenderness, symmetrical chest expansion noted. Cardiac Exam: [Normal S1 and S2, no S3 gallop, no murmur.] Abdomen: [Obese, Soft, nontender, no megaly, no rebound, no guarding, normal bowel sounds.] Extremities: [No clubbing, no edema, no cyanosis.] Left forearm is wrapped with sterile dressing, could not be examined, it will be examined by surgery on the case and the dressing will be changed this morning. Neurological Exam: [No focal neurologic deficit.] Psychiatric: Normal mood, affect and mental status examination. Results - Laboratory Findings CBC and BMP: 08/29/18 02:47 08/29/18 02:47 PT/INR, D-dimer PT 10.1 sec (9.0-12.0) 08/28/18 06:19 INR 1.0 (<1.2) 08/28/18 06:19 Abnormal lab findings: Abnormal Labs 08/28/18 08/28/18 08/28/18 06:19 06:19 06:19 WBC 14.9 H RBC Hgb Hct MCHC Neutrophils # 13.0 H Lymphocytes # 0.8 L Sodium 135 L BUN Creatinine Glucose 193 H POC Glucose (mg/dL) Plasma Lactic Acid Rohan 2.6 H* Calcium Total Protein Albumin Ur Specific [place] Urine Protein Urine Mucus 08/28/18 08/29/18 08/29/18 11:47 02:00 02:47 WBC 18.9 H RBC 3.69 L Hgb 10.1 L Hct 33.0 L MCHC 30.7 L Neutrophils # 17.5 H Lymphocytes # 0.6 L Sodium BUN Creatinine Glucose POC Glucose (mg/dL) Plasma Lactic Acid Rohan 2.1 H* 4.8 H* Calcium Total Protein Albumin Ur Specific [place] Urine Protein Urine Mucus 08/29/18 08/29/18 08/29/18 02:47 05:50 07:12 WBC RBC Hgb Hct MCHC Neutrophils # Lymphocytes # Sodium BUN 26 H Creatinine 1.36 H Glucose 123 H POC Glucose (mg/dL) 146 H Plasma Lactic Acid Rohan Calcium 7.9 L Total Protein 5.8 L Albumin 3.1 L Ur Specific [place] >1.050 H Urine Protein 1+ H Urine Mucus Rare H - Diagnostic Findings CT scan - chest: image reviewed (As noted in HPI.) Assessment and Plan Assessment: Impression: 1 acute presentation of sepsis, possible surgical site infection involving the left forearm. 2 questionable nonspecific ALLERGIC reaction, exact etiology is not clear, patient is presently asymptomatic, and responded to treatment with Benadryl, Solu-Medrol, and famotidine. Patient has multiple ALLERGIES including ALLERGY to latex, penicillin, sulfa, zinc, and lactulose. 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 4 history of underlying COPD, presently inactive. 5 multiple comorbidities including hypertension, hyperlipidemia, osteoarthritis , nephrolithiasis, chronic low back pain. And history of migraine cephalgia. Recommendation: Continue present treatment plan, I will go ahead and change Solu -Medrol to a Medrol Dosepak, continue antibiotics, continue Benadryl, and continue Pepcid. Patient will be monitored for next few hours in the ICU, and if remains stable we'll make arrangements for her to be transferred out of the ICU later today. Time with Patient: Greater than 30
--- NOTE | 2018-08-29 12:01 | P.PN ---
Subjective This is a pleasant 67 years old female with past medical history of COPD, GERD, hyperlipidemia, hypertension, osteoarthritis, left upper lobe pneumonia, migraines, low back pain, several kidney stones. Patient had recent surgery on 08/23/2018 for tendinitis as per records. Followed by worsening redness and tenderness of left side thumb . patient this afternoon she has a little bit drowsy from excessive pain medication as she has severe pain 10/10 this morning. Confirmed with staff. On admission her Vitas looks stable. Afebrile. Her oxygen saturation was 91 L on room air. WBC is 14.9 sodium 145. Creatinine 0.5. And high lactic acid of 2.6, and 2.1 and she is currently on normal saline and 125 mL/h. LFTs were unremarkable. Left hand x-ray showing soft tissue swelling with no fracture or arthritis as per report. Patient has been evaluated by orthopedic team and she is going for surgery today. Infectious diseases been consulted by primary team. 08/29/2018 Patient last night developed an episode of hypotension with shortness of breath and wheezing and tachycardia. Suspicious for ALLERGIC reaction so she was transferred to the ICU and given IV fluid, steroids and Zantac with Benadryl. CT of the chest was negative for PE. Patient this morning was sitting up in bed , she denies chest pain or dyspnea. She was fully awake and oriented. She still have some pain in her left stump site. she is a status post I and D of her left thumb base infection . Infectious disease consult is appreciated and they recommended to continue with IV fluids and vancomycin. CONSTITUTIONAL: No fever, no malaise, no fatigue. HEENT: No recent visual problems or hearing problems. Denied any sore throat. CARDIOVASCULAR: No orthopnea, PND, no palpitations, no syncope. PULMONARY: No shortness of breath, no cough, no hemoptysis. GASTROINTESTINAL: No diarrhea, no nausea, no vomiting, no abdominal pain. Normoactive bowel sounds. NEUROLOGICAL: No headaches, no weakness, no numbness. HEMATOLOGICAL: Denies any bleeding or petechiae. GENITOURINARY: Denies any burning micturition, frequency, or urgency. MUSCULOSKELETAL/RHEUMATOLOGICAL: Denies any joint pain, swelling, or any muscle pain. ENDOCRINE: Denies any polyuria or polydipsia. Labs and medications were reviewed Objective - Vital Signs Vital signs: Vital Signs Temp 98.3 F 08/29/18 09:00 Pulse 71 08/29/18 11:00 Resp 19 08/29/18 11:00 BP 100/60 08/29/18 11:00 Pulse Ox 98 08/29/18 11:00 Intake & Output 08/28/18 08/29/18 08/29/18 18:59 06:59 18:59 Intake Total 1000 2625 825 Output Total 223 360 Balance 1000 2402 465 Intake: IV 2375 625 Sodium Chloride 0.9% 1, 125 375 000 ml @ 125 mls/hr IV . Q8H [facility] Rx#:[id number] Sodium Chloride 0.9% 1, 1000 000 ml @ 999 mls/hr IV . Q1H1M [facility] Rx#:[id number] Sodium Chloride 0.9% 1, 1000 000 ml @ 999 mls/hr IV . Q1H1M [facility] Rx#:[id number] Vancomycin 1,250 mg In 250 Sodium Chloride 0.9% 250 ml @ 125 mls/hr IVPB Q8H [facility] Rx#:[id number] Intake, IV Titration 1000 250 Amount Sodium Chloride 0.9% 1, 1000 000 ml @ 125 mls/hr IV . Q8H [facility] Rx#:[id number] Vancomycin 1,250 mg In 250 Sodium Chloride 0.9% 250 ml @ 125 mls/hr IVPB Q8H [facility] Rx#:[id number] Oral 200 Output: Urine 220 360 Estimated Blood Loss 3 Other: Voiding Method Toilet Indwelling Catheter - Exam GENERAL: The patient is alert and oriented x3, not in any acute distress. Well developed, well nourished. HEENT: Pupils are round and equally reacting to light. EOMI. No scleral icterus. No conjunctival pallor. Normocephalic, atraumatic. No pharyngeal erythema. No thyromegaly. CARDIOVASCULAR: S1 and S2 present. No murmurs, rubs, or gallops. PULMONARY: Chest is clear to auscultation, no wheezing or crackles. ABDOMEN: Soft, nontender, nondistended, normoactive bowel sounds. No palpable organomegaly. MUSCULOSKELETAL: No joint swelling or deformity. EXTREMITIES: No cyanosis, clubbing, or pedal edema. -Left hand and forearms are swollen, warm and tender to touch. Left thumb is swollen, tender and there is less than 1 cm wound on the ventral aspect with surrounding cellulitis like no purulent discharge noted. Limited mobility due to swelling and pain. radial And ulnar pulses are present. NEUROLOGICAL: Gross neurological examination did not reveal any focal deficits. SKIN: No rashes. - Labs CBC & Chem 7: 08/29/18 02:47 08/29/18 02:47 Labs: Abnormal Lab Results - Last 24 Hours (Table) 08/28/18 08/29/18 08/29/18 Range/Units 11:47 02:00 02:47 WBC 18.9 H (3.8-10.6) k/uL RBC 3.69 L (3.80-5.40) m/uL Hgb 10.1 L (11.4-16.0) gm/dL Hct 33.0 L (34.0-46.0) % MCHC 30.7 L (31.0-37.0) g/dL Neutrophils # 17.5 H (1.3-7.7) k/uL Lymphocytes # 0.6 L (1.0-4.8) k/uL BUN (7-17) mg/dL Creatinine (0.52-1.04) mg/dL Glucose (74-99) mg/dL POC Glucose (mg/dL) (75-99) mg/dL Plasma Lactic Acid Rohan 2.1 H* 4.8 H* (0.7-2.0) mmol/L Calcium (8.4-10.2) mg/dL Total Protein (6.3-8.2) g/dL Albumin (3.5-5.0) g/dL Ur Specific [place] (1.001-1.035) Urine Protein (Negative) Urine Mucus (None) /hpf 08/29/18 08/29/18 08/29/18 Range/Units 02:47 05:50 07:12 WBC (3.8-10.6) k/uL RBC (3.80-5.40) m/uL Hgb (11.4-16.0) gm/dL Hct (34.0-46.0) % MCHC (31.0-37.0) g/dL Neutrophils # (1.3-7.7) k/uL Lymphocytes # (1.0-4.8) k/uL BUN 26 H (7-17) mg/dL Creatinine 1.36 H (0.52-1.04) mg/dL Glucose 123 H (74-99) mg/dL POC Glucose (mg/dL) 146 H (75-99) mg/dL Plasma Lactic Acid Rohan (0.7-2.0) mmol/L Calcium 7.9 L (8.4-10.2) mg/dL Total Protein 5.8 L (6.3-8.2) g/dL Albumin 3.1 L (3.5-5.0) g/dL Ur Specific [place] >1.050 H (1.001-1.035) Urine Protein 1+ H (Negative) Urine Mucus Rare H (None) /hpf Microbiology - Last 24 Hours (Table) 08/28/18 07:15 Blood Culture Gram Stain - Preliminary Blood 08/28/18 11:30 Gram Stain - Preliminary Hand - Left Wound Culture - Preliminary Presumptive Staph aureus 08/28/18 07:40 Gram Stain - Preliminary Finger - Left First Wound Culture - Preliminary 08/28/18 07:15 Blood Culture - Final Blood 08/28/18 07:40 Anaerobic Culture - Preliminary Finger - Left First Assessment and Plan Assessment: left side thumb , hand and forearm cellulitis Surgical site infection Possible ALLERGIC reaction Possible bilateral pneumonia High lactic acid, resolved Leukocytosis History of COPD, not in acute exacerbation History of GERD Hyperlipidemia Hypertension History of osteoarthritis History of left upper lobe pneumonia History of migraine Chronic low back pain History of several kidney stones Plan: This is a pleasant 67 years old female who presents because of left thumb and hand cellulitis. Continue with antibiotic as per Infectious diseases team.. Critical care team input is appreciated. Continue with IV fluids. Labs and medication were reviewed.. Continue same treatment. Continue with symptomatic treatment. Resume home medication. Monitor lytes and vitals. DVT and GI prophylaxis. Further recommendations of the clinical course of the patient DVT prophylaxis: Subcutaneous heparin GI Prophylaxis: Pepcid Prognosis is guarded Thank you for consulting us, please feel free to contact us for any further question or concerns.
[2018-08-29 12:03] LABS: Glucose,Whole Blood 169 mg/dL (75-99)
[2018-08-29] MEDS: CITALOPRAM HYDROBROMIDE 20 MG TAB PO SCH ×2 (12:24→18:18)
[2018-08-29] MEDS: MONTELUKAST 10 MG TAB PO SCH (13:11)
[2018-08-29] MEDS: methylPREDNISolone SOD SUCCI 125 MG/2 ML VIAL IV SCH ×2 (16:03→23:57)
[2018-08-29 16:52] LABS: Glucose,Whole Blood 187 mg/dL (75-99)
[2018-08-29] MEDS ORDERED: CITALOPRAM HYDROBROMIDE 20 MG TAB PO SCH (17:30)
[2018-08-29] MEDS: INSULIN ASPART 100 UNIT/ML 1 ML 10 ML VIAL SQ SCH ×2 (18:18→21:09)
[2018-08-29 20:11] LABS: Glucose,Whole Blood 201 mg/dL (75-99)
[2018-08-29] MEDS: traZODone HCL 50 MG TAB PO SCH (20:16)
[2018-08-29 21:09] LABS: Glucose,Whole Blood 189 mg/dL (75-99)
[2018-08-30] MEDS: HYDROmorphone 1 MG/ML 1 ML SYRINGE IVP PRN ×5 (01:20→20:02)
[2018-08-30 05:18] LABS: Basophils % (A) 0 %; Eosinophils % (A) 0 %; HCT 32.2 % (34.0-46.0); HGB 9.7 gm/dL (11.4-16.0); Hypochromasia Marked; Lymphocytes # (A) 0.9 k/uL (1.0-4.8); Lymphocytes % (A) 4 %; MCH 27.3 pg (25.0-35.0); MCHC 30.1 g/dL (31.0-37.0); MCV 90.7 fL (80.0-100.0); Mean Platelet Volume 6.8; Monocytes # (A) 0.6 k/uL (0-1.0); Monocytes % (A) 3 %; Neutrophils % (A) 93 %; Platelet Count 328 k/uL (150-450); RBC 3.55 m/uL (3.80-5.40); WBC 21.6 k/uL (3.8-10.6)
[2018-08-30 05:28] LABS: Anion Gap 7 mmol/L; Blood Urea Nitrogen 25 mg/dL (7-17); Calcium 8.7 mg/dL (8.4-10.2); Carbon Dioxide 21 mmol/L (22-30); Chloride 112 mmol/L (98-107); Glucose 143 mg/dL (74-99); Magnesium 2.2 mg/dL (1.6-2.3); Phosphorus 2.8 mg/dL (2.5-4.5); Potassium 5.1 mmol/L (3.5-5.1); Sodium 140 mmol/L (137-145)
[2018-08-30] MEDS ORDERED: VANCOMYCIN TROUGH DUE 1 EACH MISC MISCELLANE ONE (06:00)
[2018-08-30 06:58] LABS: Glucose,Whole Blood 158 mg/dL (75-99)
[2018-08-30] MEDS ORDERED: VANCOMYCIN 1,500 MG in SODIUM CHLORIDE 0.9% 250 ML IVPB SCH ×2 (08:00→20:00)
[2018-08-30] MEDS: FAMOTIDINE 20 MG/2 ML VIAL IV SCH (08:24)
[2018-08-30] MEDS: CITALOPRAM HYDROBROMIDE 20 MG TAB PO SCH ×2 (08:24→17:27)
[2018-08-30] MEDS: HEPARIN SODIUM,PORCINE 5,000 UNIT/ML 1 ML VIAL SQ SCH ×2 (08:25→22:10)
[2018-08-30] MEDS: ASCORBIC ACID 500 MG TAB PO SCH (08:25)
[2018-08-30] MEDS: INSULIN ASPART 100 UNIT/ML 1 ML 10 ML VIAL SQ SCH ×4 (08:25→22:13)
[2018-08-30] MEDS: methylPREDNISolone SOD SUCCI 125 MG/2 ML VIAL IV SCH (08:25)
[2018-08-30] MEDS: CHOLECALCIFEROL 1,000 UNIT TAB PO SCH (08:25)
--- NOTE | 2018-08-30 09:46 | PN ---
PROGRESS NOTE DATE OF SERVICE: 08/29/2018 REASON FOR FOLLOWUP: Left thumb base abscess with secondary bacteremia. INTERVAL HISTORY: The patient is afebrile. The patient did develop respiratory distress, tachypnea for which the patient was transferred down to the ICU. CT angiogram was negative for PE. The patient denies having any chest pain or shortness of breath. Occasional cough. No abdominal pain. Pain to the left thumb is currently controlled. PHYSICAL EXAMINATION: On examination, blood pressure 108/65, pulse of 90, temperature 98.1. She is 94% on 2 L nasal cannula. General description is an elderly female up in the bed in no distress. RESPIRATORY SYSTEM: Unlabored breathing with decreased breath sounds in the base. No wheeze. HEART: S1, S2. Regular rate and rhythm. ABDOMEN: Soft, no tenderness. Left hand is currently dressed up. No obvious drainage on the dressing. LABS: Hemoglobin is 10.1, white count of 18.9 with a BUN of 26, creatinine 1.36. Blood culture as well as the local culture positive for presumptive MRSA. DIAGNOSTIC IMPRESSION AND PLAN: Patient with a left thumb base abscess, status post drainage. Culture with methicillin- resistant Staphylococcus aureus with methicillin-resistant Staphylococcus aureus bacteremia. Blood culture has been repeated to document clearance of the bacteremia. The plan will be for vancomycin pharmacy to dose target of 15. We will wait for the blood cultures to be negative before placing a PICC line for outpatient IV antibiotic therapy. Continue supportive care. MMMARKL / MICHAELN: [id number] /
[2018-08-30] MEDS: SODIUM CHLORIDE 0.9% 1,000 ML IV SCH ×2 (09:48→15:35)
[2018-08-30] MEDS: HYDROcodone/APAP 5-325MG 1 EACH TAB PO PRN (10:36)
--- NOTE | 2018-08-30 10:46 | P.PN ---
Subjective Progress Note Date: 08/30/18 Principal diagnosis: Status post I&D left hand. Status post trigger finger release bilateral thumbs. This is a 67-year-old female who is status post incision and drainage of the left hand. She is status post bilateral trigger thumb release and began having redness and swelling to the left thumb. She has history of MRSA infection in the past. Surgical debridement was performed last evening. She was transferred to the ICU secondary to tachycardia and hypotension postoperatively. She remains in the ICU but should be transferred out to [facility] today. Objective - Vital Signs Vital signs: Vital Signs Temp 98.4 F 08/30/18 09:00 Pulse 79 08/30/18 10:00 Resp 20 08/30/18 10:00 BP 129/75 08/30/18 10:00 Pulse Ox 94 L 08/30/18 10:00 Intake & Output 08/29/18 08/30/18 08/30/18 18:59 06:59 18:59 Intake Total 1950 1625 740 Output Total 501 0 Balance 1449 1625 740 Weight 78.8 kg Intake: IV 1500 1625 250 Sodium Chloride 0.9% 1, 1250 1625 250 000 ml @ 125 mls/hr IV . Q8H NIRANJAN Rx#:[id number] Vancomycin 1,250 mg In 250 Sodium Chloride 0.9% 250 ml @ 125 mls/hr IVPB Q8H NIRANJAN Rx#:[id number] Intake, IV Titration 250 Amount Vancomycin 1,500 mg In 250 Sodium Chloride 0.9% 250 ml @ 125 mls/hr IVPB Q12H NIRANJAN Rx#:[id number] Oral 450 240 Output: Urine 501 0 Other: Voiding Method Indwelling Catheter Indwelling Catheter Toilet # Voids 1 1 - Exam This is a pleasant 67-year-old female in no acute distress. She is alert and oriented 3. Her family is present at bedside. Exam of the left hand reveals that there is minimal drainage on the dressing. There is [id number] swelling. No erythema. There is a small amount of purulent drainage noted. She has fairly good thumb motion at this time. Dressing is changed. - Labs CBC & Chem 7: 08/30/18 04:33 08/30/18 04:33 Labs: Abnormal Lab Results - Last 24 Hours (Table) 08/29/18 08/29/18 08/29/18 Range/Units 12:01 16:50 20:10 WBC (3.8-10.6) k/uL RBC (3.80-5.40) m/uL Hgb (11.4-16.0) gm/dL Hct (34.0-46.0) % MCHC (31.0-37.0) g/dL Neutrophils # (1.3-7.7) k/uL Lymphocytes # (1.0-4.8) k/uL Chloride (98-107) mmol/L Carbon Dioxide (22-30) mmol/L BUN (7-17) mg/dL Glucose (74-99) mg/dL POC Glucose (mg/dL) 169 H 187 H 201 H (75-99) mg/dL 08/29/18 08/30/18 08/30/18 Range/Units 21:07 04:33 04:33 WBC 21.6 H (3.8-10.6) k/uL RBC 3.55 L (3.80-5.40) m/uL Hgb 9.7 L (11.4-16.0) gm/dL Hct 32.2 L (34.0-46.0) % MCHC 30.1 L (31.0-37.0) g/dL Neutrophils # 20.0 H (1.3-7.7) k/uL Lymphocytes # 0.9 L (1.0-4.8) k/uL Chloride 112 H (98-107) mmol/L Carbon Dioxide 21 L (22-30) mmol/L BUN 25 H (7-17) mg/dL Glucose 143 H (74-99) mg/dL POC Glucose (mg/dL) 189 H (75-99) mg/dL 08/30/18 Range/Units 06:55 WBC (3.8-10.6) k/uL RBC (3.80-5.40) m/uL Hgb (11.4-16.0) gm/dL Hct (34.0-46.0) % MCHC (31.0-37.0) g/dL Neutrophils # (1.3-7.7) k/uL Lymphocytes # (1.0-4.8) k/uL Chloride (98-107) mmol/L Carbon Dioxide (22-30) mmol/L BUN (7-17) mg/dL Glucose (74-99) mg/dL POC Glucose (mg/dL) 158 H (75-99) mg/dL Microbiology - Last 24 Hours (Table) 08/29/18 02:47 Blood Culture - Preliminary Blood No Growth after 24 hours 08/29/18 01:55 Blood Culture - Preliminary Blood No Growth after 24 hours 08/28/18 07:40 Gram Stain - Preliminary Finger - Left First Wound Culture - Preliminary Presumptive MRSA 08/28/18 07:15 Blood Culture Gram Stain - Preliminary Blood Blood Culture - Preliminary Presumptive Staph aureus 08/28/18 11:30 Gram Stain - Preliminary Hand - Left Wound Culture - Preliminary Presumptive Staph aureus Assessment and Plan (1) Surgical site infection Current Visit: Yes Status: Acute Code(s): T81.49XA - INFECTION FOLLOWING A PROCEDURE, OTHER SURGICAL SITE, INIT SNOMED Code(s): 80516182 (2) Febrile illness, acute Current Visit: No Status: Acute Code(s): R50.9 - FEVER, UNSPECIFIED SNOMED Code(s): 898941219 Plan: The clinical findings are discussed with the patient. She will have daily dressing changes. Continue IV antibiotics per infectious disease.
[2018-08-30 11:51] LABS: Glucose,Whole Blood 140 mg/dL (75-99)
[2018-08-30] MEDS: IPRATROPIUM-ALBUTEROL 3 ML NEB INHALATION PRN ×3 (12:04→20:42)
--- NOTE | 2018-08-30 12:58 | P.PN ---
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 We have seen this patient over a year ago for her issue with recurrent pneumonia, and she was also seen by Dr. marrero for the same issue again about a year ago. Today I offered the patient to be seen by Dr. Marrero instead of us, however she declined. At any rate patient is also known to have history of COPD, hypertension, osteoarthritis, necrotizing pneumonia involving the left upper lobe, migraine cephalgia, kidney stones/nephrolithiasis, on 08/23/2018, patient underwent bilateral trigger thumb release by [facility] physician.. At [facility]. She did well postoperatively until 08/27/2018, patient was developing swelling and redness of the left thumb. Seen in the emergency room on 08/28/2018, and she was admitted and started on IV antibiotics. Patient was on surgical medical floor last night, however during the night, patient developed an episode of shortness of breath, tachycardia, hypotension, and she was wheezing. The rapid response team evaluated the patient, transferred to the ICU, given fluid boluses, did not require any norepinephrine. Patient was also given steroids, Benadryl, and Zantac. CT of the chest was done and it ruled out pulmonary embolism. I saw this patient this morning, and she seems to be doing quite well. She is asymptomatic, seems to be a bit sleepy however, but no shortness of breath no cough no wheezing, and her blood pressure is stable. Patient did not receive any pressors. When the patient was admitted, she was noted to have leukocytosis and elevated lactic acid hence the patient was basically septic from the time of admission. Patient has been on vancomycin as ordered by infectious disease consultation. CT of the chest showed no evidence of pulmonary embolism, but there was extensive bilateral interstitial and alveolar infiltrates and there is clearly evidence of clearing of her large cavitating area in the left upper lobe. Reevaluated today on 08/30/2018, patient is feeling much better, no active pulmonary symptoms today whatsoever. No cough no wheezing no shortness of breath. Patient remains hemodynamically stable, remains on antibiotics as per ID on the case. Labs were reviewed WBC count is 21.6 hemoglobin is 9.7, electrolytes and renal profile are normal. Blood cultures from the wound site came back positive for presumptive staph aureus. Patient remains on vancomycin. The blood cultures are negative so far. Objective - Vital Signs Vital signs: Vital Signs Temp 98.4 F 08/30/18 09:00 Pulse 71 08/30/18 12:15 Resp 20 08/30/18 10:00 BP 129/75 08/30/18 10:00 Pulse Ox 94 L 08/30/18 10:00 Intake & Output 08/29/18 08/30/18 08/30/18 18:59 06:59 18:59 Intake Total 1950 1625 740 Output Total 501 0 Balance 1449 1625 740 Weight 78.8 kg Intake: IV 1500 1625 250 Sodium Chloride 0.9% 1, 1250 1625 250 000 ml @ 125 mls/hr IV . Q8H NIRANJAN Rx#:[id number] Vancomycin 1,250 mg In 250 Sodium Chloride 0.9% 250 ml @ 125 mls/hr IVPB Q8H NIRANJAN Rx#:[id number] Intake, IV Titration 250 Amount Vancomycin 1,500 mg In 250 Sodium Chloride 0.9% 250 ml @ 125 mls/hr IVPB Q12H NIRANJAN Rx#:[id number] Oral 450 240 Output: Urine 501 0 Other: Voiding Method Indwelling Catheter Indwelling Catheter Toilet # Voids 1 1 - Exam Physical Exam: Revealed a 67-year-old female in no distress. Head: Atraumatic, normocephalic. HEENT:[Neck is supple.] [No neck masses.] [No thyromegaly.] [No JVD.] PERRLA, EOMI, no icterus, no stridor. Chest: [Diminished breath sounds at the bases, no crackles, no rhonchi and no wheezes, no chest wall tenderness, symmetrical chest expansion noted. Cardiac Exam: [Normal S1 and S2, no S3 gallop, no murmur.] Abdomen: [Obese, Soft, nontender, no megaly, no rebound, no guarding, normal bowel sounds.] Extremities: [No clubbing, no edema, no cyanosis.] Left forearm is wrapped with sterile dressing, could not be examined, it will be examined by surgery on the case and the dressing will be changed this morning. Neurological Exam: [No focal neurologic deficit.] Psychiatric: Normal mood, affect and mental status examination. - Labs CBC & Chem 7: 08/30/18 04:33 08/30/18 04:33 Labs: Abnormal Lab Results - Last 24 Hours (Table) 08/29/18 08/29/18 08/29/18 Range/Units 16:50 20:10 21:07 WBC (3.8-10.6) k/uL RBC (3.80-5.40) m/uL Hgb (11.4-16.0) gm/dL Hct (34.0-46.0) % MCHC (31.0-37.0) g/dL Neutrophils # (1.3-7.7) k/uL Lymphocytes # (1.0-4.8) k/uL Chloride (98-107) mmol/L Carbon Dioxide (22-30) mmol/L BUN (7-17) mg/dL Glucose (74-99) mg/dL POC Glucose (mg/dL) 187 H 201 H 189 H (75-99) mg/dL 08/30/18 08/30/18 08/30/18 Range/Units 04:33 04:33 06:55 WBC 21.6 H (3.8-10.6) k/uL RBC 3.55 L (3.80-5.40) m/uL Hgb 9.7 L (11.4-16.0) gm/dL Hct 32.2 L (34.0-46.0) % MCHC 30.1 L (31.0-37.0) g/dL Neutrophils # 20.0 H (1.3-7.7) k/uL Lymphocytes # 0.9 L (1.0-4.8) k/uL Chloride 112 H (98-107) mmol/L Carbon Dioxide 21 L (22-30) mmol/L BUN 25 H (7-17) mg/dL Glucose 143 H (74-99) mg/dL POC Glucose (mg/dL) 158 H (75-99) mg/dL 08/30/18 Range/Units 11:49 WBC (3.8-10.6) k/uL RBC (3.80-5.40) m/uL Hgb (11.4-16.0) gm/dL Hct (34.0-46.0) % MCHC (31.0-37.0) g/dL Neutrophils # (1.3-7.7) k/uL Lymphocytes # (1.0-4.8) k/uL Chloride (98-107) mmol/L Carbon Dioxide (22-30) mmol/L BUN (7-17) mg/dL Glucose (74-99) mg/dL POC Glucose (mg/dL) 140 H (75-99) mg/dL Microbiology - Last 24 Hours (Table) 08/29/18 02:47 Blood Culture - Preliminary Blood No Growth after 24 hours 08/29/18 01:55 Blood Culture - Preliminary Blood No Growth after 24 hours 08/28/18 07:40 Gram Stain - Preliminary Finger - Left First Wound Culture - Preliminary Presumptive MRSA 08/28/18 07:15 Blood Culture Gram Stain - Preliminary Blood Blood Culture - Preliminary Presumptive Staph aureus 08/28/18 11:30 Gram Stain - Preliminary Hand - Left Wound Culture - Preliminary Presumptive Staph aureus Assessment and Plan Assessment: Impression: 1 acute presentation of sepsis, possible surgical site infection involving the left forearm. Secondary to presumptive staph aureus. 2 questionable nonspecific ALLERGIC reaction, exact etiology is not clear, patient is presently asymptomatic, and responded to treatment with Benadryl, Solu-Medrol, and famotidine. Patient has multiple ALLERGIES including ALLERGY to latex, penicillin, sulfa, zinc, and lactulose. 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 4 history of underlying COPD, presently inactive. 5 multiple comorbidities including hypertension, hyperlipidemia, osteoarthritis , nephrolithiasis, chronic low back pain. And history of migraine cephalgia. Recommendation: Continue present treatment plan, including Medrol Dosepak,, continue antibiotics, continue Benadryl, and continue Pepcid. Transfer patient out of the ICU to a regular medical floor. We'll continue to follow. Time with Patient: Less than 30
[2018-08-30] MEDS: MONTELUKAST 10 MG TAB PO SCH (13:21)
--- NOTE | 2018-08-30 15:54 | P.PN ---
Subjective This is a pleasant 67 years old female with past medical history of COPD, GERD, hyperlipidemia, hypertension, osteoarthritis, left upper lobe pneumonia, migraines, low back pain, several kidney stones. Patient had recent surgery on 08/23/2018 for tendinitis as per records. Followed by worsening redness and tenderness of left side thumb . patient this afternoon she has a little bit drowsy from excessive pain medication as she has severe pain 10/10 this morning. Confirmed with staff. On admission her Vitas looks stable. Afebrile. Her oxygen saturation was 91 L on room air. WBC is 14.9 sodium 145. Creatinine 0.5. And high lactic acid of 2.6, and 2.1 and she is currently on normal saline and 125 mL/h. LFTs were unremarkable. Left hand x-ray showing soft tissue swelling with no fracture or arthritis as per report. Patient has been evaluated by orthopedic team and she is going for surgery today. Infectious diseases been consulted by primary team. 08/29/2018 Patient last night developed an episode of hypotension with shortness of breath and wheezing and tachycardia. Suspicious for ALLERGIC reaction so she was transferred to the ICU and given IV fluid, steroids and Zantac with Benadryl. CT of the chest was negative for PE. Patient this morning was sitting up in bed , she denies chest pain or dyspnea. She was fully awake and oriented. She still have some pain in her left stump site. she is a status post I and D of her left thumb base infection . Infectious disease consult is appreciated and they recommended to continue with IV fluids and vancomycin. 08/30/2018 Patient was seen and examined today in the ICU, she was up going to take a shower feeling improving. No dizziness. No chest pain or dyspnea. She still have some significant pain in her left stump and surgical site area. Vital signs stable, however she still have leukocytosis at 21.6, getting worse from 18.9. Creatinine 0.59, potassium 5.1 sodium 140. Medical causes controlled. Wound culture is growing MRSA, as well as blood culture. Patient is already on vancomycin. Infectious disease R following the patient. Critical care team evaluation is appreciated and they recommended transfer the patient to the general medical floor. Surgical team input is appreciated. CONSTITUTIONAL: No fever, no malaise, no fatigue. HEENT: No recent visual problems or hearing problems. Denied any sore throat. CARDIOVASCULAR: No orthopnea, PND, no palpitations, no syncope. PULMONARY: No shortness of breath, no cough, no hemoptysis. GASTROINTESTINAL: No diarrhea, no nausea, no vomiting, no abdominal pain. Normoactive bowel sounds. NEUROLOGICAL: No headaches, no weakness, no numbness. HEMATOLOGICAL: Denies any bleeding or petechiae. GENITOURINARY: Denies any burning micturition, frequency, or urgency. MUSCULOSKELETAL/RHEUMATOLOGICAL: Denies any joint pain, swelling, or any muscle pain. ENDOCRINE: Denies any polyuria or polydipsia. Labs and medications were reviewed Objective - Vital Signs Vital signs: Vital Signs Temp 98.8 F 08/30/18 12:00 Pulse 79 08/30/18 15:41 Resp 18 08/30/18 12:00 BP 124/73 08/30/18 12:00 Pulse Ox 94 L 08/30/18 12:00 Intake & Output 08/29/18 08/30/18 08/30/18 18:59 06:59 18:59 Intake Total 1950 1625 1365 Output Total 501 0 Balance 1449 1625 1365 Weight 78.8 kg Intake: IV 1500 1625 875 Sodium Chloride 0.9% 1, 1250 1625 875 000 ml @ 125 mls/hr IV . Q8H NIRANJAN Rx#:[id number] Vancomycin 1,250 mg In 250 Sodium Chloride 0.9% 250 ml @ 125 mls/hr IVPB Q8H NIRANJAN Rx#:[id number] Intake, IV Titration 250 Amount Vancomycin 1,500 mg In 250 Sodium Chloride 0.9% 250 ml @ 125 mls/hr IVPB Q12H NIRANJAN Rx#:[id number] Oral 450 240 Output: Urine 501 0 Other: Voiding Method Indwelling Catheter Indwelling Catheter Toilet # Voids 1 1 1 - Exam GENERAL: The patient is alert and oriented x3, not in any acute distress. Well developed, well nourished. HEENT: Pupils are round and equally reacting to light. EOMI. No scleral icterus. No conjunctival pallor. Normocephalic, atraumatic. No pharyngeal erythema. No thyromegaly. CARDIOVASCULAR: S1 and S2 present. No murmurs, rubs, or gallops. PULMONARY: Chest is clear to auscultation, no wheezing or crackles. ABDOMEN: Soft, nontender, nondistended, normoactive bowel sounds. No palpable organomegaly. MUSCULOSKELETAL: No joint swelling or deformity. EXTREMITIES: No cyanosis, clubbing, or pedal edema. -Left hand and forearms are swollen, warm and tender to touch. Left thumb is swollen, tender and there is less than 1 cm wound on the ventral aspect with surrounding cellulitis like no purulent discharge noted. Limited mobility due to swelling and pain. radial And ulnar pulses are present. NEUROLOGICAL: Gross neurological examination did not reveal any focal deficits. SKIN: No rashes. - Labs CBC & Chem 7: 08/30/18 04:33 08/30/18 04:33 Labs: Abnormal Lab Results - Last 24 Hours (Table) 08/29/18 08/29/18 08/29/18 Range/Units 16:50 20:10 21:07 WBC (3.8-10.6) k/uL RBC (3.80-5.40) m/uL Hgb (11.4-16.0) gm/dL Hct (34.0-46.0) % MCHC (31.0-37.0) g/dL Neutrophils # (1.3-7.7) k/uL Lymphocytes # (1.0-4.8) k/uL Chloride (98-107) mmol/L Carbon Dioxide (22-30) mmol/L BUN (7-17) mg/dL Glucose (74-99) mg/dL POC Glucose (mg/dL) 187 H 201 H 189 H (75-99) mg/dL 08/30/18 08/30/18 08/30/18 Range/Units 04:33 04:33 06:55 WBC 21.6 H (3.8-10.6) k/uL RBC 3.55 L (3.80-5.40) m/uL Hgb 9.7 L (11.4-16.0) gm/dL Hct 32.2 L (34.0-46.0) % MCHC 30.1 L (31.0-37.0) g/dL Neutrophils # 20.0 H (1.3-7.7) k/uL Lymphocytes # 0.9 L (1.0-4.8) k/uL Chloride 112 H (98-107) mmol/L Carbon Dioxide 21 L (22-30) mmol/L BUN 25 H (7-17) mg/dL Glucose 143 H (74-99) mg/dL POC Glucose (mg/dL) 158 H (75-99) mg/dL 08/30/18 Range/Units 11:49 WBC (3.8-10.6) k/uL RBC (3.80-5.40) m/uL Hgb (11.4-16.0) gm/dL Hct (34.0-46.0) % MCHC (31.0-37.0) g/dL Neutrophils # (1.3-7.7) k/uL Lymphocytes # (1.0-4.8) k/uL Chloride (98-107) mmol/L Carbon Dioxide (22-30) mmol/L BUN (7-17) mg/dL Glucose (74-99) mg/dL POC Glucose (mg/dL) 140 H (75-99) mg/dL Microbiology - Last 24 Hours (Table) 08/28/18 07:15 Blood Culture Gram Stain - Final Blood Blood Culture - Final Staphylococcus aureus 08/28/18 11:30 Gram Stain - Final Hand - Left Wound Culture - Final Staphylococcus aureus 08/29/18 02:47 Blood Culture - Preliminary Blood No Growth after 24 hours 08/29/18 01:55 Blood Culture - Preliminary Blood No Growth after 24 hours 08/28/18 07:40 Gram Stain - Preliminary Finger - Left First Wound Culture - Preliminary Presumptive MRSA Assessment and Plan Assessment: left side thumb , hand and forearm cellulitis Surgical site infection Possible ALLERGIC reaction Possible bilateral pneumonia High lactic acid, resolved Leukocytosis History of COPD, not in acute exacerbation History of GERD Hyperlipidemia Hypertension History of osteoarthritis History of left upper lobe pneumonia History of migraine Chronic low back pain History of several kidney stones Plan: This is a pleasant 67 years old female who presents because of left thumb and hand cellulitis. Continue with antibiotic as per Infectious diseases team.. Critical care team input is appreciated. Continue with IV fluids. Labs and medication were reviewed.. Continue same treatment. Continue with symptomatic treatment. Resume home medication. Monitor lytes and vitals. DVT and GI prophylaxis. Further recommendations of the clinical course of the patient DVT prophylaxis: Subcutaneous heparin GI Prophylaxis: Pepcid Prognosis is guarded Thank you for consulting us, please feel free to contact us for any further question or concerns.
[2018-08-30 17:15] LABS: Hemoglobin A1C 6.7 % (4.0-6.0)
[2018-08-30 17:17] LABS: Glucose,Whole Blood 142 mg/dL (75-99)
[2018-08-30] MEDS: methylPREDNISolone 4 MG TAB TAPER PO SCH (17:32)
[2018-08-30] MEDS ORDERED: PNEUMOCOCCAL VACC-PNEUMOVAX 23 25 MCG/0.5 ML VIAL IM ONE (20:00)
[2018-08-30] MEDS: traZODone HCL 50 MG TAB PO SCH (22:10)
[2018-08-30] MEDS: FAMOTIDINE 20 MG TAB PO SCH (22:10)
[2018-08-31] MEDS: SODIUM CHLORIDE 0.9% 1,000 ML IV SCH ×2 (00:53→12:30)
--- NOTE | 2018-08-31 02:37 | PN ---
PROGRESS NOTE DATE OF SERVICE: 08/30/2018. REASON FOR FOLLOWUP: Left hand MRSA abscess with secondary bacteremia. INTERVAL HISTORY: The patient is afebrile. She has been breathing comfortably. Denies significant chest pain. Occasional cough. No abdominal pain. Pain to the left foot currently controlled and no diarrhea. EXAMINATION: Blood pressure 139/96, pulse of 83, temperature is 97.5. She is 96% on 2 L nasal cannula. General description is an elderly female up in the bed in no distress. Respiratory system: Unlabored breathing with decreased breath sounds at bases. No wheeze. Heart S1, S2. Regular rate and rhythm. Abdomen soft, no tenderness. Left foot is currently dressed up. No obvious drainage on the dressing. LABS: Hemoglobin 9.7, white count 1.6, BUN of 25, creatinine 0.59. Culture finalized with MSSA both in the hand as well as blood cultures. DIAGNOSTIC IMPRESSION AND PLAN: Patient with left hand abscess with secondary cellulitis, culture now with MSSA. The antibiotic will be adjusted to cefazolin 2 g q.8 hours. Discontinue the vancomycin. The patient will need a PICC line and outpatient IV antibiotic therapy because of her bacteremia. Continue supportive care. MMODL / IJN: [id number] / JENNIFER
[2018-08-31] MEDS: HYDROmorphone 1 MG/ML 1 ML SYRINGE IVP PRN ×5 (06:40→21:44)
[2018-08-31] MEDS ORDERED: VANCOMYCIN TROUGH DUE 1 EACH MISC MISCELLANE ONE (07:00)
[2018-08-31 07:51] LABS: Glucose,Whole Blood 115 mg/dL (75-99)
[2018-08-31] MEDS: INSULIN ASPART 100 UNIT/ML 1 ML 10 ML VIAL SQ SCH ×4 (08:00→21:45)
[2018-08-31] MEDS: ceFAZolin IN SWFI 2 GM/20 ML SYRINGE IVP SCH ×2 (08:44→15:19)
--- NOTE | 2018-08-31 08:44 | P.PN ---
Subjective Progress Note Date: 08/31/18 Principal diagnosis: Status post I&D left hand. Status post trigger finger release bilateral thumbs. This is a 67-year-old female who is status post incision and drainage of the left hand. She is status post bilateral trigger thumb release and began having redness and swelling to the left thumb. She has history of MRSA infection in the past. Surgical debridement was performed. She was transferred to the ICU secondary to tachycardia and hypotension postoperatively. She has not been transferred to [facility]. She states that her right thumb incision is now red and swollen. Objective - Vital Signs Vital signs: Vital Signs Temp 97.9 F 08/31/18 07:23 Pulse 84 08/31/18 07:23 Resp 18 08/31/18 07:23 BP 132/84 08/31/18 07:23 Pulse Ox 97 08/31/18 07:23 Intake & Output 08/30/18 08/31/18 08/31/18 18:59 06:59 18:59 Intake Total 1880 Balance 1880 Intake: IV 1150 Sodium Chloride 0.9% 1, 1150 000 ml @ 75 mls/hr IV . [id number] NIRANJAN Rx#:[id number] Intake, IV Titration 250 Amount Vancomycin 1,500 mg In 250 Sodium Chloride 0.9% 250 ml @ 125 mls/hr IVPB Q12H NIRANJAN Rx#:[id number] Oral 480 Other: Voiding Method Toilet # Voids 1 1 - Exam This is a pleasant 67-year-old female in no acute distress. She is alert and oriented 3. Her family is present at bedside. Exam of the left hand reveals that there is minimal drainage on the dressing. There is [id number] swelling. No erythema. There is a small amount of purulent drainage noted. She has fairly good thumb motion at this time. Dressing is changed. Exam of the right thumb reveals mild increased swelling about the incision. Mild erythema. No purulent drainage noted. There is a small gaping of the incision. One stitch is removed and the area is cleansed with antiseptic. She has normal thumb motion without difficulty or pain. Neurovascular status to the upper extremities is intact. - Labs CBC & Chem 7: 08/30/18 04:33 08/30/18 04:33 Labs: Abnormal Lab Results - Last 24 Hours (Table) 08/30/18 08/30/18 08/30/18 Range/Units 04:33 11:49 17:16 POC Glucose (mg/dL) 140 H 142 H (75-99) mg/dL Hemoglobin A1c 6.7 H (4.0-6.0) % 08/31/18 Range/Units 07:45 POC Glucose (mg/dL) 115 H (75-99) mg/dL Hemoglobin A1c (4.0-6.0) % Microbiology - Last 24 Hours (Table) 08/29/18 02:47 Blood Culture - Preliminary Blood No Growth after 48 hours 08/29/18 01:55 Blood Culture - Preliminary Blood No Growth after 48 hours 08/28/18 07:40 Gram Stain - Final Finger - Left First Wound Culture - Final Staphylococcus aureus 08/28/18 07:40 Anaerobic Culture - Preliminary Finger - Left First 08/28/18 07:15 Blood Culture Gram Stain - Final Blood Blood Culture - Final Staphylococcus aureus 08/28/18 11:30 Gram Stain - Final Hand - Left Wound Culture - Final Staphylococcus aureus Assessment and Plan (1) Surgical site infection Current Visit: Yes Status: Acute Code(s): T81.49XA - INFECTION FOLLOWING A PROCEDURE, OTHER SURGICAL SITE, INIT SNOMED Code(s): 88257388 (2) Febrile illness, acute Current Visit: No Status: Acute Code(s): R50.9 - FEVER, UNSPECIFIED SNOMED Code(s): 991490703 Plan: The clinical findings are discussed with the patient. She will have daily dressing changes. I did remove one stitch from the right thumb incision and cleansed with antiseptic. I put a light dressing over the area. Continue IV antibiotics per infectious disease.
[2018-08-31] MEDS: FAMOTIDINE 20 MG TAB PO SCH ×2 (08:46→21:41)
[2018-08-31] MEDS: methylPREDNISolone 4 MG TAB TAPER PO SCH (08:46)
[2018-08-31] MEDS: HYDROcodone/APAP 5-325MG 1 EACH TAB PO PRN ×2 (08:50→18:04)
[2018-08-31] MEDS: CHOLECALCIFEROL 1,000 UNIT TAB PO SCH (09:32)
[2018-08-31] MEDS: HEPARIN SODIUM,PORCINE 5,000 UNIT/ML 1 ML VIAL SQ SCH ×2 (09:32→21:45)
[2018-08-31] MEDS: ASCORBIC ACID 500 MG TAB PO SCH (09:32)
[2018-08-31] MEDS: CITALOPRAM HYDROBROMIDE 20 MG TAB PO SCH ×2 (09:32→18:44)
[2018-08-31 10:26] LABS: Basophils % (A) 0 %; Eosinophils % (A) 0 %; HCT 31.5 % (34.0-46.0); HGB 9.8 gm/dL (11.4-16.0); Hypochromasia Moderate; Lymphocytes # (A) 1.3 k/uL (1.0-4.8); Lymphocytes % (A) 9 %; Mean Platelet Volume 6.6; Monocytes # (A) 0.6 k/uL (0-1.0); Monocytes % (A) 4 %; Neutrophils # (A) 13.1 k/uL (1.3-7.7); Neutrophils % (A) 86 %; Platelet Count 409 k/uL (150-450); RBC 3.62 m/uL (3.80-5.40); RDW 14.1 % (11.5-15.5); WBC 15.1 k/uL (3.8-10.6)
[2018-08-31 10:27] LABS: Anion Gap 7 mmol/L; Blood Urea Nitrogen 23 mg/dL (7-17); Carbon Dioxide 24 mmol/L (22-30); Chloride 108 mmol/L (98-107); Glucose 115 mg/dL (74-99); Magnesium 1.9 mg/dL (1.6-2.3); Phosphorus 2.2 mg/dL (2.5-4.5); Potassium 4.4 mmol/L (3.5-5.1); Sodium 139 mmol/L (137-145)
[2018-08-31] MEDS: IPRATROPIUM-ALBUTEROL 3 ML NEB INHALATION PRN (12:12)
[2018-08-31 12:13] LABS: Glucose,Whole Blood 134 mg/dL (75-99)
[2018-08-31] MEDS: MONTELUKAST 10 MG TAB PO SCH (15:16)
--- NOTE | 2018-08-31 16:54 | P.PN ---
Subjective This is a pleasant 67 years old female with past medical history of COPD, GERD, hyperlipidemia, hypertension, osteoarthritis, left upper lobe pneumonia, migraines, low back pain, several kidney stones. Patient had recent surgery on 08/23/2018 for tendinitis as per records. Followed by worsening redness and tenderness of left side thumb . patient this afternoon she has a little bit drowsy from excessive pain medication as she has severe pain 10/10 this morning. Confirmed with staff. On admission her Vitas looks stable. Afebrile. Her oxygen saturation was 91 L on room air. WBC is 14.9 sodium 145. Creatinine 0.5. And high lactic acid of 2.6, and 2.1 and she is currently on normal saline and 125 mL/h. LFTs were unremarkable. Left hand x-ray showing soft tissue swelling with no fracture or arthritis as per report. Patient has been evaluated by orthopedic team and she is going for surgery today. Infectious diseases been consulted by primary team. 08/29/2018 Patient last night developed an episode of hypotension with shortness of breath and wheezing and tachycardia. Suspicious for ALLERGIC reaction so she was transferred to the ICU and given IV fluid, steroids and Zantac with Benadryl. CT of the chest was negative for PE. Patient this morning was sitting up in bed , she denies chest pain or dyspnea. She was fully awake and oriented. She still have some pain in her left stump site. she is a status post I and D of her left thumb base infection . Infectious disease consult is appreciated and they recommended to continue with IV fluids and vancomycin. 08/30/2018 Patient was seen and examined today in the ICU, she was up going to take a shower feeling improving. No dizziness. No chest pain or dyspnea. She still have some significant pain in her left stump and surgical site area. Vital signs stable, however she still have leukocytosis at 21.6, getting worse from 18.9. Creatinine 0.59, potassium 5.1 sodium 140. Medical causes controlled. Wound culture is growing MRSA, as well as blood culture. Patient is already on vancomycin. Infectious disease R following the patient. Critical care team evaluation is appreciated and they recommended transfer the patient to the general medical floor. Surgical team input is appreciated. 08/31/2018 Patient is seen and examined by me and the medical floor. She still have pain at the surgical site however she does not look in much distress. She still on antibiotics once per ID team. She is started on cefazolin while vancomycin was discontinued, as the culture came back positive for MSSA. Patient might need PICC line and outpatient IV antibiotic therapy Surgical team evaluated the patient today and right stump wound has been opened partially and dressed by the surgical team as it was red and swollen. She is status post debridement of her left surgical wound. Her WBC is 15.1 K, BMP was unremarkable. Vitas is stable. CONSTITUTIONAL: No fever, no malaise, no fatigue. HEENT: No recent visual problems or hearing problems. Denied any sore throat. CARDIOVASCULAR: No orthopnea, PND, no palpitations, no syncope. PULMONARY: No shortness of breath, no cough, no hemoptysis. GASTROINTESTINAL: No diarrhea, no nausea, no vomiting, no abdominal pain. Normoactive bowel sounds. NEUROLOGICAL: No headaches, no weakness, no numbness. HEMATOLOGICAL: Denies any bleeding or petechiae. GENITOURINARY: Denies any burning micturition, frequency, or urgency. MUSCULOSKELETAL/RHEUMATOLOGICAL: Denies any joint pain, swelling, or any muscle pain. ENDOCRINE: Denies any polyuria or polydipsia. Medications are reviewed in details with dosages Objective - Vital Signs Vital signs: Vital Signs Temp 97.6 F 08/31/18 14:58 Pulse 85 08/31/18 14:58 Resp 16 08/31/18 16:00 BP 141/86 08/31/18 14:58 Pulse Ox 92 L 08/31/18 14:58 Intake & Output 08/30/18 08/31/18 08/31/18 18:59 06:59 18:59 Intake Total 1880 600 Balance 1880 600 Intake: IV 1150 Sodium Chloride 0.9% 1, 1150 000 ml @ 75 mls/hr IV . [id number] NIRANJAN Rx#:[id number] Intake, IV Titration 250 Amount Vancomycin 1,500 mg In 250 Sodium Chloride 0.9% 250 ml @ 125 mls/hr IVPB Q12H NIRANJAN Rx#:[id number] Oral 480 600 Other: Voiding Method Toilet Toilet # Voids 1 1 2 - Exam GENERAL: The patient is alert and oriented x3, not in any acute distress. Well developed, well nourished. HEENT: Pupils are round and equally reacting to light. EOMI. No scleral icterus. No conjunctival pallor. Normocephalic, atraumatic. No pharyngeal erythema. No thyromegaly. CARDIOVASCULAR: S1 and S2 present. No murmurs, rubs, or gallops. PULMONARY: Chest is clear to auscultation, no wheezing or crackles. ABDOMEN: Soft, nontender, nondistended, normoactive bowel sounds. No palpable organomegaly. MUSCULOSKELETAL: No joint swelling or deformity. EXTREMITIES: No cyanosis, clubbing, or pedal edema. -Left hand and forearms are swollen, warm and tender to touch. Left thumb is swollen, tender and there is less than 1 cm wound on the ventral aspect with surrounding cellulitis like no purulent discharge noted. Limited mobility due to swelling and pain. radial And ulnar pulses are present. NEUROLOGICAL: Gross neurological examination did not reveal any focal deficits. SKIN: No rashes. - Labs CBC & Chem 7: 08/31/18 09:14 08/31/18 09:14 Labs: Abnormal Lab Results - Last 24 Hours (Table) 08/30/18 08/30/18 08/31/18 Range/Units 04:33 17:16 07:45 WBC (3.8-10.6) k/uL RBC (3.80-5.40) m/uL Hgb (11.4-16.0) gm/dL Hct (34.0-46.0) % Neutrophils # (1.3-7.7) k/uL Chloride (98-107) mmol/L BUN (7-17) mg/dL Glucose (74-99) mg/dL POC Glucose (mg/dL) 142 H 115 H (75-99) mg/dL Hemoglobin A1c 6.7 H (4.0-6.0) % Phosphorus (2.5-4.5) mg/dL 08/31/18 08/31/18 08/31/18 Range/Units 09:14 09:14 12:10 WBC 15.1 H (3.8-10.6) k/uL RBC 3.62 L (3.80-5.40) m/uL Hgb 9.8 L (11.4-16.0) gm/dL Hct 31.5 L (34.0-46.0) % Neutrophils # 13.1 H (1.3-7.7) k/uL Chloride 108 H (98-107) mmol/L BUN 23 H (7-17) mg/dL Glucose 115 H (74-99) mg/dL POC Glucose (mg/dL) 134 H (75-99) mg/dL Hemoglobin A1c (4.0-6.0) % Phosphorus 2.2 L (2.5-4.5) mg/dL Microbiology - Last 24 Hours (Table) 08/28/18 07:40 Gram Stain - Final Finger - Left First Wound Culture - Final Staphylococcus aureus 08/29/18 02:47 Blood Culture - Preliminary Blood No Growth after 48 hours 08/29/18 01:55 Blood Culture - Preliminary Blood No Growth after 48 hours 08/28/18 07:40 Anaerobic Culture - Preliminary Finger - Left First 08/28/18 07:15 Blood Culture Gram Stain - Final Blood Blood Culture - Final Staphylococcus aureus 08/28/18 11:30 Gram Stain - Final Hand - Left Wound Culture - Final Staphylococcus aureus Assessment and Plan Assessment: left side thumb , hand and forearm cellulitis Surgical site infection Possible ALLERGIC reaction History of trigger finger, status post release surgery in both sides Possible bilateral pneumonia High lactic acid, resolved Leukocytosis History of COPD, not in acute exacerbation History of GERD Hyperlipidemia Hypertension History of osteoarthritis History of left upper lobe pneumonia History of migraine Chronic low back pain History of several kidney stones Plan: This is a pleasant 67 years old female who presents because of left thumb and hand cellulitis. Continue with antibiotic as per Infectious diseases team.. Critical care team input is appreciated. Continue with IV fluids. Labs and medication were reviewed.. Continue same treatment. Continue with symptomatic treatment. Resume home medication. Monitor lytes and vitals. DVT and GI prophylaxis. Further recommendations of the clinical course of the patient DVT prophylaxis: Subcutaneous heparin GI Prophylaxis: Pepcid Prognosis is guarded Thank you for consulting us, please feel free to contact us for any further question or concerns.
[2018-08-31 17:35] LABS: Glucose,Whole Blood 159 mg/dL (75-99)
[2018-08-31 20:20] LABS: Glucose,Whole Blood 132 mg/dL (75-99)
[2018-08-31] MEDS: traZODone HCL 50 MG TAB PO SCH (21:41)
[2018-09-01] MEDS: ceFAZolin IN SWFI 2 GM/20 ML SYRINGE IVP SCH ×4 (01:30→23:17)
[2018-09-01] MEDS: SODIUM CHLORIDE 0.9% 1,000 ML IV SCH ×2 (03:04→13:47)
[2018-09-01] MEDS: HYDROmorphone 1 MG/ML 1 ML SYRINGE IVP PRN ×6 (03:43→23:39)
--- NOTE | 2018-09-01 07:06 | PN ---
PROGRESS NOTE DATE OF SERVICE: 08/31/2018 REASON FOR FOLLOWUP: MSSA bacteremia with left hand abscess. INTERVAL HISTORY: The patient is currently afebrile. She is breathing comfortably. Denies any chest pain, shortness of breath. No abdominal pain or any worsening pain to the left hand area. EXAMINATION: Blood pressure is 157/79 with a pulse of 78, temperature 97.8. She is 97% on 2 L nasal cannula. General description is an elderly female for elderly female up in the bed in no distress. Respiratory System: Unlabored breathing, clear to auscultation anteriorly. Heart S1, S2. Regular rate and rhythm. Abdomen: Soft, no tenderness. Extremities: left hand wound currently with no slough tissue or drainage. LABS: Hemoglobin 9.8, white count 15.8 with a BUN of 23, creatinine 0.61. DIAGNOSTIC IMPRESSION AND PLAN: Patient with MSSA bacteremia secondary left hand abscess that has been drained. Blood culture on August 29 has been negative. if they remain to be negative. We will be able to get a mid line on Sunday for outpatient IV antibiotic therapy for at least 2 weeks in view of her bacteremia with cefazolin 2 g q.8h . Continue supportive care. MMODL / IJN: [id number] / JENNIFER
[2018-09-01 07:32] LABS: Glucose,Whole Blood 90 mg/dL (75-99)
[2018-09-01] MEDS: INSULIN ASPART 100 UNIT/ML 1 ML 10 ML VIAL SQ SCH ×4 (07:43→20:59)
[2018-09-01] MEDS: HEPARIN SODIUM,PORCINE 5,000 UNIT/ML 1 ML VIAL SQ SCH ×2 (07:50→21:06)
[2018-09-01] MEDS: ASCORBIC ACID 500 MG TAB PO SCH (07:50)
[2018-09-01] MEDS: CHOLECALCIFEROL 1,000 UNIT TAB PO SCH (07:50)
[2018-09-01] MEDS: methylPREDNISolone 4 MG TAB TAPER PO SCH (07:51)
[2018-09-01] MEDS: FAMOTIDINE 20 MG TAB PO SCH ×2 (07:51→21:07)
[2018-09-01] MEDS: CITALOPRAM HYDROBROMIDE 20 MG TAB PO SCH ×2 (07:51→16:44)
[2018-09-01 08:32] LABS: Basophils % (A) 0 %; Eosinophils # (A) 0.2 k/uL (0-0.7); Eosinophils % (A) 1 %; HGB 9.8 gm/dL (11.4-16.0); Hypochromasia Moderate; Lymphocytes # (A) 2.7 k/uL (1.0-4.8); Lymphocytes % (A) 20 %; MCH 26.7 pg (25.0-35.0); MCHC 30.6 g/dL (31.0-37.0); MCV 87.3 fL (80.0-100.0); Mean Platelet Volume 6.5; Monocytes # (A) 0.9 k/uL (0-1.0); Monocytes % (A) 7 %; Neutrophils # (A) 9.5 k/uL (1.3-7.7); Neutrophils % (A) 71 %; Platelet Count 440 k/uL (150-450); RBC 3.67 m/uL (3.80-5.40); RDW 14.4 % (11.5-15.5); WBC 13.5 k/uL (3.8-10.6)
[2018-09-01] MEDS: HYDROcodone/APAP 5-325MG 1 EACH TAB PO PRN ×2 (09:08→13:48)
[2018-09-01 09:14] LABS: Anion Gap 7 mmol/L; Blood Urea Nitrogen 23 mg/dL (7-17); Calcium 8.6 mg/dL (8.4-10.2); Carbon Dioxide 27 mmol/L (22-30); Chloride 106 mmol/L (98-107); Glucose 81 mg/dL (74-99); Phosphorus 2.9 mg/dL (2.5-4.5); Sodium 140 mmol/L (137-145)
--- NOTE | 2018-09-01 11:45 | OP ---
OPERATIVE REPORT PREOPERATIVE DIAGNOSIS: Infected left thumb. FINAL DIAGNOSIS: Infected left thumb. PROCEDURE: Incision and drainage of infected left thumb. INDICATIONS: This 67-year-old woman with multiple medical comorbidities had bilateral trigger thumb release performed approximately a week prior to developing an infection. She was admitted this morning through the emergency room with possible bilateral thumb infections. Examination indicated non infection findings on the right. There was some swelling, but no drainage. No significant redness and clinically not consistent with infection in my opinion. The left, however, demonstrated definite signs of infection with redness, swelling, and pustular drainage. GROSS PATHOLOGY: Intraoperatively there was infection of the flexor tendon sheath of the flexor pollicis longus. Clinically did not extend into the carpal tunnel with no symptoms of her fingers. I believe the infection traversed proximally beneath the thenar eminence, but did not go into the carpal tunnel. At the completion of procedure, the area was very clean. PROCEDURE: The patient taken operative suite given IV sedation. A modified digital block was performed with a combination of Xylocaine and Marcaine without epinephrine. The hand was prepped and draped. It was elevated but was not exsanguinated. The tourniquet was inflated for additional visualization. The transverse incision was extended proximally in a zigzag manner. The flexor tendon sheath was opened. Montez pus was encountered. This was cultured. This was then followed by copious irrigation including 1000 mL of antibiotic laden soft fluid using a pulse lavage method. As stated above, at the completion of the procedure, it appeared to be very clean. The curved hemostat was placed down the flexor tendon sheath into this thenar eminence. Again, it was my opinion based upon the findings this did not extend into the carpal canal. The tourniquet was released. Hemostasis was satisfactory. The wound was packed with sterile gauze and left open. Soft bulky dressing was applied. Patient taken recovery room in satisfactory condition. Continued IV antibiotics will be administered under the direction of Infectious Disease. MMODL / IJN: [id number] /
[2018-09-01 11:52] LABS: Glucose,Whole Blood 128 mg/dL (75-99)
[2018-09-01] MEDS: MONTELUKAST 10 MG TAB PO SCH (12:38)
--- NOTE | 2018-09-01 13:15 | P.PN ---
Subjective Progress Note Date: 09/01/18 Principal diagnosis: Status post I&D left hand. Status post trigger finger release bilateral thumbs. This is a 67-year-old female who is status post incision and drainage of the left hand. She is status post bilateral trigger thumb release and began having redness and swelling to the left thumb. She has history of MRSA infection in the past. Surgical debridement was performed. She was transferred to the ICU secondary to tachycardia and hypotension postoperatively. She has been transferred to [facility]. She states that her right thumb incision is now red and swollen. She states that her pain is slightly improved in the left hand. She is working on range of motion of the wrist and hand. Blood and wound Cultures reveal MSSA. Objective - Vital Signs Vital signs: Vital Signs Temp 97.3 F L 09/01/18 06:30 Pulse 74 09/01/18 06:30 Resp 16 09/01/18 06:30 BP 138/85 09/01/18 06:30 Pulse Ox 95 09/01/18 07:51 Intake & Output 08/31/18 09/01/18 09/01/18 18:59 06:59 18:59 Intake Total 1200 Balance 1200 Intake: Oral 1200 Other: Voiding Method Toilet Toilet # Voids 1 1 - Exam This is a pleasant 67-year-old female in no acute distress. She is alert and oriented 3. Her family is present at bedside. Exam of the left hand reveals that there is minimal drainage on the dressing. There is yeul-je-xmfaiqia swelling. No erythema. There is a small amount of purulent drainage noted. She has fairly good thumb motion at this time. Wound is irrigated with saline. Dressing is changed. Exam of the right thumb reveals mild increased swelling about the incision. Mild erythema. No purulent drainage noted. There is a small gaping of the incision. One stitch is removed and the area is cleansed with antiseptic. She has normal thumb motion without difficulty or pain. Neurovascular status to the upper extremities is intact. - Labs CBC & Chem 7: 09/01/18 08:16 09/01/18 08:16 Labs: Abnormal Lab Results - Last 24 Hours (Table) 08/31/18 08/31/18 09/01/18 Range/Units 17:06 20:15 08:16 WBC 13.5 H (3.8-10.6) k/uL RBC 3.67 L (3.80-5.40) m/uL Hgb 9.8 L (11.4-16.0) gm/dL Hct 32.0 L (34.0-46.0) % MCHC 30.6 L (31.0-37.0) g/dL Neutrophils # 9.5 H (1.3-7.7) k/uL BUN (7-17) mg/dL POC Glucose (mg/dL) 159 H 132 H (75-99) mg/dL 09/01/18 09/01/18 Range/Units 08:16 11:50 WBC (3.8-10.6) k/uL RBC (3.80-5.40) m/uL Hgb (11.4-16.0) gm/dL Hct (34.0-46.0) % MCHC (31.0-37.0) g/dL Neutrophils # (1.3-7.7) k/uL BUN 23 H (7-17) mg/dL POC Glucose (mg/dL) 128 H (75-99) mg/dL Microbiology - Last 24 Hours (Table) 08/29/18 02:47 Blood Culture - Preliminary Blood No Growth after 72 hours 08/29/18 01:55 Blood Culture - Preliminary Blood No Growth after 72 hours 08/28/18 07:40 Gram Stain - Final Finger - Left First Wound Culture - Final Staphylococcus aureus Assessment and Plan (1) Surgical site infection Current Visit: Yes Status: Acute Code(s): T81.49XA - INFECTION FOLLOWING A PROCEDURE, OTHER SURGICAL SITE, INIT SNOMED Code(s): 91852428 (2) Febrile illness, acute Current Visit: No Status: Acute Code(s): R50.9 - FEVER, UNSPECIFIED SNOMED Code(s): 204143813 Plan: The clinical findings are discussed with the patient. She will have daily dressing changes. I will keep her nothing by mouth after midnight tonight for possible repeat I&D of the left hand tomorrow. We will reevaluate in the morning and make further recommendations at that time.
[2018-09-01 17:21] LABS: Glucose,Whole Blood 122 mg/dL (75-99)
[2018-09-01 20:48] LABS: Glucose,Whole Blood 121 mg/dL (75-99)
[2018-09-01] MEDS: traZODone HCL 50 MG TAB PO SCH (21:07)
--- NOTE | 2018-09-01 23:04 | P.PN ---
Subjective This is a pleasant 67 years old female with past medical history of COPD, GERD, hyperlipidemia, hypertension, osteoarthritis, left upper lobe pneumonia, migraines, low back pain, several kidney stones. Patient had recent surgery on 08/23/2018 for tendinitis as per records. Followed by worsening redness and tenderness of left side thumb . patient this afternoon she has a little bit drowsy from excessive pain medication as she has severe pain 10/10 this morning. Confirmed with staff. On admission her Vitas looks stable. Afebrile. Her oxygen saturation was 91 L on room air. WBC is 14.9 sodium 145. Creatinine 0.5. And high lactic acid of 2.6, and 2.1 and she is currently on normal saline and 125 mL/h. LFTs were unremarkable. Left hand x-ray showing soft tissue swelling with no fracture or arthritis as per report. Patient has been evaluated by orthopedic team and she is going for surgery today. Infectious diseases been consulted by primary team. 08/29/2018 Patient last night developed an episode of hypotension with shortness of breath and wheezing and tachycardia. Suspicious for ALLERGIC reaction so she was transferred to the ICU and given IV fluid, steroids and Zantac with Benadryl. CT of the chest was negative for PE. Patient this morning was sitting up in bed , she denies chest pain or dyspnea. She was fully awake and oriented. She still have some pain in her left stump site. she is a status post I and D of her left thumb base infection . Infectious disease consult is appreciated and they recommended to continue with IV fluids and vancomycin. 08/30/2018 Patient was seen and examined today in the ICU, she was up going to take a shower feeling improving. No dizziness. No chest pain or dyspnea. She still have some significant pain in her left stump and surgical site area. Vital signs stable, however she still have leukocytosis at 21.6, getting worse from 18.9. Creatinine 0.59, potassium 5.1 sodium 140. Medical causes controlled. Wound culture is growing MRSA, as well as blood culture. Patient is already on vancomycin. Infectious disease R following the patient. Critical care team evaluation is appreciated and they recommended transfer the patient to the general medical floor. Surgical team input is appreciated. 08/31/2018 Patient is seen and examined by me and the medical floor. She still have pain at the surgical site however she does not look in much distress. She still on antibiotics once per ID team. She is started on cefazolin while vancomycin was discontinued, as the culture came back positive for MSSA. Patient might need PICC line and outpatient IV antibiotic therapy Surgical team evaluated the patient today and right stump wound has been opened partially and dressed by the surgical team as it was red and swollen. She is status post debridement of her left surgical wound. Her WBC is 15.1 K, BMP was unremarkable. Vitas is stable. 09/01/2018 Patient still been on IV antibiotics for her thumb infection in left more than the right one. Patient has no new complaints. Vitas is stable. WBC, down from 15.1 to 13.5. Hemoglobin 9.8 patient remains on cefazolin for MSSA. And ID team input is appreciated. Orthopedic R following the patient closely. Patient might need PICC line for IV antibiotic on discharge patient denies chest pain or dyspnea and she is breathing quietly. She saturation 95% on 2 L via nasal cannula Objective - Vital Signs Vital signs: Vital Signs Temp 97.3 F L 09/01/18 06:30 Pulse 74 09/01/18 06:30 Resp 16 09/01/18 06:30 BP 138/85 09/01/18 06:30 Pulse Ox 95 09/01/18 07:51 Intake & Output 08/31/18 09/01/18 09/01/18 18:59 06:59 18:59 Intake Total 1200 Balance 1200 Intake: Oral 1200 Other: Voiding Method Toilet Toilet # Voids 1 1 - Exam GENERAL: The patient is alert and oriented x3, not in any acute distress. Well developed, well nourished. HEENT: Pupils are round and equally reacting to light. EOMI. No scleral icterus. No conjunctival pallor. Normocephalic, atraumatic. No pharyngeal erythema. No thyromegaly. CARDIOVASCULAR: S1 and S2 present. No murmurs, rubs, or gallops. PULMONARY: Chest is clear to auscultation, no wheezing or crackles. ABDOMEN: Soft, nontender, nondistended, normoactive bowel sounds. No palpable organomegaly. MUSCULOSKELETAL: No joint swelling or deformity. EXTREMITIES: No cyanosis, clubbing, or pedal edema. -Left hand and forearms are swollen, warm and tender to touch. Left thumb is swollen, tender and there is less than 1 cm wound on the ventral aspect with surrounding cellulitis like no purulent discharge noted. Limited mobility due to swelling and pain. radial And ulnar pulses are present. NEUROLOGICAL: Gross neurological examination did not reveal any focal deficits. SKIN: No rashes. - Labs CBC & Chem 7: 09/01/18 08:16 09/01/18 08:16 Labs: Abnormal Lab Results - Last 24 Hours (Table) 08/31/18 08/31/18 09/01/18 Range/Units 17:06 20:15 08:16 WBC 13.5 H (3.8-10.6) k/uL RBC 3.67 L (3.80-5.40) m/uL Hgb 9.8 L (11.4-16.0) gm/dL Hct 32.0 L (34.0-46.0) % MCHC 30.6 L (31.0-37.0) g/dL Neutrophils # 9.5 H (1.3-7.7) k/uL BUN (7-17) mg/dL POC Glucose (mg/dL) 159 H 132 H (75-99) mg/dL 09/01/18 09/01/18 Range/Units 08:16 11:50 WBC (3.8-10.6) k/uL RBC (3.80-5.40) m/uL Hgb (11.4-16.0) gm/dL Hct (34.0-46.0) % MCHC (31.0-37.0) g/dL Neutrophils # (1.3-7.7) k/uL BUN 23 H (7-17) mg/dL POC Glucose (mg/dL) 128 H (75-99) mg/dL Microbiology - Last 24 Hours (Table) 08/29/18 02:47 Blood Culture - Preliminary Blood No Growth after 72 hours 08/29/18 01:55 Blood Culture - Preliminary Blood No Growth after 72 hours 08/28/18 07:40 Gram Stain - Final Finger - Left First Wound Culture - Final Staphylococcus aureus Assessment and Plan Assessment: left side thumb , hand and forearm cellulitis Surgical site infection Possible ALLERGIC reaction History of trigger finger, status post release surgery in both sides Possible bilateral pneumonia High lactic acid, resolved Leukocytosis History of COPD, not in acute exacerbation History of GERD Hyperlipidemia Hypertension History of osteoarthritis History of left upper lobe pneumonia History of migraine Chronic low back pain History of several kidney stones Plan: This is a pleasant 67 years old female who presents because of left thumb and hand cellulitis. Continue with antibiotic as per Infectious diseases team.. Critical care team input is appreciated. Continue with IV fluids. Labs and medication were reviewed.. Continue same treatment. Continue with symptomatic treatment. Resume home medication. Monitor lytes and vitals. DVT and GI prophylaxis. Further recommendations of the clinical course of the patient DVT prophylaxis: Subcutaneous heparin GI Prophylaxis: Pepcid Prognosis is guarded Thank you for consulting us, please feel free to contact us for any further question or concerns.
--- NOTE | 2018-09-02 00:06 | PN ---
PROGRESS NOTE DATE OF SERVICE: 09/01/2018. REASON FOR FOLLOWUP: Left hand abscess with secondary bacteremia. INTERVAL HISTORY: The patient is currently afebrile. She is breathing comfortably. Denies having any chest pain or shortness of breath or cough. No abdominal pain. The left hand pain is currently controlled. No diarrhea. EXAMINATION: Blood pressure 155/92 with a pulse of 82, temperature 97.3. She is 94% on room air. GENERAL DESCRIPTION: An elderly female up in the chair in no distress. RESPIRATORY SYSTEM: Unlabored breathing. Clear to auscultation anteriorly. HEART: S1, S2. Regular rate and rhythm. EXTREMITIES: Left hand wound currently with no significant swelling or drainage. LABS: Hemoglobin is 9.1, white count 13.5. BUN of 23, creatinine 0.64. DIAGNOSTIC IMPRESSION AND PLAN: Patient with left hand MSSA abscess, slight surgical site infection with secondary bacteremia. The patient is currently on cefazolin 2 g every 8h. Follow up blood cultures from 08/29 has been negative. We will try to arrange for cefazolin 2 g every 8 hours or daptomycin in case of unavailability of Cefazolin in the outpatient setting. Continue supportive care. Duration of medication should be least 2 to 3 weeks, depending upon clinical response. Continue supportive care. MMODL / IJN: [id number] /
[2018-09-02] MEDS: HYDROcodone/APAP 5-325MG 1 EACH TAB PO PRN ×3 (01:38→23:21)
[2018-09-02] MEDS: HYDROmorphone 1 MG/ML 1 ML SYRINGE IVP PRN ×4 (05:11→22:11)
[2018-09-02 07:00] LABS: Glucose,Whole Blood 99 mg/dL (75-99)
[2018-09-02] MEDS: INSULIN ASPART 100 UNIT/ML 1 ML 10 ML VIAL SQ SCH ×4 (07:16→21:19)
[2018-09-02] MEDS: CHOLECALCIFEROL 1,000 UNIT TAB PO SCH (07:34)
[2018-09-02] MEDS: HEPARIN SODIUM,PORCINE 5,000 UNIT/ML 1 ML VIAL SQ SCH ×2 (07:34→21:18)
[2018-09-02] MEDS: ASCORBIC ACID 500 MG TAB PO SCH (07:34)
[2018-09-02] MEDS: FAMOTIDINE 20 MG TAB PO SCH ×2 (07:34→21:18)
[2018-09-02] MEDS: methylPREDNISolone 4 MG TAB TAPER PO SCH (07:35)
[2018-09-02] MEDS: CITALOPRAM HYDROBROMIDE 20 MG TAB PO SCH ×2 (07:35→17:02)
[2018-09-02] MEDS: ceFAZolin IN SWFI 2 GM/20 ML SYRINGE IVP SCH ×3 (07:38→23:17)
[2018-09-02 09:35] LABS: Basophils % (A) 0 %; Eosinophils # (A) 0.2 k/uL (0-0.7); Eosinophils % (A) 2 %; HCT 33.5 % (34.0-46.0); HGB 10.7 gm/dL (11.4-16.0); Lymphocytes # (A) 1.9 k/uL (1.0-4.8); Lymphocytes % (A) 18 %; MCH 26.8 pg (25.0-35.0); MCHC 31.9 g/dL (31.0-37.0); MCV 84.1 fL (80.0-100.0); Mean Platelet Volume 6.4; Monocytes # (A) 0.8 k/uL (0-1.0); Monocytes % (A) 7 %; Neutrophils # (A) 7.4 k/uL (1.3-7.7); Neutrophils % (A) 71 %; Platelet Count 472 k/uL (150-450); RBC 3.99 m/uL (3.80-5.40); RDW 14.2 % (11.5-15.5); WBC 10.3 k/uL (3.8-10.6)
[2018-09-02 12:03] LABS: Glucose,Whole Blood 131 mg/dL (75-99)
[2018-09-02] MEDS ORDERED: LACTATED RINGERS 1,000 ML IV ONE (12:28)
[2018-09-02 12:43] LABS: Glucose,Whole Blood 126 mg/dL (75-99)
[2018-09-02] MEDS ORDERED: fentaNYL (PF) 50 MCG/ML 2 ML AMP ONE (12:58)
[2018-09-02] MEDS ORDERED: PROPOFOL 10 MG/ML 20 ML VIAL IV ONE (12:58)
[2018-09-02] MEDS ORDERED: MIDAZOLAM 2 MG/2 ML VIAL ONE (12:58)
[2018-09-02] MEDS ORDERED: LIDOCAINE HCL/PF 20 MG/ML ML SQ ONE (13:06)
[2018-09-02] MEDS ORDERED: BUPIVACAINE (PF) 0.5% 30 ML VIAL SQ ONE (13:06)
[2018-09-02] MEDS ORDERED: CLINDAMYCIN 1,800 MG in SODIUM CHLORIDE 0.9% IRRIGATIO 3,000 ML IRRIGATION ONE (13:23)
[2018-09-02] MEDS ORDERED: HYDROmorphone 1 MG/ML 1 ML SYRINGE IVP ONE ×4 (13:58→14:45)
[2018-09-02] MEDS: MONTELUKAST 10 MG TAB PO SCH (15:23)
[2018-09-02 16:41] LABS: Glucose,Whole Blood 211 mg/dL (75-99)
--- NOTE | 2018-09-02 18:17 | P.PN ---
Subjective This is a pleasant 67 years old female with past medical history of COPD, GERD, hyperlipidemia, hypertension, osteoarthritis, left upper lobe pneumonia, migraines, low back pain, several kidney stones. Patient had recent surgery on 08/23/2018 for tendinitis as per records. Followed by worsening redness and tenderness of left side thumb . patient this afternoon she has a little bit drowsy from excessive pain medication as she has severe pain 10/10 this morning. Confirmed with staff. On admission her Vitas looks stable. Afebrile. Her oxygen saturation was 91 L on room air. WBC is 14.9 sodium 145. Creatinine 0.5. And high lactic acid of 2.6, and 2.1 and she is currently on normal saline and 125 mL/h. LFTs were unremarkable. Left hand x-ray showing soft tissue swelling with no fracture or arthritis as per report. Patient has been evaluated by orthopedic team and she is going for surgery today. Infectious diseases been consulted by primary team. 08/29/2018 Patient last night developed an episode of hypotension with shortness of breath and wheezing and tachycardia. Suspicious for ALLERGIC reaction so she was transferred to the ICU and given IV fluid, steroids and Zantac with Benadryl. CT of the chest was negative for PE. Patient this morning was sitting up in bed , she denies chest pain or dyspnea. She was fully awake and oriented. She still have some pain in her left stump site. she is a status post I and D of her left thumb base infection . Infectious disease consult is appreciated and they recommended to continue with IV fluids and vancomycin. 08/30/2018 Patient was seen and examined today in the ICU, she was up going to take a shower feeling improving. No dizziness. No chest pain or dyspnea. She still have some significant pain in her left stump and surgical site area. Vital signs stable, however she still have leukocytosis at 21.6, getting worse from 18.9. Creatinine 0.59, potassium 5.1 sodium 140. Medical causes controlled. Wound culture is growing MRSA, as well as blood culture. Patient is already on vancomycin. Infectious disease R following the patient. Critical care team evaluation is appreciated and they recommended transfer the patient to the general medical floor. Surgical team input is appreciated. 08/31/2018 Patient is seen and examined by me and the medical floor. She still have pain at the surgical site however she does not look in much distress. She still on antibiotics once per ID team. She is started on cefazolin while vancomycin was discontinued, as the culture came back positive for MSSA. Patient might need PICC line and outpatient IV antibiotic therapy Surgical team evaluated the patient today and right stump wound has been opened partially and dressed by the surgical team as it was red and swollen. She is status post debridement of her left surgical wound. Her WBC is 15.1 K, BMP was unremarkable. Vitas is stable. 09/01/2018 Patient still been on IV antibiotics for her thumb infection in left more than the right one. Patient has no new complaints. Vitas is stable. WBC, down from 15.1 to 13.5. Hemoglobin 9.8 patient remains on cefazolin for MSSA. And ID team input is appreciated. Orthopedic R following the patient closely. Patient might need PICC line for IV antibiotic on discharge patient denies chest pain or dyspnea and she is breathing quietly. She saturation 95% on 2 L via nasal cannula 09/02/18 pt left thumb wound is healing as expected and patient can use her hand almost at normal state, no pain . right thumb wound might need another surgical evaluation in the OR, pt underwent left thumb incision and drainage of left thumb and wrist. pt might need picc line upon discharge however she raised concerns for the copay, i discussed with case aide for evaluation. Objective - Vital Signs Vital signs: Vital Signs Temp 97.3 F L 09/02/18 15:26 Pulse 83 09/02/18 17:00 Resp 18 09/02/18 15:26 BP 138/67 09/02/18 17:00 Pulse Ox 95 09/02/18 15:26 Intake & Output 09/01/18 09/02/18 09/02/18 18:59 06:59 18:59 Intake Total 840 3312 Output Total 10 Balance 840 3302 Intake: IV 3312 Oral 840 Output: Estimated Blood Loss 10 Other: Voiding Method Toilet # Voids 3 2 1 - Exam GENERAL: The patient is alert and oriented x3, not in any acute distress. Well developed, well nourished. HEENT: Pupils are round and equally reacting to light. EOMI. No scleral icterus. No conjunctival pallor. Normocephalic, atraumatic. No pharyngeal erythema. No thyromegaly. CARDIOVASCULAR: S1 and S2 present. No murmurs, rubs, or gallops. PULMONARY: Chest is clear to auscultation, no wheezing or crackles. ABDOMEN: Soft, nontender, nondistended, normoactive bowel sounds. No palpable organomegaly. MUSCULOSKELETAL: No joint swelling or deformity. EXTREMITIES: No cyanosis, clubbing, or pedal edema. -Left hand and forearms are swollen, warm and tender to touch. Left thumb is swollen, tender and there is less than 1 cm wound on the ventral aspect with surrounding cellulitis like no purulent discharge noted. Limited mobility due to swelling and pain. radial And ulnar pulses are present. NEUROLOGICAL: Gross neurological examination did not reveal any focal deficits. SKIN: No rashes. - Labs CBC & Chem 7: 09/02/18 08:39 09/01/18 08:16 Labs: Abnormal Lab Results - Last 24 Hours (Table) 09/01/18 09/02/18 09/02/18 Range/Units 20:40 08:39 12:00 Hgb 10.7 L (11.4-16.0) gm/dL Hct 33.5 L (34.0-46.0) % Plt Count 472 H (150-450) k/uL POC Glucose (mg/dL) 121 H 131 H (75-99) mg/dL 09/02/18 09/02/18 Range/Units 12:39 16:35 Hgb (11.4-16.0) gm/dL Hct (34.0-46.0) % Plt Count (150-450) k/uL POC Glucose (mg/dL) 126 H 211 H (75-99) mg/dL Microbiology - Last 24 Hours (Table) 08/29/18 02:47 Blood Culture - Preliminary Blood No Growth after 96 hours 08/29/18 01:55 Blood Culture - Preliminary Blood No Growth after 96 hours 08/28/18 07:40 Gram Stain - Final Finger - Left First Wound Culture - Final Staphylococcus aureus 08/28/18 07:40 Anaerobic Culture - Final Finger - Left First Assessment and Plan Assessment: left side thumb , hand and forearm cellulitis Surgical site infection Possible ALLERGIC reaction History of trigger finger, status post release surgery in both sides Possible bilateral pneumonia High lactic acid, resolved Leukocytosis History of COPD, not in acute exacerbation History of GERD Hyperlipidemia Hypertension History of osteoarthritis History of left upper lobe pneumonia History of migraine Chronic low back pain History of several kidney stones Plan: This is a pleasant 67 years old female who presents because of left thumb and hand cellulitis. Continue with antibiotic as per Infectious diseases team.. Critical care team input is appreciated. Continue with IV fluids. Labs and medication were reviewed.. Continue same treatment. Continue with symptomatic treatment. Resume home medication. Monitor lytes and vitals. DVT and GI prophylaxis. Further recommendations of the clinical course of the patient DVT prophylaxis: Subcutaneous heparin GI Prophylaxis: Pepcid Prognosis is guarded Thank you for consulting us, please feel free to contact us for any further question or concerns.
--- NOTE | 2018-09-02 18:55 | OP ---
OPERATIVE REPORT Today's date is 08/28/2018. PREOPERATIVE DIAGNOSIS: Infected left thumb. FINAL DIAGNOSES: 1. Infected left thumb. 2. Flexor tendon sheath infection. 3. Proximal migration of infection to the distal wrist. 4. Ruptured flexor carpi radialis tendon. 5. Severe flexor tendinitis of the flexor pollicis longus tendon with erosion. PROCEDURES: 1. Incision and drainage, left thumb. 2. Evacuation of flexor pollicis longus tendon sheath into the thenar eminence. 3. Mid palm incision and drainage with opening of the carpal tunnel. 4. Incision and drainage of the volar radial distal. 5. Exploration of the flexor pollicis longus with tenosynovectomy. 6. Excision of ruptured flexor carpi radialis tendon. INDICATIONS: This 67-year-old woman with multiple medical comorbidities has been admitted for 5 days with infection beginning in her left thumb at the location of a trigger thumb release. She had urgent incision and drainage, exploration, thorough evacuation and pulse lavage the evening of admission. The procedure suggested the area was quite clear; however, she has not recovered as quickly as possible and continues to have mild drainage at the infection site and is developing more progressive redness and swelling in the distal wrist area, suggesting infection may be spreading to that area. GROSS PATHOLOGY: There was a minor amount of pus in the flexor tendon sheath proximal to the incision and drainage site in the volar aspect of the thumb. Exploration of wrist demonstrated a moderate amount of fluid, both inflammatory and somewhat pustular in appearance. Of interest was the flexor carpi radialis tendon had been eroded and had ruptured. It was really not repairable and expendable, and therefore the proximal stump was resected and the area was debrided. The flexor pollicis longus tendon was the tract through which the fluid spread into this area. It did not appear to enter the carpal tunnel per se and stayed primarily in the flexor tendon sheath of the FPL. It had created a secondary abscess in the distal wrist area, which was evacuated, debrided and thoroughly cleansed. Although there was some erosion noted about the FPL tendon at the distal wrist level, the majority of the tendon was intact and chances of spontaneous rupture, I believe, are slim. PROCEDURE DESCRIPTION: This 67-year-old woman was taken to the operative suite and given a general anesthetic. I did a modified digital block in the thenar eminence of the thumb and injected the line of incision in the distal wrist area. The arm was prepped and draped in the usual manner. It was then elevated and the tourniquet was inflated to 250 mm proximal arm. No exsanguination was performed. The wound at the regional infection site at the volar base of the thumb was reopened and evacuated and thoroughly cleansed. A culture was obtained at this level. A second incision was made in the distal volar radial wrist area over the area of fluctuance and an abscess was noted. It had enveloped and ruptured the flexor carpi radialis tendon. The flexor pollicis longus tendon had erosive changes. It was apparent that the tract of the infection was along the flexor pollicis longus tendon sheath and had otherwise spared the carpal tunnel. This was confirmed when an incision was made in the mid palm at the distal aspect of the carpal tunnel, and no significant abscess formation was noted at this level. A 20 mL syringe was used to flush the flexor pollicis tendon sheath from distal to proximal. This was continued until the fluid was clear. Note that separate cultures were taken both at the thumb and distal wrist level. Three thousand milliliters of antibiotic-laden fluid was then used to pulse-lavage all 3 wounds. The tourniquet had been released at this point. Hemostasis was satisfactory. The wounds were again irrigated. Packing was inserted. Soft bulky dressing was applied and a soft cast using ABDs was applied. Patient was taken to the recovery room in satisfactory condition. MMODL / IJN: [id number] /
[2018-09-02 21:13] LABS: Glucose,Whole Blood 108 mg/dL (75-99)
--- NOTE | 2018-09-02 21:13 | PN ---
PROGRESS NOTE DATE OF SERVICE: 09/02/2018. REASON FOR FOLLOWUP: Left hand infection with secondary bacteremia. INTERVAL HISTORY: The patient is afebrile. The patient was taken back to the OR today and did have further debridement of her wound with evidence of possible extensive infection. The patient was seen in the preop area. The patient denies having any fever or any chills. No chest pain, shortness of breath or cough. No abdominal pain and no diarrhea. EXAMINATION: Blood pressure 131/79, pulse of 89, temperature 98. General description is an elderly female up in the bed in no distress. Respiratory system unlabored breathing. Clear to auscultation anteriorly. Heart S1, S2. Regular rate and rhythm. Abdomen soft, no tenderness. Left hand is currently dressed up. No obvious drainage on the dressing. LABS: Hemoglobin is 10.7, white count 10.3. Blood cultures 08/29 has been negative. DIAGNOSTIC IMPRESSION AND PLAN: Patient with left thumb base wound infection with secondary cellulitis with repeat debridement, evidence of deep infection. The patient will get a PICC line for at least 4 weeks of IV cefazolin 2 g q.8h, if that is not available in the outpatient setting it will be transitioned to Daptomycin 6 mg/kg with close outpatient followup. Continue supportive care. MMODL / IJN: [id number] /
[2018-09-02] MEDS: traZODone HCL 50 MG TAB PO SCH (21:19)
[2018-09-02 23:32] VITALS: PULSE 77
[2018-09-03] MEDS: HYDROcodone/APAP 5-325MG 1 EACH TAB PO PRN ×3 (04:10→12:36)
--- NOTE | 2018-09-03 06:04 | PN ---
PROGRESS NOTE DATE OF SERVICE: 09/02/2018 PRESENTING COMPLAINT: Left thumb infection. INTERVAL HISTORY: This patient was seen by me yesterday on 09/02/2018. The patient had surgery on both the thumbs on 08/23/2018. Left thumb got infected, status post I and D. Also had repeat I and D done earlier today. is present in the room. Pain is doing much better. Tolerating a diet. Has been up and about. No fever or chills. REVIEW OF SYSTEMS: Done for constitutional, cardiovascular, GI, pulmonary, dermatological; relevant findings as above. CURRENT MEDICATIONS: Current medications are reviewed that include IV cefazolin. PHYSICAL EXAMINATION: On examination, temperature 97.3, pulse 80, respiration 18, blood pressure 143/ 86, pulse ox 95% on 2 L. GENERAL APPEARANCE: Sitting at the edge of the bed, comfortable. EYES: Pupils equal. Conjunctivae normal. HEENT: External appearance of nose and ears normal. Oral cavity normal. NECK: JVD not raised. Mass not palpable. RESPIRATORY: Effort . Lungs are clear. CARDIOVASCULAR: First and second sounds normal. No edema. Left hand in a dressing. PSYCHIATRY: Alert and oriented x3. Mood and affect normal. INVESTIGATIONS: White count 10.3, hemoglobin 10.7, platelets 472. Microbiology is growing MSSA. ASSESSMENT: 1. Left thumb wound, status post I and D with cultures growing MSSA. 2. Status post bilateral trigger thumb release on 08/23/2018. 3. Obesity; body mass index 36.3. 4. Chronic obstructive pulmonary disease in a current smoker. 5. Gastroesophageal reflux disease. 6. Hyperlipidemia. 7. Essential hypertension. 8. Primary osteoarthritis. 9. Anxiety and depression, not otherwise specified. 10.Chronic nicotine dependence, patient is a cigarette smoker. PLAN: The patient is due for a PICC line tomorrow. The patient will be going home on IV Ancef. Otherwise patient is medically stable. MMODL / IJN: [id number] / MTDD
[2018-09-03 07:33] LABS: Glucose,Whole Blood 107 mg/dL (75-99)
[2018-09-03] MEDS: INSULIN ASPART 100 UNIT/ML 1 ML 10 ML VIAL SQ SCH (07:38)
[2018-09-03 07:51] VITALS: BP 166/88; RESP 16; TEMP 98.2
[2018-09-03] MEDS ORDERED: LIDOCAINE 1% INJ 10MG/ML (20 ML MDV) ONE (08:23)
[2018-09-03] MEDS ORDERED: LIDOCAINE 1% INJ 10MG/ML (20 ML MDV) SQ ONE (08:29)
--- NOTE | 2018-09-03 09:15 | IR ---
PICC LINE PLACEMENT: HISTORY: Infection requiring long-term antibiotic therapy PROCEDURE: Ultrasound and fluoroscopic guidance of PICC line placement. COMPLICATIONS: None ANESTHESIA: 1. 1% Lidocaine locally. FINDINGS/TECHNIQUE: The procedure was explained to the patient. The risks, complications, benefits and alternatives were discussed and any questions were answered. Informed consent was obtained. The patient was placed supine on the fluoroscopic table and prepped and draped in the usual sterile fash ion. Utilizing a 21 gauge needle and sonographic and fluoroscopic guidance, access in the right bas ilic vein was achieved and there is placement of a 0.018 guidewire. The vein is patent. A 4-F sheat h was placed over the guidewire. The guidewire and dilator were removed and a 4-F. PICC line was roslyn ismael through the sheath with the tip at the level of the SVC. The sheath was removed, the catheter wa s flushed and sutured into position. The patient was stable throughout the procedure and remained st able upon discharge from the Department of Radiology. The vein puncture was patent under ultrasound. A walls scale image was obtained to document patency of the vein punctured. All elements of the maximal barrier technique were utilized. FLUOROSCOPY TIME: 0.5 minutes, one image submitted IMPRESSION: Successful PICC line placement under ultrasound and fluoroscopic guidance.
[2018-09-03] MEDS: ASCORBIC ACID 500 MG TAB PO SCH (09:31)
[2018-09-03] MEDS: ceFAZolin IN SWFI 2 GM/20 ML SYRINGE IVP SCH ×2 (09:31→15:13)
[2018-09-03] MEDS: HEPARIN SODIUM,PORCINE 5,000 UNIT/ML 1 ML VIAL SQ SCH (09:31)
[2018-09-03] MEDS: CITALOPRAM HYDROBROMIDE 20 MG TAB PO SCH (09:32)
[2018-09-03] MEDS: methylPREDNISolone 4 MG TAB TAPER PO SCH (09:32)
[2018-09-03] MEDS: FAMOTIDINE 20 MG TAB PO SCH (09:33)
[2018-09-03] MEDS: MONTELUKAST 10 MG TAB PO SCH (09:33)
[2018-09-03] MEDS: CHOLECALCIFEROL 1,000 UNIT TAB PO SCH (09:33)
[2018-09-03 12:11] LABS: Glucose,Whole Blood 132 mg/dL (75-99)
--- NOTE | 2018-09-03 12:28 | P.DS ---
Providers Date of admission: 08/28/18 06:51 Expected date of discharge: 09/03/18 Attending physician: Michael Elliott Consults: 08/28/18 06:50 Consult Physician Stat Consulting Provider: Edgardo Madrigal Consult Reason/Comments: medical eval Do you want consulting provider notified?: Already Contacted 08/28/18 09:11 Consult Physician Routine Consulting Provider: Sebastian Rodarte Consult Reason/Comments: surgical infection, infected tenosynovitis. Antibiotic recommendations. Do you want consulting provider notified?: Yes 08/29/18 02:04 Consult Physician Urgent Consulting Provider: Janes Vergara Consult Reason/Comments: ICU Management Do you want consulting provider notified?: Yes Primary care physician: Bryon Frey - Discharge Diagnosis(es) (1) Surgical site infection Status: Acute (2) Flexor tenosynovitis of thumb Status: Acute (3) Sepsis Status: Acute (4) Leukocytosis Status: Acute Hospital Course: The patient is a 67 y/o female who is status post bilateral trigger thumb releases on 08/23/[address] Hernán Elliott. She did well post-operatively until 08/27/18 when she developed swelling and redness the left thumb and hand. She presented to the emergency department at [facility] early Sunday morning and was found to have an elevated white count and lactic acid. She was admitted for IV antibiotics and further evaluation by our service. The patient underwent an I&D of the left thumb on Sunday, 2017. Cultures were taken that revealed MSSA and blood cultures were also positive with MSSA on admission. Infectious disease has been following the case. The patient was in the ICU for a few days due to hypotension and tachycardia. She is currently on a med-surg unit at this time. There was only minimal improvement of her swelling and wound. She underwent a repeat I&D on 09/02/2018, that also was extended into the volar wrist as well. A PICC line was placed for home IV antibiotic therapy per infectious disease. On the day of discharge, the patient is alert and oriented x3 and in no acute distress. Exam of the right thumb reveals a healing incision. No obvious infection at this time. She is able to flex and extend her right thumb. Exam of the left hand reveals an operative dressing that was removed. Packing is place to the volar left thumb and volar left wrist. Packing was removed today without difficulty. The wounds look healthy with no obvious purulent drainage. A new dressing was applied. Limited motion to the left thumb and wrist due to swelling and pain. Neurological and circulatory status is intact. She will be discharged home today with homecare and home infusion. She will recheck with Dr. Hernán Elliott in 2 days. Pertinent Studies: Laboratory Tests 09/02/18 08:39 WBC 10.3 RBC 3.99 Hgb 10.7 L Hct 33.5 L Plt Count 472 H Patient Condition at Discharge: Stable Plan - Discharge Summary Discharge Rx Participant: No New Discharge Prescriptions: New HYDROcodone/APAP 5-325MG [Sherwood 5] 1 - 2 each PO Q4-6H PRN #40 tab PRN Reason: Pain No Action traZODone HCL 50 - 100 mg PO HS Citalopram Hydrobromide [CeleXA] 40 mg PO QAM Naproxen Sodium [Aleve] 440 mg PO HS Citalopram Hydrobromide [CeleXA] 20 mg PO W/SUPPER Cholecalciferol [Vitamin D3] 2,000 unit PO DAILY Biotin 5 mg PO DAILY Ascorbic Acid [Vitamin C] 500 mg PO DAILY Vitamin B Complex 1 cap PO DAILY Flaxseed Oil [Utopia-3 Flaxseed Oil] 1,000 mg PO BID Aspirin [Adult Low Dose Aspirin EC] 81 mg PO W/SUPPER L.acidoph,Paracasei, B.lactis [Probiotic] 1 cap PO DAILY Hydrochlorothiazide 25 mg PO W/SUPPER Montelukast [Singulair] 10 mg PO DAILY@1300 Ginkgo Biloba 1,000 mg PO BID Omeprazole 40 mg PO HS Ibuprofen [Motrin Ib] 600 mg PO Q6H PRN PRN Reason: Pain Albuterol Inhaler [Ventolin Hfa Inhaler] 2 puff INHALATION RT-BID Discharge Medication List Citalopram Hydrobromide [CeleXA] 40 mg PO QAM 07/18/16 [History] traZODone HCL 50 - 100 mg PO HS 07/18/16 [History] Ascorbic Acid [Vitamin C] 500 mg PO DAILY 11/01/16 [History] Aspirin [Adult Low Dose Aspirin EC] 81 mg PO W/SUPPER 11/01/16 [History] Biotin 5 mg PO DAILY 11/01/16 [History] Cholecalciferol [Vitamin D3] 2,000 unit PO DAILY 11/01/16 [History] Citalopram Hydrobromide [CeleXA] 20 mg PO W/SUPPER 11/01/16 [History] Flaxseed Oil [Utopia-3 Flaxseed Oil] 1,000 mg PO BID 11/01/16 [History] L.acidoph,Paracasei, B.lactis [Probiotic] 1 cap PO DAILY 11/01/16 [History] Naproxen Sodium [Aleve] 440 mg PO HS 11/01/16 [History] Vitamin B Complex 1 cap PO DAILY 11/01/16 [History] Ginkgo Biloba 1,000 mg PO BID 04/16/17 [History] Hydrochlorothiazide 25 mg PO W/SUPPER 04/16/17 [History] Montelukast [Singulair] 10 mg PO DAILY@1300 04/16/17 [History] Albuterol Inhaler [Ventolin Hfa Inhaler] 2 puff INHALATION RT-BID 08/28/18 [ History] Ibuprofen [Motrin Ib] 600 mg PO Q6H PRN 08/28/18 [History] Omeprazole 40 mg PO HS 08/28/18 [History] HYDROcodone/APAP 5-325MG [Sherwood 5] 1 - 2 each PO Q4-6H PRN #40 tab 09/03/18 [Rx] Follow up Appointment(s)/Referral(s): Casey Frey MD [Primary Care Provider] - 1-2 days (Please call office to set up appt.) [facility], [REFERRING] - (Delivery is between 6:00pm-8:00pm) [facility], [REFERRING] - (Nurse will be out on 09/04/18 in the morning to start infusion.) Michael Elliott DO [Doctor of Osteopathic Medicine] - 09/05/18 10:45 am Sebastian Rodarte MD [STAFF PHYSICIAN] - 09/10/18 2:30 pm Patient Instructions/Handouts: Peripherally Inserted Central Catheters and Midline Catheters in... (DC) Activity/Diet/Wound Care/Special Instructions: *[facility]. *HOME CARE WILL CALL YOU TOMORROW. *Make appt to follow with primary care physician. *KEFZOL 2G Q8 HOURS FOR 4 WEEKS. *Sherwood 5/325mg FOR PAIN NEEDED EVERY 4-6 HOURS. *Stool softeners over the counter as needed. *WOUND CARE INSTRUCTIONS: Change dressing daily. Cleanse with saline or mild soap and water. Allow to dry then cover with non-stick dressing, 4x4s, gauze roll, and leora wrap. Keep dressing in place until wound is closed and not draining. *Reminder: Apply for Medicaid and if you are denied, keep the denial letter and when you receive a bill for your IV antibiotics call billing and present the denial letter to get a reduced rate. If you are approved for Medicaid please submit that to [facility] and your cost for infusions will be minimal. Thank you. Discharge Disposition: HOME WITH HOME HEALTH SERVICES
--- NOTE | 2018-09-03 18:26 | PN ---
PROGRESS NOTE DATE OF SERVICE: 09/03/2018 REASON FOR FOLLOWUP: Left hand surgical site infection with MSSA bacteremia. INTERVAL HISTORY: The patient was seen on rounds earlier this afternoon. The patient has been afebrile. She was breathing comfortably. Pain to the left arm is currently controlled. Denies having any chest pain, shortness of breath or cough. No abdominal pain or any diarrhea. PHYSICAL EXAMINATION: Blood pressure 166/88 with a pulse of 77, temperature 98.2. She is 94% on room air. General description is an elderly female up in the room in no distress. RESPIRATORY SYSTEM: Unlabored breathing. Clear to auscultation anteriorly. HEART: S1, S2. Regular rate and rhythm. ABDOMEN: Soft. No tenderness. Left hand is currently dressed up. No obvious drainage on the dressing. LABS: White count 10.3 as of yesterday. Blood culture repeat has been negative. DIAGNOSTIC IMPRESSION AND PLAN: Patient with methicillin-susceptible Staphylococcus aureus left hand abscess at surgical site with secondary bacteremia. Follow-up blood culture has been negative. Advise cefazolin 2 grams q.8 for at least 4 more weeks with close outpatient followup. Continue with supportive care. MMODL / IJN: [id number] / MTDD
--- NOTE | 2018-09-03 21:20 | P.PN ---
Subjective This is a pleasant 67 years old female with past medical history of COPD, GERD, hyperlipidemia, hypertension, osteoarthritis, left upper lobe pneumonia, migraines, low back pain, several kidney stones. Patient had recent surgery on 08/23/2018 for tendinitis as per records. Followed by worsening redness and tenderness of left side thumb . patient this afternoon she has a little bit drowsy from excessive pain medication as she has severe pain 10/10 this morning. Confirmed with staff. On admission her Vitas looks stable. Afebrile. Her oxygen saturation was 91 L on room air. WBC is 14.9 sodium 145. Creatinine 0.5. And high lactic acid of 2.6, and 2.1 and she is currently on normal saline and 125 mL/h. LFTs were unremarkable. Left hand x-ray showing soft tissue swelling with no fracture or arthritis as per report. Patient has been evaluated by orthopedic team and she is going for surgery today. Infectious diseases been consulted by primary team. 08/29/2018 Patient last night developed an episode of hypotension with shortness of breath and wheezing and tachycardia. Suspicious for ALLERGIC reaction so she was transferred to the ICU and given IV fluid, steroids and Zantac with Benadryl. CT of the chest was negative for PE. Patient this morning was sitting up in bed , she denies chest pain or dyspnea. She was fully awake and oriented. She still have some pain in her left stump site. she is a status post I and D of her left thumb base infection . Infectious disease consult is appreciated and they recommended to continue with IV fluids and vancomycin. 08/30/2018 Patient was seen and examined today in the ICU, she was up going to take a shower feeling improving. No dizziness. No chest pain or dyspnea. She still have some significant pain in her left stump and surgical site area. Vital signs stable, however she still have leukocytosis at 21.6, getting worse from 18.9. Creatinine 0.59, potassium 5.1 sodium 140. Medical causes controlled. Wound culture is growing MRSA, as well as blood culture. Patient is already on vancomycin. Infectious disease R following the patient. Critical care team evaluation is appreciated and they recommended transfer the patient to the general medical floor. Surgical team input is appreciated. 08/31/2018 Patient is seen and examined by me and the medical floor. She still have pain at the surgical site however she does not look in much distress. She still on antibiotics once per ID team. She is started on cefazolin while vancomycin was discontinued, as the culture came back positive for MSSA. Patient might need PICC line and outpatient IV antibiotic therapy Surgical team evaluated the patient today and right stump wound has been opened partially and dressed by the surgical team as it was red and swollen. She is status post debridement of her left surgical wound. Her WBC is 15.1 K, BMP was unremarkable. Vitas is stable. 09/01/2018 Patient still been on IV antibiotics for her thumb infection in left more than the right one. Patient has no new complaints. Vitas is stable. WBC, down from 15.1 to 13.5. Hemoglobin 9.8 patient remains on cefazolin for MSSA. And ID team input is appreciated. Orthopedic R following the patient closely. Patient might need PICC line for IV antibiotic on discharge patient denies chest pain or dyspnea and she is breathing quietly. She saturation 95% on 2 L via nasal cannula 09/02/18 pt left thumb wound is healing as expected and patient can use her hand almost at normal state, no pain . right thumb wound might need another surgical evaluation in the OR, pt underwent left thumb incision and drainage of left thumb and wrist. pt might need picc line upon discharge however she raised concerns for the copay, i discussed with behavioral health case manager for evaluation. 09/03/2018 pt continue to improve , pt is afebrile , pain is controlled. she is being discharged today by the primary surgery team after second debridement done to her left thumb are yesterday . she was concerned about the co-pay for her prolonged antibiotic course. as per my discussion with the behavioral health case manager on the case pt can got her antibiotic at the rehab and she will pay nothing , pt informed and she is aware of this and she opts to go with the co-pay and outpt therapy. still our behavioral health case manager states she can get hardship discound and other discount to help . pt agrees. pt left hand is wrapped in thick dressing . while right hand is more free , however the picc line is in the right hand. pt was advised not drive and wait for someone to pick her up and she agrees. appointment were made for the pt and i discussed them with her and she agrees with them and their timing stating she will f/u. Objective - Vital Signs Vital signs: Vital Signs Temp 98.2 F 09/03/18 07:00 Pulse 77 09/03/18 07:00 Resp 16 09/03/18 09:58 BP 166/88 09/03/18 07:00 Pulse Ox 94 L 09/03/18 07:00 Intake & Output 09/03/18 09/03/18 09/04/18 06:59 18:59 06:59 Intake Total 200 200 Balance 200 200 Intake: Oral 200 200 Other: Voiding Method Toilet # Voids 2 - Exam GENERAL: The patient is alert and oriented x3, not in any acute distress. Well developed, well nourished. HEENT: Pupils are round and equally reacting to light. EOMI. No scleral icterus. No conjunctival pallor. Normocephalic, atraumatic. No pharyngeal erythema. No thyromegaly. CARDIOVASCULAR: S1 and S2 present. No murmurs, rubs, or gallops. PULMONARY: Chest is clear to auscultation, no wheezing or crackles. ABDOMEN: Soft, nontender, nondistended, normoactive bowel sounds. No palpable organomegaly. MUSCULOSKELETAL: No joint swelling or deformity. EXTREMITIES: No cyanosis, clubbing, or pedal edema. -Left hand and forearms are swollen, warm and tender to touch. Left thumb is swollen, tender and there is less than 1 cm wound on the ventral aspect with surrounding cellulitis like no purulent discharge noted. Limited mobility due to swelling and pain. radial And ulnar pulses are present. NEUROLOGICAL: Gross neurological examination did not reveal any focal deficits. SKIN: No rashes. - Labs CBC & Chem 7: 09/02/18 08:39 09/01/18 08:16 Labs: Abnormal Lab Results - Last 24 Hours (Table) 09/02/18 09/03/18 09/03/18 Range/Units 21:00 07:26 12:09 POC Glucose (mg/dL) 108 H 107 H 132 H (75-99) mg/dL Microbiology - Last 24 Hours (Table) 09/02/18 13:21 Gram Stain - Preliminary Finger - Left First Wound Culture - Preliminary 09/02/18 13:21 Gram Stain - Preliminary Wrist - Left Wound Culture - Preliminary 08/29/18 02:47 Blood Culture - Preliminary Blood No Growth after 120 hours 08/29/18 01:55 Blood Culture - Preliminary Blood No Growth after 120 hours 09/02/18 13:21 Anaerobic Culture - Preliminary Finger - Left First 09/02/18 13:21 Anaerobic Culture - Preliminary Wrist - Left Assessment and Plan Assessment: left side thumb , hand and forearm cellulitis Surgical site infection Possible ALLERGIC reaction History of trigger finger, status post release surgery in both sides Possible bilateral pneumonia High lactic acid, resolved Leukocytosis History of COPD, not in acute exacerbation History of GERD Hyperlipidemia Hypertension History of osteoarthritis History of left upper lobe pneumonia History of migraine Chronic low back pain History of several kidney stones Plan: This is a pleasant 67 years old female who presents because of left thumb and hand cellulitis. Continue with antibiotic as per Infectious diseases team.. Critical care team input is appreciated. Continue with IV fluids. Labs and medication were reviewed.. Continue same treatment. Continue with symptomatic treatment. Resume home medication. Monitor lytes and vitals. DVT and GI prophylaxis. Further recommendations of the clinical course of the patient DVT prophylaxis: Subcutaneous heparin GI Prophylaxis: Pepcid Prognosis is guarded Thank you for consulting us, please feel free to contact us for any further question or concerns.
== END 2018-09-03 16:38 | disposition home health service (06) | DRG 856 ==
LOC: EC 05:20 → 4SSUR 06:51 → 2SICU 08-29 02:15 → 4MS4W 08-30 18:44
PROVIDERS: ADMIT Orthopaedic Surgery Hand Surgery; ATTEND Orthopaedic Surgery Hand Surgery
PROC: 0L980ZZ Drainage of Left Hand Tendon, Open Approach (ICD-10-PCS; principal; 2018-09-01)
PROC: 0LB60ZZ Excision of Left Lower Arm and Wrist Tendon, Open Approach (ICD-10-PCS; 2018-09-02)
PROC: 0L980ZZ Drainage of Left Hand Tendon, Open Approach (ICD-10-PCS; 2018-09-02)
PROC: 0L960ZZ Drainage of Left Lower Arm and Wrist Tendon, Open Approach (ICD-10-PCS; 2018-09-02)
PROC: 0LC60ZZ Extirpation of Matter from Left Lower Arm and Wrist Tendon, Open Approach (ICD-10-PCS; 2018-09-02)
PROC: 02HV33Z Insertion of Infusion Device into Superior Vena Cava, Percutaneous Approach (ICD-10-PCS; 2018-09-03)
DX: T81.42XA Infection following a procedure, deep incisional surgical site, initial encounter (principal); A41.01 Sepsis due to Methicillin susceptible Staphylococcus aureus; E87.2 Acidosis; L02.512 Cutaneous abscess of left hand; T81.44XA Sepsis following a procedure, initial encounter; M65.842 Other synovitis and tenosynovitis, left hand; E66.9 Obesity, unspecified; F17.210 Nicotine dependence, cigarettes, uncomplicated; F32.9 Major depressive disorder, single episode, unspecified; F41.9 Anxiety disorder, unspecified; F40.240 Claustrophobia; G89.29 Other chronic pain; M54.5 Low back pain; M66.332 Spontaneous rupture of flexor tendons, left forearm; I10 Essential (primary) hypertension; Z87.01 Personal history of pneumonia (recurrent); I95.89 Other hypotension; Z86.14 Personal history of Methicillin resistant Staphylococcus aureus infection; J43.9 Emphysema, unspecified; K21.9 Gastro-esophageal reflux disease without esophagitis; R68.2 Dry mouth, unspecified; T50.905A Adverse effect of unspecified drugs, medicaments and biological substances, initial encounter; K58.9 Irritable bowel syndrome, unspecified; E78.5 Hyperlipidemia, unspecified; L03.012 Cellulitis of left finger; M19.91 Primary osteoarthritis, unspecified site; M77.9 Enthesopathy, unspecified; Z87.442 Personal history of urinary calculi; Z68.36 Body mass index [BMI] 36.0-36.9, adult; Z79.82 Long term (current) use of aspirin; Z82.49 Family history of ischemic heart disease and other diseases of the circulatory system; Z82.5 Family history of asthma and other chronic lower respiratory diseases; Z86.12 Personal history of poliomyelitis; Z88.2 Allergy status to sulfonamides; Z90.710 Acquired absence of both cervix and uterus; Z91.040 Latex allergy status; Y92.239 Unspecified place in hospital as the place of occurrence of the external cause; K44.9 Diaphragmatic hernia without obstruction or gangrene; R73.9 Hyperglycemia, unspecified; G43.909 Migraine, unspecified, not intractable, without status migrainosus; Z88.0 Allergy status to penicillin; Z91.011 Allergy to milk products; Z79.899 Other long term (current) drug therapy
CPT/HCPCS: 36415; 36569; 71275; 76937; 77001; 80048; 80053; 81001; 83036; 83605; 83735; 84100; 85025; 85610; 85730; 87040; 87070; 87075; 87077; 87186; 87205; 90732; 93005; 94640; 94760; 96374; 96375; 96376; 99284

== ENCOUNTER 2018-09-19 16:08 | Inpatient (IN) | payer MEDICARE, OTHER ==
[2018-09-19 16:27] VITALS: BMI 32.3
[2018-09-19] MEDS ORDERED: LACTATED RINGERS 1,000 ML IV ONE (16:57)
[2018-09-19] MEDS ORDERED: SUCCINYLCHOLINE CHLORIDE 100 MG/5 ML SYR IV ONE (17:11)
[2018-09-19] MEDS ORDERED: fentaNYL (PF) 50 MCG/ML 2 ML AMP ONE (17:11)
[2018-09-19] MEDS ORDERED: MIDAZOLAM 2 MG/2 ML VIAL ONE (17:11)
[2018-09-19] MEDS ORDERED: LIDOCAINE 1% INJ 10MG/ML (20 ML MDV) ONE (17:11)
[2018-09-19] MEDS ORDERED: PROPOFOL 10 MG/ML 20 ML VIAL IV ONE (17:11)
[2018-09-19] MEDS ORDERED: BUPIVACAIN-EPI 0.25%-1:200,000 30 ML VIAL SQ ONE (17:13)
[2018-09-19] MEDS ORDERED: HYDROcodone/APAP 5-325MG 1 EACH TAB PO PRN (17:48)
[2018-09-19] MEDS ORDERED: HYDROmorphone 1 MG/ML 1 ML SYRINGE IVP ONE ×4 (18:05→18:45)
[2018-09-19] MEDS ORDERED: VANCOMYCIN IV PER PHARMACY 1 EACH MISC MISCELLANE PRN (20:52)
[2018-09-19] MEDS: HYDROcodone/APAP 5-325MG 1 EACH TAB PO PRN (22:55)
--- NOTE | 2018-09-20 00:03 | OP ---
OPERATIVE REPORT DATE OF SERVICE: 09/19/2018. INDICATIONS: This 68-year-old woman has been treated for an infected trigger thumb release of her left thumb for several weeks. Around gi she was hospitalized and underwent 2 separate incision and drainages. This included the volar base of her thumb, the distal carpal tunnel area, and the volar radial wrist area. In summary, it appeared that the infection traveled proximally along the tendon sheath of the flexor pollicis longus up into the wrist area. I suspect it stayed somewhat within the sheath of the FPL as it did not really involve the carpal tunnel. Recently, she was discharged from the hospital when it appeared that the infection was under control. She was cleared by Infectious Disease and had a PICC line inserted and was on IV antibiotics. Today, she presented to the office and the volar radial wrist wound had some pustular drainage. There was surprisingly little surrounding erythema, however, it was tender, painful and suggestive of abscess. An aggressive course of action was recommended and she was sent to the hospital and this procedure is being performed at this time. GROSS PATHOLOGY: There was an abscess in the volar radial wrist joint area. It appeared to include the carpus and some involved bone was resected along with the debridement. The area cleared well of pus. Again, I suspect it traversed distally along the course of the FPL sheath. Clinically there were really no signs of carpal tunnel involvement today with good active and passive finger range of motion and the only numbness was in the thumb which could have been a result of swelling and prior infection. There was no other numbness in the median nerve distribution on exam today. There was no indication to open up the carpal tunnel in my opinion at this time. I suspect the flexor pollicis longus has ruptured due to the infection. The flexor carpi radialis remained intact at this time. The remaining flexor tendons and the proximal carpal tunnel were intact. PROCEDURE: The patient was taken to the operative suite and given a general anesthetic. Her left arm was prepped and draped in the usual manner. The tourniquet was inflated to 250 mmHg to provide good exposure and exploration. Under 4.5 loupe magnification, the volar radial wound was incised longitudinally, both proximally and distally. Blunt dissection was taken through the subcutaneous tissue. As stated above, an abscess was noted. This was in the distal aspect of the exposure and appeared to traverse down to the radioscaphoid joint. The abscess was evacuated after a deep culture was taken. Sterile cleansing was performed followed by debridement with a rongeur of involved appearing bone. After debridement, 1000 mL of sterile fluid were used to further cleanse the area with a Pulsavac. The tourniquet was then released. Hemostasis was acquired with pressure. Packing was inserted in the wound and it was left open. A bulky soft dressing was applied including several ABDs to produce a soft cast. The patient was taken to recovery in satisfactory condition. Antibiotic management will be undertaken again by Infectious Disease. PLAN: We plan to change the dressing tomorrow, remove the packing, and proceed with wound care as needed. MMODL / IJN: [id number] /
[2018-09-20] MEDS: HYDROmorphone 1 MG/ML 1 ML SYRINGE IVP PRN ×6 (00:06→22:38)
[2018-09-20] MEDS: traZODone HCL 50 MG TAB PO SCH ×2 (00:51→22:35)
[2018-09-20] MEDS ORDERED: VANCOMYCIN 1,250 MG in SODIUM CHLORIDE 0.9% 250 ML IVPB ONE (01:00)
[2018-09-20 01:40] LABS: Anion Gap 9 mmol/L; Blood Urea Nitrogen 19 mg/dL (7-17); Calcium 9.1 mg/dL (8.4-10.2); Carbon Dioxide 27 mmol/L (22-30); Chloride 102 mmol/L (98-107); Glucose 130 mg/dL (74-99); Potassium 4.1 mmol/L (3.5-5.1); Sodium 138 mmol/L (137-145)
[2018-09-20 02:19] LABS: HCT 34.5 % (34.0-46.0); HGB 10.5 gm/dL (11.4-16.0); Hypochromasia Slight; MCHC 30.4 g/dL (31.0-37.0); MCV 85.7 fL (80.0-100.0); Platelet Count 365 k/uL (150-450); RBC 4.02 m/uL (3.80-5.40); RDW 14.5 % (11.5-15.5); WBC 8.7 k/uL (3.8-10.6)
[2018-09-20] MEDS: CITALOPRAM HYDROBROMIDE 20 MG TAB PO SCH ×3 (03:24→17:31)
[2018-09-20] MEDS: SENNOSIDES-DOCUSATE SODIUM 1 EACH TAB PO SCH (07:58)
[2018-09-20 08:49] LABS: Basophils % (A) 1 %; Eosinophils # (A) 0.4 k/uL (0-0.7); Eosinophils % (A) 7 %; HCT 34.5 % (34.0-46.0); HGB 10.5 gm/dL (11.4-16.0); Hypochromasia Moderate; Lymphocytes # (A) 0.9 k/uL (1.0-4.8); Lymphocytes % (A) 16 %; MCH 26.2 pg (25.0-35.0); MCHC 30.3 g/dL (31.0-37.0); MCV 86.3 fL (80.0-100.0); Mean Platelet Volume 6.2; Monocytes # (A) 0.4 k/uL (0-1.0); Monocytes % (A) 6 %; Neutrophils % (A) 68 %; Platelet Count 384 k/uL (150-450); RDW 14.7 % (11.5-15.5); WBC 5.8 k/uL (3.8-10.6)
--- NOTE | 2018-09-20 11:30 | P.HPOR ---
History of Present Illness H&P Date: 09/20/18 Chief Complaint: Left wrist infection The patient is a 68-year-old female who is known to our practice and who we've been following for a left thumb and wrist infection. She is status post bilateral trigger thumb releases on 08/23/2018. The patient underwent her first I&D on 08/28/2018 and a repeat I&D on 09/02/2018. The patient was found to have an infection along her FPL tendon that extended into her wrist. No infection was found within the carpal tunnel. Cultures revealed methicillin sensitive staph aureus. The patient was discharged home on IV antibiotics directed by Dr. Roadrte. The patient was doing well at home until this week when she noticed purulent drainage coming out of her wrist incision. The incision on her volar thumb is completely healed. The patient is receiving home care and the home care nurse called the office with the change in condition. The patient was seen and evaluated in the office yesterday and determined she needed another incision and drainage, which was completed last night. The patient was admitted to the hospital for continued IV antibiotics and pain management. Today, the patient states that she is experiencing pain in the wrist as expected. Denies any numbness. She is unable to move her left thumb actively. She denies fever, chills, rigors, shortness breath, chest pain, and abdominal pain this morning. The patient does have a history of necrotizing pneumonia with MSSA and a right total hip infection with MRSA. Review of Systems Constitutional: Denies chills, Denies fatigue, Denies fever Cardiovascular: Denies chest pain, Denies shortness of breath Respiratory: Denies cough Gastrointestinal: Denies diarrhea, Denies nausea, Denies vomiting Musculoskeletal: left: hand pain, hand stiffness, hand swelling, wrist pain, wrist stiffness, wrist swelling Past Medical History Past Medical History: COPD, GERD/Reflux, Hyperlipidemia, Hypertension, Osteoarthritis (OA), Pneumonia Additional Past Medical History / Comment(s): 2017 Necrotizing pneumonia L upper lobe/MSSA infection, bronchitis, migraines, low back pain, spastic colon, hiatal hernia, hypoglycemia, several kidney stones, polio at age 8 yrs and legs get weak at times, murmur when younger. History of Any Multi-Drug Resistant Organisms: None Reported Date of last positivie culture/infection: 08/28/18 MDRO Source:: FINGER Past Surgical History: Adenoidectomy, Appendectomy, Hernia Repair, Hysterectomy , Orthopedic Surgery, Tonsillectomy Additional Past Surgical History / Comment(s): 08/23/18 bilateral thumb surgery for tendonitis, bilateral carpal tunnel release, R rotator cuff repair and bicep tendon surgery, bronchoscopy with BAL, picc line, exp lap with lysis of adhesions x3, R inguinal hernia repair. Past Anesthesia/Blood Transfusion Reactions: Motion Sickness, Postoperative Nausea & Vomiting (PONV) Additional Past Anesthesia/Blood Transfusion Reaction / Comment(s): claustrophobia Past Psychological History: Anxiety, Depression Additional Psychological History / Comment(s): Daily tobacco smoker-started smoking in 1964. Denies alcohol use. 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 1 pet Dogs at home. Lives alone. No international travel. No experience Smoking Status: Former smoker Past Alcohol Use History: None Reported Additional Past Alcohol Use History / Comment(s): started smoking at age 15, smokes 1/2 ppd. Past Drug Use History: None Reported - Past Family History Mother Family Medical History: COPD, Hyperlipidemia, Hypertension, Thyroid Disorder Additional Family Medical History / Comment(s): Mother is . Father Additional Family Medical History / Comment(s): Father had heart disease-pt states she hasn't had contact with her father since she was age 14 yrs. Medications and Allergies Home Medications Medication Instructions Recorded Confirmed Type Citalopram Hydrobromide [CeleXA] 40 mg PO QAM 07/18/16 09/19/18 History traZODone HCL 50 - 100 mg PO HS 07/18/16 09/19/18 History Ascorbic Acid [Vitamin C] 500 mg PO DAILY 11/01/16 09/19/18 History Aspirin [Adult Low Dose Aspirin EC] 81 mg PO W/SUPPER 11/01/16 09/19/18 History Biotin 5 mg PO DAILY 11/01/16 09/19/18 History Cholecalciferol [Vitamin D3] 2,000 unit PO DAILY 11/01/16 09/19/18 History Citalopram Hydrobromide [CeleXA] 20 mg PO W/SUPPER 11/01/16 09/19/18 History Flaxseed Oil [Odin-3 Flaxseed Oil] 1,000 mg PO BID 11/01/16 09/19/18 History L.acidoph,Paracasei, B.lactis 1 cap PO DAILY 11/01/16 09/19/18 History [Probiotic] Naproxen Sodium [Aleve] 440 mg PO HS 11/01/16 09/19/18 History Vitamin B Complex 1 cap PO DAILY 11/01/16 09/19/18 History Ginkgo Biloba 1,000 mg PO BID 04/16/17 08/28/18 History Hydrochlorothiazide 25 mg PO W/SUPPER 04/16/17 08/28/18 History Montelukast [Singulair] 10 mg PO DAILY@1300 04/16/17 09/19/18 History Albuterol Inhaler [Ventolin Hfa 2 puff INHALATION RT-BID 08/28/18 09/19/18 History Inhaler] Ibuprofen [Motrin Ib] 600 mg PO Q6H PRN 08/28/18 08/28/18 History Omeprazole 40 mg PO HS 08/28/18 09/19/18 History HYDROcodone/APAP 5-325MG [[place] 5] 1 - 2 each PO Q4-6H PRN #40 tab 09/03/18 Rx Allergies Allergy/AdvReac Type Severity Reaction Status Date / Time lactose Allergy Unknown Verified 09/19/18 16:44 latex Allergy swelling,it Verified 09/19/18 16:44 moira,rash Penicillins Allergy Unknown Verified 09/19/18 16:44 Sulfa (Sulfonamide Allergy Unknown Verified 09/19/18 16:44 Antibiotics) zinc Allergy Unknown Verified 09/19/18 16:44 Physical Examination The patient is a 68-year-old female in no acute distress. She is alert and oriented 3. Exam of the left hand reveals an incision to the volar wrist. Packing was removed today. The wound looks clean, no signs of purulent drainage at this time. A new dressing was applied with Cabrera wrap. The patient has some stiffness in her fingers but has full range of motion. She is unable to actively flex her left thumb. Wound to the volar aspect of the thumb is completely healed without signs or symptoms of infection. Neurological and circulatory status is intact. Results - Labs Labs: Abnormal Lab Results - Last 24 Hours (Table) 09/19/18 09/19/18 09/20/18 Range/Units 21:27 21:27 07:33 Hgb 10.5 L 10.5 L (11.4-16.0) gm/dL MCHC 30.4 L 30.3 L (31.0-37.0) g/dL Lymphocytes # 0.9 L (1.0-4.8) k/uL BUN 19 H (7-17) mg/dL Glucose 130 H (74-99) mg/dL C-Reactive Protein (<10.0) mg/L 09/20/18 Range/Units 07:33 Hgb (11.4-16.0) gm/dL MCHC (31.0-37.0) g/dL Lymphocytes # (1.0-4.8) k/uL BUN (7-17) mg/dL Glucose (74-99) mg/dL C-Reactive Protein 39.7 H (<10.0) mg/L Microbiology - Last 24 Hours (Table) 09/19/18 17:40 Wound Culture - Preliminary Wrist - Left 09/19/18 17:40 Anaerobic Culture - Preliminary Wrist - Left H & H 09/19/18 09/20/18 Range/Units 21:27 07:33 Hgb 10.5 L 10.5 L (11.4-16.0) gm/dL Hct 34.5 34.5 (34.0-46.0) % Result Diagrams: 09/20/18 07:33 09/19/18 21:27 Assessment and Plan (1) Infection of left wrist Current Visit: Yes Status: Acute Code(s): M00.9 - PYOGENIC ARTHRITIS, UNSPECIFIED SNOMED Code(s): 087768197 (2) Flexor tenosynovitis of thumb Current Visit: No Status: Acute Code(s): M65.9 - SYNOVITIS AND TENOSYNOVITIS , UNSPECIFIED SNOMED Code(s): 359778407 (3) Surgical site infection Current Visit: No Status: Acute Code(s): T81.49XA - INFECTION FOLLOWING A PROCEDURE, OTHER SURGICAL SITE, INIT SNOMED Code(s): 77506382 Plan: The clinical and operative findings were discussed with the patient. The case was also discussed at length with Dr. Michael Elliott. The patient will continue pain control with [place] and Dilaudid as needed. We will defer wound care and IV antibiotics to Dr. Rodarte, this will communicated with him. We will await culture results for any changes and antibiotic therapy. The patient may be discharged from an orthopedic standpoint when cleared by infectious disease and internal medicine. We will continue to follow patient closely and make further recommendations as needed.
[2018-09-20 12:08] LABS: Erythrocyte Sedimentation Rate 43 mm/hr (0-20)
[2018-09-20] MEDS: MONTELUKAST 10 MG TAB PO SCH (13:53)
[2018-09-20] MEDS: VANCOMYCIN 1,000 MG in SODIUM CHLORIDE 0.9% 250 ML IVPB SCH (13:53)
[2018-09-20] MEDS: HYDROcodone/APAP 5-325MG 1 EACH TAB PO PRN (20:26)
[2018-09-20] MEDS: PANTOPRAZOLE 40 MG TABLET PO SCH (20:26)
--- NOTE | 2018-09-20 21:39 | CONS ---
CONSULTATION DATE OF SERVICE: 09/20/2018. REASON FOR CONSULTATION: Infected wound to the left wrist. HISTORY OF PRESENT ILLNESS: The patient is a 68-year-old female who was recently admitted to the hospital with infected left thumb trigger release. The patient, at that time, did have a local as well as blood culture positive for MSSA. The patient's follow up blood culture was negative and the patient was advised cefazolin 2 g q.8 hours for a total of 6 weeks with the patient receiving in the outpatient setting. The patient was seen in the office for followup and at the time of evaluation, she did have very minimal drainage from her left wrist incision. However, I was unable to express any further pus out from the site, hence it was not cultured. The patient had a left thumb incision all healed up. The patient subsequently did have a followup with her orthopedics where the patient apparently noticed to have purulent drainage. Subsequently the patient has been taken back to the OR and is status post drainage of left volar radial wrist abscess along with removal of a piece of bone. Culture has been obtained. The patient subsequently has been admitted to the hospital. Infectious disease was consulted for further recommendation regarding antibiotic therapy. The patient currently has been complaining of pain to the left wrist area, more of a throbbing pain 6 to 7/10, and no radiation. The patient denies having any chest pain. No shortness of breath. No cough. No abdominal pain and no diarrhea. REVIEW OF SYSTEMS: Positive for weakness. No high-grade fever. Eyes: No complaint. ENT: No complaint. Respiratory: No complaint. Cardiovascular no complaint. Genitourinary no complaint. Gastrointestinal: No complaint. Musculoskeletal as per HPI. Integumentary as per HPI. Psychological: No complaint. Neurologic: No complaint. PAST MEDICAL HISTORY: COPD, gastroesophageal reflux disease, hypertension, hyperlipidemia, osteoarthritis, pneumonia, previous history of both MRSA and MSSA infection with recent one was MSSA with MSSA bacteremia. PAST SURGICAL HISTORY: Adenoidectomy, appendectomy, hernia repair, hysterectomy, tonsillectomy, bilateral thumb release, surgery for tendinitis, bilateral carpal tunnel release and recent drainage of an abscess, left thumb and wrist area. SOCIAL HISTORY: Patient is currently an everyday smoker. Denies drinking or drug use. FAMILY HISTORY: Mother with history of hyperlipidemia, hypertension. Father with history of heart disease. ALLERGIES: TO PENICILLIN, SULFA, LATEX AND LACTOSE but has tolerated Cefazolin without any problem. MEDICATION: Currently include the patient is on [place], Celexa, Dilaudid, Singulair, Protonix , Senokot, Desyrel, vancomycin 1 g q.12 and Fortaz 2 g q.8 hours. PHYSICAL EXAMINATION: Blood pressure is 138/80 with a pulse of 80, temperature 97.5. She is 98% on room air. General description is an elderly female lying in bed in no distress. No tachypnea or accessory muscles of respiration use. HEENT examination is slight pallor. No scleral icterus. Oral mucosal membranes dry. No pharyngeal erythema or thrush. Neck: Trachea central. No thyromegaly. Lungs unlabored breathing. Clear to auscultation anteriorly. No wheeze or crackles. Heart S1, S2. Regular rate and rhythm. ABDOMEN: Soft, no tenderness. No guarding or rigidity. Extremities: No edema of the feet. Examination of the left wrist area, wound is currently dressed up. No obvious drainage on the dressing. NEUROLOGIC: The patient is awake, alert, oriented. Mood and affect normal. LABS: Hemoglobin is 10.5, white count 5.8. BUN of 19, creatinine 0.63. Sedimentation rate of 43 with a CRP of 99.7. The OR cultures are currently pending. DIAGNOSTIC IMPRESSION AND PLAN: Patient with recent admission to the hospital. The patient did have a left base abscess along with involvement of the wrist area, status post drainage with culture that was positive for MSSA. Blood cultures were also MSSA. The patient has been on IV cefazolin now with evidence of recurrent abscess formation at the wrist incision though the left thumb incision is completely healed up. The patient is status post drainage of this abscess with removal of the infected bone with a question of possible bony [employer] responsible for persistent or worsening of this infection. PLAN: 1. We will wait for the OR culture to be finalized. 2. The patient may benefit with vancomycin pharmacy to start the patient on along with Fortaz. 3. Discharge antibiotic depending upon culture report. All of her questions and concerns were answered. MMODL / IJN: [id number] / JENNIFER
[2018-09-20] MEDS: ENOXAPARIN 40 MG/0.4 ML SYRINGE SQ SCH (23:58)
[2018-09-21] MEDS: NICOTINE 14MG/24HR PATCH TRANSDERM SCH ×2 (00:20→21:20)
--- NOTE | 2018-09-21 00:42 | CONS ---
CONSULTATION DATE OF CONSULTATION: September 20, 2018. REASON FOR CONSULTATION: Medical management requested by Dr. Elliott. CONSULTATION: This is a pleasant 68-year-old patient of Dr. Frey. The patient had surgery on both of her thumbs on August 23, 2018 and patient's left thumb has initially got infected. Has had I and D times twice before. Was seen by Dr. Rodarte from Infectious Disease. Last admission, patient did get IV Ancef and patient was sent home with IV Ancef to get at least 4 weeks with the same. The patient had a further flare up of infection with swelling, redness, pain, shooting pain in the left thumb area. There was no fever and chills. The patient was taken back to the OR yesterday and repeat I and D done and it seems everything was cleaned out rather well. Dressing in place. The patient has been started on IV vancomycin. REVIEW OF SYSTEMS: CONSTITUTIONAL: None. HEENT: None. RESPIRATORY: None. CARDIOVASCULAR: None. Gastrointestinal: None. : None. MUSCULOSKELETAL as above. DERMATOLOGICAL, HEMATOLOGIC, LYMPHATICS: none. PSYCHIATRY none. NEUROLOGICAL: None. PAST MEDICAL HISTORY: Of chronic nicotine dependence, anxiety, depression, osteoarthritis, hypertension, hyperlipidemia, GERD, COPD, recurrent postsurgical site infection in the thumb. PAST SURGICAL HISTORY: I and D of the left thumb area x2, adenoidectomy, appendectomy, hernia repair, hysterectomy, orthopedic surgery, tonsillectomy, 08/23/2018 bilateral thumb surgery for tendinitis, bilateral carpal tunnel release, right rotator cuff repair and biceps tendon surgery, exploratory laparoscopy, lysis of adhesions, inguinal hernia repair. PSYCH HISTORY: History of anxiety and depression. 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 Lives by herself. Has been smoking for over 40 years. FAMILY HISTORY: COPD, hyperlipidemia, hypertension, hypothyroid. HOME MEDICATIONS: 1. Trazodone 50-100 mg q.h.s. 2. Vitamin B complex 1 capsule p.o. daily. 3. Omeprazole 40 mg q.h.s. 4. Naproxen 440 mg p.o. at bedtime. 5. Singulair 10 mg p.o. daily. 6. Probiotic 1 capsule p.o. daily. 7. Motrin 600 mg q.6h p.r.n. 8. Hydrochlorothiazide 25 mg with supper. 9. [place] 5 p.r.n. 10.[place]-3 1000 mg b.i.d. 11.Celexa 20 mg with supper, 40 mg in the morning. 12.Vitamin D3 2000 units p.o. daily. 13.Biotin 5 mg p.o. daily. 14.Aspirin 81 mg with supper. 15.Vitamin C. 16.Ventolin HFA 2 puffs b.i.d. ALLERGIES: TO LACTOSE, LATEX, PENICILLIN, SULFUR, ZINC. PHYSICAL EXAMINATION: VITAL SIGNS: Temperature 97.2, pulse 76, respirations 16, blood pressure 122/59, pulse ox 93 percent on room air. GENERAL APPEARANCE: Well built, BMI 32.4. Sitting up, awake. EYES: Pupils equal. Conjunctivae normal. HEENT: External appearance of nose and ears normal. Oral cavity normal. NECK: JVD not raised. Mass not palpable. RESPIRATORY: Effort normal. LUNGS: Slightly decreased breath sounds. CARDIOVASCULAR: 1st and 2nd sounds normal. No edema. ABDOMEN: Soft, nontender. Liver and spleen not palpable. LYMPHATICS: No lymph nodes palpable in the neck and axilla. PSYCHIATRY: Alert and oriented x3. Mood and affect normal NEUROLOGICAL: Pupils equal. Cranial nerves grossly intact. Power and sensation grossly intact. EXTREMITIES: Dressing over the left thumb area. INVESTIGATIONS: White count 5.8, hemoglobin 10.5, potassium 4.1, BUN 19, creatinine 0.63. C-reactive protein 79.7. The patient's Gram stain cultures are pending right now. ASSESSMENT: 1. Recurrent left thumb wound infection status post I and D previously growing MSSA, and failed treatment with IV Ancef. 2. Status post bilateral trigger thumb release on August 23, 2018. 3. Obesity, BMI 32.4. 4. Chronic obstructive pulmonary disease in a current smoker. 5. Gastroesophageal reflux disease. 6. Hyperlipidemia. 7. Essential hypertension. 8. Primary osteoarthritis. 9. Anxiety and depression, not otherwise specified. 10.Chronic nicotine dependence, patient is a cigarette smoker. PLAN: The patient is currently on IV vancomycin. Home medications are resumed. Pain control is in place. The patient is also on IV ceftazidime. Will give Lovenox for DVT prophylaxis. Pain control is in place. Also given nicotine patch. Care was discussed with the patient. Thank you, Dr. Elliott. Copy to Dr. Frey. MMGAGAN / MICHAELN: [id number] /
[2018-09-21] MEDS: VANCOMYCIN 1,000 MG in SODIUM CHLORIDE 0.9% 250 ML IVPB SCH ×2 (01:22→12:11)
[2018-09-21] MEDS: HYDROmorphone 1 MG/ML 1 ML SYRINGE IVP PRN ×4 (02:32→16:55)
[2018-09-21] MEDS: SENNOSIDES-DOCUSATE SODIUM 1 EACH TAB PO SCH (08:41)
[2018-09-21] MEDS: CITALOPRAM HYDROBROMIDE 20 MG TAB PO SCH ×2 (08:41→18:16)
--- NOTE | 2018-09-21 09:11 | P.PN ---
Subjective Progress Note Date: 09/21/18 This is a 68-year-old female who is status post incision and drainage of the left wrist. This is postoperative day #2. Patient states that her pain is under control. Patient denies any new complaints today. Patient denies any fever/chills, numbness, weakness, tingling, abdominal pain, shortness of breath or chest pain. Objective - Vital Signs Vital signs: Vital Signs Temp 97.7 F 09/21/18 08:39 Pulse 82 09/21/18 08:39 Resp 16 09/21/18 08:39 BP 123/80 09/21/18 08:39 Pulse Ox 92 L 09/21/18 08:39 Intake & Output 09/20/18 09/21/18 09/21/18 18:59 06:59 18:59 Intake Total 440 Balance 440 Intake: Intake, IV Titration 440 Amount Lactated Ringers 1,000 ml 190 @ 0 mls/hr IV [facility] Rx#:[id number] Vancomycin 1,000 mg In 250 Sodium Chloride 0.9% 250 ml @ 125 mls/hr IVPB Q12H [facility] Rx#:[id number] Other: # Voids 3 - Exam On exam dressing is removed. There is mild bloody drainage from the incision. There is no surrounding erythema. Patient has full range of motion of the left hand. Sensation is intact. Neurovascular status and circulatory status are intact. - Labs CBC & Chem 7: 09/20/18 07:33 09/19/18 21:27 Labs: Abnormal Lab Results - Last 24 Hours (Table) 09/20/18 09/20/18 Range/Units 07:33 07:33 ESR 43 H (0-20) mm/hr C-Reactive Protein 39.7 H (<10.0) mg/L Microbiology - Last 24 Hours (Table) 09/19/18 17:40 Gram Stain - Preliminary Wrist - Left Wound Culture - Preliminary 09/19/18 17:40 Anaerobic Culture - Preliminary Wrist - Left Assessment and Plan (1) Status post incision and drainage Current Visit: Yes Status: Acute Code(s): Z98.890 - OTHER SPECIFIED POSTPROCEDURAL STATES SNOMED Code(s): 111046978 (2) Infection of left wrist Current Visit: Yes Status: Acute Code(s): M00.9 - PYOGENIC ARTHRITIS, UNSPECIFIED SNOMED Code(s): 728429087 Plan: 1. Continue routine postoperative care and pain control. 2. Cultures are pending. 3. Wound care per infectious disease. 4. Antibiotics per infectious disease. 5. Appreciate input from medicine. 6. Likely discharge home in the next 1-2 days when antibiotics are determined by infectious disease.
[2018-09-21] MEDS: HYDROcodone/APAP 5-325MG 1 EACH TAB PO PRN ×2 (12:10→22:30)
[2018-09-21] MEDS: MONTELUKAST 10 MG TAB PO SCH (12:10)
[2018-09-21] MEDS ORDERED: ALPRAZolam 0.25 MG TAB PO PRN (15:03)
[2018-09-21] MEDS: NAPROXEN 250 MG TAB PO SCH ×2 (18:15→21:20)
--- NOTE | 2018-09-21 19:08 | PN ---
PROGRESS NOTE DATE OF SERVICE: 09/21/2018 PRESENTING COMPLAINT: Left thumb surgery. INTERVAL HISTORY: This is a patient who had surgery on both the thumbs 08/23/2018. The left one got infected 3 times, had been on IV Ancef, status post I and D again on this admission. Pain is better control. Awaiting cultures. Otherwise, no fever, no chills. REVIEW OF SYSTEMS: Done for constitutional, cardiovascular, GI, pulmonary, musculoskeletal and findings as above. CURRENT MEDICATIONS: Reviewed. IV vancomycin. PHYSICAL EXAMINATION: Temperature 97.7 pulse 82, respirations 16, blood pressure 123/80, pulse ox 92% on room air. GENERAL APPEARANCE: Laying in bed, comfortable. EYES: Pupils equal. Conjunctivae normal. ENT: External appearance of nose and ear normal. Oral cavity normal. NECK: JVD not raised. Mass not palpable. Respiratory effort increased. LUNGS: Decreased breath sounds. CARDIOVASCULAR: First and second sounds normal. No edema. ABDOMEN: Soft, nontender. Liver and spleen not palpable. . PSYCHIATRY: Alert and oriented x3. Mood and affect normal. MUSCULOSKELETAL: Dressing over the left thumb area. INVESTIGATIONS: White count 5.8, hemoglobin 10.5. Wound cultures are pending. ASSESSMENT: 1. Recurrent left hand wound infection, status post I and D previously growing MSSA and failed treatment with IV Ancef. Repeat cultures pending. 2. Status post bilateral trigger thumb release on August 23, 2018. 3. Obesity; BMI 32.4. 4. Chronic obstructive pulmonary disease in a current smoker. 5. Gastroesophageal reflux disease. 6. Hyperlipidemia. 7. Essential hypertension. 8. Primary osteoarthritis. 9. Anxiety and depression, not otherwise specified. 10.Chronic nicotine dependence, patient is a cigarette smoker. PLAN: Care was discussed with the patient. Pain control is in place. Will add naproxen for anti-inflammatory affect. MMODL / IJN: [id number] /
[2018-09-21] MEDS: PANTOPRAZOLE 40 MG TABLET PO SCH (21:19)
[2018-09-21] MEDS: ENOXAPARIN 40 MG/0.4 ML SYRINGE SQ SCH (21:19)
[2018-09-21] MEDS: traZODone HCL 50 MG TAB PO SCH (21:19)
[2018-09-22] MEDS ORDERED: VANCOMYCIN TROUGH DUE 1 EACH MISC MISCELLANE ONE
[2018-09-22 00:03] LABS: Anion Gap 8 mmol/L; Blood Urea Nitrogen 11 mg/dL (7-17); Carbon Dioxide 27 mmol/L (22-30); Chloride 102 mmol/L (98-107); Glucose 117 mg/dL (74-99); Potassium 3.9 mmol/L (3.5-5.1); Sodium 137 mmol/L (137-145)
[2018-09-22] MEDS: VANCOMYCIN 1,000 MG in SODIUM CHLORIDE 0.9% 250 ML IVPB SCH ×2 (01:44→12:53)
[2018-09-22] MEDS: HYDROcodone/APAP 5-325MG 1 EACH TAB PO PRN ×3 (05:32→18:45)
[2018-09-22] MEDS: CITALOPRAM HYDROBROMIDE 20 MG TAB PO SCH ×2 (07:52→17:36)
[2018-09-22] MEDS: SENNOSIDES-DOCUSATE SODIUM 1 EACH TAB PO SCH (07:53)
[2018-09-22] MEDS: NAPROXEN 250 MG TAB PO SCH ×3 (07:53→22:57)
--- NOTE | 2018-09-22 08:45 | P.PN ---
Subjective Progress Note Date: 09/22/18 This is a 68-year-old female who is status post incision and drainage of the left wrist. This is postoperative day #3. Patient states that her pain is under control. Patient denies any new complaints today. Patient denies any fever/chills, numbness, weakness, tingling, abdominal pain, shortness of breath or chest pain. Objective - Vital Signs Vital signs: Vital Signs Temp 98.0 F 09/22/18 07:48 Pulse 73 09/22/18 07:48 Resp 16 09/22/18 07:48 BP 146/77 09/22/18 07:48 Pulse Ox 95 09/22/18 07:48 Intake & Output 09/21/18 09/22/18 09/22/18 18:59 06:59 18:59 Intake Total 600 350 Balance 600 350 Intake: Intake, IV Titration 350 Amount Vancomycin 1,000 mg In 250 Sodium Chloride 0.9% 250 ml @ 125 mls/hr IVPB Q12H [facility] Rx#:[id number] cefTAZidime 2 gm In 100 Sodium Chloride 0.9% 100 ml @ 100 mls/hr IVPB Q8HR [facility] Rx#:[id number] Oral 600 Other: Voiding Method Toilet # Voids 2 2 - Exam On exam dressing is clean, dry and intact. Patient has full range of motion of the left hand. There is mild swelling of the left hand. Left upper extremity is warm and well perfused. Sensation is intact. Neurovascular status and circulatory status are intact. - Labs CBC & Chem 7: 09/20/18 07:33 09/21/18 23:28 Labs: Abnormal Lab Results - Last 24 Hours (Table) 09/21/18 Range/Units 23:28 Glucose 117 H (74-99) mg/dL Microbiology - Last 24 Hours (Table) 09/19/18 17:40 Gram Stain - Preliminary Wrist - Left Wound Culture - Preliminary Assessment and Plan (1) Status post incision and drainage Current Visit: Yes Status: Acute Code(s): Z98.890 - OTHER SPECIFIED POSTPROCEDURAL STATES SNOMED Code(s): 533324560 (2) Infection of left wrist Current Visit: Yes Status: Acute Code(s): M00.9 - PYOGENIC ARTHRITIS, UNSPECIFIED SNOMED Code(s): 956352975 Plan: 1. Continue routine postoperative care and pain control. 2. Cultures are pending. 3. Wound care per infectious disease. 4. Antibiotics per infectious disease. 5. Appreciate input from medicine. 6. Likely discharge home in the next 1-2 days when antibiotics are determined by infectious disease.
[2018-09-22] MEDS: MONTELUKAST 10 MG TAB PO SCH (12:53)
[2018-09-22] MEDS ORDERED: DAPTOmycin 500 MG in SODIUM CHLORIDE 0.9% 50 ML IVPB SCH (22:00)
[2018-09-22] MEDS: ENOXAPARIN 40 MG/0.4 ML SYRINGE SQ SCH (22:16)
[2018-09-22] MEDS: NICOTINE 14MG/24HR PATCH TRANSDERM SCH (22:16)
[2018-09-22] MEDS: PANTOPRAZOLE 40 MG TABLET PO SCH (22:17)
[2018-09-22] MEDS: traZODone HCL 50 MG TAB PO SCH (22:17)
--- NOTE | 2018-09-22 23:12 | PN ---
PROGRESS NOTE DATE OF SERVICE: 09/22/2018 PRESENT COMPLAINT: Left thumb surgery. INTERVAL HISTORY: This is a patient who had surgery on both the thumbs on August 23. Left one has got infected 3 times, has been on IV Ancef, status post I and D on this admission. Pain is better controlled. Awaiting cultures. No new issues. Lying in bed. REVIEW OF SYSTEMS: Done for constitutional, cardiovascular, GI, pulmonary, musculoskeletal and relevant findings as above. CURRENT MEDICATIONS: Reviewed that include IV Vanco and IV ceftazidime. EXAMINATION: VITAL SIGNS: Afebrile, pulse 79, respiration 19, blood pressure 155/83, pulse ox 94 percent on room air. GENERAL APPEARANCE: Lying in bed, comfortable. EYES: Pupils are equal. Conjunctivae normal. NECK: JVD not raised. Mass not palpable. RESPIRATORY effort normal. LUNGS : Slightly decreased breath sounds. CARDIOVASCULAR: 1st and 2nd sounds normal. No edema. ABDOMEN: Soft, nontender. Liver and spleen not palpable. PSYCHIATRY: Alert and oriented times three. Mood and affect normal. MUSCULOSKELETAL: Dressing over the left wrist. INVESTIGATIONS: No blood work from today. Wound cultures come back to be negative and no anaerobes have been picked up till now. ASSESSMENT: 1. Recurrent left hand wound infection status post I and D previously growing MSSA, having failed treatment with IV Ancef. Repeat cultures negative till now. 2. Status post bilateral trigger thumb release in August 23, 2018. 3. Obesity; BMI 32.4. 4. Chronic obstructive pulmonary disease in a current smoker. 5. Gastroesophageal reflux disease. 6. Hyperlipidemia. 7. Essential hypertension. 8. Primary osteoarthritis. 9. Anxiety and depression, not otherwise specified. 10.Chronic nicotine dependence patient is a cigarette smoker. PLAN: Continue current medication and treatment plan. Naproxen was added for anti- inflammatory affect. Doing well. Discharge decision as per Dr. Rodarte. The patient should be able to go back home on IV Ancef. MMODL / IJN: [id number] /
--- NOTE | 2018-09-23 00:15 | PN ---
PROGRESS NOTE DATE OF SERVICE: 09/22/2018. REASON FOR FOLLOWUP: Left wrist osteomyelitis. INTERVAL HISTORY: The patient is afebrile. She is breathing comfortably. Denies having any chest pain or shortness of breath or cough. No abdominal pain or any worsening pain to the left wrist area. No diarrhea. PHYSICAL EXAMINATION: Blood pressure is 155/83 with a pulse of 79, temperature 97.9. She is 94% on room air. GENERAL DESCRIPTION: An elderly female lying in bed in no distress. RESPIRATORY SYSTEM: Unlabored breathing. Clear to auscultation anteriorly. HEART: S1, S2. Regular rate and rhythm. ABDOMEN: Soft, no tenderness. Left foot is currently dressed up. No obvious drainage on the dressing. LABS: All cultures so far negative. DIAGNOSTIC IMPRESSION AND PLAN: Patient with recent admission to hospital. The patient is status post drainage of the left thumb abscess as well as left wrist and cultures were positive for MSSA and blood culture positive for MSSA. The patient was on IV cefazolin, however, did have a breakthrough infection with concern for possible resistant pathogen. However, repeat cultures have been negative so far. In view of possible failure of cefazolin, she will be switched to daptomycin 6 mg/kg currently 500 mg daily for another few weeks with close outpatient followup. Continue supportive care. MMODL / IJN: [id number] / JENNIFER
[2018-09-23] MEDS: NAPROXEN 250 MG TAB PO SCH (08:17)
[2018-09-23] MEDS: CITALOPRAM HYDROBROMIDE 20 MG TAB PO SCH (08:17)
[2018-09-23] MEDS: SENNOSIDES-DOCUSATE SODIUM 1 EACH TAB PO SCH (08:17)
--- NOTE | 2018-09-23 08:51 | P.DS ---
Providers Date of admission: 09/20/18 18:06 Expected date of discharge: 09/23/18 Attending physician: Michael Elliott Consults: 09/19/18 17:45 Consult Physician Routine Consulting Provider: Sebastian Rodarte Consult Reason/Comments: antibiotic recommendations Do you want consulting provider notified?: Yes 09/19/18 17:51 Consult Physician Routine Consulting Provider: Casey Frey Consult Reason/Comments: medical management Do you want consulting provider notified?: Yes 09/19/18 19:47 Consult Physician Routine Consulting Provider: Asim Kerns Consult Reason/Comments: Medical Managemen Do you want consulting provider notified?: Yes Primary care physician: Bryon Frey - Discharge Diagnosis(es) (1) Infection of left wrist Status: Acute (2) Flexor tenosynovitis of thumb Status: Acute (3) Surgical site infection Status: Acute Hospital Course: The patient is a 68-year-old female who is well known to our office. The patient initially underwent a bilateral trigger thumb release on 08/23/[address] Hernán Elliott. She did well postoperatively until 08/27/2018 while she developed redness and swelling to the left thumb and hand. She underwent a I&D of the left thumb on 08/28/2018. Then underwent a repeat I&D of the left thumb and wrist on 09/02/2018. The patient was discharged home with a PICC line and IV antibiotics in the form of Kefzol per Dr. Rodarte on 09/03/2018. She was doing well at home with home care and physical therapy until 09/18/2018 within the home care nurse noticed increased purulence in the left volar wrist wound. The patient was evaluated in our office and was scheduled for an I&D of the left wrist on 09/19/2018. New cultures were taken which were negative for organisms. The patient has been seen and evaluated by infectious disease, Dr. Rodarte, and internal medicine. The antibiotics will be changed to Rocephin daily. The patient is ready for discharge home with home care today. On the day of discharge, the patient is alert and oriented 3. She is in no acute distress. Exam of the left thumb reveal a completely healed wound to the volar thumb. The volar wrist wound dressing was changed today. The wound bed is clean. No purulence noted at this time. The wrist was redressed with a dry dressing. The patient does have stiffness to her fingers and thumb due to pain and swelling. No numbness. Neurological and circulatory status is intact. The patient will be discharged home today with home care and home physical therapy. Wound care and antibiotic therapy per Dr. Rodarte. She'll recheck with Dr. Hernán Elliott on 09/26/2018 as previously scheduled. Pertinent Studies: Laboratory Tests 09/20/18 09/20/18 09/21/18 07:33 07:33 23:28 WBC 5.8 RBC 4.00 Hgb 10.5 L Hct 34.5 MCHC 30.3 L ESR 43 H Glucose 117 H C-Reactive Protein 39.7 H Patient Condition at Discharge: Stable Plan - Discharge Summary Discharge Rx Participant: Yes New Discharge Prescriptions: New HYDROcodone/APAP 5-325MG [[place] 5] 1 - 2 each PO Q4-6H PRN #60 tab PRN Reason: Pain cefTRIAXone [Rocephin] 2,000 mg IVPB Q24HR #28 vial No Action traZODone HCL 50 - 100 mg PO HS Citalopram Hydrobromide [CeleXA] 40 mg PO QAM Naproxen Sodium [Aleve] 440 mg PO HS Citalopram Hydrobromide [CeleXA] 20 mg PO W/SUPPER Cholecalciferol [Vitamin D3] 2,000 unit PO DAILY Biotin 5 mg PO DAILY Ascorbic Acid [Vitamin C] 500 mg PO DAILY Vitamin B Complex 1 cap PO DAILY Flaxseed Oil [[place]-3 Flaxseed Oil] 1,000 mg PO BID Aspirin [Adult Low Dose Aspirin EC] 81 mg PO W/SUPPER L.acidoph,Paracasei, B.lactis [Probiotic] 1 cap PO DAILY Hydrochlorothiazide 25 mg PO W/SUPPER Montelukast [Singulair] 10 mg PO DAILY@1300 Ginkgo Biloba 1,000 mg PO BID Omeprazole 40 mg PO HS Ibuprofen [Motrin Ib] 600 mg PO Q6H PRN PRN Reason: Pain Albuterol Inhaler [Ventolin Hfa Inhaler] 2 puff INHALATION RT-BID HYDROcodone/APAP 5-325MG [[place] 5] 1 - 2 tab PO Q4-6H PRN PRN Reason: Pain Discharge Medication List Citalopram Hydrobromide [CeleXA] 40 mg PO QAM 07/18/16 [History] traZODone HCL 50 - 100 mg PO HS 07/18/16 [History] Ascorbic Acid [Vitamin C] 500 mg PO DAILY 11/01/16 [History] Aspirin [Adult Low Dose Aspirin EC] 81 mg PO W/SUPPER 11/01/16 [History] Biotin 5 mg PO DAILY 11/01/16 [History] Cholecalciferol [Vitamin D3] 2,000 unit PO DAILY 11/01/16 [History] Citalopram Hydrobromide [CeleXA] 20 mg PO W/SUPPER 11/01/16 [History] Flaxseed Oil [[place]-3 Flaxseed Oil] 1,000 mg PO BID 11/01/16 [History] L.acidoph,Paracasei, B.lactis [Probiotic] 1 cap PO DAILY 11/01/16 [History] Naproxen Sodium [Aleve] 440 mg PO HS 11/01/16 [History] Vitamin B Complex 1 cap PO DAILY 11/01/16 [History] Ginkgo Biloba 1,000 mg PO BID 04/16/17 [History] Hydrochlorothiazide 25 mg PO W/SUPPER 04/16/17 [History] Montelukast [Singulair] 10 mg PO DAILY@1300 04/16/17 [History] Albuterol Inhaler [Ventolin Hfa Inhaler] 2 puff INHALATION RT-BID 08/28/18 [ History] Ibuprofen [Motrin Ib] 600 mg PO Q6H PRN 08/28/18 [History] Omeprazole 40 mg PO HS 08/28/18 [History] HYDROcodone/APAP 5-325MG [[place] 5] 1 - 2 each PO Q4-6H PRN #60 tab 09/20/18 [Rx] HYDROcodone/APAP 5-325MG [[place] 5] 1 - 2 tab PO Q4-6H PRN 09/20/18 [History] cefTRIAXone [Rocephin] 2,000 mg IVPB Q24HR #28 vial 09/23/18 [Rx] Follow up Appointment(s)/Referral(s): [facility], [REFERRING] - [facility], [REFERRING] - Michael Elliott DO [Doctor of Osteopathic Medicine] - 09/26/18 (Already has appt scheduled. ) Sebastian Rodarte MD [STAFF PHYSICIAN] - 2 Weeks Patient Instructions/Handouts: Joint Incision and Drainage (DC) Activity/Diet/Wound Care/Special Instructions: Wound care and IV antibiotics per Dr. Rodarte Finger motion as tolerated Call [facility] with any questions or concerns, . [facility] to deliver supplies 09/24/18 for IV antibiotic infusions Pack with Aquacell Silver Q72H cover with gauze, wrap with kerlix and leora bandage. Discharge Disposition: HOME WITH HOME HEALTH SERVICES
[2018-09-23 09:33] LABS: Anion Gap 10 mmol/L; Blood Urea Nitrogen 9 mg/dL (7-17); Calcium 8.7 mg/dL (8.4-10.2); Carbon Dioxide 25 mmol/L (22-30); Chloride 104 mmol/L (98-107); Glucose 157 mg/dL (74-99); Sodium 139 mmol/L (137-145)
[2018-09-23 09:47] VITALS: BP 147/77; PULSE 80; RESP 16; TEMP 98.3
[2018-09-23] MEDS ORDERED: DAPTOmycin 500 MG in SODIUM CHLORIDE 0.9% 50 ML IVPB SCH (15:00)
[2018-09-23] MEDS: HYDROcodone/APAP 5-325MG 1 EACH TAB PO PRN (15:06)
[2018-09-23] MEDS: MONTELUKAST 10 MG TAB PO SCH (15:06)
--- NOTE | 2018-09-23 17:22 | PN ---
PROGRESS NOTE DATE OF SERVICE: 09/23/2018 REASON FOR FOLLOWUP: Left wrist abscess and osteomyelitis. INTERVAL HISTORY: The patient is currently afebrile. She is breathing comfortably. The left wrist pain and swelling have improved. No drainage. Denies having any chest pain. No shortness of breath or cough. No abdominal pain or diarrhea. PHYSICAL EXAMINATION: Blood pressure 147/77 with a pulse of 80, temperature 98.3. She is 97% on room air. General description is an elderly female lying in bed in no distress. RESPIRATORY SYSTEM: Unlabored breathing. Clear to auscultation anteriorly. HEART: S1, S2. Regular rate and rhythm. ABDOMEN: Soft. No tenderness. Left wrist wound looks clean with good granulation tissue. No surrounding swelling, redness or any drainage. LABS: BUN of 9, creatinine 0.48. DIAGNOSTIC IMPRESSION AND PLAN: Patient with left wrist abscess and osteomyelitis. Previous culture was positive for MSSA. Culture this admission has been negative so far. We did advise daptomycin; however, that was too expensive for her. She will be transitioned to Rocephin 2 grams daily for another 3 to 4 weeks, depending on her clinical response with weekly monitoring of CBC and BMP and sed rate and close outpatient followup. The patient does have a history of penicillin allergy; however, she has tolerated cephalosporin in the form of cefazolin; hence Rocephin will be safe in the outpatient setting. MMODL / IJN: [id number] / MTDD
--- NOTE | 2018-09-25 10:47 | CDI ---
Documentation Clarification Form Date: 09/25/18 From: Ursula Truong Phone: If you have a question regarding this query, please contact Fauzia Ramírez at [phone] between 8am and 5pm. Admit Date: 09/20/2018 6:06:00 PM Patient Name: Lali Shaw Visit Number: [id number] Discharge Date: 09/23/2018 4:25:00 PM ATTENTION: The Clinical Documentation Specialists (CDI) and [facility] Coding Staff appreciate your assistance in clarifying documentation. Please respond to the clarification below the line at the bottom and electronically sign. The CDI & [facility] Coding staff will review the response and follow-up if needed. Please note: Queries are made part of the Legal Health Record. If you have any questions, please contact the author of this message via ITS. Dr. Michael Elliott Per your operative note, an I&D was performed. Documentation in the op note also states that a debridement was performed on the wrist with a rongeur of involved appearing bone. History/Risk Factors: Patient was admitted with infection of the left wrist. The patient is status post bilateral trigger thumb releases on 08/23/18. Patient was found to have an infection along her FPL tendon that extended into her wrist. The patient underwent I&D on 08/28 and 09/02. Clinical Indicators: Abscess, pain Treatment: I&D, IV Vancomycin In order to capture the severity of condition and code the appropriate procedure ; could you please document the following: Excisional debridement (the removal of necrotic, devitalized tissue or slough by means of cutting away of tissue) N on-excisional debridement (the removal of necrotic, devitalized tissue or slough by means of flushing, brushing, or washing. (Irrigation) Other; please specify Unable to determine MTDD
--- NOTE | 2018-09-26 07:03 | CDI ---
Documentation Clarification Form Date: 09/26/18 From: Ursula Truong Phone: If you have a question regarding this query, please contact Fauzia Ramírez at [phone] between 8am and 5pm. Admit Date: 09/20/2018 6:06:00 PM Patient Name: Lali Shaw Visit Number: [id number] Discharge Date: 09/23/2018 4:25:00 PM ATTENTION: The Clinical Documentation Specialists (CDI) and [facility] Coding Staff appreciate your assistance in clarifying documentation. Please respond to the clarification below the line at the bottom and electronically sign. The CDI & [facility] Coding staff will review the response and follow-up if needed. Please note: Queries are made part of the Legal Health Record. If you have any questions, please contact the author of this message via ITS. Dr. Michael Elliott Per your operative note, an I&D was performed. Documentation in the op note also states that a debridement was performed on the wrist with a rongeur of involved appearing bone. History/Risk Factors: Patient was admitted with infection of the left wrist. The patient is status post bilateral trigger thumb releases on 08/23/18. Patient was found to have an infection along her FPL tendon that extended into her wrist. The patient underwent I&D on 08/28 and 09/02. Clinical Indicators: Abscess, pain Treatment: I&D, IV Vancomycin In order to capture the severity of condition and code the appropriate procedure ; could you please document the following: Excisional debridement (the removal of necrotic, devitalized tissue or slough by means of cutting away of tissue) Or Non-excisional debridement (the removal of necrotic, devitalized tissue or slough by means of flushing, brushing, or washing. (Irrigation) Other; please specify Unable to determine I performed a excisional debridement of slough and devitalized tissue in the volar wrist with excision of the distal pole of the scaphoid. A throughout irrigation was performed after the excisional debridement. DENNY RODRIGUEZ
== END 2018-09-23 16:25 | disposition home health service (06) | DRG 857 ==
LOC: OR 16:08 → 4SSUR 17:45 → OR 09-20 18:10
PROVIDERS: ADMIT Orthopaedic Surgery Hand Surgery; ATTEND Orthopaedic Surgery Hand Surgery
PROC: 0JBH0ZZ Excision of Left Lower Arm Subcutaneous Tissue and Fascia, Open Approach (ICD-10-PCS; principal; 2018-09-19 10:15)
DX: T81.41XA Infection following a procedure, superficial incisional surgical site, initial encounter (principal); L02.414 Cutaneous abscess of left upper limb; M86.9 Osteomyelitis, unspecified; J44.9 Chronic obstructive pulmonary disease, unspecified; E66.9 Obesity, unspecified; E78.5 Hyperlipidemia, unspecified; F17.210 Nicotine dependence, cigarettes, uncomplicated; F32.9 Major depressive disorder, single episode, unspecified; F41.9 Anxiety disorder, unspecified; I10 Essential (primary) hypertension; K21.9 Gastro-esophageal reflux disease without esophagitis; B95.61 Methicillin susceptible Staphylococcus aureus infection as the cause of diseases classified elsewhere; G43.909 Migraine, unspecified, not intractable, without status migrainosus; M19.90 Unspecified osteoarthritis, unspecified site; M54.5 Low back pain; K44.9 Diaphragmatic hernia without obstruction or gangrene; E07.9 Disorder of thyroid, unspecified; Z90.710 Acquired absence of both cervix and uterus; Z68.32 Body mass index [BMI] 32.0-32.9, adult; Z79.82 Long term (current) use of aspirin; Z79.899 Other long term (current) drug therapy; Z87.442 Personal history of urinary calculi; Z86.14 Personal history of Methicillin resistant Staphylococcus aureus infection; Z86.12 Personal history of poliomyelitis; Z87.01 Personal history of pneumonia (recurrent); Z88.2 Allergy status to sulfonamides; Z88.8 Allergy status to other drugs, medicaments and biological substances; Z91.040 Latex allergy status; Z90.49 Acquired absence of other specified parts of digestive tract; Z88.0 Allergy status to penicillin; Z82.5 Family history of asthma and other chronic lower respiratory diseases; Z82.49 Family history of ischemic heart disease and other diseases of the circulatory system
CPT/HCPCS: 80048; 80202; 85025; 85027; 85652; 86140; 87070; 87075; 87205

== ENCOUNTER → 2020-06-10 | Outpatient (CLI) | payer MEDICARE ==
--- NOTE | 2020-06-10 15:58 | XR ---
Bilateral feet HISTORY: Pain 3 views of each foot submitted. There is a small left plantar calcaneal spur. There is no fracture or dislocation bilaterally. Joint spaces, alignment, bone mineralization maintained bilaterally. IMPRESSION: Small plantar calcaneal spur. Foot MRI may be of benefit.
--- NOTE | 2020-06-10 16:01 | XR ---
Lumbar sacral spine HISTORY: Chronic low back pain 5 views of lumbosacral spine There is spondylolysis suspected L5, anterolisthesis grade 1 at L4-5 and L5-S1. Loss of disc height i s present intervertebral levels L3-4, L4-5 and L5-S1. Sclerosis present in the posterior elements. Bonnie mbar vertebral bodies show decreased bone mineralization are preserved height. Dense vascular calcifi cations are present incidentally in the aortoiliac distribution. There is a mild spinal curvature. IMPRESSION: Osteopenia, degenerative disc disease and facet arthropathy. Suspect spondylolysis at L5 may be present.
== END | disposition home or self-care (01) ==
LOC: RADXRYALE 15:26
PROVIDERS: ATTEND Family Medicine
DX: M51.37 Other intervertebral disc degeneration, lumbosacral region (principal); M47.817 Spondylosis without myelopathy or radiculopathy, lumbosacral region; M85.88 Other specified disorders of bone density and structure, other site; M77.32 Calcaneal spur, left foot; M77.31 Calcaneal spur, right foot
CPT/HCPCS: 72110